=== PATIENT | female | born 1965 | race Caucasian/White ===

== ENCOUNTER → 2017-05-08 | Outpatient (CLI) | payer BC, OTHER ==
[~2017-05-08] MED LIST: BARIUM SUSPENSION 105% (LIQUID POLIBAR PLUS) 240 ML/DOSE PO ONE; BARIUM SUSPENSION 60% (LIQUID EZ PAQUE) 240 ML DOSE PO ONE
== END ==
DX: K21.9 Gastro-esophageal reflux disease without esophagitis (principal); K44.9 Diaphragmatic hernia without obstruction or gangrene

== ENCOUNTER 2017-06-26 05:36 | Outpatient (CLI) | payer OTHER ==
[~2017-06-26] VITALS: Ht 167.6 cm; Wt 137.9 kg
[2017-06-26] MEDS ORDERED: AMIT100T2 PO (10:03)
[2017-06-26] MEDS ORDERED: LEVO75TA PO (10:03)
[2017-06-26] MEDS ORDERED: CALC-654 PO (10:03)
[2017-06-26] MEDS ORDERED: ESTR1TAB27 PO (10:07)
[2017-06-26 10:09] VITALS: BP 121/81
== END 2017-06-26 10:33 | disposition home or self-care (01) ==
LOC: PREOP 05:36
PROVIDERS: ATTEND Surgery
DX: Z01.818 Encounter for other preprocedural examination (principal); E66.01 Morbid (severe) obesity due to excess calories
CPT/HCPCS: 87081

== ENCOUNTER 2017-07-03 06:10 | Day surgery (SDC) | payer OTHER ==
[2017-07-03] VITALS (7 sets, daily range): BP systolic 124–178; BP diastolic 78–98
[~2017-07-03] VITALS: Ht 167.6 cm; Wt 137.9 kg
[~2017-07-03 06:10] MED LIST changes: +AMIT100T2 PO; -BARIUM SUSPENSION 105% (LIQUID POLIBAR PLUS) 240 ML/DOSE PO ONE; -BARIUM SUSPENSION 60% (LIQUID EZ PAQUE) 240 ML DOSE PO ONE; +CALC-654 PO; +ESTR1TAB27 PO; +LEVO75TA PO
[2017-07-03] MEDS ORDERED: NS (IVPB) 50 ML ONE (06:33)
[2017-07-03] MEDS ORDERED: ceFAZolin 1,000 MG (ANCEF) VIAL ONE (06:33)
[2017-07-03] MEDS ORDERED: ALPR0.5T PO (06:57)
[2017-07-03] MEDS ORDERED: ceFAZolin 1 GM/NS 50 ML IVPB IV ONE ×2 (07:00)
[2017-07-03] MEDS ORDERED: FAMOTIDINE 20MG/2ML IV (PEPCID) IV ONE (07:00)
[2017-07-03] MEDS ORDERED: ONDANSETRON 4 MG/2 ML (SDV) Z0FRAN IV ONE (07:00)
[2017-07-03] MEDS: LACTATED RINGERS 1,000 ML IV PRN ×2 (07:17→11:23)
--- NOTE | 2017-07-03 07:48 | Progress Note-Pre Operative ---
Pre-Operative Progress Note H&P Reviewed The H&P was reviewed, patient examined and no changes noted. Date Seen by Provider: Jul 03, 2017 Time Seen by Provider: 07:40 Date H&P Reviewed: Jul 03, 2017 Time H&P Reviewed: 07:45 Pre-Operative Diagnosis: morbid obesity, obstructive sleep apnea GEOVANI HUNTER APRN Jul 03, 2017 7:48 am
[2017-07-03] MEDS ORDERED: BUP/EPI 0.5% 1:200,000 (MARCAINE) 10ML VIAL IJ ONE (09:59)
[2017-07-03] MEDS ORDERED: ONDANSETRON 4 MG/2 ML (SDV) Z0FRAN ONE ×2 (10:22→11:50)
[2017-07-03] MEDS ORDERED: proPOfol 200 MG/20 ML (DIPRIVAN) VIAL IV ONE (10:22)
[2017-07-03] MEDS ORDERED: ROCURONIUM 50 MG/5 ML (ZEMURON) VIAL IV ONE ×2 (10:22→11:37)
[2017-07-03] MEDS ORDERED: SUCCINYLCHOLINE INJ 100 MG/5 ML SYR ONE (10:22)
[2017-07-03] MEDS ORDERED: LIDOCAINE PF 2% 5 ML (XYLOCAINE) VIAL ONE (10:22)
[2017-07-03] MEDS ORDERED: LACTATED RINGERS 0 ML IV ONE (10:22)
[2017-07-03] MEDS ORDERED: MIDAZOLAM 2 MG/2 ML (VERSED) VIAL ONE (10:23)
[2017-07-03] MEDS ORDERED: fentaNYL INJECTION 100 MCG/2 ML AMP ONE ×2 (10:23→11:50)
[2017-07-03] MEDS ORDERED: SEVOFLURANE (ULTANE) 15 ML INHAL SOLN ONE ×7 (10:42→12:21)
[2017-07-03] MEDS ORDERED: LACTATED RINGERS 1,000 ML IV ONE ×3 (10:42→13:33)
[2017-07-03] MEDS ORDERED: morphine INJ 10 MG/ML 1ML (SYR OR VIAL) ONE (11:50)
[2017-07-03] MEDS ORDERED: MEPERIDINE (DEMEROL) INJ 50 MG/ML ONE (11:50)
[2017-07-03] MEDS ORDERED: HYDROmorphone (DILAUDID) 2 MG/ML VIAL ONE (11:50)
--- NOTE | 2017-07-03 13:01 | Progress Note-Post Operative ---
Post-Operative Progess Note Surgeon (s)/Weaving Supervisor (s) Surgeon JESUS MANCILLA MD Weaving Supervisor: aubrey forbes INSIDE SALES ACCOUNT EXECUTIVE Pre-Operative Diagnosis morbid obesity, obstructive sleep apnea Post-Operative Diagnosis same Procedure & Operative Findings Date of Procedure 07/03/17 Procedure Performed/Findings laparoscopic gastric sleeve resection. Anesthesia Type GET Estimated Blood Loss Estimated blood loss (mL): minimal Specimens/Packing Specimens Removed stomach JESUS MANCILLA MD Jul 03, 2017 1:01 pm
[2017-07-03] MEDS ORDERED: HYDROmorphone (DILAUDID) 2 MG/ML VIAL IVP PRN (13:15)
[2017-07-03] MEDS ORDERED: fentaNYL INJECTION 5,000 MCG in NS (IVPB) 0 ML IV SCH (13:15)
[2017-07-03] MEDS ORDERED: RT-ALBUTEROL SULF 2.5 MG/3 ML PRE-MIX VIAL INH SCH (13:15)
[2017-07-03] MEDS ORDERED: diphenhydrAMINE 50 MG/ML INJ (BENADRYL) IVP PRN (13:15)
[2017-07-03] MEDS ORDERED: MEPERIDINE (DEMEROL) INJ 50 MG/ML IVP PRN (13:15)
[2017-07-03] MEDS ORDERED: morphine INJ 10 MG/ML 1ML (SYR OR VIAL) IVP PRN (13:15)
[2017-07-03] MEDS ORDERED: PROMETHAZINE INJ 25 MG/ML (PHENERGAN) AMP IVP PRN (13:15)
[2017-07-03] MEDS ORDERED: oxyCODONE 20 MG/1 ML ORAL CONC (RoxiCODONE) CHARGE PER 1 ML PO PRN (13:15)
[2017-07-03] MEDS ORDERED: ONDANSETRON 4 MG/2 ML (SDV) Z0FRAN IVP PRN (13:15)
[2017-07-03] MEDS ORDERED: ceFAZolin 2 GM/50 ML NS 50 ML IV SCH (14:00)
[2017-07-03] MEDS ORDERED: NS IV 1000 ML 1,000 ML IV SCH (15:39)
[2017-07-03] MEDS ORDERED: diphenhydrAMINE 50 MG/ML INJ (BENADRYL) IV PRN (15:45)
[2017-07-03] MEDS ORDERED: METOCLOPRAMIDE INJ 10 MG/2 ML (REGLAN) IV PRN (15:45)
[2017-07-03] MEDS ORDERED: fentaNYL PCA 300 MCG/30 ML VIAL IV PRN (15:45)
[2017-07-03] MEDS ORDERED: NALOXONE 0.4 MG/ML 1 ML (NARCAN) VIAL IV PRN (15:45)
[2017-07-03] MEDS ORDERED: ONDANSETRON 4 MG/2 ML (SDV) Z0FRAN IV PRN (15:45)
[2017-07-03] MEDS: 1/2 NS W/KCL 20 MEQ/L 1,000 ML IV SCH (16:09)
--- NOTE | 2017-07-03 16:14 | OPERATIVE REPORT ---
DATE OF SERVICE: 07/03/2017 ATTENDING PRIMARY CARE PHYSICIAN: Dr. Gregory Dudley. PREOPERATIVE DIAGNOSES: 1. Morbid obesity. 2. Obstructive sleep apnea. POSTOPERATIVE DIAGNOSIS: 1. Morbid obesity. 2. Obstructive sleep apnea. PROCEDURE: Laparoscopic gastric sleeve resection. SURGEON: Dr. Mancilla. FIRE ENGINE OPERATOR: Oscar Garrett APRN. ANESTHESIA: General endotracheal. ESTIMATED BLOOD LOSS: Minimal. FINDINGS: Mild hepatomegaly, gallbladder appeared normal. DISPOSITION: The patient tolerated the procedure well. INDICATIONS: The patient is a 52-year-old female who is in our surgical weight loss program for the laparoscopic gastric sleeve resection and meets the medical criteria for bariatric surgery. She reports that she has been overweight for greater than 20 years and has tried multiple diet and exercise attempts with no success. She has tried dieting programs including a low carbohydrate, low fat diet, as well as a low calorie diet with no success. She has also tried a number of exercise regimens including walking, treadmill, bike, aerobic exercise classes, as well as resistance weight training with some success; however, over time would regain weight. Her medical comorbidities related to her obesity include obstructive sleep apnea. DESCRIPTION OF PROCEDURE: The patient was brought to the operating room, laid supine on the table. After adequate IV pain and sedating medications and general endotracheal intubation, the abdomen was prepped and draped in the standard surgical fashion. There was 0.5% Marcaine with epinephrine used to anesthetize the overlying skin in the left upper abdominal quadrant and a small transverse skin incision made using 15 blade. An 0 silk suture was applied to the medial aspect of the incision for retraction and a Veress needle inserted with a low opening pressure of 0 mmHg and the abdomen was then insufflated to 15 mmHg pressure. The Veress needle removed and a 5 mm Xcel trocar placed followed by a 5 mm 45 degree angle laparoscope visualizing in the peritoneal cavity. A 4 quadrant abdominal exploration was performed. There was mild hepatomegaly. The gallbladder, stomach and omentum appeared normal. Under direct visualization, we then proceeded to place a midabdominal left midline 10 mm port after the skin and peritoneum were anesthetized using 0.5% Marcaine with epinephrine and a transverse skin incision made using a 15 blade. In a similar fashion, a midabdominal right of midline 15 mm port was placed followed by a 5 mm right upper abdominal quadrant port. An area in the epigastric region was then anesthetized and a transverse skin incision made using an 11 blade. A tract was then created through the abdominal wall layers using a trocar to a 5 mm port. Through this opening a medium sized Nathansen liver retractor was placed. The left lobe of the liver retracted anteriorly and superiorly. The patient was then placed in steep reverse Trendelenburg position. We then measured approximately 6 cm from the pylorus and marked this with a marking pen. The gastrocolic ligament towards the stomach was then opened using a Sonicision exposing the lesser sac. We then proceeded inferiorly with an inferior dissection along the greater curvature using the Sonicision until we were approximately 2 cm below our marking. We then proceeded cephalad taking down the short gastric vessels using the Sonicision with visualization of good hemostasis. The angle of His connective tissue fibers were then completely dissected, as well as the posterior stomach in this region. No hiatal hernia was identified. We then proceeded with placement of the gastrosail under direct visualization and directed the tip into the pylorus. Using this as our bougie we then proceeded with a gastric sleeve resection. We first proceeded with the DAPHNIE 45 mm poly glycolic acid black load 2 cm below our marking. We then proceeded with our gastric sleeve resection along the lighted bougie with a 60 mm black load followed by 260 mm purple loads. The staple line corners were then clipped with a 5 mm clip. The area was then irrigated and a leak test was performed while occluding the pylorus 60 mL of air were infused with no leak identified. The saline was then suctioned out. Tisseel fibrin glue was then placed onto the staple line and the omentum placed over the staple line. The liver retractor was then removed and the gastrosail removed as well. The fascia and peritoneum to the 15 and 10 mm port site was then closed under direct visualization using a Warren-Josefa device and 0 Vicryl suture. The abdomen was desufflated and remaining ports removed. All skin incisions were closed using 4-0 Monocryl running subcuticular sutures. Wounds were then cleaned and covered with Dermabond. The patient tolerated the procedure well. We will admit her for 23-hour observation to the floor. We will proceed with DVT prophylaxis with calf SCDs, early ambulation, as well as Lovenox injections. We will also proceed with a SHELL WORKER pump for pain control. Tomorrow morning, we will start patient on clear liquid diet and once she is tolerating clears and has good pain control with oral pain medication and is ambulating well, we will discharge her home. Job ID: [id number] DocumentID: [id number] Dictated Date: 07/03/2017 13:19:25 Resistor Inspector Date: 07/03/2017 16:13:52 Dictated By: JESUS MANCILLA MD
[2017-07-03] MEDS: ceFAZolin 2 GM/50 ML NS 50 ML IV SCH (17:41)
[2017-07-03] MEDS: meTOprolol 5 MG/5 ML (LOPRESSOR) VIAL IVP SCH ×2 (17:50→20:51)
[2017-07-03] MEDS ORDERED: HYDROmorphone (DILAUDID) 2 MG TAB PO PRN (18:00)
[2017-07-03] MEDS: METOCLOPRAMIDE INJ 10 MG/2 ML (REGLAN) IVP SCH (18:51)
[2017-07-03] MEDS: ONDANSETRON 4 MG/2 ML (SDV) Z0FRAN IVP SCH (18:53)
[2017-07-03] MEDS: RT-ALBUTEROL SULF 2.5 MG/3 ML PRE-MIX VIAL INH SCH ×2 (19:05→21:11)
[2017-07-03] MEDS: ENOXAPARIN 40 MG/0.4 ML (LOVENOX) SYR SC SCH (20:19)
[2017-07-03] MEDS: HYDROmorphone (DILAUDID) 2 MG/ML VIAL IVP PRN (20:19)
[2017-07-03] MEDS: metroNIDAZOLE 500MG/100ML IVPB 100 ML IV SCH (22:16)
[2017-07-04] VITALS: BP 134/75
[2017-07-04] MEDS: 1/2 NS W/KCL 20 MEQ/L 1,000 ML IV SCH ×3 (00:06→08:28)
[2017-07-04] MEDS: METOCLOPRAMIDE INJ 10 MG/2 ML (REGLAN) IVP SCH ×3 (00:07→11:49)
[2017-07-04] MEDS: ONDANSETRON 4 MG/2 ML (SDV) Z0FRAN IVP SCH ×3 (00:07→11:49)
[2017-07-04] MEDS: HYDROmorphone (DILAUDID) 2 MG/ML VIAL IVP PRN ×2 (00:24→08:01)
[2017-07-04 00:31] VITALS: BP 121/80
[2017-07-04] MEDS: meTOprolol 5 MG/5 ML (LOPRESSOR) VIAL IVP SCH ×4 (00:31→12:06)
[2017-07-04] MEDS: ceFAZolin 2 GM/50 ML NS 50 ML IV SCH ×2 (00:31→10:12)
[2017-07-04] MEDS: RT-ALBUTEROL SULF 2.5 MG/3 ML PRE-MIX VIAL INH SCH ×3 (02:00→10:44)
[2017-07-04 04:00] VITALS: BP 158/96
[2017-07-04] MEDS: metroNIDAZOLE 500MG/100ML IVPB 100 ML IV SCH (04:30)
[2017-07-04 06:11] LABS: MEAN PLATELET VOLUME 10.4 FL (7.4-10.4); RED BLOOD COUNT 5.47 10^6/uL (4.35-5.85); RED CELL DISTRIBUTION WIDTH 15.1 % (10.0-14.5); WHITE BLOOD COUNT 11.7 10^3/uL (4.3-11.0)
[2017-07-04 06:37] LABS: ANION GAP 13 MMOL/L (5-14); BLOOD UREA NITROGEN 4 MG/DL (7-18); BUN/CREATININE RATIO 5; CALCIUM 10.4 MG/DL (8.5-10.1); CARBON DIOXIDE 22 MMOL/L (21-32); CHLORIDE 102 MMOL/L (98-107); CREATININE SERUM 0.75 MG/DL (0.60-1.30); GFR ESTIMATED > 60; GLUCOSE 102 MG/DL (70-105); POTASSIUM 3.9 MMOL/L (3.6-5.0); SODIUM 137 MMOL/L (135-145)
[2017-07-04] MEDS: ENOXAPARIN 40 MG/0.4 ML (LOVENOX) SYR SC SCH (07:58)
[2017-07-04 08:55] VITALS: BP 116/76
[2017-07-04] MEDS ORDERED: PANTOPRAZOLE 40 MG/10 ML (PROTONIX) VIAL IV SCH (09:00)
[2017-07-04] MEDS ORDERED: SENNA W/DOCUSATE (SENOKOT S) TABLET PO SCH (09:00)
--- NOTE | 2017-07-04 10:05 | Anesthesia-General Post-Op ---
General Patient Condition Mental Status/LOC: Same as Preop Cardiovascular: Satisfactory Nausea/Vomiting: Absent Respiratory: Satisfactory Pain: Controlled Complications: Absent Post Op Complications Complications None Follow Up Care/Instructions Patient Instructions None needed. Anesthesia/Patient Condition Patient Condition Patient is doing well, no complaints, stable vital signs, no apparent adverse anesthesia problems. No complications reported per nursing. АНДРЕЙ BURDICK CRNA Jul 04, 2017 10:05
[2017-07-04 12:00] VITALS: BP_SYST 103; BP_SYST 115; BP_DIAS 68; BP_DIAS 78
[2017-07-04] MEDS ORDERED: metroNIDAZOLE 500MG/100ML IVPB 100 ML IV SCH (12:30)
--- NOTE | 2017-07-04 13:00 | Progress Note (SOAP) ---
Subjective Date Seen by Provider: Jul 04, 2017 Time Seen by Provider: 12:00 Subjective/Events-last exam doing well. tolerating clears. pain controlled. ambulating well. Objective Exam Vital Signs Date Time Temp Pulse Resp B/P (MAP) Pulse Ox O2 Delivery O2 Flow Rate FiO2 07/04/17 10:44 95 Nasal Cannula 1.00 07/04/17 08:55 98.2 81 20 116/76 96 Room Air 10.00 07/04/17 07:31 98 Nasal Cannula 2.00 07/04/17 07:00 83 07/04/17 04:00 97.4 85 17 158/96 94 Room Air 07/04/17 02:02 94 Nasal Cannula 2.00 07/04/17 01:00 66 07/04/17 00:31 72 121/80 07/04/17 00:00 97.2 75 16 134/75 99 Room Air 10.00 07/04/17 00:00 97.2 75 16 134/75 99 Room Air 07/03/17 21:12 96 Nasal Cannula 2.00 07/03/17 20:53 76 124/83 07/03/17 20:53 74 07/03/17 20:00 Room Air 07/03/17 20:00 97.8 84 20 141/78 100 Room Air 07/03/17 19:05 95 Nasal Cannula 2.00 07/03/17 19:00 98.0 78 18 158/78 100 Room Air 07/03/17 18:20 97.7 79 20 153/80 98 Room Air 07/03/17 17:22 Room Air 10.00 07/03/17 17:00 97.8 92 20 178/98 97 Room Air 07/03/17 16:05 98.1 81 16 130/79 98 Room Air 07/03/17 15:57 2.00 I & O 07/05/17 07:00 Intake Total 100 ml Balance 100 ml Capillary Refill : General Appearance: No Apparent Distress HEENT: PERRL/EOMI Neck: Full Range of Motion, Normal Inspection Respiratory: Chest Non Tender, Lungs Clear Cardiovascular: Regular Rate, Rhythm Gastrointestinal: normal bowel sounds, soft, other (incisions clean/dry) Extremity: Normal Capillary Refill Neurologic/Psychiatric: Alert, Oriented x3 Skin: Normal Color Lymphatic: No Adenopathy Results Lab Laboratory Tests 07/04/17 05:52: White Blood Count 11.7H, Red Blood Count 5.47, Hemoglobin 15.2, Hematocrit 46, Mean Corpuscular Volume 85, Mean Corpuscular Hemoglobin 28, Mean Corpuscular Hemoglobin Concent 33, Red Cell Distribution Width 15.1H, Platelet Count 285, Mean Platelet Volume 10.4, Sodium Level 137, Potassium Level 3.9, Chloride Level 102, Carbon Dioxide Level 22, Anion Gap 13, Blood Urea Nitrogen 4L, Creatinine 0.75, Estimat Glomerular Filtration Rate > 60, BUN/Creatinine Ratio 5 , Glucose Level 102, Calcium Level 10.4H Assessment/Plan Assessment/Plan Assess & Plan/Chief Complaint s/p lap gastric sleeve resection. increase ambulation. home soon. Clinical Quality Measures DVT/VTE Risk/Contraindication: Risk Factor Score Per Nursin RFS Level Per Nursing on Admit: 4+=Very High JESUS MANCILLA MD Jul 04, 2017 1:00 pm
--- NOTE | 2017-07-04 13:02 | Discharge Inst-Surgical ---
D/C Lap Instructions-LAURENT Follow Up Appt in 2 weeks Activity as tolerated No driving for 24 hours No driving while on pain medications Incentive Spirometry use every 2 hours while awake clear liquid diet next 2 weeks. Symptoms to Report: Fever over 101 degree F, Nausea/Vomiting Infection Signs and Symptoms to report: Increased redness, Foul odor of wound, Increased drainage Bathing instructions: May shower Operative Area Clean/Dry; Keep incision clean/dry If any problems/questions: Contact your physician or go to Emergency Room JESUS MANCILLA MD Jul 04, 2017 1:01 pm
[2017-07-04] MEDS ORDERED: oxyCODONE 5 MG/5 ML ORAL SOLN (roxiCODONE) 5 ML UDC PO PRN (13:15)
[2017-07-04] MEDS ORDERED: ONDANSETRON 4 MG/2 ML (SDV) Z0FRAN IVP PRN (13:15)
[2017-07-04] MEDS ORDERED: METOCLOPRAMIDE INJ 10 MG/2 ML (REGLAN) IVP PRN (13:15)
[2017-07-04] MEDS ORDERED: OXYC5SOL19 PO (13:49)
[2017-07-04] MEDS ORDERED: PANT40TA3 PO (13:49)
[2017-07-04] MEDS ORDERED: ONDA4TAB8 PO (13:49)
== END 2017-07-04 14:00 | disposition home or self-care (01) ==
LOC: SDC 06:10 → 4TH 14:15 → SDC 07-04 14:00
PROVIDERS: ATTEND Surgery
DX: E66.01 Morbid (severe) obesity due to excess calories (principal); Z68.42 Body mass index [BMI] 45.0-49.9, adult; G47.33 Obstructive sleep apnea (adult) (pediatric); E11.9 Type 2 diabetes mellitus without complications; E03.9 Hypothyroidism, unspecified; M19.91 Primary osteoarthritis, unspecified site; Z79.899 Other long term (current) drug therapy
CPT/HCPCS: 36415; 80048; 85027; 94640; 94664; 94760

== ENCOUNTER 2017-07-17 09:09 | Emergency (ER) | payer OTHER ==
[~2017-07-17] VITALS: Ht 167.6 cm; Wt 127.9 kg
[~2017-07-17 09:09] MED LIST changes: +ALPR0.5T PO; +ONDA4TAB8 PO; +OXYC5SOL19 PO; +PANT40TA3 PO
[2017-07-17] MEDS ORDERED: ONDANSETRON 4 MG (ZOFRAN) ORAL DISSOLVE TAB SL ONE (09:45)
--- NOTE | 2017-07-17 10:54 | ED GI ---
General Chief Complaint: Abdominal/GI Problems Stated Complaint: THROWING UP/NAUSEOUS Nursing Triage Note: ADM TO ED REPORTS SHE HAS GASTRIC SLEEVE 2 WEEKS AGO. LAST NIGHT ONSET OF NAUSEA WITH DRY HEAVES. HAS PO ZOFRAN UNABLE TO KEEP IT DOWN Sepsis Screen: No Definite Risk Source of Information: Patient Exam Limitations: No Limitations History of Present Illness Time Seen By Provider: 09:23 Initial Comments This 52-year-old woman presents to the emergency room with complaints of nausea and vomited that started at 01:30. She had gastric sleeve surgery performed 2 weeks ago. She just started the pured foods yesterday. She attempted to take Zofran. However, her Zofran was not sublingual. When she swallowed it she vomited it back up. She has only had a small amount of emesis followed by dry heaving. She is not particularly nauseated now and denies any significant pain. Vital signs are within normal limits. Allergies and Home Medications Allergies Coded Allergies: No Known Drug Allergies (Unverified , 06/26/17) Home Medications Alprazolam 0.5 Mg Tablet, 0.5 MG PO HS PRN for ANXIETY, (Reported) Amitriptyline HCl 100 Mg Tablet, 100 MG PO HS, (Reported) Calcium Carbonate/Vitamin D3 1 Each Tablet, 1 TAB PO DAILY, (Reported) Estradiol 1 Mg Tablet, 1 MG PO DAILY, (Reported) Levothyroxine Sodium 75 Mcg Tablet, 75 MCG PO DAILY, (Reported) Ondansetron 4 Mg Tab.rapdis, 4 MG PO Q4H PRN for PRN, (Reported) Ondansetron 4 Mg Tab.rapdis, 4 MG SL Q4H PRN for NAUSEA/VOMITING-1ST LINE, #10 Ref 2 Prescribed by: RAUL CHAVEZ on 07/17/17 1057 Oxycodone HCl 5 Mg/5 Ml Solution, 5-10 ML PO Q4H, #300 Prescribed by: TONIE FELIZ on 07/04/17 1349 Pantoprazole Sodium 40 Mg Tablet.dr, 40 MG PO DAILY, #30 Prescribed by: TONIE FELIZ on 07/04/17 1349 Review of Systems Constitutional: no symptoms reported EENTM: No Symptoms Reported Respiratory: No Symptoms Reported Cardiovascular: No Symptoms Reported Gastrointestinal: See HPI Genitourinary: No Symptoms Reported Musculoskeletal: no symptoms reported Skin: no symptoms reported Psychiatric/Neurological: No Symptoms Reported Endocrine: No Symptoms Reported Past Zbfksys-Satysx-Qqyzlk Hx Patient Social History Alcohol Use: Denies Use Recreational Drug Use: No Smoking Status: Never a Smoker Former Smoker, Quit: May 26, 2017 Recent Foreign Travel: No Contact w/Someone Who Travel: No Recent Infectious Disease Expo: No Recent Hopitalizations: No Immunizations Up To Date Date of Influenza Vaccine: Aug 26, 2016 Seasonal Allergies Seasonal Allergies: Yes Surgeries History of Surgeries: Yes (D&C, GASTRIC SLEVE) Respiratory History of Respiratory Disorde: No Cardiovascular History of Cardiac Disorders: No Neurological History of Neurological Disord: Yes (HX OF MIGRAINES) Neurological Disorders: Headaches /Migraines 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 System Hx 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 Disorders: No Sexually Transmitted Disease: No HIV/AIDS: No Female 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 Disorders: Denies Genitourinary History of Genitourinary Disor: No Gastrointestinal History of Gastrointestinal Di: Yes Gastrointestinal Disorders: Gastroesophageal Reflux Musculoskeletal History of Musculoskeletal Dis: Yes (KNEES) Musculoskeletal Disorders: Arthritis Endocrine History of Endocrine Disorders: Yes Endocrine Disorders: Hypothyroidsim HEENT Loss of Vision: Bilateral Hearing Impairment: Denies Cancer History of Cancer: No Psychosocial History of Psychiatric Problem: No Integumentary History of Skin or Integumenta: No Blood Transfusions History of Blood Disorders: No Adverse Reaction to a Blood Tr: No (N/A) Physical Exam Vital Signs VS - Last 72 Hours, by Label 07/17/17 07/17/17 09:21 11:01 Temp 97.4 Pulse 89 89 Resp 18 18 B/P (MAP) 132/98 Pulse Ox 95 95 O2 Delivery Room Air Capillary Refill : Less Than 3 Seconds General Appearance: WD/WN, no apparent distress HEENT: PERRL/EOMI, normal ENT inspection Respiratory: lungs clear, normal breath sounds, no respiratory distress Cardiovascular: regular rate, rhythm, no edema, no murmur Gastrointestinal: normal bowel sounds, non tender, soft Extremities: normal inspection, no pedal edema Neurologic/Psychiatric: healthcare network consultant II-XII nml as tested, no motor/sensory deficits, alert, normal mood/affect, oriented x 3 Skin: normal color, warm/dry Progress/Results/Core Measures Results/Orders My Orders Orders - RAUL TRISTAN MD Ondansetron Oral Dissolve Tab (Zofran (07/17/17 09:45) General/Regular (07/17/17 Lunch) Medications Given in ED Current Medications Medications Dose Ordered Sig/Chris Route Start Time Stop Time Status Last Admin Dose Admin Ondansetron HCl 8 mg ONCE ONCE SL 07/17/17 09:45 07/17/17 09:46 DC 07/17/17 09:35 8 MG Vital Signs/I&O Vital Sign - Last 12Hours 07/17/17 07/17/17 09:21 11:01 Temp 97.4 Pulse 89 89 Resp 18 18 B/P (MAP) 132/98 Pulse Ox 95 95 O2 Delivery Room Air Blood Pressure Mean: 109 Progress Note : Progress Note Patient was given sublingual Zofran. She tolerated clear liquids without complication. She then ate a half cup of Jell-O without complications. She felt full after eating the Jell-O. She was dismissed home to follow-up with Dr. hCa. Departure Impression Impression: Primary Impression: Nausea and vomiting Qualified Codes: R11.2 - Nausea with vomiting, unspecified Disposition: HOME, SELF-CARE Condition: Improved Departure-Patient Inst. Decision time for Depature: 10:52 Referrals: YUSEF TOM DO (PCP/Family) Primary Care Physician Patient Instructions: Nausea and Vomiting, Adult Add. Discharge Instructions: Drink plenty of clear liquids and gradually advance your diet as directed by Dr. Cha. Please inform Dr. Cha of your complications and follow his instructions. You may change your Zofran (ondansetron) to the sublingual formulation to dissolve under the tongue. Return to care if symptoms worsen. All discharge instructions reviewed with patient and/or family. Voiced understanding. Scripts Ondansetron (Zofran Odt) 4 Mg Tab.rapdis 4 MG SL Q4H Y for NAUSEA/VOMITING-1ST LINE, #10 TAB 2 Refills Prov: RAUL TRISTAN MD 07/17/17 Copy Copies To 1: JESUS CHA MD, JOSHUA T MD Jul 17, 2017 10:54
[2017-07-17] MEDS ORDERED: ONDA4TAB8 SL (10:57)
[2017-07-17 11:01] VITALS: BP 132/98
== END 2017-07-17 11:01 | disposition home or self-care (01) ==
LOC: EDUNIT# 09:09 → ER 09:13
DX: R11.2 Nausea with vomiting, unspecified (principal); G43.909 Migraine, unspecified, not intractable, without status migrainosus; K21.9 Gastro-esophageal reflux disease without esophagitis; M17.0 Bilateral primary osteoarthritis of knee; E03.9 Hypothyroidism, unspecified; Z98.84 Bariatric surgery status
CPT/HCPCS: 99283

== ENCOUNTER 2017-07-23 17:00 | Observation (INO) | payer OTHER ==
[~2017-07-23] VITALS: Ht 167.6 cm; Wt 123.4 kg
[2017-07-23 17:00] VITALS: BP 134/83
[~2017-07-23 17:00] MED LIST changes: +ONDA4TAB8 SL
--- NOTE | 2017-07-23 17:09 | History & Physicial ---
History of Present Illness History of Present Illness Reason for visit/HPI This is a 52 year old female with morbid obesity and medical comorbidities related to obesity including MOMO. She is status post laparoscopic gastric sleeve resection on 07/03/17. She was seen in the office today and reported that for approx. the last week she has not been able to tolerate soft foods or liquids. She reports that she is having persistent nausea and will vomit with eating and with most liquids. She denies any fever/chills as well as no diarrhea /constipation. She reports that she was presented to the ER twice. She presented to [facility] ER first where she was diagnosed with gastroenteritis however was not improving then a few days later presented [place] [facility] [place] and given IV fluids however her symptoms continued. She also reports a concentrated urine with low output. Date of Admission Jul 23, 2017 at 5:00 pm Date Seen by Provider: Jul 23, 2017 Time Seen by Provider: 16:45 I consulted on this patient on 07/23/17 17:02 Attending Physician Jesus Cha MD Admitting Physician Gregory Dudley DO Consult Allergies and Home Medications Allergies Coded Allergies: No Known Drug Allergies (Unverified , 06/26/17) Home Medications Alprazolam 0.5 Mg Tablet, 0.5 MG PO HS PRN for ANXIETY, (Reported) Amitriptyline HCl 100 Mg Tablet, 100 MG PO HS, (Reported) Calcium Carbonate/Vitamin D3 1 Each Tablet, 1 TAB PO DAILY, (Reported) Estradiol 1 Mg Tablet, 1 MG PO DAILY, (Reported) Levothyroxine Sodium 75 Mcg Tablet, 75 MCG PO DAILY, (Reported) Ondansetron 4 Mg Tab.rapdis, 4 MG PO Q4H PRN for PRN, (Reported) Ondansetron 4 Mg Tab.rapdis, 4 MG SL Q4H PRN for NAUSEA/VOMITING-1ST LINE, #10 Ref 2 Prescribed by: RAUL CHAVEZ on 07/17/17 1057 Oxycodone HCl 5 Mg/5 Ml Solution, 5-10 ML PO Q4H, #300 Prescribed by: TONIE FELIZ on 07/04/17 1349 Pantoprazole Sodium 40 Mg Tablet.dr, 40 MG PO DAILY, #30 Prescribed by: TONIE FELIZ on 07/04/17 1349 Past Hmyymzh-Waepsb-Tryrxm Hx Patient Social History Former Smoker, Quit: May 26, 2017 Recent Hopitalizations: No Immunizations Up To Date Date of Influenza Vaccine: Aug 26, 2016 Seasonal Allergies Seasonal Allergies: Yes Surgeries Yes (D&C, GASTRIC SLEVE) Respiratory No Cardiovascular No Neurological Yes (HX OF MIGRAINES) Headaches /Migraines 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 System Hx 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 Disorders: No Sexually Transmitted Disease: No HIV/AIDS: No Female 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 Disorders: Denies Genitourinary No Gastrointestinal Yes Gastroesophageal Reflux Musculoskeletal Yes (KNEES) Arthritis Endocrine History of Endocrine Disorders: Yes Endocrine Disorders: Hypothyroidsim HEENT Loss of Vision: Bilateral Hearing Impairment: Denies Cancer No Psychosocial History of Psychiatric Problem: No Integumentary History of Skin or Integumenta: No Blood Transfusions History of Blood Disorders: No Adverse Reaction to a Blood Tr: No (N/A) Constitutional: weakness EENTM: no symptoms reported Respiratory: no symptoms reported Cardiovascular: no symptoms reported Gastrointestinal: No constipation, No diarrhea, nausea, vomiting Genitourinary: see HPI, decreased output Musculoskeletal: no symptoms reported Skin: no symptoms reported Psychiatric/Neurological: No Symptoms Reported Physical Exam Vital Signs Capillary Refill : General Appearance: No Apparent Distress, WD/WN HEENT: PERRL/EOMI Neck: Full Range of Motion, Normal Inspection, Non Tender, Supple Respiratory: Chest Non Tender, Lungs Clear, Normal Breath Sounds, No Accessory Muscle Use, No Respiratory Distress Cardiovascular: Regular Rate, Rhythm, No Edema Gastrointestinal: Normal Bowel Sounds, No Organomegaly, No Pulsatile Mass, Non Tender, Soft Back: Normal Inspection, No CVA Tenderness, No Vertebral Tenderness Extremity: Normal Capillary Refill, Normal Inspection, Normal Range of Motion, Non Tender, No Calf Tenderness, No Pedal Edema Neurologic/Psychiatric: Alert, Oriented x3 Skin: Normal Color, Warm/Dry, Other (5 abdominal incisions C/D/I) Assessment/Plan Assessment and Plan A 52 year old female with persistent Nausea and vomiting, dehydration, who is S/ P laparoscopic gastric sleeve resection. CBC, CMP, UA 2 liter fluid bolus, then continuous IV fluids. IV pain, nausea, PPI medication. Clear liquid diet. Will resume home medications. Once patient's symptoms have improved, we will then discharge home. Problems: Admission Diagnosis Persistent Nausea and vomiting, dehydration Copy Copies To 1: JESUS CHA MD, DUSTIN L APRN Jul 23, 2017 5:08 pm
[2017-07-23] MEDS ORDERED: ALPRAZolam 0.5 MG (XANAX) TAB PO PRN (17:30)
[2017-07-23] MEDS ORDERED: PANTOPRAZOLE 40 MG/10 ML (PROTONIX) VIAL IV SCH (17:30)
[2017-07-23 17:42] LABS: MEAN PLATELET VOLUME 10.2 FL (7.4-10.4); RED BLOOD COUNT 5.34 10^6/uL (4.35-5.85); RED CELL DISTRIBUTION WIDTH 15.2 % (10.0-14.5); WHITE BLOOD COUNT 9.9 10^3/uL (4.3-11.0)
[2017-07-23] MEDS ORDERED: CATHETER FLUSH 10 ML SYR IV PRN (17:45)
[2017-07-23] MEDS ORDERED: DEXAMETHASONE 4 MG/ML SDV (DECADRON) IV PRN (17:45)
[2017-07-23] MEDS: ONDANSETRON 4 MG/2 ML (SDV) Z0FRAN IV PRN (18:00)
[2017-07-23] MEDS: NS IV 1000 ML 1,000 ML IV SCH ×3 (18:00→21:56)
[2017-07-23] MEDS: fentaNYL INJECTION 100 MCG/2 ML AMP IV PRN (18:03)
[2017-07-23 18:18] LABS: ALANINE AMINOTRANSFERASE 78 U/L (0-55); ALBUMIN 3.4 GM/DL (3.2-4.5); ANION GAP 17 MMOL/L (5-14); ASPARTATE AMINO TRANSFERASE 72 U/L (5-34); BILIRUBIN,TOTAL 0.9 MG/DL (0.1-1.0); BLOOD UREA NITROGEN 8 MG/DL (7-18); BUN/CREATININE RATIO 11; CARBON DIOXIDE 22 MMOL/L (21-32); CHLORIDE 97 MMOL/L (98-107); CREATININE SERUM 0.75 MG/DL (0.60-1.30); GFR ESTIMATED > 60; GLUCOSE 99 MG/DL (70-105); POTASSIUM 3.6 MMOL/L (3.6-5.0); SODIUM 136 MMOL/L (135-145); TOTAL PROTEIN 7.3 GM/DL (6.4-8.2)
[2017-07-23 20:20] VITALS: BP 117/81
[2017-07-23] MEDS: PANTOPRAZOLE 40 MG/10 ML (PROTONIX) VIAL IV SCH (20:49)
[2017-07-23] MEDS: PROMETHAZINE INJ 25 MG/ML (PHENERGAN) AMP IV PRN (20:57)
[2017-07-23] MEDS: AMITRIPTYLINE 50 MG (ELAVIL) TAB PO SCH (21:55)
[2017-07-23 23:25] VITALS: BP 121/72
[2017-07-24] MEDS: NS IV 1000 ML 1,000 ML IV SCH ×3 (02:03→22:54)
[2017-07-24 02:23] LABS: KETONES,URINE 4+ (NEGATIVE); LEUKOCYTE ESTERASE ,URINE 1+ (NEGATIVE); NITRITE,URINE NEGATIVE (NEGATIVE); PH,URINE 5 (5-9); PROTEIN,URINE 2+ (NEGATIVE); UROBILINOGEN,URINE 8 MG/DL (NORMAL)
[2017-07-24 02:42] LABS: BILIRUBIN,URINE 2+ (NEGATIVE); WBC,URINE RARE /HPF
[2017-07-24 03:35] VITALS: BP 106/73
[2017-07-24] MEDS: LEVOTHYROXINE 75 MCG (LEVOTHROID) TABLET PO SCH (06:45)
[2017-07-24 08:00] VITALS: BP 113/68
[2017-07-24] MEDS: PANTOPRAZOLE 40 MG/10 ML (PROTONIX) VIAL IV SCH ×2 (08:06→20:32)
[2017-07-24] MEDS: ESTRADIOL 1 MG TAB (ESTRACE) PO SCH (08:06)
[2017-07-24] MEDS: ONDANSETRON 4 MG/2 ML (SDV) Z0FRAN IV PRN ×2 (08:06→20:32)
[2017-07-24] MEDS ORDERED: PANT40TA2 PO (08:32)
[2017-07-24] MEDS ORDERED: ONDA4TAB11 PO (08:32)
[2017-07-24] MEDS ORDERED: MULT-35 PO (08:34)
[2017-07-24] MEDS ORDERED: CYAN10006 PO (08:34)
[2017-07-24 12:00] VITALS: BP 127/80
--- NOTE | 2017-07-24 13:18 | Progress Note (SOAP) ---
Subjective Date Seen by Provider: Jul 24, 2017 Time Seen by Provider: 13:00 Subjective/Events-last exam Patient seen with Dr. Cha. Patient reports that she is improving. Has not had any vomiting but still having nausea. No abdominal pain. Patient reports that she feels like she has been running a low grade temp. Reports diarrhea but no constipation. Tolerating clear liquids. Reports still feels a little weak as well as anxious. Review of Systems Gastrointestinal: Nausea, Diarrhea, No: Vomiting, Abdominal Pain, Constipation Objective Exam Vital Signs Date Time Temp Pulse Resp B/P (MAP) Pulse Ox O2 Delivery O2 Flow Rate FiO2 07/24/17 03:35 98.3 79 18 106/73 98 Room Air 07/23/17 23:25 98.2 82 20 121/72 96 Room Air 07/23/17 20:50 Room Air 07/23/17 20:20 99.4 87 20 117/81 96 Room Air 07/23/17 17:00 99.1 100 18 134/83 95 Room Air Capillary Refill : General Appearance: No Apparent Distress, WD/WN, Anxious HEENT: PERRL/EOMI Neck: Full Range of Motion, Normal Inspection, Non Tender, Supple Respiratory: Chest Non Tender, Lungs Clear, Normal Breath Sounds, No Accessory Muscle Use, No Respiratory Distress Cardiovascular: Regular Rate, Rhythm, No Edema Gastrointestinal: normal bowel sounds, non tender, soft Extremity: Normal Capillary Refill, Normal Inspection, Normal Range of Motion, Non Tender, No Calf Tenderness, No Pedal Edema Neurologic/Psychiatric: Alert, Oriented x3 Skin: Normal Color, Warm/Dry Results Lab Laboratory Tests 07/23/17 17:35: White Blood Count 9.9, Red Blood Count 5.34, Hemoglobin 14.8, Hematocrit 44, Mean Corpuscular Volume 82, Mean Corpuscular Hemoglobin 28, Mean Corpuscular Hemoglobin Concent 34, Red Cell Distribution Width 15.2H, Platelet Count 519H, Mean Platelet Volume 10.2, Sodium Level 136, Potassium Level 3.6, Chloride Level 97L, Carbon Dioxide Level 22, Anion Gap 17H, Blood Urea Nitrogen 8, Creatinine 0.75, Estimat Glomerular Filtration Rate > 60, BUN/Creatinine Ratio 11, Glucose Level 99, Calcium Level 12.0H, Total Bilirubin 0.9, Aspartate Amino Transf (AST/SGOT) 72H, Alanine Aminotransferase (ALT/SGPT) 78H, Alkaline Phosphatase 150H, Total Protein 7.3, Albumin 3.4 07/24/17 02:12: Urine Color AMBERH, Urine Clarity CLEAR, Urine pH 5, Urine Specific [place] 1.025H, Urine Protein 2+H, Urine Glucose (UA) NEGATIVE, Urine Ketones 4+H, Urine Nitrite NEGATIVE, Urine Bilirubin 2+H, Urine Urobilinogen 8H, Urine Leukocyte Esterase 1+H, Urine RBC (Auto) 1+H, Urine RBC RARE, Urine WBC RARE, Urine Squamous Epithelial Cells 2-5, Urine Crystals NONE, Urine Bacteria NEGATIVE, Urine Casts NONE, Urine Mucus LARGEH, Urine Culture Indicated NO Assessment/Plan Assessment/Plan Assess & Plan/Chief Complaint A 52 year old female with persistent nausea, vomiting and dehydration who is S/ P. lap gastric sleeve resection. Still has nausea but vomiting improved. VSS. Will start xanax 0.5mg q8h prn for anxiety. Continue with medical management with IV fluids, IV pain and nausea medication, as well as protonix bid. Clear liquid diet. encourage ambulation If patient's weakness and nausea are improved tomorrow, will plan to DC home. Clinical Quality Measures DVT/VTE Risk/Contraindication: Risk Factor Score Per Nursin RFS Level Per Nursing on Admit: 3=High GEOVANI HUNTER FEDERAL MEDIATOR Jul 24, 2017 13:18
[2017-07-24] MEDS: ALPRAZolam 0.5 MG (XANAX) TAB PO PRN ×2 (13:40→22:54)
[2017-07-24] MEDS: PROMETHAZINE INJ 25 MG/ML (PHENERGAN) AMP IV PRN (13:40)
[2017-07-24 16:00] VITALS: BP 137/65
[2017-07-24 20:08] VITALS: BP 119/70
[2017-07-24] MEDS: fentaNYL INJECTION 100 MCG/2 ML AMP IV PRN (20:32)
[2017-07-24] MEDS: AMITRIPTYLINE 50 MG (ELAVIL) TAB PO SCH (23:01)
[2017-07-24 23:19] VITALS: BP 131/64
[2017-07-25 04:15] VITALS: BP 129/72
[2017-07-25] MEDS: LEVOTHYROXINE 75 MCG (LEVOTHROID) TABLET PO SCH (06:43)
[2017-07-25 08:00] VITALS: BP 122/74
[2017-07-25] MEDS: PANTOPRAZOLE 40 MG/10 ML (PROTONIX) VIAL IV SCH (08:16)
[2017-07-25] MEDS: ESTRADIOL 1 MG TAB (ESTRACE) PO SCH (08:16)
[2017-07-25] MEDS ORDERED: DEXAINTSOL PO (13:12)
[2017-07-25] MEDS ORDERED: SUCR1TAB36 PO (13:12)
[2017-07-25 14:10] VITALS: BP 122/74
--- NOTE | 2017-08-04 15:26 | Physician Query-Final Dx ---
ANA SEE 08/04/17 1526: Final Diagnosis Give Final Diagnosis Please give Final Diagnosis GEOVANI HUNTER APRN 08/05/17 1152: Final Diagnosis Give Final Diagnosis Persistent Nausea and Vomiting, dehydration ANA SEE Aug 04, 2017 15:26 GEOVANI HUNTER APRN Aug 05, 2017 11:52
--- NOTE | 2017-08-06 17:15 | Progress Note-Standard ---
Standard Progress Note Progress Notes/Assess & Plan Date Seen by Provider: Jul 24, 2017 Time Seen by Provider: 12:00 Progress/Assessment & Plan patient seen and evaluated as well. agreement with aubrey forbes APRN. final diagnosis: persistent nausea and vomiting with dehydration. Final Diagnosis persistent nausea and vomiting with dehydration. JESUS MANCILLA MD Aug 06, 2017 17:15
== END 2017-07-25 13:08 | disposition home or self-care (01) ==
LOC: 4TH 17:00 → UNDOADMIN 17:00 → 4TH 17:00 → UNDODISIN 07-25 13:47 → EDSTATUS 07-29 08:49
PROVIDERS: ADMIT Surgery; ATTEND Surgery
DX: K91.0 Vomiting following gastrointestinal surgery (principal); E86.0 Dehydration; E66.01 Morbid (severe) obesity due to excess calories; Z68.41 Body mass index [BMI] 40.0-44.9, adult; F41.9 Anxiety disorder, unspecified; G47.33 Obstructive sleep apnea (adult) (pediatric); K21.9 Gastro-esophageal reflux disease without esophagitis; E03.9 Hypothyroidism, unspecified
CPT/HCPCS: 36415; 80053; 81000; 85027; 99211; G0378

== ENCOUNTER 2019-07-26 12:09 | Emergency (ER) | payer OTHER ==
[~2019-07-26] VITALS: Ht 165 cm; Wt 97.0 kg
[~2019-07-26 12:09] MED LIST changes: +CYAN-41 PO; +DEXAINTSOL PO; +MULT-35 PO; +ONDA4TAB11 PO; +PANT40TA2 PO; +SUCR1TAB36 PO
[2019-07-26 12:35] VITALS: BP_SYST 104; BP_SYST 106; BP_SYST 74; BP_DIAS 56; BP_DIAS 70; BP_DIAS 74
[2019-07-26] MEDS ORDERED: FLUT16SP22 (12:48)
[2019-07-26] MEDS ORDERED: PRAM0.128 (12:48)
[2019-07-26] MEDS ORDERED: ALPR0.254 (12:48)
[2019-07-26] MEDS ORDERED: NS IV 1000 ML 1,000 ML IV SCH (13:00)
[2019-07-26 13:02] LABS: BASOPHILS % (AUTO) 0 % (0-10); EOSINOPHILS # (AUTO) 0.1 10^3/uL (0.0-0.3); EOSINOPHILS % (AUTO) 1 % (0-10); HEMATOCRIT 42 % (35-52); HEMOGLOBIN 13.8 G/DL (11.5-16.0); LYMPHOCYTES # (AUTO) 1.5 X 10^3 (1.0-4.0); LYMPHOCYTES % (AUTO) 19 % (12-44); MEAN CORPUSCULAR HEMOGLOBIN 29 PG (25-34); MEAN CORPUSCULAR HGB CONC 33 G/DL (32-36); MEAN CORPUSCULAR VOLUME 87 FL (80-99); MEAN PLATELET VOLUME 10.3 FL (7.4-10.4); MONOCYTES # (AUTO) 0.8 X 10^3 (0.0-1.0); MONOCYTES % (AUTO) 9 % (0-12); NEUTROPHILS # (AUTO) 5.6 X 10^3 (1.8-7.8); NEUTROPHILS % (AUTO) 71 % (42-75); PLATELET COUNT 312 10^3/uL (130-400); RED CELL DISTRIBUTION WIDTH 16.3 % (10.0-14.5)
[2019-07-26 13:29] LABS: ALANINE AMINOTRANSFERASE < 6 U/L (0-55); ALBUMIN 4.2 GM/DL (3.2-4.5); ALKALINE PHOSPHATASE 134 U/L (40-136); BILIRUBIN,TOTAL 0.3 MG/DL (0.1-1.0); BUN/CREATININE RATIO 15; CALCIUM 10.6 MG/DL (8.5-10.1); CARBON DIOXIDE 25 MMOL/L (21-32); CHLORIDE 107 MMOL/L (98-107); CREATININE SERUM 0.82 MG/DL (0.60-1.30); GFR ESTIMATED > 60; GLUCOSE 81 MG/DL (70-105); POTASSIUM 3.9 MMOL/L (3.6-5.0); SODIUM 141 MMOL/L (135-145); TOTAL PROTEIN 7.5 GM/DL (6.4-8.2)
[2019-07-26] MEDS ORDERED: LACTATED RINGERS 1,000 ML IV SCH (13:45)
[2019-07-26 14:30] VITALS: BP_SYST 118; BP_SYST 119; BP_SYST 131; BP_DIAS 80; BP_DIAS 83
[2019-07-26 14:46] LABS: CLARITY,URINE SLIGHTLY CLOUDY; COLOR,URINE YELLOW; GLUCOSE, URINE (UA) NEGATIVE (NEGATIVE); KETONES,URINE 2+ (NEGATIVE); LEUKOCYTE ESTERASE ,URINE 3+ (NEGATIVE); NITRITE,URINE NEGATIVE (NEGATIVE); PH,URINE 5 (5-9); PROTEIN,URINE 2+ (NEGATIVE); UROBILINOGEN,URINE 1 MG/DL (NORMAL)
--- NOTE | 2019-07-26 14:52 | ED Syncope ---
General Chief Complaint: Dizziness/Syncope Stated Complaint: FAINTED Nursing Triage Note: PT PRESENTS TO ED WITH COMPLAINTS OF A EAR SYNCOPAL EPISODE WHILE AT WORK THIS AM. PT REPORTS HER VISION STARTED TO FADE AND HER HEARING GOT MUFFLED, SHE BECAME FAINT FEELING AND WAS ASSISTED TO A SITTING POSITION. PT REPORTS SHE HAS HX OF SYNCOPAL EPISODES IN THE PAST. PT STATES SHE DID NOT EAT BREAKFAST THIS AM. PT ALSO STATES THAT HER S/S SEEM TO BE AGGRIVATED BY STANDING UP FAST OR MOVING POSITIONS FAST. PT REPORTS HE BLOOD GLUCOSE AT WORK AFTER THIS INCIDENT WAS 135. Source of Information: Patient Exam Limitations: No Limitations History of Present Illness Date Seen by Provider: Jul 26, 2019 Time Seen by Provider: 12:53 Initial Comments 54 year old female who presents to the ED with complaints of dizziness and near syncope while at work this morning. She reports that it is worse with standing. She reports that she has not been eating and drinking as much and could be dehydrated. She reports that her blood sugar was 130 at work. Timing/Prior Episodes: No Prior History Loss of Consciousness: No Loss of Consciousness Current Symptoms: Dizziness, Lightheadedness Allergies and Home Medications Allergies Coded Allergies: No Known Drug Allergies (Unverified , 06/26/17) Home Medications Amitriptyline HCl 100 Mg Tablet, 50 MG PO HS, (Reported) TAKES 1/2 (100MG) TABLET Calcium Carbonate/Vitamin D3 1 Each Tablet, 1 TAB PO DAILY, (Reported) Levothyroxine Sodium 75 Mcg Tablet, 75 MCG PO DAILY, (Reported) Multivitamin 1 Each Tablet, 1 TAB PO DAILY, (Reported) Patient Home Medication List Home Medication List Reviewed: Yes Review of Systems Constitutional: see HPI; No chills; dizziness; No fever Cardiovascular: see HPI, syncope All Other Systems Reviewed Negative Unless Noted: Yes Past Jtqolby-Monfef-Yxvqyu Hx Past Med/Social Hx: Reviewed Nursing Past Med/Soc Hx Patient Social History Alcohol Use: Rarely Uses Recreational Drug Use: No Smoking Status: Former Smoker Former Smoker, Quit: May 26, 2017 Recent Foreign Travel: No Contact w/Someone Who Travel: No Recent Infectious Disease Expo: No Recent Hopitalizations: Yes (3wks ago) Physical Abuse: No Sexual Abuse: No Mistreated: No Fear: No Immunizations Up To Date Date of Influenza Vaccine: Aug 26, 2016 Seasonal Allergies Seasonal Allergies: Yes Past Medical History Surgeries: Yes (D&C, GASTRIC SLEVE) Respiratory: No Cardiac: No Neurological: Yes (HX OF MIGRAINES) Headaches /Migraines, Parkinson's Disease 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 Disorders: No Female 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 Disorders: Denies Sexually Transmitted Disease: No HIV/AIDS: No Genitourinary: No Gastrointestinal: Yes (has gastric sleeve) Gastroesophageal Reflux Musculoskeletal: Yes (KNEES) Arthritis Endocrine: Yes Hypothyroidsim HEENT: Yes (vision corrected with glasses) Loss of Vision: Bilateral Hearing Impairment: Denies Cancer: No Psychosocial: No Anxiety, Depression Integumentary: No Blood Disorders: No Adverse Reaction/Blood Tranf: No (N/A) Family Medical History Reviewed Nursing Family Hx Cardiovascular disease 19 MOTHER Diabetes mellitus G8 BROTHER FH: prostate cancer Physical Exam Vital Signs Vital Signs - First Documented 07/26/19 07/26/19 12:35 12:38 Temp 36.1 Pulse 89 88 92 Resp 16 B/P (MAP) 106/70 (82) 104/74 (84) 74/56 (62) Pulse Ox 98 Capillary Refill : Less Than 3 Seconds Height, Weight, BMI Height: 5'6.00" Weight: 272lbs. 0.0oz. 123.864019dv; 35.00 BMI Method:Stated General Appearance: No Apparent Distress, WD/WN HEENT: PERRL/EOMI Cardiovascular: Regular Rate, Rhythm, No Edema, No Gallop, No JVD, No Murmur, Normal Peripheral Pulses Respiratory: Chest Non Tender, Lungs Clear, Normal Breath Sounds, No Accessory Muscle Use, No Respiratory Distress Gastrointestinal: Normal Bowel Sounds, No Organomegaly, No Pulsatile Mass, Non Tender, Soft Cranial Nerves: Normal Hearing, Normal Speech, PERRL Coordination/Gait: Normal Gait Skin: Normal Color, Warm/Dry Progress/Results/Core Measures Results/Orders Lab Results Laboratory Tests Test 07/26/19 12:52 07/26/19 14:40 Range/Units White Blood Count 8.0 4.3-11.0 10^3/uL Red Blood Count 4.85 4.35-5.85 10^6/uL Hemoglobin 13.8 11.5-16.0 G/DL Hematocrit 42 35-52 % Mean Corpuscular Volume 87 80-99 FL Mean Corpuscular Hemoglobin 29 25-34 PG Mean Corpuscular Hemoglobin Concent 33 32-36 G/DL Red Cell Distribution Width 16.3 H 10.0-14.5 % Platelet Count 312 130-400 10^3/uL Mean Platelet Volume 10.3 7.4-10.4 FL Neutrophils (%) (Auto) 71 42-75 % Lymphocytes (%) (Auto) 19 12-44 % Monocytes (%) (Auto) 9 0-12 % Eosinophils (%) (Auto) 1 0-10 % Basophils (%) (Auto) 0 0-10 % Neutrophils # (Auto) 5.6 1.8-7.8 X 10^3 Lymphocytes # (Auto) 1.5 1.0-4.0 X 10^3 Monocytes # (Auto) 0.8 0.0-1.0 X 10^3 Eosinophils # (Auto) 0.1 0.0-0.3 10^3/uL Basophils # (Auto) 0.0 0.0-0.1 10^3/uL Sodium Level 141 135-145 MMOL/L Potassium Level 3.9 3.6-5.0 MMOL/L Chloride Level 107 98-107 MMOL/L Carbon Dioxide Level 25 21-32 MMOL/L Anion Gap 9 5-14 MMOL/L Blood Urea Nitrogen 12 7-18 MG/DL Creatinine 0.82 0.60-1.30 MG/DL Estimat Glomerular Filtration Rate > 60 BUN/Creatinine Ratio 15 Glucose Level 81 70-105 MG/DL Calcium Level 10.6 H 8.5-10.1 MG/DL Corrected Calcium 10.4 H 8.5-10.1 MG/DL Total Bilirubin 0.3 0.1-1.0 MG/DL Aspartate Amino Transf (AST/SGOT) 8 5-34 U/L Alanine Aminotransferase (ALT/SGPT) < 6 0-55 U/L Alkaline Phosphatase 134 40-136 U/L Total Protein 7.5 6.4-8.2 GM/DL Albumin 4.2 3.2-4.5 GM/DL Urine Color YELLOW Urine Clarity SLIGHTLY CLOUDY Urine pH 5 5-9 Urine Specific [place] 1.025 H 1.016-1.022 Urine Protein 2+ H NEGATIVE Urine Glucose (UA) NEGATIVE NEGATIVE Urine Ketones 2+ H NEGATIVE Urine Nitrite NEGATIVE NEGATIVE Urine Bilirubin 1+ H NEGATIVE Urine Urobilinogen 1 NORMAL MG/DL Urine Leukocyte Esterase 3+ H NEGATIVE Urine RBC (Auto) NEGATIVE NEGATIVE Urine RBC NONE /HPF Urine WBC 25-50 H /HPF Urine Squamous Epithelial Cells 0-2 /HPF Urine Crystals PRESENT H /LPF Urine Calcium Oxalate Crystals MODERATE H /LPF Urine Bacteria FEW H /HPF Urine Casts NONE /LPF Urine Mucus MODERATE H /LPF Urine Culture Indicated YES Micro Results Microbiology 07/26/19 Urine Culture - Final, Complete 3 or more isolates My Orders Orders - MARILIA VALLECILLO Comprehensive Metabolic Panel (07/26/19 12:53) Ua Culture If Indicated (07/26/19 12:53) Ed Iv/Invasive Line Start (07/26/19 12:53) Cbc With Automated Diff (07/26/19 12:53) Ns Iv 1000 Ml (Sodium Chloride 0.9%) (07/26/19 13:00) Lactated Ringers (Lr 1000 Ml Iv Solution (07/26/19 13:45) Urine Culture (07/26/19 14:40) Vital Signs/I&O 07/26/19 07/26/19 07/26/19 07/26/19 12:35 12:38 14:30 15:10 Temp 36.1 Pulse 89 89 72 76 88 75 92 76 Resp 16 20 B/P (MAP) 106/70 (82) 106/70 119/83 (95) 118/80 104/74 (84) 131/83 (99) 74/56 (62) 118/80 (93) Pulse Ox 98 98 07/27/19 00:00 Intake Total 2000 ml Balance 2000 ml Blood Pressure Mean: 93 Progress Progress Note : Time: 12:53 Progress Note The patients orthostatic BP's were positive. We will administer fluids and wait for labs. 1451: 2 L of fluid were administered and she reports that she is feeling much better at this time. Orthostatic BP;s were repeated and minimal change. Labs were appropriate. She agrees with plan of care, plans for disch arge, return precautions were given. Departure Impression Primary Impression: Orthostatic hypotension due to Parkinson's disease Disposition: 01 HOME, SELF-CARE Condition: Stable/Unchanged Departure-Patient Inst. Decision time for Depature: 14:51 Referrals: YUSEF TOM DO (PCP/Family) Primary Care Physician Patient Instructions: Orthostatic Hypotension (DC) Add. Discharge Instructions: Resume your home medications as previously prescribed. Be sure you are pushing fluids to help stay hydrated. Follow-up with your primary care provider within 1 week for recheck. Return back to the emergency room for worsening symptoms or concerns as needed. All discharge instructions reviewed with patient and/or family. Voiced understanding. MARILIA VALLECILLO Jul 26, 2019 14:52
[2019-07-26 15:03] LABS: BACTERIA,URINE FEW /HPF; BILIRUBIN,URINE 1+ (NEGATIVE); CALCIUM OXALATE CRYSTALS,UR MODERATE /LPF; SQUAMOUS EPITHELIAL CELL,UR 0-2 /HPF; WBC,URINE 25-50 /HPF
[2019-07-26 15:10] VITALS: BP 118/80
== END 2019-07-26 15:10 | disposition home or self-care (01) ==
LOC: EDUNIT# 12:09 → ER 12:10
DX: G90.3 Multi-system degeneration of the autonomic nervous system (principal); G43.909 Migraine, unspecified, not intractable, without status migrainosus; K21.9 Gastro-esophageal reflux disease without esophagitis; M17.0 Bilateral primary osteoarthritis of knee; E03.9 Hypothyroidism, unspecified; F41.9 Anxiety disorder, unspecified; F32.9 Major depressive disorder, single episode, unspecified; Z98.84 Bariatric surgery status; Z87.891 Personal history of nicotine dependence; Z82.49 Family history of ischemic heart disease and other diseases of the circulatory system; Z80.42 Family history of malignant neoplasm of prostate
CPT/HCPCS: 36415; 80053; 81000; 85025; 87088

== ENCOUNTER 2019-08-12 07:57 | Emergency (ER) | payer OTHER ==
[~2019-08-12] VITALS: Ht 167.7 cm; Wt 92.7 kg
[~2019-08-12 07:57] MED LIST changes: +ALPR0.254; +FLUT16SP22; +PRAM0.128
[2019-08-12] MEDS ORDERED: NS IV 1000 ML 1,000 ML ONE (08:24)
[2019-08-12] MEDS ORDERED: NS IV 1000 ML 1,000 ML IV ONE (08:30)
[2019-08-12 08:44] LABS: BASOPHILS % (AUTO) 0 % (0-10); EOSINOPHILS # (AUTO) 0.2 10^3/uL (0.0-0.3); EOSINOPHILS % (AUTO) 2 % (0-10); HEMATOCRIT 43 % (35-52); HEMOGLOBIN 13.8 G/DL (11.5-16.0); LYMPHOCYTES # (AUTO) 1.5 X 10^3 (1.0-4.0); LYMPHOCYTES % (AUTO) 17 % (12-44); MEAN CORPUSCULAR HEMOGLOBIN 29 PG (25-34); MEAN CORPUSCULAR HGB CONC 32 G/DL (32-36); MEAN CORPUSCULAR VOLUME 88 FL (80-99); MEAN PLATELET VOLUME 10.5 FL (7.4-10.4); MONOCYTES # (AUTO) 0.8 X 10^3 (0.0-1.0); MONOCYTES % (AUTO) 9 % (0-12); NEUTROPHILS # (AUTO) 6.1 X 10^3 (1.8-7.8); NEUTROPHILS % (AUTO) 71 % (42-75); PLATELET COUNT 322 10^3/uL (130-400); RED CELL DISTRIBUTION WIDTH 16.6 % (10.0-14.5); WHITE BLOOD COUNT 8.6 10^3/uL (4.3-11.0)
--- NOTE | 2019-08-12 08:51 | ED General ---
General Chief Complaint: Dizziness/Syncope Stated Complaint: FAINTING Nursing Triage Note: PT AMB TO [facility] 6 WITH COMPLAINT OF NEAR FAINTING. STATES SHE WAS AT WORK AND STOOD UP AND VISION BECAME FUZZY, DIZZY, AND HEARING SOUNDED FAR OFF. PT STATES THIS HAPPENED TO HER A FEW WEEKS AGO AND BLOOD PRESSURE WAS LOW. PT STATE SHE HAS NOT BEEN EATING WELL DUE TO POOR DENTITION Nursing Sepsis Screen: No Definite Risk Source of Information: Patient Exam Limitations: No Limitations (RAUL OLIVAREZ STUDENT) History of Present Illness Date Seen by Provider: Aug 12, 2019 Time Seen by Provider: 08:30 Initial Comments The patient is a wd/wn 54 y/o female who is here with a chief complaint of "feeling like she was going to pass out". She reports that she was at work this morning, stood up and suddenly felt like she was going to pass out. Her vision became "fuzzy" and hearing was diminished. Her coworkers said that she looked very pale. She states that when her coworkers took her blood pressure it was "ok". She also reports feeling nauseated afterwards, which has since resolved. She denies any recent illnesses, vomiting, fevers, or shortness of breath. She reports having similar symptoms 2 weeks ago. She was seen in this ER and was diagnosed with dehydration. She states that her current symptoms "feel similar". Timing/Duration: 1-3 Hours Severity: Mild Modifying Factors: improves with Movement Associated Systoms: No Chest Pain, No Cough, No Fever/Chills, No Headaches (RAUL OLIVAREZ MED STUDENT) Initial Comments Patient also has history of Parkinson disease. States that she's been stable on her meds as directed. Does have history of low blood sugar problems in the past. Does report eating a muffin this morning. Timing/Duration: 1-3 Hours Severity: Mild Modifying Factors: worse with Movement Associated Systoms: No Chest Pain, No Cough, No Shortness of Air (JAVIER COVARRUBIAS MD) Allergies and Home Medications Allergies Coded Allergies: No Known Drug Allergies (Unverified , 06/26/17) Home Medications Amitriptyline HCl 100 Mg Tablet, 50 MG PO HS, (Reported) TAKES 1/2 (100MG) TABLET Calcium Carbonate/Vitamin D3 1 Each Tablet, 1 TAB PO DAILY, (Reported) Levothyroxine Sodium 75 Mcg Tablet, 75 MCG PO DAILY, (Reported) Multivitamin 1 Each Tablet, 1 TAB PO DAILY, (Reported) Patient Home Medication List Home Medication List Reviewed: Yes (JAVIER COVARRUBIAS MD) Review of Systems Review of Systems Constitutional: No fever, No malaise EENTM: blurred vision, double vision Respiratory: No cough, No short of breath Cardiovascular: No chest pain, No palpitations Gastrointestinal: No abdominal pain; nausea; No vomiting (RAUL OLIVAREZ STUDENT) Constitutional: see HPI EENTM: see HPI Respiratory: no symptoms reported Cardiovascular: syncope (near syncope) Genitourinary: no symptoms reported Musculoskeletal: no symptoms reported Skin: no symptoms reported Psychiatric/Neurological: See HPI; Denies Headache; Weakness (JAVIER COVARRUBIAS MD) All Other Systems Reviewed Negative Unless Noted: Yes (JAVIER COVARRUBIAS MD) Past Ljnekfw-Mtjmxq-Emoxgz Hx Past Med/Social Hx: Reviewed Nursing Past Med/Soc Hx (JAVIER COVARRUBIAS MD) Patient Social History Alcohol Use: Occasionally Uses Alcohol Beverage of Choice: Beer Recreational Drug Use: No Smoking Status: Former Smoker Former Smoker, Quit: May 26, 2017 Recent Foreign Travel: No Contact w/Someone Who Travel: No Recent Infectious Disease Expo: No Recent Hopitalizations: Yes (3wks ago) Physical Abuse: No Sexual Abuse: No Mistreated: No Fear: No (RAUL OLIVAREZ STUDENT) Immunizations Up To Date Date of Influenza Vaccine: Aug 26, 2016 (RAUL OLIVAREZ STUDENT) Seasonal Allergies Seasonal Allergies: Yes (RAUL OLIVAREZ STUDENT) Past Medical History Surgeries: Yes (D&C, GASTRIC SLEVE) Respiratory: No Cardiac: No Neurological: Yes (HX OF MIGRAINES) Headaches /Migraines, Parkinson's Disease 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 Disorders: No Female 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 Disorders: Denies Sexually Transmitted Disease: No HIV/AIDS: No Genitourinary: No Gastrointestinal: Yes (has gastric sleeve) Gastroesophageal Reflux Musculoskeletal: Yes (KNEES) Arthritis Endocrine: Yes Hypothyroidsim HEENT: Yes (vision corrected with glasses) Loss of Vision: Bilateral Hearing Impairment: Denies Cancer: No Psychosocial: No Anxiety, Depression Integumentary: No Blood Disorders: No Adverse Reaction/Blood Tranf: No (N/A) (RAUL OLIVAREZ STUDENT) Family Medical History Reviewed Nursing Family Hx (JAVIER COVARRUBIAS MD) Cardiovascular disease 19 MOTHER Diabetes mellitus G8 BROTHER FH: prostate cancer Physical Exam Vital Signs Vital Signs - First Documented 08/12/19 08:14 Temp 36.4 Pulse 80 Resp 12 B/P (MAP) 81/50 (60) Pulse Ox 97 O2 Delivery Room Air (JAVIER COVARRUBIAS MD) Vital Signs Capillary Refill : Less Than 3 Seconds (RAUL OLIVAREZ STUDENT) Height, Weight, BMI Height: 5'6.00" Weight: 272lbs. 0.0oz. 123.047938do; 32.00 BMI Method:Stated General Appearance: No Apparent Distress, WD/WN Eyes: Bilateral Eye PERRL, Bilateral Eye EOMI HEENT: PERRL/EOMI; No Photophobia Respiratory: Chest Non Tender, Lungs Clear, Normal Breath Sounds Cardiovascular: Regular Rate, Rhythm, No Edema, No Murmur Back: Normal Inspection, No Vertebral Tenderness Neurologic/Psychiatric: Alert, Oriented x3, Normal Mood/Affect Skin: Normal Color, Warm/Dry (RAUL OLIVAREZ STUDENT) General Appearance: No Apparent Distress, WD/WN Eyes: Bilateral Eye Normal Inspection Neck: Non Tender, Supple Respiratory: Lungs Clear, Normal Breath Sounds, No Respiratory Distress Cardiovascular: Regular Rate, Rhythm, No Edema, No Murmur Gastrointestinal: Non Tender, Soft Back: Normal Inspection, No CVA Tenderness, No Vertebral Tenderness Extremity: Normal Inspection, Normal Range of Motion Neurologic/Psychiatric: Alert, Oriented x3, Normal Mood/Affect Skin: Normal Color, Warm/Dry (JAVIER COVARRUBIAS MD) Progress/Results/Core Measures Suspected Sepsis Recent Fever Within 48 Hours: No Infection Criteria Present: None New/Unexplained Altered Menta: No Sepsis Screen: No Definite Risk SIRS Temperature: Pulse: 80 Respiratory Rate: 12 Laboratory Tests 08/12/19 08:20: White Blood Count 8.6 Blood Pressure 81 /50 Mean: 60 Laboratory Tests 08/12/19 08:20: Creatinine 0.98, Platelet Count 322, Total Bilirubin 0.3 (RAUL OLIVAREZ STUDENT) Results/Orders Lab Results Laboratory Tests Test 08/12/19 08:20 08/12/19 10:20 Range/Units White Blood Count 8.6 4.3-11.0 10^3/uL Red Blood Count 4.84 4.35-5.85 10^6/uL Hemoglobin 13.8 11.5-16.0 G/DL Hematocrit 43 35-52 % Mean Corpuscular Volume 88 80-99 FL Mean Corpuscular Hemoglobin 29 25-34 PG Mean Corpuscular Hemoglobin Concent 32 32-36 G/DL Red Cell Distribution Width 16.6 H 10.0-14.5 % Platelet Count 322 130-400 10^3/uL Mean Platelet Volume 10.5 H 7.4-10.4 FL Neutrophils (%) (Auto) 71 42-75 % Lymphocytes (%) (Auto) 17 12-44 % Monocytes (%) (Auto) 9 0-12 % Eosinophils (%) (Auto) 2 0-10 % Basophils (%) (Auto) 0 0-10 % Neutrophils # (Auto) 6.1 1.8-7.8 X 10^3 Lymphocytes # (Auto) 1.5 1.0-4.0 X 10^3 Monocytes # (Auto) 0.8 0.0-1.0 X 10^3 Eosinophils # (Auto) 0.2 0.0-0.3 10^3/uL Basophils # (Auto) 0.0 0.0-0.1 10^3/uL D-Dimer 0.39 0.00-0.49 UG/ML Sodium Level 140 135-145 MMOL/L Potassium Level 3.5 L 3.6-5.0 MMOL/L Chloride Level 107 98-107 MMOL/L Carbon Dioxide Level 27 21-32 MMOL/L Anion Gap 6 5-14 MMOL/L Blood Urea Nitrogen 15 7-18 MG/DL Creatinine 0.98 0.60-1.30 MG/DL Estimat Glomerular Filtration Rate 59 BUN/Creatinine Ratio 15 Glucose Level 44 *L 70-105 MG/DL Calcium Level 10.3 H 8.5-10.1 MG/DL Corrected Calcium 10.3 H 8.5-10.1 MG/DL Total Bilirubin 0.3 0.1-1.0 MG/DL Aspartate Amino Transf (AST/SGOT) 8 5-34 U/L Alanine Aminotransferase (ALT/SGPT) < 6 0-55 U/L Alkaline Phosphatase 143 H 40-136 U/L C-Reactive Protein High Sensitivity 0.40 0.00-0.50 MG/DL Total Protein 7.3 6.4-8.2 GM/DL Albumin 4.0 3.2-4.5 GM/DL Thyroid Stimulating Hormone (TSH) 2.97 0.35-4.94 UIU/ML Urine Color YELLOW Urine Clarity SLIGHTLY CLOUDY Urine pH 6 5-9 Urine Specific [place] 1.015 L 1.016-1.022 Urine Protein 2+ H NEGATIVE Urine Glucose (UA) NEGATIVE NEGATIVE Urine Ketones NEGATIVE NEGATIVE Urine Nitrite NEGATIVE NEGATIVE Urine Bilirubin NEGATIVE NEGATIVE Urine Urobilinogen NORMAL NORMAL MG/DL Urine Leukocyte Esterase 3+ H NEGATIVE Urine RBC (Auto) 1+ H NEGATIVE Urine RBC RARE /HPF Urine WBC 50-100 H /HPF Urine Squamous Epithelial Cells 5-10 /HPF Urine Crystals PRESENT H /LPF Urine Calcium Oxalate Crystals FEW H /LPF Urine Bacteria MODERATE H /HPF Urine Casts PRESENT /LPF Urine Hyaline Casts 10-25 H /LPF Urine Mucus MODERATE H /LPF Urine Culture Indicated YES (JAVIER COVARRUBIAS MD) My Orders Orders - JAVIER COVARRUBIAS MD Ns Iv 1000 Ml (Sodium Chloride 0.9%) (08/12/19 08:24) Ed Iv/Invasive Line Start (08/12/19 08:30) Ns Iv 1000 Ml (Sodium Chloride 0.9%) (08/12/19 08:30) Cbc With Automated Diff (08/12/19 08:30) Comprehensive Metabolic Panel (08/12/19 08:30) Hs C Reactive Protein (08/12/19 08:30) Fibrin Degradation Products (08/12/19 08:30) Ua Culture If Indicated (08/12/19 08:30) Thyroid Stimulating Hormone (08/12/19 08:30) D50w (Emergency) Syringe (Dextrose 50% 5 (08/12/19 09:04) Lactated Ringers (Lr 1000 Ml Iv Solution (08/12/19 09:07) Lactated Ringers (Lr 1000 Ml Iv Solution (08/12/19 09:05) D50w (Emergency) Syringe (Dextrose 50% 5 (08/12/19 09:05) Urine Culture (08/12/19 10:20) (JAVIER COVARRUBIAS MD) Medications Given in ED Current Medications Medications Dose Ordered Sig/Chris Route Start Time Stop Time Status Last Admin Dose Admin Dextrose 50 ml ONCE ONCE IV 08/12/19 09:05 08/12/19 09:27 DC 08/12/19 09:06 50 ML Sodium Chloride 1,000 ml @ 0 mls/hr Q0M ONCE IV 08/12/19 08:30 08/12/19 08:32 DC 08/12/19 08:28 1,000 MLS/HR (JAVIER COVARRUBIAS MD) Vital Signs/I&O 08/12/19 08:14 Temp 36.4 Pulse 80 Resp 12 B/P (MAP) 81/50 (60) Pulse Ox 97 O2 Delivery Room Air (JAVIER COVARRUBIAS MD) Vital Signs/I&O Capillary Refill : Less Than 3 Seconds (RAUL OLIVAREZ MED STUDENT) Blood Pressure Mean: 60 Progress Note : Time: 08:50 Progress Note The patient is resting comfortably in the exam room. She will be evaluated with CBC, CMP, d-dimer, CRP, TSH, and UA. IV fluids will be administered due to low blood pressure. (RAUL OLIVAREZ MED STUDENT) Progress Note : Progress Note I have seen and evaluated the patient and agree with above except as indicated. I have directed the plan of care. IV, labs, UA, normal saline 1 L bolus ordered. Patient is orthostatic positive. Blood sugar noted to be 44 on chemistry. D50 1 amp IV given. Repeat bolus with LR 1 L bolus. Monitor patient. 1020: Patient during better with respect to blood pressure. Pending UA study. 1100: UA complete and is positive. We will treat that outpatient. Patient is overall feeling much better with blood pressures in the ranges of 100s to 110s over 60s. She feels like she can go home safely. Discharged home with return precautions. Patient verbalize understanding of instructions and agreement with plan. (JAVIER COVARRUBIAS MD) Departure Impression Primary Impression: Urinary tract infection Qualified Codes: N30.00 - Acute cystitis without hematuria Additional Impressions: Near syncope Other hypoglycemia Disposition: 01 HOME, SELF-CARE Condition: Improved Departure-Patient Inst. Decision time for Depature: 11:04 (JAVIER COVARRUBIAS MD) Referrals: YUSEF TOM DO (PCP/Family) Primary Care Physician Patient Instructions: Near Fainting (DC), Urinary Tract Infection, Adult (DC), Low Blood Sugar in People Without Diabetes Add. Discharge Instructions: All discharge instructions reviewed with patient and/or family. Voiced understanding. Drink plenty fluids and eat a normal diet. Take medications as directed. Follow- up with your doctor next week for recheck and further evaluation. Return for worse pain, fever, vomiting, weakness, breathing problems or other concerns as needed. Scripts Nitrofurantoin Macrocrystal (Nitrofurantoin) 100 Mg Capsule 100 MG PO BID, #10 CAP 0 Refills Prov: JAVIER COVARRUBIAS MD 08/12/19 Copy Copies To 1: YUSEF TOM JOSHUA K MED STUDENT Aug 12, 2019 08:51 JAVIER COVARRUBIAS MD Aug 12, 2019 10:22
[2019-08-12 08:57] LABS: ALANINE AMINOTRANSFERASE < 6 U/L (0-55); ALKALINE PHOSPHATASE 143 U/L (40-136); BILIRUBIN,TOTAL 0.3 MG/DL (0.1-1.0); BUN/CREATININE RATIO 15; CALCIUM 10.3 MG/DL (8.5-10.1); CARBON DIOXIDE 27 MMOL/L (21-32); CHLORIDE 107 MMOL/L (98-107); CREATININE SERUM 0.98 MG/DL (0.60-1.30); GFR ESTIMATED 59; POTASSIUM 3.5 MMOL/L (3.6-5.0); SODIUM 140 MMOL/L (135-145); TOTAL PROTEIN 7.3 GM/DL (6.4-8.2)
[2019-08-12 09:02] LABS: GLUCOSE 44 MG/DL (70-105)
[2019-08-12] MEDS ORDERED: DEXTROSE 50% 50 ML (IMS) SYR ONE (09:04)
[2019-08-12] MEDS ORDERED: DEXTROSE 50% 50 ML (IMS) SYR IV ONE (09:05)
[2019-08-12] MEDS ORDERED: LACTATED RINGERS 1,000 ML IV SCH (09:05)
[2019-08-12] MEDS ORDERED: LACTATED RINGERS 1,000 ML IV ONE (09:07)
[2019-08-12 10:26] LABS: BILIRUBIN,URINE NEGATIVE (NEGATIVE); CLARITY,URINE SLIGHTLY CLOUDY; COLOR,URINE YELLOW; GLUCOSE, URINE (UA) NEGATIVE (NEGATIVE); KETONES,URINE NEGATIVE (NEGATIVE); LEUKOCYTE ESTERASE ,URINE 3+ (NEGATIVE); NITRITE,URINE NEGATIVE (NEGATIVE); PH,URINE 6 (5-9); PROTEIN,URINE 2+ (NEGATIVE); UROBILINOGEN,URINE NORMAL (NORMAL)
[2019-08-12 10:41] LABS: BACTERIA,URINE MODERATE /HPF; RBC,URINE RARE /HPF; WBC,URINE 50-100 /HPF
[2019-08-12 10:42] LABS: CALCIUM OXALATE CRYSTALS,UR FEW /LPF
[2019-08-12] MEDS ORDERED: NITR100C PO (11:05)
[2019-08-12 11:19] VITALS: BP 104/72
== END 2019-08-12 11:19 | disposition home or self-care (01) ==
LOC: EDUNIT# 07:57 → ER 07:58
DX: N39.0 Urinary tract infection, site not specified (principal); R55 Syncope and collapse; E16.1 Other hypoglycemia; G20 Parkinson's disease; G43.909 Migraine, unspecified, not intractable, without status migrainosus; K21.9 Gastro-esophageal reflux disease without esophagitis; E03.9 Hypothyroidism, unspecified; F41.9 Anxiety disorder, unspecified; F32.9 Major depressive disorder, single episode, unspecified; Z87.891 Personal history of nicotine dependence; Z82.49 Family history of ischemic heart disease and other diseases of the circulatory system; Z80.42 Family history of malignant neoplasm of prostate
CPT/HCPCS: 36415; 80053; 81000; 84443; 85025; 85379; 86141; 87088

== ENCOUNTER 2021-02-08 13:01 | Outpatient (RCR) | payer MEDICAID ==
[~2021-02-08 13:01] MED LIST changes: +ALPR.25T; -ALPR0.254; +NITR100C PO; -PANT40TA3 PO; +PANT40TA52 PO
[2021-02-12] MEDS ORDERED: ONDA4TAB11 PO (00:58)
[2021-02-12] MEDS ORDERED: CEFD300C3 PO (00:58)
[2021-02-15] MEDS ORDERED: CEPH500T PO (21:44)
[2021-02-19] MEDS ORDERED: GABA300C PO ×2 (15:27)
[2021-02-19] MEDS ORDERED: CYAN500T8 PO (15:27)
[2021-02-19] MEDS ORDERED: LEVO75TA6 PO (15:27)
[2021-02-19] MEDS ORDERED: CARB1CAP5 PO (15:27)
[2021-02-19] MEDS ORDERED: SERT-413 PO (15:27)
[2021-02-19] MEDS ORDERED: ONDA-105 PO (15:27)
[2021-02-19] MEDS ORDERED: IBUP-2473 PO (15:27)
[2021-02-19] MEDS ORDERED: AMAN100C18 PO (15:27)
[2021-02-20] MEDS ORDERED: HYDR-3817 PO (11:26)
== END 2021-03-12 17:00 | disposition home or self-care (01) ==
PROVIDERS: ATTEND Psychiatry & Neurology Neurology
DX: G20 Parkinson's disease (principal)

== ENCOUNTER 2021-02-09 17:23 | Emergency (ER) | payer MEDICAID ==
[~2021-02-09] VITALS: Ht 165 cm; Wt 106.0 kg
[2021-02-09] MEDS ORDERED: ONDANSETRON 4 MG/2 ML (SDV) Z0FRAN IVP ONE (17:30)
[2021-02-09] MEDS ORDERED: LACTATED RINGERS 1,000 ML IV ONE (17:30)
--- NOTE | 2021-02-09 17:38 | ED GI ---
General Stated Complaint: N/V Source of Information: Patient, EMS Exam Limitations: No Limitations (NGA LEWIS) History of Present Illness Date Seen by Provider: Feb 09, 2021 Time Seen by Provider: 17:18 Initial Comments Patient presents ER by private conveyance with chief complaint that while she was talking on the phone she had a sudden wave of nausea which is unusual for her. She vomited and has not been able for the past several hours to take her Parkinson's meds. She is very sensitive to missing her Parkinson's meds and feels now that her shaking is out of control. She is not diabetic has no history of heart disease or stroke. She does have hypertension and hyperlipidemia but does not smoke. 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 She is not having any chest pain shortness of air fever chills dysuria diarrhea or constipation. She received 4 mg IV Zofran on route which helped some with her nausea. No one around her is been sick and she is not eating anything suspect her had any recent travel. She is mostly homebound. (NGA LEWIS) Allergies and Home Medications Allergies Coded Allergies: No Known Drug Allergies (Unverified , 06/26/17) Home Medications Amitriptyline HCl 100 Mg Tablet, 50 MG PO HS, (Reported) TAKES 1/2 (100MG) TABLET Calcium Carbonate/Vitamin D3 1 Each Tablet, 1 TAB PO DAILY, (Reported) Levothyroxine Sodium 75 Mcg Tablet, 75 MCG PO DAILY, (Reported) Multivitamin 1 Each Tablet, 1 TAB PO DAILY, (Reported) Nitrofurantoin Macrocrystal 100 Mg Capsule, 100 MG PO BID Prescribed by: JAVIER COVARRUBIAS on 08/12/19 1105 Patient Home Medication List Home Medication List Reviewed: Yes (NGA LEWIS) Review of Systems Review of Systems Constitutional: No chills, No diaphoresis EENTM: No Blurred Vision, No Double Vision Respiratory: Denies Cough, Denies Shortness of Air Cardiovascular: Denies Chest Pain, Denies Lightheadedness Gastrointestinal: Denies Constipated, Denies Diarrhea; Nausea; Denies Poor Fluid Intake; Vomiting Genitourinary: Denies Burning, Denies Discharge Musculoskeletal: No back pain, No joint pain (NGA LEWIS) All Other Systems Reviewed Negative Unless Noted: Yes (NGA LEWIS) Past Zdojpum-Fledqx-Pxnbbs Hx Patient Social History Alcohol Use: Occasionally Uses Alcohol Beverage of Choice: Beer Smoking Status: Former Smoker Former Smoker, Quit: May 26, 2017 Recent Hopitalizations: Yes (3wks ago) (NGA LEWIS) Immunizations Up To Date Date of Influenza Vaccine: Aug 26, 2016 (NGA LEWIS) Seasonal Allergies Seasonal Allergies: Yes (NGA LEWIS) Past Medical History Surgeries: Yes (D&C, GASTRIC SLEVE) Respiratory: No Cardiac: No Neurological: Yes (HX OF MIGRAINES) Headaches /Migraines, Parkinson's Disease 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 Disorders: No Female 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 Disorders: Denies Sexually Transmitted Disease: No HIV/AIDS: No Genitourinary: No Gastrointestinal: Yes (has gastric sleeve) Gastroesophageal Reflux Musculoskeletal: Yes (KNEES) Arthritis Endocrine: Yes Hypothyroidsim HEENT: Yes (vision corrected with glasses) Loss of Vision: Bilateral Hearing Impairment: Denies Cancer: No Psychosocial: No Anxiety, Depression Integumentary: No Blood Disorders: No Adverse Reaction/Blood Tranf: No (N/A) (NGA LEWIS) Family Medical History Cardiovascular disease 19 MOTHER Diabetes mellitus G8 BROTHER FH: prostate cancer Physical Exam Vital Signs Vital Signs - First Documented 02/09/21 17:39 Temp 37.1 Pulse 86 Resp 30 B/P (MAP) 113/98 (103) Pulse Ox 100 O2 Delivery Nasal Cannula O2 Flow Rate 2.00 (SARIAH FREIRE APRN) Vital Signs Capillary Refill : (NGA LEWIS) Height/Weight/BMI Height: 5'6.00" Weight: 272lbs. 0.0oz. 123.290704om; 32.00 BMI Method:Stated General Appearance: WD/WN, mild distress, obese HEENT: PERRL/EOMI, pharynx normal Neck: full range of motion, normal inspection Respiratory: lungs clear, normal breath sounds, no respiratory distress, no accessory muscle use Cardiovascular: normal peripheral pulses, regular rate, rhythm Peripheral Pulses: 2+ Radial Pulses (R), 2+ Radial Pulses (L) Gastrointestinal: normal bowel sounds, non tender, soft Neurologic/Psychiatric: alert, normal mood/affect, oriented x 3, other (Tremors) Skin: normal color, warm/dry (NGA LEWIS) Progress/Results/Core Measures Results/Orders Lab Results Laboratory Tests Test 3/26/21 17:30 02/09/21 19:14 Range/Units White Blood Count 10.1 4.3-11.0 10^3/uL Red Blood Count 5.06 3.80-5.11 10^6/uL Hemoglobin 13.7 11.5-16.0 g/dL Hematocrit 42 35-52 % Mean Corpuscular Volume 83 80-99 fL Mean Corpuscular Hemoglobin 27 25-34 pg Mean Corpuscular Hemoglobin Concent 33 32-36 g/dL Red Cell Distribution Width 16.3 H 10.0-14.5 % Platelet Count 305 130-400 10^3/uL Mean Platelet Volume 10.6 9.0-12.2 fL Immature Granulocyte % (Auto) 0 % Neutrophils (%) (Auto) 84 H 42-75 % Lymphocytes (%) (Auto) 11 L 12-44 % Monocytes (%) (Auto) 4 0-12 % Eosinophils (%) (Auto) 0 0-10 % Basophils (%) (Auto) 0 0-10 % Neutrophils # (Auto) 8.5 H 1.8-7.8 10^3/uL Lymphocytes # (Auto) 1.1 1.0-4.0 10^3/uL Monocytes # (Auto) 0.5 0.0-1.0 10^3/uL Eosinophils # (Auto) 0.0 0.0-0.3 10^3/uL Basophils # (Auto) 0.0 0.0-0.1 10^3/uL Immature Granulocyte # (Auto) 0.0 0.0-0.1 10^3/uL Sodium Level 140 135-145 MMOL/L Potassium Level 3.8 3.6-5.0 MMOL/L Chloride Level 107 98-107 MMOL/L Carbon Dioxide Level 19 L 21-32 MMOL/L Anion Gap 14 5-14 MMOL/L Blood Urea Nitrogen 17 7-18 MG/DL Creatinine 0.71 0.60-1.30 MG/DL Estimat Glomerular Filtration Rate > 60 BUN/Creatinine Ratio 24 Glucose Level 115 H 70-105 MG/DL Calcium Level 10.6 H 8.5-10.1 MG/DL Corrected Calcium 10.4 H 8.5-10.1 MG/DL Total Bilirubin 0.6 0.1-1.0 MG/DL Aspartate Amino Transf (AST/SGOT) 4 L 5-34 U/L Alanine Aminotransferase (ALT/SGPT) < 6 0-55 U/L Alkaline Phosphatase 153 H 40-136 U/L Total Creatine Kinase 165 29-168 U/L C-Reactive Protein High Sensitivity 0.25 0.00-0.50 MG/DL Total Protein 7.5 6.4-8.2 GM/DL Albumin 4.3 3.2-4.5 GM/DL Lipase 22 8-78 U/L Urine Color YELLOW Urine Clarity SL CLOUDY Urine pH 7.0 5-9 Urine Specific [place] 1.020 1.016-1.022 Urine Protein TRACE H NEGATIVE Urine Glucose (UA) NEGATIVE NEGATIVE Urine Ketones 2+ H NEGATIVE Urine Nitrite NEGATIVE NEGATIVE Urine Bilirubin NEGATIVE NEGATIVE Urine Urobilinogen 4.0 < = 1.0 MG/DL Urine Leukocyte Esterase NEGATIVE NEGATIVE Urine RBC (Auto) NEGATIVE NEGATIVE Urine RBC NONE /HPF Urine WBC 5-10 H /HPF Urine Squamous Epithelial Cells RARE /HPF Urine Crystals NONE /LPF Urine Bacteria FEW H /HPF Urine Casts NONE /LPF Urine Mucus LARGE H /LPF Urine Culture Indicated YES Urine Opiates Screen NEGATIVE NEGATIVE Urine Oxycodone Screen NEGATIVE NEGATIVE Urine Methadone Screen NEGATIVE NEGATIVE Urine Propoxyphene Screen NEGATIVE NEGATIVE Urine Barbiturates Screen NEGATIVE NEGATIVE Ur Tricyclic Antidepressants Screen POSITIVE H NEGATIVE Urine Phencyclidine Screen NEGATIVE NEGATIVE Urine Amphetamines Screen NEGATIVE NEGATIVE Urine Methamphetamines Screen NEGATIVE NEGATIVE Urine Benzodiazepines Screen NEGATIVE NEGATIVE Urine Cocaine Screen NEGATIVE NEGATIVE Urine Cannabinoids Screen NEGATIVE NEGATIVE (SARIAH FREIRE APRN) My Orders Orders - SARIAH FREIRE APRN Fentanyl Inj (Sublimaze Injection) (02/09/21 18:00) Gabapentin Capsule/Tablet (Neurontin Cap (02/09/21 18:00) Fentanyl Inj (Sublimaze Injection) (02/09/21 17:50) Promethazine Injection (Phenergan Injec (02/09/21 18:15) Creatine Kinase (02/09/21 18:15) Drug Screen Stat (Urine) (02/09/21 18:15) Ketorolac Injection (Toradol Injection) (02/09/21 18:15) Lorazepam Injection (Ativan Injection) (02/09/21 18:30) Straight Cath (Urinary) (02/09/21 19:17) Rocephin 1 Gm Iv (1x Dose) (02/09/21 19:45) (SARIAH FREIRE APRN) Medications Given in ED Current Medications Medications Dose Ordered Sig/Chris Route Start Time Stop Time Status Last Admin Dose Admin Fentanyl Citrate 50 mcg ONCE ONCE IVP 02/09/21 18:00 02/09/21 18:01 DC 02/09/21 17:56 50 MCG Gabapentin 300 mg ONCE ONCE PO 02/09/21 18:00 02/09/21 18:01 DC 02/09/21 18:15 300 MG Ketorolac Tromethamine 15 mg ONCE ONCE IVP 02/09/21 18:15 02/09/21 18:17 DC 02/09/21 18:21 15 MG Lactated Ringer's 1,000 ml @ 0 mls/hr Q0M ONCE IV 02/09/21 17:30 02/09/21 17:34 DC 02/09/21 17:48 999 MLS/HR Lorazepam 0.5 mg ONCE PRN IVP 02/09/21 18:30 02/09/21 18:31 0.5 MG Ondansetron HCl 4 mg ONCE ONCE IVP 02/09/21 17:30 02/09/21 17:34 DC 02/09/21 17:48 4 MG Promethazine HCl 25 mg ONCE ONCE IVP 02/09/21 18:15 02/09/21 18:16 DC 02/09/21 18:21 25 MG (SARIAH FREIRE APRN) Vital Signs/I&O 02/09/21 17:39 Temp 37.1 Pulse 86 Resp 30 B/P (MAP) 113/98 (103) Pulse Ox 100 O2 Delivery Nasal Cannula O2 Flow Rate 2.00 (SARIAH FREIRE APRN) Progress Progress Note : Time: 17:37 Progress Note Another 4 mg of Zofran some fluids because she appears to be dry and then will get her some of her own medications prescribed by her neurologist at to help with her Parkinson symptoms. We will get some labs to try and work-up why she is having a sudden wave of nausea. She is not having abdominal pain. Gastroenteritis is a possibility from a virus. Aseptic vital signs (NGA LEWIS) Departure Communication (Admissions) 193-she is feeling quite a bit better after the Phenergan and Ativan. Will discharge to home. (SARIAH FREIRE APRN) Impression Primary Impression: Nausea and vomiting Disposition: HOME, SELF-CARE Condition: Improved Departure-Patient Inst. Decision time for Depature: 19:34 (SARIAH FREIRE APRN) Referrals: OG KIDD MD (PCP) Primary Care Physician Patient Instructions: Nausea and Vomiting, Adult NGA LEWSI Feb 09, 2021 17:38 SARIAH FREIRE APRN Feb 09, 2021 19:34
[2021-02-09 17:40] LABS: BASOPHILS % (AUTO) 0 % (0-10); EOSINOPHILS % (AUTO) 0 % (0-10); HEMATOCRIT 42 % (35-52); HEMOGLOBIN 13.7 g/dL (11.5-16.0); LYMPHOCYTES # (AUTO) 1.1 10^3/uL (1.0-4.0); LYMPHOCYTES % (AUTO) 11 % (12-44); MEAN CORPUSCULAR HEMOGLOBIN 27 pg (25-34); MEAN CORPUSCULAR HGB CONC 33 g/dL (32-36); MEAN CORPUSCULAR VOLUME 83 fL (80-99); MEAN PLATELET VOLUME 10.6 fL (9.0-12.2); MONOCYTES # (AUTO) 0.5 10^3/uL (0.0-1.0); MONOCYTES % (AUTO) 4 % (0-12); NEUTROPHILS # (AUTO) 8.5 10^3/uL (1.8-7.8); NEUTROPHILS % (AUTO) 84 % (42-75); PLATELET COUNT 305 10^3/uL (130-400); WHITE BLOOD COUNT 10.1 10^3/uL (4.3-11.0)
[2021-02-09] MEDS ORDERED: fentaNYL INJ 100 MCG/2 ML AMP ONE (17:50)
[2021-02-09 17:52] LABS: ALBUMIN 4.3 GM/DL (3.2-4.5); CHLORIDE 107 MMOL/L (98-107); POTASSIUM 3.8 MMOL/L (3.6-5.0); SODIUM 140 MMOL/L (135-145)
[2021-02-09 17:54] LABS: CALCIUM 10.6 MG/DL (8.5-10.1)
[2021-02-09 17:55] LABS: GLUCOSE 115 MG/DL (70-105); TOTAL PROTEIN 7.5 GM/DL (6.4-8.2)
[2021-02-09 17:56] LABS: CARBON DIOXIDE 19 MMOL/L (21-32)
[2021-02-09 17:57] LABS: BILIRUBIN,TOTAL 0.6 MG/DL (0.1-1.0)
[2021-02-09 17:58] LABS: ALKALINE PHOSPHATASE 153 U/L (40-136); CREATININE SERUM 0.71 MG/DL (0.60-1.30); GFR ESTIMATED > 60
[2021-02-09 18:00] LABS: BUN/CREATININE RATIO 24
[2021-02-09] MEDS ORDERED: fentaNYL INJ 100 MCG/2 ML AMP IVP ONE (18:00)
[2021-02-09] MEDS ORDERED: GABAPENTIN 300 MG (NEURONTIN) CAP PO ONE (18:00)
[2021-02-09 18:01] LABS: ALANINE AMINOTRANSFERASE < 6 U/L (0-55)
[2021-02-09 18:02] LABS: LIPASE 22 U/L (8-78)
[2021-02-09] MEDS ORDERED: KETOROLAC 30 MG/ML VIAL IVP ONE (18:15)
[2021-02-09] MEDS ORDERED: PROMETHAZINE INJ 25 MG/ML (PHENERGAN) AMP IVP ONE (18:15)
[2021-02-09] MEDS ORDERED: LORazepam INJ 2 MG/ML (ATIVAN) VIAL IVP PRN (18:30)
[2021-02-09 19:22] LABS: BILIRUBIN,URINE NEGATIVE (NEGATIVE); CLARITY,URINE SL CLOUDY; COLOR,URINE YELLOW; GLUCOSE, URINE (UA) NEGATIVE (NEGATIVE); KETONES,URINE 2+ (NEGATIVE); LEUKOCYTE ESTERASE ,URINE NEGATIVE (NEGATIVE); NITRITE,URINE NEGATIVE (NEGATIVE); PROTEIN,URINE TRACE (NEGATIVE)
[2021-02-09 19:29] LABS: BACTERIA,URINE FEW /HPF; SQUAMOUS EPITHELIAL CELL,UR RARE /HPF
[2021-02-09 19:31] LABS: AMPHETAMINE SCREEN, URINE NEGATIVE (NEGATIVE); BARBITURATE SCREEN URINE NEGATIVE (NEGATIVE); BENZODIAZEPINES SCREEN URINE NEGATIVE (NEGATIVE); CANNABINOID SCREEN, URINE NEGATIVE (NEGATIVE); COCAINE SCREEN URINE NEGATIVE (NEGATIVE); METHADONE STAT NEGATIVE (NEGATIVE); METHAMPHETAMINE SCREEN URINE S NEGATIVE (NEGATIVE); OPIATE SCREEN URINE NEGATIVE (NEGATIVE); OXYCODONE STAT NEGATIVE (NEGATIVE); PROPOXYPHENE STAT NEGATIVE (NEGATIVE); TRICYCLIC ANTIDEPRESSANTS SCRE POSITIVE (NEGATIVE)
[2021-02-09] MEDS ORDERED: RX-LORAZEPAM (ATIVAN) 0.5 MG TAB PPK#4 PO STA (19:34)
[2021-02-09] MEDS ORDERED: RX-ONDANSETRON 4 MG ODT (ZOFRAN) PPK #4 PO STA (19:34)
[2021-02-09] MEDS ORDERED: cefTRIAXone FOR IV USE 1,000 MG in WATER (STERILE) FOR INJECTION 10 ML IV ONE (19:45)
[2021-02-09 19:51] VITALS: BP 112/99
== END 2021-02-09 19:52 | disposition home or self-care (01) ==
LOC: EDUNIT# 17:23 → ER 17:24
DX: R11.2 Nausea with vomiting, unspecified (principal); E66.9 Obesity, unspecified; F32.9 Major depressive disorder, single episode, unspecified; E03.9 Hypothyroidism, unspecified; Z68.32 Body mass index [BMI] 32.0-32.9, adult; Z87.891 Personal history of nicotine dependence; Z80.42 Family history of malignant neoplasm of prostate; Z83.3 Family history of diabetes mellitus; Z82.49 Family history of ischemic heart disease and other diseases of the circulatory system; Z79.890 Hormone replacement therapy
CPT/HCPCS: 36415; 51702; 80053; 80306; 81000; 82550; 83690; 85025; 86141; 87088

== ENCOUNTER 2021-02-11 23:19 | Emergency (ER) | payer MEDICAID ==
[~2021-02-11] VITALS: Ht 165 cm; Wt 106.5 kg
[2021-02-11] MEDS ORDERED: ONDANSETRON 4 MG/2 ML (SDV) Z0FRAN IVP ONE (23:30)
[2021-02-11] MEDS ORDERED: LACTATED RINGERS 1,000 ML IV ONE (23:30)
[2021-02-11 23:44] LABS: BASOPHILS % (AUTO) 0 % (0-10); EOSINOPHILS % (AUTO) 0 % (0-10); HEMATOCRIT 43 % (35-52); HEMOGLOBIN 13.7 g/dL (11.5-16.0); LYMPHOCYTES # (AUTO) 1.3 10^3/uL (1.0-4.0); LYMPHOCYTES % (AUTO) 11 % (12-44); MEAN CORPUSCULAR HEMOGLOBIN 26 pg (25-34); MEAN CORPUSCULAR HGB CONC 32 g/dL (32-36); MEAN CORPUSCULAR VOLUME 82 fL (80-99); MONOCYTES # (AUTO) 0.6 10^3/uL (0.0-1.0); MONOCYTES % (AUTO) 5 % (0-12); NEUTROPHILS # (AUTO) 9.9 10^3/uL (1.8-7.8); NEUTROPHILS % (AUTO) 83 % (42-75); PLATELET COUNT 349 10^3/uL (130-400); WHITE BLOOD COUNT 11.9 10^3/uL (4.3-11.0)
[2021-02-11 23:52] LABS: PROTHROMBIN TIME PATIENT 13.7 SEC (12.2-14.7)
[2021-02-11 23:57] LABS: ALBUMIN 4.4 GM/DL (3.2-4.5); CHLORIDE 108 MMOL/L (98-107); POTASSIUM 3.5 MMOL/L (3.6-5.0); SODIUM 141 MMOL/L (135-145)
[2021-02-11 23:58] LABS: AMYLASE 62 U/L (25-125); CALCIUM 10.7 MG/DL (8.5-10.1)
[2021-02-11 23:59] LABS: GLUCOSE 128 MG/DL (70-105)
[2021-02-12] LABS: TOTAL PROTEIN 7.6 GM/DL (6.4-8.2)
[2021-02-12 00:01] LABS: BILIRUBIN,TOTAL 0.6 MG/DL (0.1-1.0); CARBON DIOXIDE 15 MMOL/L (21-32)
[2021-02-12 00:03] LABS: ALKALINE PHOSPHATASE 164 U/L (40-136); CREATININE SERUM 0.73 MG/DL (0.60-1.30); GFR ESTIMATED > 60
[2021-02-12 00:04] LABS: BUN/CREATININE RATIO 23
[2021-02-12 00:06] LABS: ALANINE AMINOTRANSFERASE < 6 U/L (0-55); MAGNESIUM 1.9 MG/DL (1.6-2.4)
[2021-02-12 00:07] LABS: LIPASE 31 U/L (8-78)
[2021-02-12 00:44] LABS: CLARITY,URINE CLEAR; COLOR,URINE ORANGE; GLUCOSE, URINE (UA) NEGATIVE (NEGATIVE); KETONES,URINE 3+ (NEGATIVE); LEUKOCYTE ESTERASE ,URINE 1+ (NEGATIVE); NITRITE,URINE NEGATIVE (NEGATIVE); PROTEIN,URINE TRACE (NEGATIVE)
[2021-02-12 00:52] LABS: BACTERIA,URINE LARGE /HPF; BILIRUBIN,URINE 1+ (NEGATIVE)
[2021-02-12] MEDS ORDERED: ONDA4TAB11 PO (00:58)
[2021-02-12] MEDS ORDERED: CEFD300C3 PO (00:58)
[2021-02-12 00:59] LABS: AMPHETAMINE SCREEN, URINE NEGATIVE (NEGATIVE); BARBITURATE SCREEN URINE NEGATIVE (NEGATIVE); BENZODIAZEPINES SCREEN URINE NEGATIVE (NEGATIVE); CANNABINOID SCREEN, URINE NEGATIVE (NEGATIVE); COCAINE SCREEN URINE NEGATIVE (NEGATIVE); METHADONE STAT NEGATIVE (NEGATIVE); METHAMPHETAMINE SCREEN URINE S NEGATIVE (NEGATIVE); OPIATE SCREEN URINE NEGATIVE (NEGATIVE); OXYCODONE STAT NEGATIVE (NEGATIVE); PROPOXYPHENE STAT NEGATIVE (NEGATIVE); TRICYCLIC ANTIDEPRESSANTS SCRE POSITIVE (NEGATIVE)
--- NOTE | 2021-02-12 00:59 | ED General ---
General Chief Complaint: Abdominal/GI Problems Stated Complaint: N/V Nursing Triage Note: Patient brought to ER via [facility] from home with c/o nausea, vomiting and diarrhea that began around 18:00 tonight. Patient was seen here for same symptoms on Friday. Patient states she has parkinson's disease and was not able to take her evening meds for the parkinson's and is complaining of pain to her legs. Nursing Sepsis Screen: No Definite Risk Source of Information: Patient (DIFFICULT HISTORIAN), EMS, Old Records History of Present Illness Date Seen by Provider: Feb 11, 2021 Time Seen by Provider: 23:23 Initial Comments PT ARRIVES VIA EMS FROM HOME--LIVES ALONE C/O NAUSEA AND DRY HEAVES X 2 HOURS NO DIARRHEA NO ABDOMINAL PAIN NO FEVER STATES SHE TAKES MEDICATION FOR PARKINSON'S AND HAS NOT TAKEN HER NIGHT TIME DOSE, BECAUSE OF NAUSEA. HAS NOT MISSED ANY OTHER DOSES OF MEDICATIONS TODAY STATES REPEATEDLY "IF I DON'T GET MY MEDS I WILL LOCK UP" C/O PAIN TO HER LEGS "FROM THE PARKINSON'S" PT STATES SHE FELT FINE ALL DAY--ATE BREAKFAST AND LUNCH AND FELT FINE. SEEN HERE FRIDAY FOR SAME WAS TREATED FOR UTI IN THE LAST WEEK. TOOK 5 DAYS OF MACROBID, AND FINISHED ON Friday02/08/21 PCP: DR. TOM NEUROLOGIST AT , DR. KIDD Allergies and Home Medications Allergies Coded Allergies: No Known Drug Allergies (Unverified , 06/26/17) Home Medications Amitriptyline HCl 100 Mg Tablet, 50 MG PO HS, (Reported) TAKES 1/2 (100MG) TABLET Calcium Carbonate/Vitamin D3 1 Each Tablet, 1 TAB PO DAILY, (Reported) Cefdinir 300 Mg Capsule, 300 MG PO BID Prescribed by: JENARO WASHINGTON on 02/12/2157 Levothyroxine Sodium 75 Mcg Tablet, 75 MCG PO DAILY, (Reported) Multivitamin 1 Each Tablet, 1 TAB PO DAILY, (Reported) Nitrofurantoin Macrocrystal 100 Mg Capsule, 100 MG PO BID Prescribed by: JAVIER COVARRUBIAS on 08/12/19 1105 Ondansetron 4 Mg Tab.rapdis, 4 MG PO Q4H Prescribed by: JENARO WASHINGTON on 02/12/2157 Patient Home Medication List Home Medication List Reviewed: Yes Review of Systems Review of Systems Constitutional: no symptoms reported EENTM: no symptoms reported Respiratory: no symptoms reported Cardiovascular: no symptoms reported Gastrointestinal: see HPI; No abdominal pain, No constipation, No diarrhea; nausea, vomiting (DRY HEAVES) Genitourinary: no symptoms reported Musculoskeletal: see HPI Skin: no symptoms reported Psychiatric/Neurological: Anxiety Hematologic/Lymphatic: No Symptoms Reported Immunological/Allergic: no symptoms reported Past Rfeabsk-Ewjreo-Cxavex Hx Patient Social History Alcohol Use: Denies Use Number of Drinks Today: AA Alcohol Beverage of Choice: Beer Smoking Status: Former Smoker Former Smoker, Quit: May 26, 2017 Recent Infectious Disease Expo: No Recent Hopitalizations: Yes (3wks ago) Immunizations Up To Date Date of Influenza Vaccine: Aug 26, 2016 Seasonal Allergies Seasonal Allergies: Yes Past Medical History Surgeries: Yes (D&C, GASTRIC SLEVE) Respiratory: No Cardiac: No Neurological: Yes (HX OF MIGRAINES) Headaches /Migraines, Parkinson's Disease 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 Disorders: No Female 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 Disorders: Denies Sexually Transmitted Disease: No HIV/AIDS: No Genitourinary: No Gastrointestinal: Yes (has gastric sleeve) Gastroesophageal Reflux Musculoskeletal: Yes (KNEES) Arthritis Endocrine: Yes Hypothyroidsim HEENT: Yes (vision corrected with glasses) Loss of Vision: Bilateral Hearing Impairment: Denies Cancer: No Psychosocial: No Anxiety, Depression Integumentary: No Blood Disorders: No Adverse Reaction/Blood Tranf: No (N/A) Family Medical History Cardiovascular disease 19 MOTHER Diabetes mellitus G8 BROTHER FH: prostate cancer Physical Exam Vital Signs Vital Signs - First Documented 02/11/21 23:19 Temp 35.6 Pulse 95 Resp 20 B/P (MAP) 145/87 (106) Pulse Ox 96 O2 Delivery Room Air Capillary Refill : Less Than 3 Seconds Height, Weight, BMI Height: 5'6.00" Weight: 272lbs. 0.0oz. 123.214433xw; 39.00 BMI Method:Stated General Appearance: Other (ANXIOUS, VERY DRAMATIC, MOANING, THRASHING ALL OVER, WITH CONSTANT MOVEMENTS OF FEET AND HANDS--NOT TREMORS. THIS STOPS WHEN DISTRACTED. 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 ) Progress/Results/Core Measures Suspected Sepsis Recent Fever Within 48 Hours: No Infection Criteria Present: None New/Unexplained Altered Menta: No Sepsis Screen: No Definite Risk SIRS Temperature: Pulse: 95 Respiratory Rate: 20 Laboratory Tests 02/11/21 23:30: White Blood Count 11.9H Blood Pressure 145 /87 Mean: 106 Laboratory Tests 02/11/21 23:30: Creatinine 0.73, INR Comment 1.0, Platelet Count 349, Total Bilirubin 0.6 Results/Orders Lab Results Laboratory Tests Test 02/11/21 23:30 02/12/21 00:38 Range/Units White Blood Count 11.9 H 4.3-11.0 10^3/uL Red Blood Count 5.20 H 3.80-5.11 10^6/uL Hemoglobin 13.7 11.5-16.0 g/dL Hematocrit 43 35-52 % Mean Corpuscular Volume 82 80-99 fL Mean Corpuscular Hemoglobin 26 25-34 pg Mean Corpuscular Hemoglobin Concent 32 32-36 g/dL Red Cell Distribution Width 15.9 H 10.0-14.5 % Platelet Count 349 130-400 10^3/uL Mean Platelet Volume 11.0 9.0-12.2 fL Immature Granulocyte % (Auto) 0 % Neutrophils (%) (Auto) 83 H 42-75 % Lymphocytes (%) (Auto) 11 L 12-44 % Monocytes (%) (Auto) 5 0-12 % Eosinophils (%) (Auto) 0 0-10 % Basophils (%) (Auto) 0 0-10 % Neutrophils # (Auto) 9.9 H 1.8-7.8 10^3/uL Lymphocytes # (Auto) 1.3 1.0-4.0 10^3/uL Monocytes # (Auto) 0.6 0.0-1.0 10^3/uL Eosinophils # (Auto) 0.0 0.0-0.3 10^3/uL Basophils # (Auto) 0.0 0.0-0.1 10^3/uL Immature Granulocyte # (Auto) 0.0 0.0-0.1 10^3/uL Prothrombin Time 13.7 12.2-14.7 SEC INR Comment 1.0 0.8-1.4 Activated Partial Thromboplast Time 24 24-35 SEC Sodium Level 141 135-145 MMOL/L Potassium Level 3.5 L 3.6-5.0 MMOL/L Chloride Level 108 H 98-107 MMOL/L Carbon Dioxide Level 15 L 21-32 MMOL/L Anion Gap 18 H 5-14 MMOL/L Blood Urea Nitrogen 17 7-18 MG/DL Creatinine 0.73 0.60-1.30 MG/DL Estimat Glomerular Filtration Rate > 60 BUN/Creatinine Ratio 23 Glucose Level 128 H 70-105 MG/DL Calcium Level 10.7 H 8.5-10.1 MG/DL Corrected Calcium 10.4 H 8.5-10.1 MG/DL Magnesium Level 1.9 1.6-2.4 MG/DL Total Bilirubin 0.6 0.1-1.0 MG/DL Aspartate Amino Transf (AST/SGOT) 5 5-34 U/L Alanine Aminotransferase (ALT/SGPT) < 6 0-55 U/L Alkaline Phosphatase 164 H 40-136 U/L Troponin I < 0.028 <0.028 NG/ML Total Protein 7.6 6.4-8.2 GM/DL Albumin 4.4 3.2-4.5 GM/DL Amylase Level 62 25-125 U/L Lipase 31 8-78 U/L Serum Alcohol < 10 <10 MG/DL Urine Color ORANGE Urine Clarity CLEAR Urine pH 6.0 5-9 Urine Specific [place] >=1.030 1.016-1.022 Urine Protein TRACE H NEGATIVE Urine Glucose (UA) NEGATIVE NEGATIVE Urine Ketones 3+ H NEGATIVE Urine Nitrite NEGATIVE NEGATIVE Urine Bilirubin 1+ H NEGATIVE Urine Urobilinogen 1.0 < = 1.0 MG/DL Urine Leukocyte Esterase 1+ H NEGATIVE Urine RBC (Auto) NEGATIVE NEGATIVE Urine RBC 2-5 H /HPF Urine WBC 5-10 H /HPF Urine Squamous Epithelial Cells 2-5 /HPF Urine Crystals NONE /LPF Urine Bacteria LARGE H /HPF Urine Casts NONE /LPF Urine Mucus LARGE H /LPF Urine Culture Indicated YES Urine Opiates Screen NEGATIVE NEGATIVE Urine Oxycodone Screen NEGATIVE NEGATIVE Urine Methadone Screen NEGATIVE NEGATIVE Urine Propoxyphene Screen NEGATIVE NEGATIVE Urine Barbiturates Screen NEGATIVE NEGATIVE Ur Tricyclic Antidepressants Screen POSITIVE H NEGATIVE Urine Phencyclidine Screen NEGATIVE NEGATIVE Urine Amphetamines Screen NEGATIVE NEGATIVE Urine Methamphetamines Screen NEGATIVE NEGATIVE Urine Benzodiazepines Screen NEGATIVE NEGATIVE Urine Cocaine Screen NEGATIVE NEGATIVE Urine Cannabinoids Screen NEGATIVE NEGATIVE My Orders Orders - JENARO WASHINGTON DO Ed Iv/Invasive Line Start (02/11/21 23:24) Monitor-Rhythm Ecg Trace Only (02/11/21 23:24) Alcohol (02/11/21 23:24) Amylase (02/11/21 23:24) Cbc With Automated Diff (02/11/21 23:24) Comprehensive Metabolic Panel (02/11/21 23:24) Drug Screen Stat (Urine) (02/11/21 23:24) Lipase (02/11/21 23:24) Magnesium (02/11/21 23:24) Protime With Inr (02/11/21 23:24) Partial Thromboplastin Time (02/11/21 23:24) Ua Culture If Indicated (02/11/21 23:24) Troponin I (02/11/21 23:24) Ed Iv/Invasive Line Start (02/11/21 23:24) Ed Iv/Invasive Line Start (02/11/21 23:24) Lactated Ringers (Lr 1000 Ml Iv Solution (02/11/21 23:30) Ondansetron Injection (Zofran Injectio (02/11/21 23:30) Straight Cath For Spec.-Adult (02/12/21 00:33) Urine Culture (02/12/21 00:38) Medications Given in ED Vital Signs/I&O 02/11/21 02/12/21 23:19 01:21 Temp 35.6 Pulse 95 97 Resp 20 16 B/P (MAP) 145/87 (106) 137/109 Pulse Ox 96 98 O2 Delivery Room Air Room Air Capillary Refill : Less Than 3 Seconds Blood Pressure Mean: 106 Progress Note : Progress Note GIVEN IV FLUIDS AND ZOFRAN--NAUSEA RESOLVED PT WANTS TO TAKE HER REGULAR DOSE OF PARKINSON'S MEDICATIONS--BOTTLES WERE BROUGHT TO ER, AND MEDICATION AND DOSE WAS VERIFIED BY RN, AND RN ADMINISTERED THE MEDICATION TO THE PATIENT--PT INSTANTLY--LITERALLY IN A FEW SECONDS--PT STATES SHE FEELS SO MUCH BETTER AND HER LEG AND HAND MOVEMENTS HAVE SUDDENLY STOPPED, HAS DRAMATIC BEHAVIOR AND MOANING AND THRASHING. Departure Impression Primary Impression: Anxiety Additional Impressions: Nausea & vomiting Urinary tract infection Disposition: HOME, SELF-CARE Condition: Improved Departure-Patient Inst. Referrals: YUSEF TOM DO (PCP/Family) Primary Care Physician Patient Instructions: Anxiety, Adult (DC), Urinary Tract Infection, Adult (DC), Nausea and Vomiting, Adult (DC) Add. Discharge Instructions: LOTS OF CLEAR LIQUIDS CONTINUE YOUR REGULAR MEDICATIONS PRESCRIBED FOLLOW UP WITH DR. TOM THIS WEEK FOR FURTHER CARE All discharge instructions reviewed with patient and/or family. Voiced understanding. Scripts Cefdinir (Cefdinir) 300 Mg Capsule 300 MG PO BID, #20 CAP Prov: JENARO WASHINGTON DO 02/12/21 Ondansetron (Ondansetron Odt) 4 Mg Tab.rapdis 4 MG PO Q4H for Nausea/Vomiting, #10 TAB Prov: JENARO WASHINGTON DO 02/12/21 JENARO WASHINGTON DO Feb 12, 2021 00:59
[2021-02-12 01:21] VITALS: BP 137/109
== END 2021-02-12 01:22 | disposition home or self-care (01) ==
LOC: EDUNIT# 23:19 → ER 23:20
DX: F41.9 Anxiety disorder, unspecified (principal); R11.2 Nausea with vomiting, unspecified; N39.0 Urinary tract infection, site not specified; I10 Essential (primary) hypertension; F32.9 Major depressive disorder, single episode, unspecified; E03.9 Hypothyroidism, unspecified; Z87.891 Personal history of nicotine dependence; Z83.3 Family history of diabetes mellitus; Z80.42 Family history of malignant neoplasm of prostate; Z82.49 Family history of ischemic heart disease and other diseases of the circulatory system; Z79.890 Hormone replacement therapy
CPT/HCPCS: 51701; 80053; 80306; 81000; 82150; 83690; 83735; 84484; 85025; 85610; 85730; 87088; 93041; 99284; G0480; 36415; 80320; 87077

== ENCOUNTER 2021-02-15 20:37 | Emergency (ER) | payer MEDICAID ==
[~2021-02-15] VITALS: Ht 165 cm; Wt 106.6 kg
[~2021-02-15 20:37] MED LIST changes: +CEFD300C3 PO
[2021-02-15] MEDS ORDERED: ONDANSETRON 4 MG/2 ML (SDV) Z0FRAN IVP ONE (20:45)
[2021-02-15] MEDS ORDERED: NS IV 1000 ML 1,000 ML IV SCH (20:45)
--- NOTE | 2021-02-15 20:52 | ED General ---
General Stated Complaint: WEAKNESS Source of Information: Patient Exam Limitations: No Limitations History of Present Illness Date Seen by Provider: Feb 15, 2021 Time Seen by Provider: 20:35 Initial Comments Patient is a 56-year-old female who presents to the emergency department today with a chief complaint of generalized weakness, dizziness, lightheadedness. Patient states that she has a history of Parkinson's disease. She has noticed the symptoms progressive over the last week. She has been treated for a urinary tract infection since last Friday. Patient cannot recall the name of her antibiotic but states that it was prescribed here in the emergency department. Patient states today she has developed about diarrhea that she says is foul- smelling. She has had about 3 episodes of diarrhea today. She had dry heaves last night. And has had persistent nausea. She reports no fevers, cough, chills or shortness of breath. No discrete abdominal pain. She denies burning with urination or increased frequency or urgency. She states just that the urine is foul-smelling. She did see her neurologist yesterday and was started on amantadine. This is her only new medication except for the antibiotic prescribed a week ago. All other review of systems reviewed and negative except as stated. Timing/Duration: 1 Week Severity: Moderate Associated Systoms: No Cough, No Fever/Chills, No Headaches; Loss of Appetite, Nausea/Vomiting, Weakness Allergies and Home Medications Allergies Coded Allergies: No Known Drug Allergies (Unverified , 06/26/17) Home Medications Amitriptyline HCl 100 Mg Tablet, 50 MG PO HS, (Reported) TAKES 1/2 (100MG) TABLET Calcium Carbonate/Vitamin D3 1 Each Tablet, 1 TAB PO DAILY, (Reported) Cefdinir 300 Mg Capsule, 300 MG PO BID Prescribed by: JENARO WASHINGTON on 02/12/2157 Levothyroxine Sodium 75 Mcg Tablet, 75 MCG PO DAILY, (Reported) Multivitamin 1 Each Tablet, 1 TAB PO DAILY, (Reported) Nitrofurantoin Macrocrystal 100 Mg Capsule, 100 MG PO BID Prescribed by: JAVIER COVARRUBIAS on 08/12/19 1105 Ondansetron 4 Mg Tab.rapdis, 4 MG PO Q4H Prescribed by: JENARO WASHINGTON on 02/12/2157 Patient Home Medication List Home Medication List Reviewed: Yes Review of Systems Review of Systems Constitutional: see HPI EENTM: no symptoms reported Respiratory: no symptoms reported Cardiovascular: no symptoms reported Gastrointestinal: No abdominal pain, No constipation; diarrhea (foul smelling), nausea Genitourinary: other (foul smelling urine) : No Musculoskeletal: no symptoms reported Skin: no symptoms reported Psychiatric/Neurological: Tremors ((Parkinson's)) All Other Systems Reviewed Negative Unless Noted: Yes Past Qtqnlym-Ukjicf-Yjmpng Hx Patient Social History Alcohol Beverage of Choice: Beer Former Smoker, Quit: May 26, 2017 Recent Hopitalizations: Yes (3wks ago) Immunizations Up To Date Date of Influenza Vaccine: Aug 26, 2016 Seasonal Allergies Seasonal Allergies: Yes Past Medical History Surgeries: Yes (D&C, GASTRIC SLEVE) Respiratory: No Cardiac: No Neurological: Yes (HX OF MIGRAINES) Headaches /Migraines, Parkinson's Disease 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 Disorders: No Female 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 Disorders: Denies Sexually Transmitted Disease: No HIV/AIDS: No Genitourinary: No Gastrointestinal: Yes (has gastric sleeve) Gastroesophageal Reflux Musculoskeletal: Yes (KNEES) Arthritis Endocrine: Yes Hypothyroidsim HEENT: Yes (vision corrected with glasses) Loss of Vision: Bilateral Hearing Impairment: Denies Cancer: No Psychosocial: No Anxiety, Depression Integumentary: No Blood Disorders: No Adverse Reaction/Blood Tranf: No (N/A) Family Medical History Cardiovascular disease 19 MOTHER Diabetes mellitus G8 BROTHER FH: prostate cancer Physical Exam Vital Signs Vital Signs - First Documented 02/15/21 20:37 Temp 36.8 Pulse 93 Resp 20 B/P (MAP) 128/92 (104) Pulse Ox 96 O2 Delivery Room Air Capillary Refill : Height, Weight, BMI Height: 5'6.00" Weight: 272lbs. 0.0oz. [id number]; 39.00 BMI Method:Stated General Appearance: No Apparent Distress, WD/WN Eyes: Bilateral Eye Normal Inspection, Bilateral Eye PERRL HEENT: PERRL/EOMI Neck: Normal Inspection Respiratory: Lungs Clear, Normal Breath Sounds, No Accessory Muscle Use, No Respiratory Distress Cardiovascular: Regular Rate, Rhythm, No Murmur Gastrointestinal: Normal Bowel Sounds, Non Tender, Soft Extremity: Non Tender, No Pedal Edema Neurologic/Psychiatric: Alert, Oriented x3, No Motor/Sensory Deficits ((patient has pre-exisiting neuropathy)), Normal Mood/Affect Skin: Normal Color, Warm/Dry Progress/Results/Core Measures Suspected Sepsis SIRS Temperature: Pulse: Respiratory Rate: Laboratory Tests 02/15/21 20:45: White Blood Count 6.9 Blood Pressure / Mean: Laboratory Tests 02/15/21 20:45: Creatinine 0.69, Platelet Count 328 Results/Orders Lab Results Laboratory Tests Test 02/15/21 20:45 02/15/21 20:58 Range/Units White Blood Count 6.9 4.3-11.0 10^3/uL Red Blood Count 4.75 3.80-5.11 10^6/uL Hemoglobin 12.8 11.5-16.0 g/dL Hematocrit 39 35-52 % Mean Corpuscular Volume 82 80-99 fL Mean Corpuscular Hemoglobin 27 25-34 pg Mean Corpuscular Hemoglobin Concent 33 32-36 g/dL Red Cell Distribution Width 15.8 H 10.0-14.5 % Platelet Count 328 130-400 10^3/uL Mean Platelet Volume 11.5 9.0-12.2 fL Immature Granulocyte % (Auto) 0 % Neutrophils (%) (Auto) 55 42-75 % Lymphocytes (%) (Auto) 30 12-44 % Monocytes (%) (Auto) 11 0-12 % Eosinophils (%) (Auto) 4 0-10 % Basophils (%) (Auto) 0 0-10 % Neutrophils # (Auto) 3.8 1.8-7.8 10^3/uL Lymphocytes # (Auto) 2.1 1.0-4.0 10^3/uL Monocytes # (Auto) 0.7 0.0-1.0 10^3/uL Eosinophils # (Auto) 0.3 0.0-0.3 10^3/uL Basophils # (Auto) 0.0 0.0-0.1 10^3/uL Immature Granulocyte # (Auto) 0.0 0.0-0.1 10^3/uL Sodium Level 136 135-145 MMOL/L Potassium Level 3.2 L 3.6-5.0 MMOL/L Chloride Level 102 98-107 MMOL/L Carbon Dioxide Level 20 L 21-32 MMOL/L Anion Gap 14 5-14 MMOL/L Blood Urea Nitrogen 16 7-18 MG/DL Creatinine 0.69 0.60-1.30 MG/DL Estimat Glomerular Filtration Rate > 60 BUN/Creatinine Ratio 23 Glucose Level 90 70-105 MG/DL Calcium Level 10.1 8.5-10.1 MG/DL Urine Color YELLOW Urine Clarity CLEAR Urine pH 6.0 5-9 Urine Specific [place] >=1.030 1.016-1.022 Urine Protein TRACE H NEGATIVE Urine Glucose (UA) NEGATIVE NEGATIVE Urine Ketones 2+ H NEGATIVE Urine Nitrite NEGATIVE NEGATIVE Urine Bilirubin NEGATIVE NEGATIVE Urine Urobilinogen 1.0 < = 1.0 MG/DL Urine Leukocyte Esterase 1+ H NEGATIVE Urine RBC (Auto) 1+ H NEGATIVE Urine RBC 10-25 H /HPF Urine WBC 10-25 H /HPF Urine Crystals NONE /LPF Urine Amorphous Sediment RARE CYNTHIA URATES H /LPF Urine Bacteria FEW H /HPF Urine Casts NONE /LPF Urine Mucus SMALL H /LPF Urine Culture Indicated YES My Orders Orders - AVVIA WOOD MD Ed Iv/Invasive Line Start (02/15/21 20:45) Cbc With Automated Diff (02/15/21 20:45) Basic Metabolic Panel (02/15/21 20:45) Ua Culture If Indicated (02/15/21 20:45) Ns Iv 1000 Ml (Sodium Chloride 0.9%) (02/15/21 20:45) Ondansetron Injection (Zofran Injectio (02/15/21 20:45) Urine Culture (02/15/21 20:58) Medications Given in ED Current Medications Medications Dose Ordered Sig/Chris Route Start Time Stop Time Status Last Admin Dose Admin Ondansetron HCl 4 mg ONCE ONCE IVP 02/15/21 20:45 02/15/21 20:47 DC 02/15/21 20:50 4 MG Vital Signs/I&O 02/15/21 20:37 Temp 36.8 Pulse 93 Resp 20 B/P (MAP) 128/92 (104) Pulse Ox 96 O2 Delivery Room Air Capillary Refill : Progress Note : Time: 21:39 Progress Note Patient seen and evaluated, 56-year-old with a chief complaint of generalized weakness. Patient is treated in the emergency department with a liter of IV fluids and 4 mg of IV Zofran. After fluids have been completed and the medication was given the patient states that she feels very much improved. I did review the patient's urinalysis and culture from her previous visit. She had gram-positive bacteria with strep. We will switch her over to Keflex and this will hopefully alleviate her diarrhea. I have encouraged the patient to start on probiotics. [place] diet and advance as tolerated. She has oral Zofran at home. Patient's vital signs have been stable. Her other labs are reviewed she is mildly hypokalemic. I have advised the patient to supplement her diet. She verbalized understanding. She has no clinical or objective findings to warrant further studies from the emergency department. All questions are sought and answered. Patient is stable for discharge. Departure Impression Primary Impression: Diarrhea Qualified Codes: R19.7 - Diarrhea, unspecified Additional Impressions: Medication reaction Qualified Codes: T50.905A - Adverse effect of unspecified drugs, medicaments and biological substances, initial encounter Weakness Hypokalemia Disposition: HOME, SELF-CARE Condition: Stable Departure-Patient Inst. Decision time for Depature: 21:41 Referrals: YUSEF TOM DO (PCP/Family) Primary Care Physician Patient Instructions: Generalized Weakness, Hypokalemia Add. Discharge Instructions: drink plenty of fluids to stay well hydrated. stop the Cefdinir and start the keflex for 5 days. start an over the counter Pro-Biotic. Use your oral zofran at home as needed for nausea. Follow up with your doctor next week. Return to the Emergency Department for any increased or worsening symptoms, fever, pain or other emergent concerns. Scripts Cephalexin (Cephalexin) 500 Mg Tablet 500 MG PO TID, #15 TAB Prov: AVIVA WOOD MD 02/15/21 AVIVA WOOD MD Feb 15, 2021 20:52
[2021-02-15 20:53] LABS: BASOPHILS % (AUTO) 0 % (0-10); EOSINOPHILS # (AUTO) 0.3 10^3/uL (0.0-0.3); EOSINOPHILS % (AUTO) 4 % (0-10); HEMATOCRIT 39 % (35-52); HEMOGLOBIN 12.8 g/dL (11.5-16.0); LYMPHOCYTES # (AUTO) 2.1 10^3/uL (1.0-4.0); LYMPHOCYTES % (AUTO) 30 % (12-44); MEAN CORPUSCULAR HEMOGLOBIN 27 pg (25-34); MEAN CORPUSCULAR HGB CONC 33 g/dL (32-36); MEAN CORPUSCULAR VOLUME 82 fL (80-99); MEAN PLATELET VOLUME 11.5 fL (9.0-12.2); MONOCYTES # (AUTO) 0.7 10^3/uL (0.0-1.0); MONOCYTES % (AUTO) 11 % (0-12); NEUTROPHILS # (AUTO) 3.8 10^3/uL (1.8-7.8); NEUTROPHILS % (AUTO) 55 % (42-75); PLATELET COUNT 328 10^3/uL (130-400); WHITE BLOOD COUNT 6.9 10^3/uL (4.3-11.0)
[2021-02-15 21:02] LABS: BILIRUBIN,URINE NEGATIVE (NEGATIVE); CLARITY,URINE CLEAR; COLOR,URINE YELLOW; GLUCOSE, URINE (UA) NEGATIVE (NEGATIVE); KETONES,URINE 2+ (NEGATIVE); LEUKOCYTE ESTERASE ,URINE 1+ (NEGATIVE); NITRITE,URINE NEGATIVE (NEGATIVE); PROTEIN,URINE TRACE (NEGATIVE)
[2021-02-15 21:08] LABS: BUN/CREATININE RATIO 23; CALCIUM 10.1 MG/DL (8.5-10.1); CARBON DIOXIDE 20 MMOL/L (21-32); CHLORIDE 102 MMOL/L (98-107); CREATININE SERUM 0.69 MG/DL (0.60-1.30); GFR ESTIMATED > 60; GLUCOSE 90 MG/DL (70-105); POTASSIUM 3.2 MMOL/L (3.6-5.0); SODIUM 136 MMOL/L (135-145)
[2021-02-15 21:26] LABS: AMORPHOUS SEDIMENT,UR RARE AMOR URATES /LPF; BACTERIA,URINE FEW /HPF
[2021-02-15] MEDS ORDERED: CEPH500T PO (21:44)
[2021-02-15 21:58] VITALS: BP 108/59
== END 2021-02-15 22:04 | disposition home or self-care (01) ==
LOC: EDUNIT# 20:37 → ER 20:38
DX: R19.7 Diarrhea, unspecified (principal); E87.6 Hypokalemia; T42.8X5A Adverse effect of antiparkinsonism drugs and other central muscle-tone depressants, initial encounter; E03.9 Hypothyroidism, unspecified; F41.9 Anxiety disorder, unspecified; F32.9 Major depressive disorder, single episode, unspecified; G20 Parkinson's disease; Z79.2 Long term (current) use of antibiotics; Z79.890 Hormone replacement therapy; Z87.891 Personal history of nicotine dependence; Z98.84 Bariatric surgery status
CPT/HCPCS: 36415; 80048; 81000; 85025; 87077; 87088

== ENCOUNTER 2021-02-18 19:25 | Observation (INO) | payer MEDICAID ==
[~2021-02-18] VITALS: Ht 165 cm; Wt 106.8 kg
[~2021-02-18 19:25] MED LIST changes: +CEPH500T PO
[2021-02-18] MEDS ORDERED: diphenhydrAMINE 50 MG/ML INJ (BENADRYL) IV STA (19:28)
[2021-02-18] MEDS ORDERED: PROMETHAZINE INJ 25 MG/ML (PHENERGAN) AMP IVP STA (19:28)
[2021-02-18] MEDS ORDERED: LACTATED RINGERS 1,000 ML IV ONE (19:30)
[2021-02-18] MEDS ORDERED: PANTOPRAZOLE 40 MG (PROTONIX) VIAL IV ONE (19:30)
--- NOTE | 2021-02-18 19:43 | ED GI ---
General Chief Complaint: Abdominal/GI Problems Stated Complaint: N/V Source of Information: Patient, Old Records History of Present Illness Date Seen by Provider: Feb 18, 2021 Time Seen by Provider: 19:25 Initial Comments PT ARRIVES VIA EMS FROM HOME C/O ONGOING NAUSEA/VOMITING--DRY HEAVES SYMPTOMS ONGOING FOR A WEEK THIS IS PT'S 4TH VISIT HERE FOR THIS PROBLEM--LAST VISIT 02/15/21, PRIOR VISITS 02/09/21 AND 02/11/21 WAS DX WITH UTI OVER A WEEK AGO AND PLACED ON MACROBID X 5 DAYS BY AUTOMOBILE BODY CUSTOMIZER AT [facility] ON 02/05/21-- WAS SWITCHED TO CEFDINIR X 10 DAYS ON 02/12 ON ER VISIT HERE. THEN SWITCHED TO KEFLEX ON 02/16/21 ON ER VISIT HERE STATES SHE HAD DIARRHEA A FEW DAYS AGO, NONE FOR THE LAST 2 DAYS--HAD A NORMAL BM YESTERDAY STATES SHE IS HAVING DIFFICULTY URINATING--LAST VOIDED JUST PRIOR TO ARRIVAL--"NOT VERY MUCH" NO ABDOMINAL PAIN AT ANY TIME NO FEVER AT ANY TIME STATES SHE HAS ZOFRAN BUT "CAN'T KEEP IT DOWN" EMS GAVE ZOFRAN 4 MG IV PRIOR TO ARRIVAL NO KNOWN SICK CONTACTS OR SUSPICIOUS FOODS DENIES ANY NEW MEDICATIONS OR CHANGES IN DOSES, OR ANY MISSED DOSES OF MEDICATION HAS HAD GASTRIC SLEEVE SURGERY IN THE PAST, BUT NO PRIOR GI PROBLEMS HAS NOT FOLLOWED UP WITH HER DRHoracio AT ANY TIME IN THE LAST WEEK. PCP: DR. TOM Allergies and Home Medications Allergies Coded Allergies: No Known Drug Allergies (Unverified , 06/26/17) Home Medications Amitriptyline HCl 100 Mg Tablet, 50 MG PO HS, (Reported) TAKES 1/2 (100MG) TABLET Calcium Carbonate/Vitamin D3 1 Each Tablet, 1 TAB PO DAILY, (Reported) Cefdinir 300 Mg Capsule, 300 MG PO BID Prescribed by: JENARO WASHINGTON on 02/12/21 0058 Cephalexin 500 Mg Tablet, 500 MG PO TID Prescribed by: AVIVA WOOD on 02/15/212143 Levothyroxine Sodium 75 Mcg Tablet, 75 MCG PO DAILY, (Reported) Multivitamin 1 Each Tablet, 1 TAB PO DAILY, (Reported) Nitrofurantoin Macrocrystal 100 Mg Capsule, 100 MG PO BID Prescribed by: JAVIER COVARRUBIAS on 08/12/19 1105 Ondansetron 4 Mg Tab.rapdis, 4 MG PO Q4H Prescribed by: JENARO WASHINGTON on 02/12/21 0058 Patient Home Medication List Home Medication List Reviewed: Yes Review of Systems Review of Systems Constitutional: no symptoms reported; No fever EENTM: No Symptoms Reported Respiratory: No Symptoms Reported Cardiovascular: No Symptoms Reported Gastrointestinal: See HPI; Denies Abdominal Pain, Denies Constipated, Denies Diarrhea; Nausea, Vomiting (DRY HEAVES) Genitourinary: See HPI, Urgency, Other (SMALL AMOUNTS) Musculoskeletal: no symptoms reported Skin: no symptoms reported Psychiatric/Neurological: Anxiety Endocrine: No Symptoms Reported Hematologic/Lymphatic: No Symptoms Reported Past Wedbuvi-Rrnzde-Wxfxad Hx Past Med/Social Hx: Reviewed and Corrections made Patient Social History Alcohol Use: Occasionally Uses Alcohol Beverage of Choice: Beer Smoking Status: Former Smoker Type Used: Cigarettes Former Smoker, Quit: May 26, 2017 2nd Hand Smoke Exposure: No Recent Hopitalizations: No Immunizations Up To Date Date of Influenza Vaccine: Aug 26, 2016 Seasonal Allergies Seasonal Allergies: Yes Past Medical History Surgeries: Yes (D&C, GASTRIC SLEVE) Abdominal Respiratory: No Cardiac: No Neurological: Yes Headaches /Migraines, Parkinson's Disease 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 Disorders: No Female 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 Disorders: Denies 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 Sexually Transmitted Disease: No HIV/AIDS: No Genitourinary: No Gastrointestinal: Yes (GASTRIC SLEEVE SURGERY) Gastroesophageal Reflux Musculoskeletal: Yes (CHRONIC KNEE PAIN ) Arthritis Endocrine: Yes (MORBID OBESITY) Hypothyroidsim HEENT: Yes (GLASSES) Loss of Vision: Bilateral Hearing Impairment: Denies Cancer: No Psychosocial: Yes Anxiety, Depression Integumentary: No Blood Disorders: No Adverse Reaction/Blood Tranf: No (N/A) Family Medical History Cardiovascular disease 19 MOTHER Diabetes mellitus G8 BROTHER FH: prostate cancer Physical Exam Vital Signs Vital Signs - First Documented 02/18/21 19:25 Temp 36.1 Pulse 92 Resp 20 B/P (MAP) 171/99 (123) O2 Delivery Room Air Capillary Refill : Height/Weight/BMI Height: 5'6.00" Weight: 272lbs. 0.0oz. 123.062213qc; 39.00 BMI Method:Stated General Appearance: obese (MORBIDLY), other (EXTREMELY DRAMATIC, ANXIOUS, VERY LOUD/HARSH FORCED DRY HEAVING. MOANING AND THRASHING ALL OVER. CONSTANT MOVEMENTS OF HANDS AND FEET--ALL THIS BEHAVIOR STOPS COMPLETELY WHEN DISTRACTED AND PT WILL TALK IN NORMAL VOICE. 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 MOVEMENTS STOP WHEN DISTRACTED, INCREASE WITH ANXIETY. ) Skin: normal color, warm/dry, other (MULTIPLE SORES/SCARS/SCABS TO FACE AND ARMS.) Progress/Results/Core Measures Results/Orders Lab Results Laboratory Tests Test 02/18/21 19:35 02/18/21 19:50 Range/Units White Blood Count 7.3 4.3-11.0 10^3/uL Red Blood Count 4.80 3.80-5.11 10^6/uL Hemoglobin 12.7 11.5-16.0 g/dL Hematocrit 40 35-52 % Mean Corpuscular Volume 82 80-99 fL Mean Corpuscular Hemoglobin 27 25-34 pg Mean Corpuscular Hemoglobin Concent 32 32-36 g/dL Red Cell Distribution Width 15.9 H 10.0-14.5 % Platelet Count 418 H 130-400 10^3/uL Mean Platelet Volume 11.5 9.0-12.2 fL Immature Granulocyte % (Auto) 0 % Neutrophils (%) (Auto) 73 42-75 % Lymphocytes (%) (Auto) 17 12-44 % Monocytes (%) (Auto) 9 0-12 % Eosinophils (%) (Auto) 1 0-10 % Basophils (%) (Auto) 0 0-10 % Neutrophils # (Auto) 5.4 1.8-7.8 10^3/uL Lymphocytes # (Auto) 1.2 1.0-4.0 10^3/uL Monocytes # (Auto) 0.6 0.0-1.0 10^3/uL Eosinophils # (Auto) 0.1 0.0-0.3 10^3/uL Basophils # (Auto) 0.0 0.0-0.1 10^3/uL Immature Granulocyte # (Auto) 0.0 0.0-0.1 10^3/uL Sodium Level 142 135-145 MMOL/L Potassium Level 2.9 L 3.6-5.0 MMOL/L Chloride Level 105 98-107 MMOL/L Carbon Dioxide Level 18 L 21-32 MMOL/L Anion Gap 19 H 5-14 MMOL/L Blood Urea Nitrogen 11 7-18 MG/DL Creatinine 0.72 0.60-1.30 MG/DL Estimat Glomerular Filtration Rate > 60 BUN/Creatinine Ratio 15 Glucose Level 116 H 70-105 MG/DL Calcium Level 10.4 H 8.5-10.1 MG/DL Corrected Calcium 10.2 H 8.5-10.1 MG/DL Magnesium Level 1.5 L 1.6-2.4 MG/DL Total Bilirubin 0.4 0.1-1.0 MG/DL Aspartate Amino Transf (AST/SGOT) 3 L 5-34 U/L Alanine Aminotransferase (ALT/SGPT) < 6 0-55 U/L Alkaline Phosphatase 168 H 40-136 U/L Total Protein 7.1 6.4-8.2 GM/DL Albumin 4.2 3.2-4.5 GM/DL Amylase Level 67 25-125 U/L Lipase 55 8-78 U/L Serum Alcohol < 10 <10 MG/DL Urine Color YELLOW Urine Clarity CLEAR Urine pH 8.5 5-9 Urine Specific [place] 1.020 1.016-1.022 Urine Protein TRACE H NEGATIVE Urine Glucose (UA) NEGATIVE NEGATIVE Urine Ketones 1+ H NEGATIVE Urine Nitrite NEGATIVE NEGATIVE Urine Bilirubin NEGATIVE NEGATIVE Urine Urobilinogen 1.0 < = 1.0 MG/DL Urine Leukocyte Esterase NEGATIVE NEGATIVE Urine RBC (Auto) NEGATIVE NEGATIVE Urine RBC NONE /HPF Urine WBC RARE /HPF Urine Squamous Epithelial Cells RARE /HPF Urine Crystals PRESENT H /LPF Urine Calcium Oxalate Crystals FEW H /LPF Urine Bacteria TRACE /HPF Urine Casts NONE /LPF Urine Mucus SMALL H /LPF Urine Culture Indicated NO Urine Opiates Screen NEGATIVE NEGATIVE Urine Oxycodone Screen NEGATIVE NEGATIVE Urine Methadone Screen NEGATIVE NEGATIVE Urine Propoxyphene Screen NEGATIVE NEGATIVE Urine Barbiturates Screen NEGATIVE NEGATIVE Ur Tricyclic Antidepressants Screen POSITIVE H NEGATIVE Urine Phencyclidine Screen NEGATIVE NEGATIVE Urine Amphetamines Screen NEGATIVE NEGATIVE Urine Methamphetamines Screen NEGATIVE NEGATIVE Urine Benzodiazepines Screen NEGATIVE NEGATIVE Urine Cocaine Screen NEGATIVE NEGATIVE Urine Cannabinoids Screen NEGATIVE NEGATIVE My Orders Orders - PADMINI,JENARO K DO Ed Iv/Invasive Line Start (02/18/21 19:28) Monitor-Rhythm Ecg Trace Only (02/18/21 19:28) Alcohol (02/18/21:28) Amylase (02/18/21 19:28) Cbc With Automated Diff (02/18/21 19:28) Comprehensive Metabolic Panel (02/18/21 19:28) Drug Screen Stat (Urine) (02/18/21:28) Lipase (02/18/21:28) Magnesium (02/18/21:28) Ua Culture If Indicated (02/18/21 19:28) Promethazine Injection (Phenergan Injec (02/18/21 19:28) Ed Iv/Invasive Line Start (02/18/21:28) Lactated Ringers (Lr 1000 Ml Iv Solution (02/18/21 19:30) Diphenhydramine Injection (Benadryl Inje (02/18/21 19:28) Pantoprazole Injection (Protonix Injecti (02/18/21 19:30) Catheter(Urinary) Insert & Ass 03,15 (02/18/21 19:28) Ct Abdomen/Pelvis W (02/18/21 20:09) D5 1/2 Ns W/Kcl 20 Meq/L (Dextrose 5%/0. (02/18/21 20:15) Magnesium 1 Gm/100 Ml Ivpb (Magnesium Tate (02/18/21 20:15) Ceftriaxone For Iv Use (Rocephin For I (02/18/21 20:15) Iohexol Injection (Omnipaque 350 Mg/Ml 1 (02/18/21 20:30) Received Contrast (Hold Metformin- Contr (02/18/21 20:30) Ns (Ivpb) (Sodium Chloride 0.9% Ivpb Bag (02/18/21 20:30) Medications Given in ED Current Medications Medications Dose Ordered Sig/Chris Route Start Time Stop Time Status Last Admin Dose Admin Ceftriaxone Sodium 1000 mg/ Sterile Water 10 ml @ 200 mls/hr ONCE ONCE IV 02/18/21 20:15 02/18/21 20:18 DC 02/18/21 20:38 200 MLS/HR Iohexol 100 ml ONCE ONCE IV 02/18/21 20:30 02/18/21 20:31 DC 02/18/21 20:38 100 ML Lactated Ringer's 1,000 ml @ 0 mls/hr Q0M ONCE IV 02/18/21 19:30 02/18/21 19:32 DC 02/18/21 19:36 999 MLS/HR Magnesium Sulfate/ Dextrose 100 ml @ 100 mls/hr ONCE ONCE IV 02/18/21 20:15 02/18/21 21:14 DC 02/18/21 21:08 100 MLS/HR Pantoprazole 40 mg ONCE ONCE IV 02/18/21 19:30 02/18/21 19:32 DC 02/18/21 19:36 40 MG Sodium Chloride 100 ml ONCE ONCE IV 02/18/21 20:30 02/18/21 20:31 DC 02/18/21 20:38 80 ML Vital Signs/I&O 02/18/21 19:25 Temp 36.1 Pulse 92 Resp 20 B/P (MAP) 171/99 (123) O2 Delivery Room Air 02/19/21 00:00 Intake Total 110 ml Balance 110 ml Progress Progress Note : Progress Note GIVEN IV FLUIDS, PHENERGAN, BENADRYL--NAUSEA AND DRY HEAVES RESOLVED. PT HAD NO VOMITING OR DIARRHEA DURING ER STAY REVIEWED RECENT URINE CULTURES--GREW OUT STEP ANGINOSUS AND ALLOSCARDOVIA OMNICOLENS--NO SENSITIVITIES PERFORMED Diagnostic Imaging Comments CT ABDOMEN/PELVIS--PER RADIOLOGIST REPORT AT 2043 IMPRESSION: 1. No acute obstructive or inflammatory process in abdomen or pelvis. 2. Moderate distention of gallbladder likely from recent fasting. Reviewed: Reviewed by Me Departure Communication (Admissions) 2047--SPOKE WITH DR. MORALES, HOSPITALIST, ACCEPTS PT FOR ADMIT Impression Primary Impression: Nausea & vomiting Additional Impressions: Urinary tract infection Anxiety Medication reaction Hypomagnesemia Disposition: ADMITTED INPATIENT Condition: Improved Admissions Decision to Admit/Date: Feb 18, 2021 Time/Decision to Admit Time: 20:45 Departure-Patient Inst. Referrals: YUSEF TOM DO (PCP/Family) Primary Care Physician JENARO WASHINGTON DO Feb 18, 2021 19:43
[2021-02-18 19:44] LABS: BASOPHILS % (AUTO) 0 % (0-10); EOSINOPHILS # (AUTO) 0.1 10^3/uL (0.0-0.3); EOSINOPHILS % (AUTO) 1 % (0-10); HEMATOCRIT 40 % (35-52); HEMOGLOBIN 12.7 g/dL (11.5-16.0); LYMPHOCYTES # (AUTO) 1.2 10^3/uL (1.0-4.0); LYMPHOCYTES % (AUTO) 17 % (12-44); MEAN CORPUSCULAR HEMOGLOBIN 27 pg (25-34); MEAN CORPUSCULAR HGB CONC 32 g/dL (32-36); MEAN CORPUSCULAR VOLUME 82 fL (80-99); MEAN PLATELET VOLUME 11.5 fL (9.0-12.2); MONOCYTES # (AUTO) 0.6 10^3/uL (0.0-1.0); MONOCYTES % (AUTO) 9 % (0-12); NEUTROPHILS # (AUTO) 5.4 10^3/uL (1.8-7.8); NEUTROPHILS % (AUTO) 73 % (42-75); PLATELET COUNT 418 10^3/uL (130-400); WHITE BLOOD COUNT 7.3 10^3/uL (4.3-11.0)
[2021-02-18 20:06] LABS: BILIRUBIN,URINE NEGATIVE (NEGATIVE); CLARITY,URINE CLEAR; COLOR,URINE YELLOW; GLUCOSE, URINE (UA) NEGATIVE (NEGATIVE); KETONES,URINE 1+ (NEGATIVE); LEUKOCYTE ESTERASE ,URINE NEGATIVE (NEGATIVE); NITRITE,URINE NEGATIVE (NEGATIVE); PH,URINE 8.5 (5-9); PROTEIN,URINE TRACE (NEGATIVE)
[2021-02-18 20:06] LABS: ALANINE AMINOTRANSFERASE < 6 U/L (0-55); ALBUMIN 4.2 GM/DL (3.2-4.5); ALKALINE PHOSPHATASE 168 U/L (40-136); AMYLASE 67 U/L (25-125); BILIRUBIN,TOTAL 0.4 MG/DL (0.1-1.0); BUN/CREATININE RATIO 15; CALCIUM 10.4 MG/DL (8.5-10.1); CARBON DIOXIDE 18 MMOL/L (21-32); CHLORIDE 105 MMOL/L (98-107); CREATININE SERUM 0.72 MG/DL (0.60-1.30); GFR ESTIMATED > 60; GLUCOSE 116 MG/DL (70-105); LIPASE 55 U/L (8-78); MAGNESIUM 1.5 MG/DL (1.6-2.4); POTASSIUM 2.9 MMOL/L (3.6-5.0); SODIUM 142 MMOL/L (135-145); TOTAL PROTEIN 7.1 GM/DL (6.4-8.2)
[2021-02-18 20:12] LABS: BACTERIA,URINE TRACE /HPF; CALCIUM OXALATE CRYSTALS,UR FEW /LPF; SQUAMOUS EPITHELIAL CELL,UR RARE /HPF; WBC,URINE RARE /HPF
[2021-02-18] MEDS ORDERED: cefTRIAXone FOR IV USE 1,000 MG in WATER (STERILE) FOR INJECTION 10 ML IV ONE (20:15)
[2021-02-18] MEDS ORDERED: MAGNESIUM 1 GM/100 ML IVPB 100 ML IV ONE (20:15)
[2021-02-18] MEDS ORDERED: D5 1/2 NS W/KCL 20 MEQ/L 1,000 ML IV SCH (20:15)
[2021-02-18 20:16] LABS: AMPHETAMINE SCREEN, URINE NEGATIVE (NEGATIVE); BARBITURATE SCREEN URINE NEGATIVE (NEGATIVE); BENZODIAZEPINES SCREEN URINE NEGATIVE (NEGATIVE); CANNABINOID SCREEN, URINE NEGATIVE (NEGATIVE); COCAINE SCREEN URINE NEGATIVE (NEGATIVE); METHADONE STAT NEGATIVE (NEGATIVE); METHAMPHETAMINE SCREEN URINE S NEGATIVE (NEGATIVE); OPIATE SCREEN URINE NEGATIVE (NEGATIVE); OXYCODONE STAT NEGATIVE (NEGATIVE); PROPOXYPHENE STAT NEGATIVE (NEGATIVE); TRICYCLIC ANTIDEPRESSANTS SCRE POSITIVE (NEGATIVE)
[2021-02-18] MEDS ORDERED: NS 100 ML (IVPB) BAG IV ONE (20:30)
[2021-02-18] MEDS ORDERED: HOLD METFORMIN - RECEIVED CONTRAST 20 ML VIAL IV SCH (20:30)
[2021-02-18] MEDS ORDERED: IOHEXOL 350 MG/ML 100 ML (OMNIPAQUE 350) VIAL IV ONE (20:30)
--- NOTE | 2021-02-18 20:42 | Diagnostic Imaging Report ---
CT ABDOMEN/PELVIS W TECHNIQUE: Multiple contiguous axial images were obtained through the abdomen and pelvis after administration of intravenous contrast. All CT scans use one or more of the following dose optimizing techniques: automated exposure control, MA and/or KvP adjustment based on a patient size and exam type, or iterative reconstruction. INDICATION: Nausea and vomiting. Prior gastric surgery. COMPARISON: None available. FINDINGS: Lower chest: The lung bases are clear. No pericardial or pleural effusion. Peritoneum: No free intraperitoneal air or fluid. Liver and biliary system: The liver is normal. Gallbladder is moderately distended likely from recent fasting. No radiopaque gallstones. Spleen and Pancreas: Spleen is normal. The pancreas enhances normally without mass lesion or peripancreatic inflammatory changes. Adrenals: Normal. tract: The kidneys enhance normally without suspicious mass or obstruction. Urinary bladder is decompressed by Amaya catheter. Uterus and ovaries are normal in appearance. GI tract: There nidhi along the greater curvature of the stomach. The stomach is decompressed and has no appreciable wall thickening. No bowel obstruction. No pericolonic inflammatory changes. Normal appendix. Vasculature and Lymph nodes: Normal caliber aorta. No abdominal or pelvic lymphadenopathy. Musculoskeletal: No concerning osseous lesion. IMPRESSION: 1. No acute obstructive or inflammatory process in abdomen or pelvis. 2. Moderate distention of gallbladder likely from recent fasting. Dictated by: Dictated on workstation # [id number]
[2021-02-18 21:53] VITALS: BP 142/69
[2021-02-18] MEDS ORDERED: ONDANSETRON 4 MG/2 ML (SDV) Z0FRAN ONE (22:10)
[2021-02-18] MEDS: LORazepam INJ 2 MG/ML (ATIVAN) VIAL IV PRN (22:26)
[2021-02-18] MEDS ORDERED: ONDANSETRON 4 MG/2 ML (SDV) Z0FRAN IV PRN (22:30)
[2021-02-18] MEDS ORDERED: PROMETHAZINE INJ 25 MG/ML (PHENERGAN) AMP IVP PRN (22:30)
[2021-02-18] MEDS ORDERED: diphenhydrAMINE 50 MG/ML INJ (BENADRYL) IV PRN (22:30)
[2021-02-19] VITALS (7 sets, daily range): BP systolic 125–170; BP diastolic 60–89
[2021-02-19] MEDS: D5 1/2 NS W/KCL 20 MEQ/L 1,000 ML IV SCH ×4 (03:38→17:13)
[2021-02-19 06:34] LABS: BASOPHILS % (AUTO) 1 % (0-10); EOSINOPHILS # (AUTO) 0.1 10^3/uL (0.0-0.3); EOSINOPHILS % (AUTO) 3 % (0-10); HEMATOCRIT 37 % (35-52); HEMOGLOBIN 11.8 g/dL (11.5-16.0); LYMPHOCYTES # (AUTO) 1.9 10^3/uL (1.0-4.0); LYMPHOCYTES % (AUTO) 34 % (12-44); MEAN CORPUSCULAR HEMOGLOBIN 27 pg (25-34); MEAN CORPUSCULAR HGB CONC 32 g/dL (32-36); MEAN CORPUSCULAR VOLUME 84 fL (80-99); MEAN PLATELET VOLUME 12.6 fL (9.0-12.2); MONOCYTES # (AUTO) 0.5 10^3/uL (0.0-1.0); MONOCYTES % (AUTO) 8 % (0-12); NEUTROPHILS # (AUTO) 3.1 10^3/uL (1.8-7.8); NEUTROPHILS % (AUTO) 54 % (42-75); PLATELET COUNT 338 10^3/uL (130-400); WHITE BLOOD COUNT 5.6 10^3/uL (4.3-11.0)
[2021-02-19 06:49] LABS: ALANINE AMINOTRANSFERASE < 6 U/L (0-55); ALBUMIN 3.6 GM/DL (3.2-4.5); ALKALINE PHOSPHATASE 144 U/L (40-136); BILIRUBIN,TOTAL 0.4 MG/DL (0.1-1.0); BUN/CREATININE RATIO 9; CALCIUM 9.3 MG/DL (8.5-10.1); CARBON DIOXIDE 22 MMOL/L (21-32); CHLORIDE 106 MMOL/L (98-107); CREATININE SERUM 0.58 MG/DL (0.60-1.30); GFR ESTIMATED > 60; GLUCOSE 103 MG/DL (70-105); MAGNESIUM 1.9 MG/DL (1.6-2.4); SODIUM 138 MMOL/L (135-145); TOTAL PROTEIN 6.1 GM/DL (6.4-8.2)
[2021-02-19] MEDS: PANTOPRAZOLE 40 MG (PROTONIX) VIAL IV SCH (08:05)
[2021-02-19] MEDS ORDERED: RYTARY PO SCH (10:00)
[2021-02-19] MEDS: RYTARY PO SCH ×4 (12:03→20:02)
--- NOTE | 2021-02-19 12:05 | History & Physical-Hospitalist ---
BENJIE COPE MED STUDENT 02/19/21 1205: History of Present Illness HPI/Chief Complaint Ms. Simmons is a 56 year old female seen today due to one week of nausea and vomiting. She reports that she vomits multiple times per day, typically after eating, and that she at times dry heaves. She associates the nausea with starting amantadine for her parkinson's about one week ago. Her parkinson's symptoms have been less controlled this week, as she has been vomiting after taking her medications. She also reports being diagnosed with a UTI one week ago, and having an episode of diarrhea after taking an antibiotic she was prescribed in the ED, which was switched. She reports that her UTI symptoms have resolved. Over the past week she reports having dizziness and light headedness with standing, as well as chronic numbness from neuropathy in her hands and feet, due to her parkinsons. When seen this morning she denies having any nausea or vomiting. Reports she is upset about having to move to an assisted living facility due to her Parkinson's. Denies having had any fevers/chills, abdominal pain, constipation, melena, hematemesis, cp/sob. Source: patient Exam Limitations: no limitations Date Seen 02/19/21 Time Seen by a Provider: 08:00 Attending Physician Martina Hogan MD PCP Gregory Dudley DO Referring Physician Date of Admission Feb 18, 2021 at 20:50 Home Medications & Allergies Home Medications Reviewed patient Home Medication Reconciliation performed by pharmacy medication reconciliations mathematical engineering technician and/or nursing. Patients Allergies have been reviewed. Allergies Allergies Coded Allergies No Known Drug Allergies (Unverified06/26/17) Patient Social History Tobacco Use?: No Tobacco type used: Cigarettes Smoking Status: Former Smoker (20 years 1/2 ppd, quit 10 years ago) Substance use?: No Alcohol Use?: No Pt stated abuse/neglect: No Immunizations Up To Date Influenza Vaccine Up-to-Date: No; Not Current Current Status status: No Do you have an Advance Directi: No Communicates: Verbally Primary Language: Lebanese Preferred Spoken Language: Lebanese Is interpretation needed?: No Sensory deficits: Vision impairment Implanted or Applied Medical D: None Review of Systems Constitutional: No chills; dizziness; No fever, No weakness EENTM: No blurred vision, No double vision, No vision loss Respiratory: No cough, No short of breath Cardiovascular: No chest pain, No palpitations, No syncope Gastrointestinal: No abdominal pain, No constipation; diarrhea (1 episode earlier this week); No hematemesis, No melena; nausea, vomiting Genitourinary: No dysuria, No frequency, No hematuria, No hesitancy Psychiatric/Neurological: Denies Headache; Numbness (chronic neuropathy), Tingling (chronic neuropathy), Tremors (parkinson's disease); Denies Weakness Physical Exam Physical Exam Vital Signs Vital Signs - First Documented 02/18/21 02/18/21 19:25 21:34 Temp 36.1 Pulse 92 Resp 20 B/P (MAP) 171/99 (123) Pulse Ox 100 O2 Delivery Room Air Capillary Refill : Less Than 3 Seconds Height, Weight, BMI Height: 5'6.00" Weight: 272lbs. 0.0oz. 123.358682bv; 39.22 BMI Method:Stated General Appearance: No Apparent Distress, Obese Eyes: Bilateral Eye Normal Inspection, Bilateral Eye PERRL, Bilateral Eye EOMI HEENT: PERRL/EOMI Neck: Normal Inspection, Non Tender, Supple Respiratory: Lungs Clear, Normal Breath Sounds, No Accessory Muscle Use, No Respiratory Distress Cardiovascular: Regular Rate, Rhythm, No Edema, No Murmur, Normal Peripheral Pulses Gastrointestinal: Normal Bowel Sounds, No Organomegaly, Non Tender, Soft Extremity: Normal Inspection, Non Tender, No Calf Tenderness, No Pedal Edema Neurologic/Psychiatric: Alert, Oriented x3, Normal Mood/Affect Skin: Normal Color, Warm/Dry Results Results/Procedures Labs Laboratory Tests 02/18/21 19:35 02/19/21 05:24 Patient resulted labs reviewed. Assessment/Plan Assessment and Plan A/P: Nausea and vomiting * No n/v this morning, hold IVF and resume regular diet * Continue phenergen 25 mg po q4h prn * Zofran 4 mg IV q4h prn available if refractory * CT abdomen 02/19 reports no acute obstructive or inflammatory process in abdomen or pelvis. Consult Dr. Cha to determine need to evaluate Lap band. UTI * received ceftriaxone last night, denies having any symptoms currently Hypokalemia * 3.0 this morning after receiving 1000 mL KCl/Dextrose/NaCl last night, continue to monitor following Mg replacement and regular diet Hypomagnesemia * received 100 mL Mg this morning, continue to monitor Parkinson's disease * Hold amantadine, continue home medications Hypothyroidism * Resume home levothyroxine LISETTE MAHAJAN MD 02/19/21 1334: Assessment/Plan Admission Diagnosis Intractable nausea and vomiting Admission Status: Observation Assessment and Plan Continue anti emetics and advance diet slowly. Surgery consulted for evaluation of nause and vomiting given history of lap band. PT/OT consulted and IRU eval requested as well. Advance directive ordered. Supervisory-Addendum Brief Verification & Attestation Participated in pt care: history, MDM, physical Personally performed: exam, history, MDM, supervision of care Care discussed with: Medical Student Procedures: n/a Results interpretation: Verified all documentation Verification and Attestation of Medical Student E/M Service A medical student performed and documented this service in my presence. I reviewed and verified all information documented by the medical student and made modifications to such information, when appropriate. I personally performed the physical exam and medical decision making. Lisette Mahajan, Feb 19, 2021,13:33 BENJIE COPE MED STUDENT Feb 19, 2021 12:05 LISETTE MAHAJAN MD Feb 19, 2021 13:34
[2021-02-19] MEDS: ONDANSETRON 4 MG (ZOFRAN) ORAL DISSOLVE TAB PO PRN ×2 (12:30→17:03)
[2021-02-19] MEDS: LORazepam INJ 2 MG/ML (ATIVAN) VIAL IV PRN ×3 (13:25→22:32)
--- NOTE | 2021-02-19 14:47 | Physical Therapy Evaluation ---
PT Evaluation-General Medical Diagnosis Admission Date Feb 18, 2021 at 20:50 Medical Diagnosis: Nausea/vomiting Onset Date: Feb 18, 2021 Therapy Diagnosis Therapy Diagnosis: debility/weakness/dyskinesia Height/Weight Height (Feet): 5 Height (Inches): 6.00 Weight (Pounds): 272 Weight (Ounces): 0.0 Precautions Precautions/Isolations: Fall Prevention, Standard Precautions Referral Physician: Zaina Reason for Referral: Evaluation/Treatment Medical History Pertinent Medical History: Neuropathy, Parkinson's Additional Medical History gastric sleeve/obesity Current History EMS secondary to N&V/multiple ER visits due to same symptoms Reviewed History: Yes Social History Home: Apartment Current Living Status: Alone Entry Into Home: Level Entry Prior Prior Level of Function SCALE: Activities may be completed with or without assistive devices. 6-Huqbsrvwln-kmtylsd completes the activity by him/herself with no assistance from a helper. 5-Set-up or Clean-up Assistance-helper sets up or cleans up; patient completes activity. Selfridge assists only prior to or following the activity. 4-Supervision or Touching Assistance-helper provides verbal cues and/or touching/steadying and/or contact guard assistance as patient completes activity. Assistance may be provided throughout the activity or intermittently. 3-Partial/Moderate Assistance-helper does LESS THAN HALF the effort. Selfridge lifts, holds or supports trunk or limbs, but provides less than half the effort. 2-Substantial/Maximal Assistance-helper does MORE THAN HALF the effort. Selfridge lifts or holds trunk or limbs and provides more than half the effort. 4-Tihxwnxrv-lqwjjj does ALL the effort. Patient does none of the effort to complete the activity. Or, the assistance of 2 or more helpers is required for the patient to complete the activity. If activity was not attempted, code reason: 7-Patient Refused. 9-Not Applicable-not attempted and the patient did not perform the activity before the current illness, exacerbation or injury. 10-Not Attempted due to Environmental Limitations-(lack of equipment, weather restraints, etc.). 88-Not Attempted due to Medical Conditions or Safety Concerns. Bed Mobility: 6 Transfers (B,C,W/C): 6 Gait: 6 Stairs: 9 Wheelchair Mobility: 9 Indoor Mobility (Ambulation): Independent Stairs: Not Applicalbe Prior Devices Use: Walker PT Evaluation-Current Subjective Patient reports multiple falls due to weakness. Agrees to PT. Objective Patient Orientation: Normal For Age Attachments: Amaya Catheter, IV ROM/Strength ROM Lower Extremities bilateral LE WFL Strength Lower Extremities 3/5 grossly bilateral LE Integumentary/Posture Integumentary refer to nursing notes Bladder Incontinence: Amaya Cath Posture WFL Neuromuscular (Tone, Coordination, Reflexes) severe dyskinesia/Parkinson's Sensory Vision: Wears Glasses Hearing: Functional Sensation Right Lower Extremit: Impaired Sensation Left Lower Extremity: Impaired Transfers Roll Left to Right (QC): 4 Sit to Lying (QC): 4 Lying to Sitting/Side of Bed(Q: 4 Sit to Stand (QC): 2 Chair/Vfm-gp-Urvth Xfer(QC): 2 Gait Does the Patient Walk?: Yes Mode of Locomotion: Walk Anticipated Mode of Locomotion: Walk Walk 10 feet (QC): 2 Walk 50 ft with 2 Turns(QC): 2 Walk 150 ft (QC): 88 Distance: 100' Gait Assistive Device: FWW Comments/Gait Description severe dyskinesia bilateral UE and LE/uncoordinated, involuntary movements of all extremities Balance Sitting Static: Fair Sitting Dynamic: Fair Standing Static: Poor Standing Dynamic: Poor Picking up an Object (QC): 88 Assessment/Needs 56 y.o. female, will benefit from skilled PT to address functional strength and mobility to improve current LOF. From a PT standpoint, patient would benefit from ARU to address balance and coordination, as well as, safety with all mobility and ADL's. Rehab Potential: Fair PT Egg Grader Goals Egg Grader Goals PT Egg Grader Goals Time Frame: Mar 10, 2021 Roll Left & Right (QC): 5 Sit to Lying (QC): 5 Lying-Sitting on Side/Bed(QC): 5 Sit to Stand (QC): 5 Chair/Obb-mi-Vnrnh Xfer(QC): 5 Toilet Transfer (QC): 5 Does the Patient Walk: Yes Walk 10 feet (QC): 5 Walk 50ft with 2 Turns (QC): 5 Walk 150 ft (QC): 5 PT Plan Problem List Problem List: Activity Tolerance, Functional Strength, Safety, Balance, Gait, Transfer, Bed Mobility, Other (dyskinesia) Treatment/Plan Treatment Plan: Continue Plan of Care Treatment Plan: Bed Mobility, Education, Functional Activity Judy, Functional Strength, Gait, Safety, Therapeutic Exercise, Transfers Treatment Duration: Mar 10, 2021 Frequency: 6 times per week Estimated Hrs Per Day: .5 hour per day Patient and/or Family Agrees t: Yes Discharge Recommendations Therapy Discharge Recommendati: Other, See Comments (ARU) Time/GCodes Time In: 1410 Time Out: 1430 Total Billed Treatment Time: 20 Total Billed Treatment 1 visit EVModC 20 min KATHY FAROOQ PT Feb 19, 2021 14:47
--- NOTE | 2021-02-19 15:09 | Occupational Therapy Eval ---
OT Evaluation-General/PLF Medical Diagnosis Admission Date Feb 18, 2021 at 8:50 pm Medical Diagnosis: Nausea/vomiting Onset Date: Feb 18, 2021 Therapy Diagnosis Therapy Diagnosis: weakness/decreased ADL status Height/Weight Height (Feet): 5 Height (Inches): 6.00 Weight (Pounds): 272 Weight (Ounces): 0.0 Precautions Precautions/Isolations: Fall Prevention, Standard Precautions Referral Physician: Zaina Referral Reason: Evaluation/Treatment Medical History Pertinent Medical History: Neuropathy, Parkinson's Additional Medical History gastric sleeve, arthritis, GERD, hypothyroidism, anxiety/depression, headaches/migraines Current History ED due to n/v x1 week, vomits multiple times a day, typically after eating. Pt has been to ED multiple times for same issue. Social History Home: Apartment Current Living Status: Alone Entry Into Home: Level Entry ADL-Prior Level of Function SCALE: Activities may be completed with or without assistive devices. 2-Fwotbghenm-rrqtzey completes the activity by him/herself with no assistance from a helper. 5-Set-up or Clean-up Assistance-helper sets up or cleans up; patient completes activity. Gruver assists only prior to or following the activity. 4-Supervision or Touching Assistance-helper provides verbal cues and/or touching/steadying and/or contact guard assistance as patient completes activity. Assistance may be provided throughout the activity or intermittently. 3-Partial/Moderate Assistance-helper does LESS THAN HALF the effort. Gruver lifts, holds or supports trunk or limbs, but provides less than half the effort. 2-Substantial/Maximal Assistance-helper does MORE THAN HALF the effort. Gruver lifts or holds trunk or limbs and provides more than half the effort. 4-Jrsnebwyy-jdabng does ALL the effort. Patient does none of the effort to complete the activity. Or, the assistance of 2 or more helpers is required for the patient to complete the activity. If activity was not attempted, code reason: 7-Patient Refused. 9-Not Applicable-not attempted and the patient did not perform the activity before the current illness, exacerbation or injury. 10-Not Attempted due to Environmental Limitations-(lack of equipment, weather restraints, etc.). 88-Not Attempted due to Medical Conditions or Safety Concerns. ADL PLOF Comments Pt reports being independent with I/ADLs using walker as needed. She reports having increased difficulty lately. Pt reports she is planning on getting a Parkinson's walker. Self Care: Independent Functional Cognition: Independent DME/Equipment: Bath Chair, Shower DME/Equipment Comments walker OT Current Status Subjective Pt laying in bed, agreeable to OT tx. Mental Status/Objective Patient Orientation: Person, Place, Time, Situation Attachments: Amaya Catheter, IV Current Glasses/Contacts: Yes Upper Extremity ROM WFL Upper Extremity Coordination decreased, severe dyskinesia/Parkinson's Upper Extremity Sensation pt reports tingling/numbness in fingertips Upper Extremity Strength grossly 3/5 BUEs ADL-Treatment On/Off Footwear (QC): 1 (Total assist donning adaptive shoes with zippers/velcro) Other Treatments Pt laying in bed, transferred supine to sit EOB, donned shoes. Pt then used FWW to ambulate in hallways, 100' (QC 2). Noted severe dyskinesia bilateral UE and LE/uncoordinated, involuntary movements of all extremities. Pt returned to her room, transferring to recliner. OT educated pt on adaptive utensils with eating (Nabil cup and built up utensils), providing pt with utensils to use while in hospital. Pt able to use Nabil cup independently after set up, and indicates the utensils will seem to work well and she will try with dinner. OT educated pt on POC while in hospital, she verbalized understanding. Post tx, pt in recliner, call light in reach and all needs met. Education OT Patient Education: Correct positioning, Modified ADL techniques, Progress toward Goal/Update tx plan, Purpose of tx/functional activities, Rehab process, Use of adapted equipment Teaching Recipient: Patient Teaching Methods: Discussion Response to Teaching: Verbalize Understanding OT Halfway Goals Nutrition Services Manager Goals Time Frame: Mar 02, 2021 Eating (QC): 6 Oral Hygiene (QC): 6 Toileting Hygiene (QC): 4 Shower/Bathe Self (QC): 4 Upper Body Dressing (QC): 5 Lower Body Dressing (QC): 4 On/Off Footwear (QC): 4 Additional Goals: 1-Demonstrate ADL Tasks, 2-Verbalize Understanding, 3- ImproveStrength/Judy 1=Demonstrate adherence to instructed precautions during ADL tasks. 2=Patient will verbalize/demonstrate understanding of assistive devices/modifications for ADL. 3=Patient will improve strength/tolerance for activity to enable patient to perform ADL's. OT Education/Plan Problem List/Assessment Assessment: Decreased Activ Tolerance, Decreased UE Strength, Impaired Coordination, Impaired Funct Balance, Impaired I ADL's, Impaired Self-Care Skills, Restricted Funct UE ROM Discharge Recommendations Plan/Recommendations: Continue POC Therapy Discharge Recommendati: Post Acute OT Treatment Plan/Plan of Care Treatment,Training & Education: Yes Patient would benefit from OT for education, treatment and training to promote independence in ADL's, mobility, safety and/or upper extremity function for ADL's. Plan of Care: ADL Retraining, Functional Mobility, UE Funct Exercise/Act Treatment Duration: Mar 02, 2021 Frequency: 5 times per week Estimated Hrs Per Day: .25 hour per day Rehab Potential: Fair Time/GCodes Start Time: 14:10 Stop Time: 14:45 Total Time Billed (hr/min): 35 Billed Treatment Time 1, EVM (15'), ADL (15') SCOTT SCANLON OT Feb 19, 2021 3:08 pm
[2021-02-19] MEDS ORDERED: IBUP-2473 PO (15:27)
[2021-02-19] MEDS ORDERED: ONDA-105 PO (15:27)
[2021-02-19] MEDS ORDERED: CARB1CAP5 PO (15:27)
[2021-02-19] MEDS ORDERED: GABA300C PO ×2 (15:27)
[2021-02-19] MEDS ORDERED: LEVO75TA6 PO (15:27)
[2021-02-19] MEDS ORDERED: SERT-413 PO (15:27)
[2021-02-19] MEDS ORDERED: AMAN100C18 PO (15:27)
[2021-02-19] MEDS ORDERED: CYAN500T8 PO (15:27)
[2021-02-19] MEDS ORDERED: morphine INJ 4 MG/ML 1 ML (VIAL/SYRINGE) IVP PRN (20:00)
[2021-02-19] MEDS: ENOXAPARIN 40 MG/0.4 ML (LOVENOX) SYR SC SCH (20:19)
--- NOTE | 2021-02-19 20:24 | CONSULTATION REPORT ---
DATE OF SERVICE: 02/19/2021 ATTENDING PRIMARY CARE PHYSICIAN: Gregory Dudley DO ADMITTING PHYSICIAN: Dr. Martina Hogan. HISTORY OF PRESENT ILLNESS: The patient is a 56-year-old female known to us. She struggled with morbid obesity for many years and had tried many diet and exercise attempts with no success. She also tried medications and was able to lose approximately 30 pounds; however, discontinuation of the medication, she would regain the weight back. On 07/03/2017, she underwent a laparoscopic gastric sleeve resection, which she tolerated well. The following day, she was able to tolerate at least 60 mL of phase-1 clear liquid diet every 30 minutes and had adequate pain control, was ambulating well and was discharged home. She was admitted yesterday for a two-week history of nausea, vomiting and dry heaving as well as dehydration and urinary tract infection associated with it. She states that this has been significant for the past 2 weeks when she was started on amantadine for her Parkinson's syndrome. Because of her urinary tract infection, she was also started on an antibiotic; however, she did develop diarrhea, and this was discontinued. Upon further questioning, she reports that she has had milder episodes usually after eating meals for the past 2 years. She does not report any epigastric burning sensation or crampy pain that would indicate significant gastroesophageal reflux disease; however, is common after gastric restrictive procedure. She was initially placed on Protonix after surgery; however, states that she did discontinue this medication. This may also be contributing to her nausea and vomiting. She does not report any hematemesis, no coffee ground emesis and does report some issues with constipation; however, no red blood per rectum nor any dark tarry stools. Her preoperative weight was approximately 316 pounds and she states that she has been hovering around 235 pounds. PAST MEDICAL HISTORY: Parkinson's disease, obstructive sleep apnea, degenerative joint disease, hypothyroid, insomnia, diabetes, left hand tremor. PAST SURGERIES: D and C in 1983, miscarriage 1999, LEEP procedure in 2007, laparoscopic gastric sleeve resection 2016. ALLERGIES: No known drug allergies. MEDICATIONS: Levodopa, amantadine, amitriptyline 100 mg daily, levothyroxine 75 mcg daily, Neurontin 300 mg t.i.d. and 600 mg at bedtime, sertraline 100 mg daily, vitamin B12 daily. SOCIAL HISTORY: Previous smoke, quit 2018. Negative alcohol. FAMILY HISTORY: Noncontributory. VITAL SIGNS: Temperature 36.4, blood pressure 170/89, pulse 84, respirations 20, pulse ox 98% on room air. REVIEW OF SYSTEMS: Well-nourished female, in no acute distress. She does not have any appetite and did not eat much of her dinner tray. A 2-week history of nausea and vomiting with only a few episodes of vomiting. No hematemesis, no coffee ground emesis. No diarrhea, constipation, no red blood per rectum, no dark tarry stools. No fever, chills, no recent inadvertent weight loss. All other review of systems negative. PHYSICAL EXAMINATION: CHEST: Clear. Good breath sounds bilaterally. HEART: Regular, no murmurs. EXTREMITIES: No lower extremity edema, negative Homans sign. HEENT: No scleral icterus, no cervical lymphadenopathy. ABDOMEN: Soft, nondistended. There is mild discomfort in the epigastric region as well as a right upper abdominal quadrant. No peritoneal signs. No hernias. SKIN: Warm, dry. LABORATORY DATA: WBC 5.6, hemoglobin 11.8, hematocrit 37, platelets 338. ASSESSMENT AND PLAN: A 56-year-old female with persistent nausea and vomiting, status post gastric sleeve resection. We feel that this may be multifactorial may be related to gastritis, for she is not on an acid load mixer and we will start her on Protonix IV at this time. A CT scan on admission was also performed, which did show a significantly dilated gallbladder and she has had signs and symptoms consistent with biliary sludge versus a biliary dyskinesia and we will proceed with an ultrasound and if this is negative, then proceed with a HIDA scan. If this is positive, we will schedule her for simultaneous laparoscopic cholecystectomy as well as an EGD as well as biopsies as appropriate. Job ID: [id number] DocumentID: [id number] Dictated Date: 02/19/2021 19:58:51 Adjunct Instructor Date: 02/19/2021 20:24:17 Dictated By: JESUS MANCILLA MD
[2021-02-20] VITALS (13 sets, daily range): BP systolic 85–154; BP diastolic 52–92
[2021-02-20] MEDS: D5 1/2 NS W/KCL 20 MEQ/L 1,000 ML IV SCH ×5 (05:39→23:09)
[2021-02-20] MEDS: PANTOPRAZOLE 40 MG (PROTONIX) VIAL IV SCH (08:26)
[2021-02-20] MEDS: GABAPENTIN 300 MG (NEURONTIN) CAP PO SCH ×4 (08:26→20:41)
[2021-02-20] MEDS: LEVOTHYROXINE 75 MCG (LEVOTHROID) TABLET PO SCH (08:27)
[2021-02-20] MEDS: AMANTADINE 100 MG (SYMMETREL) CAP PO SCH (08:27)
[2021-02-20] MEDS: RYTARY PO SCH ×4 (08:27→20:40)
--- NOTE | 2021-02-20 10:04 | Physical Therapy Progress Note ---
Therapy Progress Note Patient to have surgery on this date and had just received a surgical shower. Patient reports fatigue and is relaxed and not having dyskinesia at this time. PT respects patient wanting to rest due to prior inability to do so. PT will resume in a.m. 1 visit KATHY FAROOQ PT Feb 20, 2021 10:04
--- NOTE | 2021-02-20 10:09 | Diagnostic Imaging Report ---
INDICATION: Nausea and vomiting TECHNIQUE: Multiple grayscale sonographic images were obtained of the right upper quadrant of the abdomen. CORRELATION STUDY: None FINDINGS: LIVER: There is uniform echotexture within the visualized portions of the liver. There is normal, hepatopedal direction of flow within the main portal vein. GALLBLADDER: Mobile, shadowing gallstones are present. Gallbladder wall thickness upper limits of normal at 0.3 cm. COMMON BILE DUCT: Nondilated at 0.4 cm. PANCREAS: Visualized portions appearing unremarkable. AORTA/IVC: Not well visualized. RIGHT KIDNEY: 12.6 x 5.8 x 5.1 cm. No hydronephrosis. OTHER: None. IMPRESSION: 1. Cholelithiasis. Borderline gallbladder wall thickening. No bile duct dilatation. Dictated by: Dictated on workstation # [id number]
--- NOTE | 2021-02-20 10:45 | Occ Therapy Progress Note ---
Therapy Progress Note Pt politely declined OT tx on this date, as she is having surgery and recently had a surgical shower. Pt reports the adaptive utensils are working better than regular utensils, but she needs more practice with them. OT respects pt's wishes to continue resting, as she is going down to surgery this AM. OT will resume tomorrow 1, visit 1035 SCOTT SCANLON OT Feb 20, 2021 10:45
[2021-02-20] MEDS ORDERED: LIDOCAINE/EPI 1%-1:100,000 (XYLOCAINE) 20ML ONE (11:23)
--- NOTE | 2021-02-20 11:25 | Progress Note-Pre Operative ---
Pre-Operative Progress Note H&P Reviewed The H&P was reviewed, patient examined and no changes noted. Date Seen by Provider: Feb 20, 2021 Time Seen by Provider: 10:30 Date H&P Reviewed: Feb 20, 2021 Time H&P Reviewed: 10:30 Pre-Operative Diagnosis: nausea/vomiting, sx chronic calculous cholecystitis JESUS MANCILLA MD Feb 20, 2021 11:25
[2021-02-20] MEDS ORDERED: HYDR-3817 PO (11:26)
--- NOTE | 2021-02-20 11:27 | Discharge Inst-Surgical ---
D/C Lap Instructions-LAURENT New, Converted, or Re-Newed RX: RX on Chart Follow Up Appt in 2 weeks Activity as tolerated No driving for 24 hours No driving while on pain medications Incentive Spirometry use every 2 hours while awake Regular Diet Symptoms to Report: Fever over 101 degree F, Nausea/Vomiting Infection Signs and Symptoms to report: Increased redness, Foul odor of wound, Increased drainage Bathing instructions: May shower Operative Area Clean/Dry; Keep incision clean/dry If any problems/questions: Contact your physician or go to Emergency Room JESUS MANCILLA MD Feb 20, 2021 11:27
[2021-02-20] MEDS ORDERED: MIDAZOLAM 2 MG/2 ML (VERSED) VIAL ONE (11:34)
[2021-02-20] MEDS ORDERED: fentaNYL INJ 100 MCG/2 ML AMP ONE (11:34)
[2021-02-20] MEDS ORDERED: ONDANSETRON 4 MG/2 ML (SDV) Z0FRAN ONE (11:34)
[2021-02-20] MEDS ORDERED: SEVOFLURANE (ULTANE) 15 ML INHAL SOLN ONE ×2 (11:34→13:19)
[2021-02-20] MEDS ORDERED: proPOfol 200 MG/20 ML (DIPRIVAN) VIAL IV ONE (11:34)
[2021-02-20] MEDS ORDERED: ROCURONIUM 10 MG/ML 5 ML SYRINGE IV ONE (11:34)
[2021-02-20] MEDS: LACTATED RINGERS 1,000 ML IV SCH ×2 (12:32→13:20)
[2021-02-20] MEDS ORDERED: ceFAZolin INJECTION 2,000 MG ONE (12:40)
[2021-02-20] MEDS ORDERED: WATER (STERILE) FOR INJECTION 40 ML ONE (12:41)
[2021-02-20] MEDS ORDERED: PHENYLEPHRINE 100 MCG/ML 10 ML (ANESTHESIA) SYR ONE (12:52)
[2021-02-20] MEDS ORDERED: NEOSTIGMINE 3 MG/3 ML VIAL ONE (13:10)
[2021-02-20] MEDS ORDERED: GLYCOPYRROLATE 0.2 MG/ML (ROBINUL) 2 ML VIAL ONE ×2 (13:10→13:22)
--- NOTE | 2021-02-20 13:45 | Progress Note-Post Operative ---
Post-Operative Progess Note Surgeon (s)/Roller Inspector And Mender (s) Surgeon JESUS MANCILLA MD Roller Inspector And Mender: aubrey forbes AORN Pre-Operative Diagnosis nausea/vomiting, sx chronic calculous cholecystitis Post-Operative Diagnosis chronic calculous cholecystitis, reflux esophagitis(stage 2), moderate gastritis. Procedure & Operative Findings Date of Procedure 02/20/21 Procedure Performed/Findings laparoscopic cholecystectomy. EGD with bx. Anesthesia Type get Estimated Blood Loss Estimated blood loss (mL): minimal Specimens/Packing Specimens Removed gallbladder, ge jxn, antrum JESUS MANCILLA MD Feb 20, 2021 13:45
[2021-02-20] MEDS ORDERED: HYDROmorphone 2 MG/ML VIAL (DILAUDID) IV ONE (14:00)
[2021-02-20] MEDS ORDERED: ONDANSETRON 4 MG/2 ML (SDV) Z0FRAN IVP PRN (14:00)
--- NOTE | 2021-02-20 14:21 | Anesthesia-General Post-Op ---
General Patient Condition Mental Status/LOC: Same as Preop Cardiovascular: Satisfactory Nausea/Vomiting: Absent Respiratory: Satisfactory Pain: Controlled Complications: Absent Post Op Complications Complications None Follow Up Care/Instructions Patient Instructions None needed. Anesthesia/Patient Condition Patient Condition Patient is doing well, no complaints, stable vital signs, no apparent adverse anesthesia problems. No complications reported per nursing. D/C home per [facility] Criteria: KENYETTA Resendez CRNA Feb 20, 2021 14:21
--- NOTE | 2021-02-20 15:46 | Progress Note - Hospitalist ---
Subjective HPI/CC On Admission Date Seen by Provider: Feb 20, 2021 Time Seen by Provider: 15:31 Subjective/Events-last exam Pt sleeping soundly on arrival. Awakens easily and reports doing well. No complaints. Objective Exam Vital Signs Vital Signs Date Time Temp Pulse Resp B/P (MAP) Pulse Ox O2 Delivery O2 Flow Rate FiO2 02/20/21 14:50 Room Air 02/20/21 14:50 36.3 18 103/58 (73) 96 02/20/21 14:26 3 02/20/21 11:41 77 Capillary Refill : Less Than 3 Seconds General Appearance: No Apparent Distress, Chronically ill Respiratory: Lungs Clear, No Respiratory Distress Cardiovascular: Regular Rate, Rhythm, No Murmur Neurologic/Psychiatric: Alert, Oriented x3 Results/Procedures Lab Patient resulted labs reviewed. Assessment/Plan Assessment and Plan Assess & Plan/Chief Complaint Intractable nausea and vomiting Cholecystitis Surgery consulted, usg ordered Continue antiemetics PPI Possible lap paulie pending usg with EGD Parkinson's disease Continue home meds Hypothyroidism Continue synthroid LISETTE LUDWIG MD Feb 20, 2021 15:46
--- NOTE | 2021-02-20 16:39 | OPERATIVE REPORT ---
DATE OF SERVICE: 02/20/2021 ATTENDING PRIMARY CARE PHYSICIAN: Dr. Gregory Dudley. ADMITTING PHYSICIAN: Dr. Martina Hogan. PREOPERATIVE DIAGNOSES: Persistent nausea, vomiting, symptomatic chronic calculous cholecystitis. POSTOPERATIVE DIAGNOSES: Symptomatic chronic calculous cholecystitis, reflux esophagitis stage II, moderate gastritis. No distal obstructions. PROCEDURE: Laparoscopic cholecystectomy, EGD with biopsy. SURGEON: Jesus Mancilla MD. ANESTHESIA: General endotracheal. ESTIMATED BLOOD LOSS: Minimal. FINDINGS: Symptomatic chronic calculous cholecystitis, reflux esophagitis stage II, moderate gastritis. No distal obstructions. DISPOSITION: The patient tolerated the procedure well. INDICATIONS: The patient is a 56-year-old female known to us. 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 She was admitted with a 2-week history of nausea and vomiting as well as dry heaving, dehydration as well as a urinary infection associated with it. She states that this has been significant for the past two weeks and she was started on amantadine for Parkinson's syndrome and thought that this was the cause. Because of urinary tract infection, she was started on antibiotics; however, she did develop diarrhea and this was discontinued. Upon further questioning, she reports that she has had milder episodes of issues related to this after eating meals for the past two years. She also does report that she has epigastric burning sensation. She does not report any classic symptoms of reflux; however, again continues to have nausea and vomiting and is not on a PPI acid pattern gater. Her preoperative weight was approximately 316 pounds and she states that she has been hovering around 235 pounds. An ultrasound was performed, which did show multiple gallstones as well as gallbladder wall thickening. DESCRIPTION OF PROCEDURE: The patient was brought to the operating room, laid supine on the table. After adequate IV pain and sedating medications and general endotracheal intubation, the abdomen was prepped and draped in standard surgical fashion. A 0.5% Marcaine with epinephrine was used to anesthetize the overlying skin in the left upper abdominal quadrant and a transverse skin incision made using a 15 blade. An 0 silk suture was applied to the medial aspect of incision for retraction and a Veress needle inserted with a low opening pressure of 0 mmHg and the abdomen was then insufflated to 15 mmHg pressure. The Veress needle removed and a 5 mm XL trocar placed followed by a 5 mm 45-degree angle laparoscope visualizing the peritoneal cavity. A 4-quadrant abdominal exploration was performed. There was a dilated as well as distended gallbladder with mild gallbladder wall thickening as well as omental adhesions towards the fundus of the gallbladder. Under direct visualization, we then proceeded to place a supraumbilical 10 mm port after the skin and peritoneal lining were anesthetized using 0.5% Marcaine with epinephrine and a transverse skin incision made using a 15 blade. In a similar manner, a right upper abdominal quadrant 5 mm port was placed. The patient was then placed in reverse Trendelenburg position as well as plane right side up, left side down. The fundus of the gallbladder was then retracted anteriorly and superiorly. The omental adhesions were then taken down using blunt dissection as well as electrocautery on hook instrument. The hepatoduodenal ligament was then identified and similarly dissected using a hook instrument. The entire critical view of safety was identified including the triangle of Calot as well as the cystic duct and artery as the only two structures going into the gallbladder as well as the cystic plate behind the proximal gallbladder. A timeout was then taken and the cystic duct and artery were then clipped proximally and distally and cut with EndoShears. The gallbladder was then dissected off of the liver bed using electrocautery with visualization of good hemostasis as well as no leaking ducts of Luschka. The gallbladder was removed through the 10 mm port site using an EndoCatch bag. The fascia and peritoneum to the 10 mm port site was then closed under direct visualization using a Warren-Josefa device and 0 Vicryl suture. The abdomen was then desufflated and remaining ports removed. All skin incisions were closed using 4-0 Monocryl running subcuticular sutures. Wounds were then cleaned and covered with Dermabond. The mouthpiece was then applied and we then proceeded with the EGD portion of the procedure and the endoscope was placed in the mouth, visualizing the pharynx and hypopharyngeal region, which appeared normal. The endoscope was then gently intubated at the esophageal opening and esophagus insufflated. The endoscope was then advanced to the first, second and third portion of esophagus at the level of GE junction, reflux esophagitis stage II identified. No ulcers or strictures identified in this region. A biopsy was taken with forceps with visualization of good hemostasis. The endoscope was then advanced into the gastric pouch with moderate diffuse gastritis noted. There were no strictures identified. A biopsy was taken of the stomach antrum with forceps with visualization of good hemostasis. The endoscope was then advanced through the pylorus and the first and second portion of the duodenum, which appeared normal with no distal obstructions. The endoscope was then slowly withdrawn while taking a second look and suctioning of residual air with no additional findings. The patient tolerated the procedure well. We will start IV normal pain medication as well as a clear liquid diet and advance as tolerated. When she is eating well, has adequate pain control with oral pain medications, ambulating well, she may be discharged home. We will also have her continue with a PPI acid pattern gater on a daily basis. Job ID: [id number] DocumentID: [id number] Dictated Date: 02/20/2021 13:54:22 Fire Tower Keeper Date: 02/20/2021 16:38:28 Dictated By: JESUS MANCILLA MD
[2021-02-20] MEDS: ENOXAPARIN 40 MG/0.4 ML (LOVENOX) SYR SC SCH (20:40)
[2021-02-20] MEDS: SERTRALINE 50 MG (ZOLOFT) TABLET PO SCH (20:41)
[2021-02-20] MEDS: AMITRIPTYLINE 50 MG (ELAVIL) TAB PO SCH (20:41)
[2021-02-20] MEDS: LORazepam INJ 2 MG/ML (ATIVAN) VIAL IV PRN (21:26)
[2021-02-21 00:40] VITALS: BP 132/80
[2021-02-21 04:08] VITALS: BP 117/78
[2021-02-21] MEDS: D5 1/2 NS W/KCL 20 MEQ/L 1,000 ML IV SCH ×3 (05:26→19:16)
[2021-02-21 07:25] VITALS: BP 144/83
[2021-02-21] MEDS: RYTARY PO SCH ×4 (08:19→20:46)
[2021-02-21] MEDS: LEVOTHYROXINE 75 MCG (LEVOTHROID) TABLET PO SCH (09:45)
[2021-02-21] MEDS: PANTOPRAZOLE 40 MG (PROTONIX) VIAL IV SCH (09:45)
[2021-02-21] MEDS: GABAPENTIN 300 MG (NEURONTIN) CAP PO SCH ×4 (09:45→20:46)
[2021-02-21] MEDS: AMANTADINE 100 MG (SYMMETREL) CAP PO SCH (09:45)
[2021-02-21] MEDS: HYDROcodone/APAP 5 MG/325 MG (LORTAB) TAB PO PRN ×2 (09:47→20:52)
--- NOTE | 2021-02-21 09:56 | Physical Therapy Daily Note ---
PT Daily Note-Current Subjective Patient in bed pre tx, agrees to PT, had a gallbladder surgery yesterday, has 3/10 pain in abdomen Appearance Patient in bed post tx with nurse call, phone, tray, all needs met. Mental Status Patient Orientation: Person, Place, Situation Attachments: Amaya Catheter, IV Transfers SCALE: Activities may be completed with or without assistive devices. 7-Nbosjyrpil-qyhnysk completes the activity by him/herself with no assistance from a helper. 5-Set-up or Clean-up Assistance-helper sets up or cleans up; patient completes activity. [place] assists only prior to or following the activity. 4-Supervision or Touching Assistance-helper provides verbal cues and/or touching/steadying and/or contact guard assistance as patient completes activity. Assistance may be provided throughout the activity or intermittently. 3-Partial/Moderate Assistance-helper does LESS THAN HALF the effort. [place] lifts, holds or supports trunk or limbs, but provides less than half the effort. 2-Substantial/Maximal Assistance-helper does MORE THAN HALF the effort. [place] lifts or holds trunk or limbs and provides more than half the effort. 6-Hviummloy-lnfsfu does ALL the effort. Patient does none of the effort to complete the activity. Or, the assistance of 2 or more helpers is required for the patient to complete the activity. If activity was not attempted, code reason: 7-Patient Refused. 9-Not Applicable-not attempted and the patient did not perform the activity before the current illness, exacerbation or injury. 10-Not Attempted due to Environmental Limitations-(lack of equipment, weather restraints, etc.). 88-Not Attempted due to Medical Conditions or Safety Concerns. Roll Left & Right (QC): 6 Sit to Lying (QC): 3 Lying to Sitting/Side of Bed(Q: 3 Sit to Stand (QC): 3 Chair/Hyw-jz-Hwymb Xfer(QC): 3 Gait Training Distance: 120', 30', 10' Walk 10 feet (QC): 3 Walk 50 ft with 2 Turns(QC): 3 Gait Assistive Device: FWW Patient ambulated 120' and needed to sit, then 30' and had to sit, then the last 10'. Patient is extremely unsteady during ambulation, her hands slip off the walker, would certainly fall multiple times without assist Treatments bed mobility and transfers, ambulation Assessment Current Status: Poor Progress very unsteady with ambulation, had to take a couple of seated rest breaks on the way back to her room PT Shelter Goals Shelter Goals PT Shelter Goals Time Frame: Mar 10, 2021 Roll Left & Right (QC): 5 Sit to Lying (QC): 5 Lying-Sitting on Side/Bed(QC): 5 Sit to Stand (QC): 5 Chair/Khr-bw-Hcszs Xfer(QC): 5 Toilet Transfer (QC): 5 Does the Patient Walk: Yes Walk 10 feet (QC): 5 Walk 50ft with 2 Turns (QC): 5 Walk 150 ft (QC): 5 PT Plan Problem List Problem List: Activity Tolerance, Functional Strength, Safety, Balance, Gait, Transfer, Bed Mobility, ROM Treatment/Plan Treatment Plan: Continue Plan of Care Treatment Plan: Bed Mobility, Education, Functional Activity Judy, Functional Strength, Gait, Safety, Therapeutic Exercise, Transfers Treatment Duration: Mar 10, 2021 Frequency: 6 times per week Estimated Hrs Per Day: .5 hour per day Patient and/or Family Agrees t: Yes Safety Risks/Education Patient Education: Gait Training, Transfer Techniques, Correct Positioning, Safety Issues Teaching Recipient: Patient Teaching Methods: Demonstration, Discussion Response to Teaching: Reinforcement Needed Time/GCodes Time In: 922 Time Out: 944 Total Billed Treatment Time: 22 Total Billed Treatment 1 visit GT 22' JEROD DALY PT Feb 21, 2021 09:56
--- NOTE | 2021-02-21 11:31 | Occupational Ther Daily Note ---
OT Current Status-Daily Note Subjective Pt in bed, agreeable to OT tx. ADL-Treatment Therapy Code Descriptions/Definitions Functional [place] Measure: 0=Not Assessed/NA 4=Minimal Assistance 1=Total Assistance 5=Supervision or Setup 2=Maximal Assistance 6=Modified [place] 3=Moderate Assistance 7=Complete IndependenceSCALE: Activities may be completed with or without assistive devices. 4-Qhcoiqyhjq-wdaesrb completes the activity by him/herself with no assistance from a helper. 5-Set-up or Clean-up Assistance-helper sets up or cleans up; patient completes activity. [place] assists only prior to or following the activity. 4-Supervision or Touching Assistance-helper provides verbal cues and/or touching/steadying and/or contact guard assistance as patient completes activity. Assistance may be provided throughout the activity or intermittently. 3-Partial/Moderate Assistance-helper does LESS THAN HALF the effort. [place] lifts, holds or supports trunk or limbs, but provides less than half the effort. 2-Substantial/Maximal Assistance-helper does MORE THAN HALF the effort. [place] lifts or holds trunk or limbs and provides more than half the effort. 0-Hrjgjkxkc-rclcjt does ALL the effort. Patient does none of the effort to complete the activity. Or, the assistance of 2 or more helpers is required for the patient to complete the activity. If activity was not attempted, code reason: 7-Patient Refused. 9-Not Applicable-not attempted and the patient did not perform the activity befo re the current illness, exacerbation or injury. 10-Not Attempted due to Environmental Limitations-(lack of equipment, weather re straints, etc.). 88-Not Attempted due to Medical Conditions or Safety Concerns. Eating (QC): 5 (set up, assist to open containers and cut food. Able to bring built up utensils to mouth in order to eat.) Oral Hygiene (QC): 5 (set up, assist to open toothpaste conatiner. Pt able to brush.) Upper Body Dressing (QC): 3 (Based on clinical judgement and discussion with pt, pt unable to complete fasteners on bra. Able to don test puller shirt.) Lower Body Dressing (QC): 3 (Based on clinical judgement and discussion with pt, pt able to thread BLEs, assist with pant hike. Pt reports decreased standing balance.) On/Off Footwear: 3 (Based on clinical judgement and discussion with pt, pt able to don socks and adaptive shoes (zippers and velcro), min A overall with task.) Toileting Hygiene (QC): 3 (Based on clinical judgement and discussion with pt, pt requires assist with pant hike) Other Treatment Pt laying in bed, agreeable to OT tx. OT provided pt with dycem to place phone and objects she is using on to prevent them from slipping (pt had uncoordinated/involuntary movements of her hands). Pt then able to use phone better. OT also provided pt with built up foam handle, pt placed on stylus pen and then able to use better per report (OT educated pt on using built up foam on toothbrush and other objects as needed). Pt has difficulty holding Nabil cup due to slippery surface, OT placed dycem around the cup with tape, pt then able to take a drink without dropping the cup. Pt declined changing clothes at this time due to IV in arm and pt prefers to complete later today. OT talked with pt about pt's ability to complete ADLs, pt states having decreased standing balance and has had multiple falls at home. QC scores above based on clinical judgment and discussion with pt. Post tx, pt laying in bed, call light in reach and all needs met. Education OT Patient Education: Correct positioning, Modified ADL techniques, Progress toward Goal/Update tx plan, Purpose of tx/functional activities Teaching Recipient: Patient Teaching Methods: Discussion Response to Teaching: Verbalize Understanding OT Laundry Tub Maker Goals Custodial Goals Time Frame: Mar 02, 2021 Eating (QC): 6 Oral Hygiene (QC): 6 Toileting Hygiene (QC): 4 Shower/Bathe Self (QC): 4 Upper Body Dressing (QC): 5 Lower Body Dressing (QC): 4 On/Off Footwear (QC): 4 Additional Goals: 1-Demonstrate ADL Tasks, 2-Verbalize Understanding, 3- ImproveStrength/Judy 1=Demonstrate adherence to instructed precautions during ADL tasks. 2=Patient will verbalize/demonstrate understanding of assistive devices/modifications for ADL. 3=Patient will improve strength/tolerance for activity to enable patient to perform ADL's. OT Education/Plan Problem List/Assessment Assessment: Decreased Activ Tolerance, Decreased UE Strength, Impaired Coordination, Impaired I ADL's, Impaired Self-Care Skills, Restricted Funct UE ROM Discharge Recommendations Plan/Recommendations: Continue POC Treatment Plan/Plan of Care Patient would benefit from OT for education, treatment and training to promote independence in ADL's, mobility, safety and/or upper extremity function for ADL's. Plan of Care: ADL Retraining, Functional Mobility, UE Funct Exercise/Act Treatment Duration: Mar 02, 2021 Frequency: 5 times per week Estimated Hrs Per Day: .25 hour per day Rehab Potential: Fair Time/GCodes Start Time: 10:55 Stop Time: 11:20 Total Time Billed (hr/min): 25 Billed Treatment Time 1, ADL 2 SCOTT SCANLON OT Feb 21, 2021 11:31
--- NOTE | 2021-02-21 12:50 | Progress Note - Hospitalist ---
Subjective HPI/CC On Admission Date Seen by Provider: Feb 21, 2021 Time Seen by Provider: 12:41 Subjective/Events-last exam Pt reports doing well. No complaints. Pain well controlled. Objective Exam Vital Signs Vital Signs Date Time Temp Pulse Resp B/P (MAP) Pulse Ox O2 Delivery O2 Flow Rate FiO2 02/21/21 08:16 Room Air 02/21/21 07:25 36.1 72 18 144/83 (103) 98 02/20/21 14:26 3 Capillary Refill : Less Than 3 Seconds General Appearance: No Apparent Distress, Chronically ill Respiratory: Lungs Clear, No Respiratory Distress Cardiovascular: Regular Rate, Rhythm, No Murmur Extremity: No Calf Tenderness, No Pedal Edema Neurologic/Psychiatric: Alert, Oriented x3 Results/Procedures Lab Patient resulted labs reviewed. Assessment/Plan Assessment and Plan Assess & Plan/Chief Complaint Intractable nausea and vomiting Cholecystitis Surgery consulted, usg ordered Continue antiemetics PPI s/p lap paulie and EGD on 02/21, doing well, pain well controlled Parkinson's disease Continue home meds Has been worsening recently PT/OT Would benefit from IRU Insurance declined IRU admission Peer to Peer requested Hypothyroidism Continue synthroid LISETTE LUDWIG MD Feb 21, 2021 12:50
--- NOTE | 2021-02-21 14:23 | Progress Note ---
Subjective Date Seen by a Provider: Feb 21, 2021 Time Seen by a Provider: 14:00 Subjective/Events-last exam doing well. tolerating diet. no nausea/vomiting. pain controlled. Objective Exam Vital Signs Date Time Temp Pulse Resp B/P (MAP) Pulse Ox O2 Delivery O2 Flow Rate FiO2 02/21/21 12:35 81 02/21/21 08:16 Room Air 02/21/21 07:25 36.1 72 18 144/83 (103) 98 Room Air 02/21/21 06:32 63 02/21/21 04:08 36.4 67 18 117/78 (91) 95 Room Air 02/21/21 01:00 85 02/21/21 00:40 37.3 83 18 132/80 (97) 95 Room Air 02/20/21 20:40 Room Air 02/20/21 20:00 37.0 80 18 106/61 (76) 96 Room Air 02/20/21 19:00 84 02/20/21 16:00 36.4 75 18 107/60 (76) 95 Room Air 02/20/21 14:50 Room Air 02/20/21 14:50 36.3 18 103/58 (73) 96 Room Air 02/20/21 14:40 18 98/57 (71) 95 Room Air 02/20/21 14:40 Room Air 02/20/21 14:36 18 93/63 (73) 95 Room Air 02/20/21 14:30 18 89/55 (66) 96 Room Air 02/20/21 14:26 OxyMask 3 I & O 02/21/21 07:00 Intake Total 1630 ml Output Total 3035 ml Balance -1405 ml Capillary Refill : Less Than 3 Seconds General Appearance: No Apparent Distress HEENT: PERRL/EOMI Neck: Full Range of Motion Respiratory: Chest Non Tender, Lungs Clear Cardiovascular: Regular Rate, Rhythm Gastrointestinal: normal bowel sounds, soft, tenderness Extremity: Normal Capillary Refill Neurologic/Psychiatric: Alert, Oriented x3 Skin: Normal Color Lymphatic: No Adenopathy Assessment/Plan Assessment/Plan Assess & Plan/Chief Complaint nausea/vomiting s/p lap paulie and EGD. diet as tolerated. will likely need ARU for parkinsons and meds JESUS MANCILLA MD Feb 21, 2021 14:23
[2021-02-21 16:09] VITALS: BP 120/77
[2021-02-21] MEDS: LORazepam INJ 2 MG/ML (ATIVAN) VIAL IV PRN (17:59)
[2021-02-21 19:20] VITALS: BP 99/61
[2021-02-21] MEDS: ENOXAPARIN 40 MG/0.4 ML (LOVENOX) SYR SC SCH (20:46)
[2021-02-21] MEDS: AMITRIPTYLINE 50 MG (ELAVIL) TAB PO SCH (20:46)
[2021-02-21] MEDS: SERTRALINE 50 MG (ZOLOFT) TABLET PO SCH (20:46)
[2021-02-22 00:50] VITALS: BP 129/88
[2021-02-22] MEDS: D5 1/2 NS W/KCL 20 MEQ/L 1,000 ML IV SCH ×4 (01:59→20:21)
[2021-02-22 04:35] VITALS: BP 146/89
[2021-02-22 08:19] VITALS: BP 148/92
[2021-02-22] MEDS: RYTARY PO SCH ×4 (08:42→20:19)
[2021-02-22] MEDS: PANTOPRAZOLE 40 MG (PROTONIX) VIAL IV SCH (08:42)
[2021-02-22] MEDS: LEVOTHYROXINE 75 MCG (LEVOTHROID) TABLET PO SCH (08:42)
[2021-02-22] MEDS: GABAPENTIN 300 MG (NEURONTIN) CAP PO SCH ×4 (08:42→21:46)
[2021-02-22] MEDS: AMANTADINE 100 MG (SYMMETREL) CAP PO SCH (08:48)
[2021-02-22] MEDS ORDERED: polyethylene glycoL POWDER 17 GM (MIRALAX) PACK PO ONE (09:00)
[2021-02-22] MEDS ORDERED: SENNA W/DOCUSATE (SENOKOT S) TABLET PO PRN (09:00)
[2021-02-22] MEDS ORDERED: polyethylene glycoL POWDER 17 GM (MIRALAX) PACK PO PRN (09:00)
--- NOTE | 2021-02-22 09:11 | Progress Note - Hospitalist ---
Subjective HPI/CC On Admission Date Seen by Provider: Feb 22, 2021 Time Seen by Provider: 09:07 Subjective/Events-last exam Pt reports doing well. No complaints. Awaiting results from fast appeal process. Objective Exam Vital Signs Vital Signs Date Time Temp Pulse Resp B/P (MAP) Pulse Ox O2 Delivery O2 Flow Rate FiO2 02/22/21 08:19 35.8 68 18 148/92 (110) 98 Room Air 02/20/21 14:26 3 Capillary Refill : Less Than 3 Seconds General Appearance: No Apparent Distress, Chronically ill Respiratory: Lungs Clear, No Respiratory Distress Cardiovascular: Regular Rate, Rhythm, No Murmur Neurologic/Psychiatric: Alert, Oriented x3 Results/Procedures Lab Patient resulted labs reviewed. Assessment/Plan Assessment and Plan Assess & Plan/Chief Complaint Intractable nausea and vomiting- resolved Cholecystitis Surgery consulted, appreciate recs Continue antiemetics as needed PPI s/p lap paulie and EGD on 02/21, doing well, pain well controlled Parkinson's disease Continue home meds Has been worsening recently PT/OT Would benefit from IRU Insurance declined IRU admission Peer to Peer done 02/21 and declination upheld Patient began FAST appeal process yesterday, awaiting response Hypothyroidism Continue synthroid LISETTE LUDWIG MD Feb 22, 2021 09:11
--- NOTE | 2021-02-22 10:01 | Occupational Ther Daily Note ---
OT Current Status-Daily Note Subjective Pt in bed, agreeable to OT tx. Nurse aide arrives to assist pt into shower, present throughout tx. BP 96/54 seated in SC, once supine BP 108/64. Mental Status/Objective Patient Orientation: Person, Place, Time, Situation Attachments: IV, Telemetry ADL-Treatment Therapy Code Descriptions/Definitions Functional [place] Measure: 0=Not Assessed/NA 4=Minimal Assistance 1=Total Assistance 5=Supervision or Setup 2=Maximal Assistance 6=Modified [place] 3=Moderate Assistance 7=Complete IndependenceSCALE: Activities may be completed with or without assistive devices. 3-Mesmdyotbf-jlgucsx completes the activity by him/herself with no assistance from a helper. 5-Set-up or Clean-up Assistance-helper sets up or cleans up; patient completes activity. [place] assists only prior to or following the activity. 4-Supervision or Touching Assistance-helper provides verbal cues and/or touching/steadying and/or contact guard assistance as patient completes activity. Assistance may be provided throughout the activity or intermittently. 3-Partial/Moderate Assistance-helper does LESS THAN HALF the effort. [place] lifts, holds or supports trunk or limbs, but provides less than half the effort. 2-Substantial/Maximal Assistance-helper does MORE THAN HALF the effort. [place] lifts or holds trunk or limbs and provides more than half the effort. 5-Enwtpgyll-rxldnm does ALL the effort. Patient does none of the effort to complete the activity. Or, the assistance of 2 or more helpers is required for the patient to complete the activity. If activity was not attempted, code reason: 7-Patient Refused. 9-Not Applicable-not attempted and the patient did not perform the activity before the current illness, exacerbation or injury. 10-Not Attempted due to Environmental Limitations-(lack of equipment, weather restraints, etc.). 88-Not Attempted due to Medical Conditions or Safety Concerns. Oral Hygiene (QC): 5 (set up at sink. Assist opening toothpaste container and placing on toothbrush. Built up foam on toothbrush.) Other Treatment Pt transferred supine to sit EOB, min A. Transferred to shower chair, SPT. Pt sat at sink to brush teeth, reports lightheadedness and feels like she is going to pass out (she gets this feeling at home). BP 96/54. Pt assisted to recliner, then reclined back. Nurse aware and present. Nurse aide placed telemetry back on pt (removed prior to transfer due to plan of showering). Once supine, BP 108/64, pt no longer symptomatic. Post tx, pt laying back in recliner, call light in tonia ch and all needs met, nurse present. Education OT Patient Education: Correct positioning, Modified ADL techniques, Progress toward Goal/Update tx plan, Purpose of tx/functional activities Teaching Recipient: Patient Teaching Methods: Discussion Response to Teaching: Verbalize Understanding OT Detention Goals Detention Goals Time Frame: Mar 02, 2021 Eating (QC): 6 Oral Hygiene (QC): 6 Toileting Hygiene (QC): 4 Shower/Bathe Self (QC): 4 Upper Body Dressing (QC): 5 Lower Body Dressing (QC): 4 On/Off Footwear (QC): 4 Additional Goals: 1-Demonstrate ADL Tasks, 2-Verbalize Understanding, 3- ImproveStrength/Judy 1=Demonstrate adherence to instructed precautions during ADL tasks. 2=Patient will verbalize/demonstrate understanding of assistive devices/modifications for ADL. 3=Patient will improve strength/tolerance for activity to enable patient to perform ADL's. OT Education/Plan Problem List/Assessment Assessment: Decreased Activ Tolerance, Decreased UE Strength, Impaired Funct Balance, Impaired I ADL's, Impaired Self-Care Skills Discharge Recommendations Plan/Recommendations: Continue POC Treatment Plan/Plan of Care Patient would benefit from OT for education, treatment and training to promote independence in ADL's, mobility, safety and/or upper extremity function for ADL's. Plan of Care: ADL Retraining, Functional Mobility, UE Funct Exercise/Act Treatment Duration: Mar 02, 2021 Frequency: 5 times per week Estimated Hrs Per Day: .25 hour per day Rehab Potential: Fair Time/GCodes Start Time: 09:25 Stop Time: 09:48 Total Time Billed (hr/min): 23 Billed Treatment Time 1, ADL 2 SCOTT SCANLON OT Feb 22, 2021 10:01
[2021-02-22 10:44] LABS: HEMOGLOBIN 12.1 g/dL (11.5-16.0); MEAN PLATELET VOLUME 11.3 fL (9.0-12.2); WHITE BLOOD COUNT 5.7 10^3/uL (4.3-11.0)
[2021-02-22] MEDS: HYDROcodone/APAP 5 MG/325 MG (LORTAB) TAB PO PRN ×2 (11:04→20:20)
[2021-02-22 11:05] LABS: BUN/CREATININE RATIO 7; CALCIUM 9.3 MG/DL (8.5-10.1); CARBON DIOXIDE 26 MMOL/L (21-32); CHLORIDE 106 MMOL/L (98-107); GFR ESTIMATED > 60; GLUCOSE 67 MG/DL (70-105); POTASSIUM 3.5 MMOL/L (3.6-5.0); SODIUM 141 MMOL/L (135-145)
[2021-02-22 11:28] VITALS: BP 126/76
--- NOTE | 2021-02-22 11:33 | Physical Therapy Daily Note ---
PT Daily Note-Current Subjective Patient in recliner pre tx, agrees to PT, has 2/10 abdominal pain. Patient had some BP issues earlier this morning, and she did feel a little woozy during tx but her BP was 127/84. Appearance Patient in bed post tx with nurse call, phone, tray, all needs met. Mental Status Patient Orientation: Person, Place, Situation Attachments: IV Transfers SCALE: Activities may be completed with or without assistive devices. 2-Owestoannu-yfgmrhy completes the activity by him/herself with no assistance from a helper. 5-Set-up or Clean-up Assistance-helper sets up or cleans up; patient completes a ctivity. [place] assists only prior to or following the activity. 4-Supervision or Touching Assistance-helper provides verbal cues and/or touching/steadying and/or contact guard assistance as patient completes activity. Assistance may be provided throughout the activity or intermittently. 3-Partial/Moderate Assistance-helper does LESS THAN HALF the effort. [place] lifts, holds or supports trunk or limbs, but provides less than half the effort. 2-Substantial/Maximal Assistance-helper does MORE THAN HALF the effort. [place] lifts or holds trunk or limbs and provides more than half the effort. 3-Zmhsmhdbj-nckmsd does ALL the effort. Patient does none of the effort to complete the activity. Or, the assistance of 2 or more helpers is required for the patient to complete the activity. If activity was not attempted, code reason: 7-Patient Refused. 9-Not Applicable-not attempted and the patient did not perform the activity before the current illness, exacerbation or injury. 10-Not Attempted due to Environmental Limitations-(lack of equipment, weather restraints, etc.). 88-Not Attempted due to Medical Conditions or Safety Concerns. Roll Left & Right (QC): 6 Sit to Lying (QC): 4 Sit to Stand (QC): 3 Chair/Soa-ie-Dltak Xfer(QC): 3 Gait Training Distance: 100' Walk 10 feet (QC): 3 Walk 50 ft with 2 Turns(QC): 3 Gait Persons Needed: 1 Gait Assistive Device: FWW Patient's hands slip off the walker less often but she has poorer stepping coordination. Patient needs assist with balance during ambulation, she would certainly fall without assistance. Exercises Supine Ex: Ankle pumps, Quad Set, Glut sets, Heel Slides Supine Reps: 20 Treatments bed mobility and transfers, ambulation, LE exercise Assessment Current Status: Fair Progress Patient ambulated a shorter distance today and did not need seated rest breaks like yesterday. PT Supply Chain Manager Goals Custodial Goals PT Custodial Goals Time Frame: Mar 10, 2021 Roll Left & Right (QC): 5 Sit to Lying (QC): 5 Lying-Sitting on Side/Bed(QC): 5 Sit to Stand (QC): 5 Chair/Lvc-rm-Ukjes Xfer(QC): 5 Toilet Transfer (QC): 5 Does the Patient Walk: Yes Walk 10 feet (QC): 5 Walk 50ft with 2 Turns (QC): 5 Walk 150 ft (QC): 5 PT Plan Problem List Problem List: Activity Tolerance, Functional Strength, Safety, Balance, Gait, Transfer, Bed Mobility, ROM Treatment/Plan Treatment Plan: Continue Plan of Care Treatment Plan: Bed Mobility, Education, Functional Activity Judy, Functional Strength, Gait, Safety, Therapeutic Exercise, Transfers Treatment Duration: Mar 10, 2021 Frequency: 6 times per week Estimated Hrs Per Day: .5 hour per day Patient and/or Family Agrees t: Yes Safety Risks/Education Patient Education: Gait Training, Transfer Techniques, Correct Positioning, Safety Issues Teaching Recipient: Patient Teaching Methods: Demonstration, Discussion Response to Teaching: Reinforcement Needed Time/GCodes Time In: 1106 Time Out: 1124 Total Billed Treatment Time: 12 Total Billed Treatment 1 visit FA 12' JEROD DALY PT Feb 22, 2021 11:33
[2021-02-22 16:00] VITALS: BP 129/80
[2021-02-22 20:00] VITALS: BP 130/81
[2021-02-22] MEDS: AMITRIPTYLINE 50 MG (ELAVIL) TAB PO SCH (20:20)
[2021-02-22] MEDS: SERTRALINE 50 MG (ZOLOFT) TABLET PO SCH (20:20)
[2021-02-22] MEDS: LORazepam INJ 2 MG/ML (ATIVAN) VIAL IV PRN (20:21)
[2021-02-22] MEDS: ENOXAPARIN 40 MG/0.4 ML (LOVENOX) SYR SC SCH (20:25)
[2021-02-23 00:37] VITALS: BP 123/89
[2021-02-23 04:12] VITALS: BP 137/87
[2021-02-23] MEDS: D5 1/2 NS W/KCL 20 MEQ/L 1,000 ML IV SCH ×3 (04:14→22:42)
[2021-02-23 07:32] VITALS: BP 153/90
[2021-02-23] MEDS: LEVOTHYROXINE 75 MCG (LEVOTHROID) TABLET PO SCH (08:31)
[2021-02-23] MEDS: RYTARY PO SCH ×4 (08:31→20:29)
[2021-02-23] MEDS: PANTOPRAZOLE 40 MG (PROTONIX) TAB PO SCH (08:31)
[2021-02-23] MEDS: GABAPENTIN 300 MG (NEURONTIN) CAP PO SCH ×4 (08:32→20:31)
[2021-02-23] MEDS: HYDROcodone/APAP 5 MG/325 MG (LORTAB) TAB PO PRN ×2 (08:32→20:30)
[2021-02-23] MEDS: AMANTADINE 100 MG (SYMMETREL) CAP PO SCH (09:22)
[2021-02-23] MEDS ORDERED: polyethylene glycoL POWDER 17 GM (MIRALAX) PACK PO NR (11:45)
--- NOTE | 2021-02-23 11:47 | Physical Therapy Daily Note ---
PT Daily Note-Current Subjective Patient sitting in chair and agrees to PT. Mental Status Patient Orientation: Normal For Age Transfers SCALE: Activities may be completed with or without assistive devices. 4-Iwqnaipnfc-cloufao completes the activity by him/herself with no assistance from a helper. 5-Set-up or Clean-up Assistance-helper sets up or cleans up; patient completes activity. [place] assists only prior to or following the activity. 4-Supervision or Touching Assistance-helper provides verbal cues and/or touching/steadying and/or contact guard assistance as patient completes activity. Assistance may be provided throughout the activity or intermittently. 3-Partial/Moderate Assistance-helper does LESS THAN HALF the effort. [place] lifts, holds or supports trunk or limbs, but provides less than half the effort. 2-Substantial/Maximal Assistance-helper does MORE THAN HALF the effort. [place] lifts or holds trunk or limbs and provides more than half the effort. 4-Qumewkeaq-zntbso does ALL the effort. Patient does none of the effort to complete the activity. Or, the assistance of 2 or more helpers is required for the patient to complete the activity. If activity was not attempted, code reason: 7-Patient Refused. 9-Not Applicable-not attempted and the patient did not perform the activity before the current illness, exacerbation or injury. 10-Not Attempted due to Environmental Limitations-(lack of equipment, weather restraints, etc.). 88-Not Attempted due to Medical Conditions or Safety Concerns. Sit to Stand (QC): 3 Gait Training Does the Patient Walk?: Yes Distance: 100' x 2 Walk 10 feet (QC): 3 Walk 50 ft with 2 Turns(QC): 3 Walk 150 ft (QC): 88 Gait Assistive Device: FWW ataxic gait sequence with 2 episodes of bilateral UE's "falling" off FWW Exercises Seated Therapy Exercises: Ankle pumps, Long arc quads, Hip flexion Seated Reps: 15 Assessment Patient tolerated treatment well. PT to increase activity as tolerated by patient. From a PT standpoint, patient would benefit from ARU to ensure safe return to home by address gross and fine motor skills more intensely. PT Stabilizer Operator Goals Stabilizer Operator Goals PT Stabilizer Operator Goals Time Frame: Mar 10, 2021 Roll Left & Right (QC): 5 Sit to Lying (QC): 5 Lying-Sitting on Side/Bed(QC): 5 Sit to Stand (QC): 5 Chair/Ynm-zx-Aruay Xfer(QC): 5 Toilet Transfer (QC): 5 Does the Patient Walk: Yes Walk 10 feet (QC): 5 Walk 50ft with 2 Turns (QC): 5 Walk 150 ft (QC): 5 PT Plan Treatment/Plan Treatment Plan: Continue Plan of Care Treatment Plan: Bed Mobility, Education, Functional Activity Judy, Functional Strength, Gait, Safety, Therapeutic Exercise, Transfers Treatment Duration: Mar 10, 2021 Frequency: 6 times per week Estimated Hrs Per Day: .5 hour per day Patient and/or Family Agrees t: Yes Time/GCodes Time In: 1121 Time Out: 1136 Total Billed Treatment Time: 15 Total Billed Treatment 1 visit FA 15 min KATHY FAROOQ PT Feb 23, 2021 11:47
--- NOTE | 2021-02-23 12:31 | Progress Note - Hospitalist ---
Subjective HPI/CC On Admission Date Seen by Provider: Feb 23, 2021 Time Seen by Provider: 12:29 Subjective/Events-last exam Pt reports doing well. Just awaiting notification from insurance on results of FAST appeal process. Nausea resolved. Objective Exam Vital Signs Vital Signs Date Time Temp Pulse Resp B/P (MAP) Pulse Ox O2 Delivery O2 Flow Rate FiO2 02/23/21 08:00 Room Air 02/23/21 07:32 36.9 66 18 153/90 (111) 96 02/20/21 14:26 3 Capillary Refill : Less Than 3 Seconds General Appearance: No Apparent Distress, Chronically ill Respiratory: Lungs Clear, No Respiratory Distress Cardiovascular: Regular Rate, Rhythm, No Murmur Gastrointestinal: Normal Bowel Sounds, Non Tender, Soft Neurologic/Psychiatric: Alert, Oriented x3 Results/Procedures Lab Patient resulted labs reviewed. Assessment/Plan Assessment and Plan Assess & Plan/Chief Complaint Intractable nausea and vomiting- resolved Cholecystitis Surgery consulted, appreciate recs Continue antiemetics as needed PPI s/p lap paulie and EGD on 02/21, doing well, pain well controlled Parkinson's disease Continue home meds Has been worsening recently PT/OT Would benefit from IRU Insurance declined IRU admission Peer to Peer done 02/21 and declination upheld Patient began FAST appeal process 02/21 awaiting response still Hypothyroidism Continue synthroid LISETTE LUDWIG MD Feb 23, 2021 12:31
[2021-02-23 13:00] VITALS: BP 114/72
[2021-02-23] MEDS: LORazepam INJ 2 MG/ML (ATIVAN) VIAL IV PRN ×2 (13:42→20:31)
--- NOTE | 2021-02-23 14:44 | Occupational Ther Daily Note ---
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 Pt denies OOB, though agrees to bed ex and OT adapting walker Mental Status/Objective Patient Orientation: Person, Place, Situation ADL-Treatment Therapy Code Descriptions/Definitions Functional [place] Measure: 0=Not Assessed/NA 4=Minimal Assistance 1=Total Assistance 5=Supervision or Setup 2=Maximal Assistance 6=Modified [place] 3=Moderate Assistance 7=Complete IndependenceSCALE: Activities may be completed with or without assistive devices. 6-Lyihpijxyf-esozxaj completes the activity by him/herself with no assistance from a helper. 5-Set-up or Clean-up Assistance-helper sets up or cleans up; patient completes activity. [place] assists only prior to or following the activity. 4-Supervision or Touching Assistance-helper provides verbal cues and/or touching/steadying and/or contact guard assistance as patient completes activity. Assistance may be provided throughout the activity or intermittently. 3-Partial/Moderate Assistance-helper does LESS THAN HALF the effort. [place] lifts, holds or supports trunk or limbs, but provides less than half the effort. 2-Substantial/Maximal Assistance-helper does MORE THAN HALF the effort. [place] lifts or holds trunk or limbs and provides more than half the effort. 8-Ccgezfaud-kuezdt does ALL the effort. Patient does none of the effort to complete the activity. Or, the assistance of 2 or more helpers is required for the patient to complete the activity. If activity was not attempted, code reason: 7-Patient Refused. 9-Not Applicable-not attempted and the patient did not perform the activity before the current illness, exacerbation or injury. 10-Not Attempted due to Environmental Limitations-(lack of equipment, weather restraints, etc.). 88-Not Attempted due to Medical Conditions or Safety Concerns. Eating (QC): 3 (min A with small items and assist opening containers with s/u) Other Treatment Pt states her hands are "slippery" and do not stay gripped on walker. Adaptation with built up foam/ tape for increased mail inserter applied. Pt denies OOB to attempt, but ensures will be better than prior. Pt completes ther ex in bed with the following ex, 10 reps each: bicep curls and internal shoulder rotation with doubled theraband to ensure increased mail inserter/ modified mail inserter, AROM of shoulder flexion/ ext, scapular push-ups with shoulders extended into bed for assist to push-up. Pt states a desire for certain pop, encouraged to place phone call to cafeteria. Pt attempts phone call 2x with modified mail inserter/ adaptation to pushing buttons; however, due to incoordination/ decreased sequencing, pt unable to complete. OT completes dialing, pt completes phone call. Pt given soda as requested, requires assist with opening can and placement in different cup for increased IND. All needs met, call light in reach. Education OT Patient Education: Exercise program, Home exercise program, Purpose of tx/functional activities, Use of adapted equipment Teaching Recipient: Patient Teaching Methods: Demonstration, Discussion Response to Teaching: Verbalize Understanding, Return Demonstration OT Program Manager Slp Goals Mcc Goals Time Frame: Mar 02, 2021 Eating (QC): 6 Oral Hygiene (QC): 6 Toileting Hygiene (QC): 4 Shower/Bathe Self (QC): 4 Upper Body Dressing (QC): 5 Lower Body Dressing (QC): 4 On/Off Footwear (QC): 4 Additional Goals: 1-Demonstrate ADL Tasks, 2-Verbalize Understanding, 3- ImproveStrength/Judy 1=Demonstrate adherence to instructed precautions during ADL tasks. 2=Patient will verbalize/demonstrate understanding of assistive dev ices/modifications for ADL. 3=Patient will improve strength/tolerance for activity to enable patient to perform ADL's. OT Education/Plan Problem List/Assessment Assessment: Decreased Activ Tolerance, Decreased UE Strength, Dependent Transfers, Impaired Bed Mobility, Impaired Coordination, Impaired Funct Balance, Impaired I ADL's, Impaired Self-Care Skills Discharge Recommendations Plan/Recommendations: Continue POC Therapy Discharge Recommendati: Home & Family, Post Acute OT Treatment Plan/Plan of Care Treatment,Training & Education: Yes Patient would benefit from OT for education, treatment and training to promote independence in ADL's, mobility, safety and/or upper extremity function for ADL's. Plan of Care: ADL Retraining, Functional Mobility, UE Funct Exercise/Act Treatment Duration: Mar 02, 2021 Frequency: 5 times per week Estimated Hrs Per Day: .25 hour per day Rehab Potential: Fair Time/GCodes Start Time: 14:17 Stop Time: 14:37 Total Time Billed (hr/min): 20 Billed Treatment Time 1, EX (20) TANI MANZANO OTR Feb 23, 2021 14:44
--- NOTE | 2021-02-23 15:51 | D/C HH Face to Face Order ---
D/C Face to Face Orders Instructions for Patient Via [facility], Patient Instructions/FollowUp: Please continue to take your medications as written. Please follow up with your primary care doctor to follow up this hospital stay. Please follow up with Dr Cha as scheduled. Physician to follow Patient: Dr Dudley Discharge Diet for Home: No Restrictions Patient Data-Allergies,Ht & Wt Patient Allergies: Coded Allergies: No Known Drug Allergies (Unverified , 06/26/17) Height (Feet): 5 Height (Inches): 6.00 Weight (Pounds): 272 Weight (Ounces): 0.0 Home Health Need/Face to Face Date of Face to Face: Feb 23, 2021 Clinical Findings: Muscle weakness, Unsteady gait I have seen Pt zvco-rg-nvhd: Yes Discharged To: Home Diagnosis/Conditions: Parkinson's disease Patient is Homebound due to: Soraida fall risk due to instabilty, Muscle weakness Homebound Status Due to the above stated illness, injury or surgical procedure (medical condition or diagnosis) and associated clinical findings, the patient is homebound because of his/her inability to leave home except with aid of a supportive device and/or person AND leaving the home requires a considerable and taxing effort or is medically contraindicated. Pt req the following assistanc: Aid of another person, Walker Home Health Nursing Orders Home Health Services Order: Nursing Services, Antitank Assault Gunner-Evaluate & Treat, Physical Therapy-Evaluate & Treat Home Health Infusion Therapy Line Start Date: Feb 21, 2021 Therapy Orders Therapy Orders: OT (must have SN or PT order), Physical Therapy Therapy Specific Orders: Eval assistive deivces, Teach enviro modifications/safety, Gait training, Increase strength/endurance, Restore ROM Certify Stmt I certify that this patient is under my care and that I, a nurse practitioner or a physician; a ssn/ssbn assistant navigator working with me, had a face to face encounter that - meets the physician face to face encounter requirements with this patient as dated. LISETTE LUDWIG MD Feb 23, 2021 15:51
[2021-02-23 16:07] VITALS: BP 125/81
[2021-02-23 19:22] VITALS: BP 112/65
[2021-02-23] MEDS: AMITRIPTYLINE 50 MG (ELAVIL) TAB PO SCH (20:30)
[2021-02-23] MEDS: ENOXAPARIN 40 MG/0.4 ML (LOVENOX) SYR SC SCH (20:30)
[2021-02-23] MEDS: SERTRALINE 50 MG (ZOLOFT) TABLET PO SCH (20:31)
[2021-02-23] MEDS ORDERED: polyethylene glycoL POWDER 17 GM (MIRALAX) PACK PO SCH (21:00)
[2021-02-24] VITALS: BP 115/69
[2021-02-24] MEDS: D5 1/2 NS W/KCL 20 MEQ/L 1,000 ML IV SCH ×2 (04:35→11:36)
[2021-02-24 04:55] VITALS: BP 143/87
[2021-02-24 05:58] LABS: BUN/CREATININE RATIO 10; CALCIUM 9.5 MG/DL (8.5-10.1); CARBON DIOXIDE 23 MMOL/L (21-32); CHLORIDE 105 MMOL/L (98-107); CREATININE SERUM 0.63 MG/DL (0.60-1.30); GFR ESTIMATED > 60; GLUCOSE 80 MG/DL (70-105); POTASSIUM 3.8 MMOL/L (3.6-5.0); SODIUM 137 MMOL/L (135-145)
[2021-02-24 08:00] VITALS: BP 137/86
[2021-02-24] MEDS: RYTARY PO SCH (08:10)
[2021-02-24] MEDS: LEVOTHYROXINE 75 MCG (LEVOTHROID) TABLET PO SCH (08:11)
[2021-02-24] MEDS: AMANTADINE 100 MG (SYMMETREL) CAP PO SCH (08:11)
[2021-02-24] MEDS: PANTOPRAZOLE 40 MG (PROTONIX) TAB PO SCH (08:11)
[2021-02-24] MEDS: GABAPENTIN 300 MG (NEURONTIN) CAP PO SCH (08:11)
--- NOTE | 2021-02-24 09:28 | Discharge Summary ---
Diagnosis/Chief Complaint Date of Admission Feb 18, 2021 at 20:50 Date of Discharge Discharge Date: Feb 24, 2021 Admission Diagnosis Intractable nausea and vomiting Primary Care Gregory Dudley DO Discharge Summary Discharge Physical Exam Allergies: Coded Allergies: No Known Drug Allergies (Unverified , 06/26/17) Vitals & I&Os Vital Signs Date Time Temp Pulse Resp B/P (MAP) Pulse Ox O2 Delivery O2 Flow Rate FiO2 02/24/21 08:00 36.2 66 20 137/86 (103) 97 Room Air 02/20/21 14:26 3 General Appearance: No Apparent Distress, Chronically ill Respiratory: Lungs Clear, No Respiratory Distress Cardiovascular: Regular Rate, Rhythm, No Murmur Neurologic/Psychiatric: Alert, Oriented x3 Hospital Course Pt was admitted due to intractable nausea and vomiting. She was found to have chronic cholecystitis and underwent lap cholecystectomy with EGD. She was started on a PPI and did well. Nausea and vomiting resolved completely. She was seen by PT/OT due to her debility from surgery and known Parkinson's disease. She was deemed and appropriate candidate for Inpatient Rehab by myself and Dr Sánchez ambrosio, internist medical doctor md of IRU, but insurance approval was denied. I did peer to peer to help facilitate admission but the declination was upheld by Dr Gould at [facility]. Patient this attempted a FAST appeal to her insurance and after this review they continued to uphold their declination. She was then discharged home with home health in stable and improved condition. Labs (last 24 hrs) Laboratory Tests 02/24/21 05:10: Sodium Level 137, Potassium Level 3.8, Chloride Level 105, Carbon Dioxide Level 23, Anion Gap 9, Blood Urea Nitrogen 6L, Creatinine 0.63, Estimat Glomerular Filtration Rate > 60, BUN/Creatinine Ratio 10, Glucose Level 80, Calcium Level 9.5 Patient resulted labs reviewed. Pending Labs Laboratory Tests 02/24/21 05:10: Sodium Level 137, Potassium Level 3.8, Chloride Level 105, Carbon Dioxide Level 23, Anion Gap 9, Blood Urea Nitrogen 6, Creatinine 0.63, Estimat Glomerular Filtration Rate > 60, BUN/Creatinine Ratio 10, Glucose Level 80, Calcium Level 9.5 Discussion & Recommendations Discharge Planning: >30 minutes discharge planning Discharge Home Medications: Active Scripts Active Hydrocodone-Acetamin 7.5-325 (Hydrocodone/Acetaminophen) 1 Each Tablet 1 Each PO Q4H Reported Ibuprofen 200 Mg Tablet 600 Mg PO Q6H PRN TAKES 3 (200MG) TABLETS Vitamin B-12 (Cyanocobalamin (Vitamin B-12)) 500 Mcg Tablet 500 Mcg PO DAILY Levothyroxine Sodium 75 Mcg Tablet 75 Mcg PO DAILY LAST FILLED 08/21/2020 #90 90 DAY SUPPLY Rytary ER 48.75 mg-195 mg Cap (Carbidopa/Levodopa) 1 Each Capsule.er 1 Each PO QID Neurontin (Gabapentin) 300 Mg Capsule 600 Mg PO HS TAKES 2 (300MG) CAPSULES Neurontin (Gabapentin) 300 Mg Capsule 300 Mg PO TID Sertraline HCl 50 Mg Tablet 50 Mg PO HS Ondansetron HCl 4 Mg Tablet 4 Mg PO Q4H PRN Amantadine (Amantadine HCl) 100 Mg Capsule 100 Mg PO DAILY Amitriptyline HCl 100 Mg Tablet 100 Mg PO HS Instructions to patient/family Please see electronic discharge instructions given to patient. LISETTE LUDWIG MD Feb 24, 2021 09:28
--- NOTE | 2021-02-24 10:48 | Physical Therapy Progress Note ---
Therapy Progress Note Pt supine in bed upon arrival to room, states she is going home today and would like to rest before having to leave. Pt refused any OOB activities. 1, Ref ([id number]) RACHAEL AL PT Feb 24, 2021 10:48
== END 2021-02-24 12:25 | disposition home or self-care (01) ==
LOC: EDUNIT# 19:25 → ER 19:26 → 4TH 20:50
PROVIDERS: ADMIT Internal Medicine; ATTEND Internal Medicine
DX: K80.10 Calculus of gallbladder with chronic cholecystitis without obstruction (principal); K21.00 Gastro-esophageal reflux disease with esophagitis, without bleeding; K29.50 Unspecified chronic gastritis without bleeding; M19.90 Unspecified osteoarthritis, unspecified site; E66.01 Morbid (severe) obesity due to excess calories; E03.9 Hypothyroidism, unspecified; E11.9 Type 2 diabetes mellitus without complications; E83.42 Hypomagnesemia; M25.569 Pain in unspecified knee; N39.0 Urinary tract infection, site not specified; G43.909 Migraine, unspecified, not intractable, without status migrainosus; G20 Parkinson's disease; G89.29 Other chronic pain; G47.33 Obstructive sleep apnea (adult) (pediatric); G47.00 Insomnia, unspecified; F32.9 Major depressive disorder, single episode, unspecified; F41.9 Anxiety disorder, unspecified; Z98.84 Bariatric surgery status; Z79.899 Other long term (current) drug therapy; Z79.890 Hormone replacement therapy; Z68.39 Body mass index [BMI] 39.0-39.9, adult; Z87.891 Personal history of nicotine dependence; Z83.3 Family history of diabetes mellitus; Z80.42 Family history of malignant neoplasm of prostate; Z82.49 Family history of ischemic heart disease and other diseases of the circulatory system
CPT/HCPCS: 43239; 47562; 51702; 74177; 76705; 80048 ×2; 80053 ×2; 80306; 81000; 82150; 83690; 83735 ×2; 85025 ×2; 85027; 88305; 96361; 96365; 96375; 97110; 97116; 97162; 97166; 97530 ×2; 97535 ×3; 99284; G0378; G0480; 36415; 80320; 88304

== ENCOUNTER 2021-03-14 20:40 | Emergency (ER) | payer MEDICAID ==
[~2021-03-14] VITALS: Ht 165.1 cm; Wt 106.8 kg
[~2021-03-14 20:40] MED LIST changes: +AMAN100C18 PO; +CARB1CAP5 PO; +CYAN500T8 PO; +GABA300C PO; +HYDR-3817 PO; +IBUP-2473 PO; +LEVO75TA6 PO; +ONDA-105 PO; +SERT-413 PO
[2021-03-14 21:00] LABS: BASOPHILS % (AUTO) 0 % (0-10); EOSINOPHILS % (AUTO) 0 % (0-10); HEMATOCRIT 40 % (35-52); HEMOGLOBIN 12.5 g/dL (11.5-16.0); LYMPHOCYTES # (AUTO) 0.5 10^3/uL (1.0-4.0); LYMPHOCYTES % (AUTO) 6 % (12-44); MEAN CORPUSCULAR HEMOGLOBIN 26 pg (25-34); MEAN CORPUSCULAR HGB CONC 32 g/dL (32-36); MEAN CORPUSCULAR VOLUME 84 fL (80-99); MEAN PLATELET VOLUME 11.6 fL (9.0-12.2); MONOCYTES # (AUTO) 0.6 10^3/uL (0.0-1.0); MONOCYTES % (AUTO) 7 % (0-12); NEUTROPHILS # (AUTO) 6.8 10^3/uL (1.8-7.8); NEUTROPHILS % (AUTO) 86 % (42-75); PLATELET COUNT 333 10^3/uL (130-400)
[2021-03-14 21:12] LABS: CLARITY,URINE SL CLOUDY; COLOR,URINE ORANGE; GLUCOSE, URINE (UA) NEGATIVE (NEGATIVE); KETONES,URINE 1+ (NEGATIVE); LEUKOCYTE ESTERASE ,URINE TRACE (NEGATIVE); NITRITE,URINE NEGATIVE (NEGATIVE); PROTEIN,URINE TRACE (NEGATIVE)
[2021-03-14] MEDS ORDERED: ONDANSETRON 4 MG/2 ML (SDV) Z0FRAN IVP ONE (21:15)
[2021-03-14] MEDS ORDERED: PANTOPRAZOLE 40 MG (PROTONIX) VIAL IV ONE (21:15)
[2021-03-14] MEDS ORDERED: LACTATED RINGERS 1,000 ML IV ONE (21:15)
--- NOTE | 2021-03-14 21:17 | ED GI ---
General Chief Complaint: Abdominal/GI Problems Stated Complaint: N/V Source of Information: Patient, Old Records History of Present Illness Date Seen by Provider: Mar 14, 2021 Time Seen by Provider: 20:42 Initial Comments PT ARRIVES VIA EMS FROM [facility] C/O NAUSEA, DRY HEAVES AND DIARRHEA FOR THE LAST 3 DAYS HAS HAD DIARRHEA X 5 TODAY, NO BLACK/BLOODY/TARRY STOOLS NO ABDOMINAL PAIN NO FEVER/SWEATS/CHILLS NO URINARY SYMPTOMS AND VOIDING A NORMAL AMOUNT STATES SHE HAD HER GALLBLADDER REMOVED 3 WEEKS AGO HAS NOT SEEN HIM SINCE SURGERY, HAS AN APPOINTMENT NEXT WEEK PT WAS ADMITTED 02/18/21-02/23/21 FOR INTRACTABLE NAUSEA/VOMITING HAD LAP CHOLECYSTECTOMY AND EGD/BIOPSY 02/20/21. WAS ALSO FOUND TO HAVE SOME GASTRITIS/GERD AT THAT TIME. PCP: DR. TOM Allergies and Home Medications Allergies Coded Allergies: No Known Drug Allergies (Unverified , 06/26/17) Home Medications Amantadine HCl 100 Mg Capsule, 100 MG PO DAILY, (Reported) Amitriptyline HCl 100 Mg Tablet, 100 MG PO HS, (Reported) Carbidopa/Levodopa 1 Each Capsule.er, 1 EACH PO QID, (Reported) Cefdinir 300 Mg Capsule, 300 MG PO BID Prescribed by: JENARO WASHINGTON on 03/14/212154 Cyanocobalamin (Vitamin B-12) 500 Mcg Tablet, 500 MCG PO DAILY, (Reported) Gabapentin 300 Mg Capsule, 300 MG PO TID, (Reported) Gabapentin 300 Mg Capsule, 600 MG PO HS, (Reported) TAKES 2 (300MG) CAPSULES Hydrocodone/Acetaminophen 1 Each Tablet, 1 EACH PO Q4H Prescribed by: JESUS MANCILLA on 02/20/21 1126 Ibuprofen 200 Mg Tablet, 600 MG PO Q6H PRN for PAIN-MILD (1-4), (Reported) TAKES 3 (200MG) TABLETS Levothyroxine Sodium 75 Mcg Tablet, 75 MCG PO DAILY, (Reported) LAST FILLED 08/21/2020 #90 90 DAY SUPPLY Ondansetron 8 Mg Tab.rapdis, 8 MG PO Q6H Prescribed by: JENARO WASHINGTON on 03/14/212154 Ondansetron HCl 4 Mg Tablet, 4 MG PO Q4H PRN for NAUSEA/VOMITING-1ST LINE, (Reported) Sertraline HCl 50 Mg Tablet, 50 MG PO HS, (Reported) Patient Home Medication List Home Medication List Reviewed: Yes Review of Systems Review of Systems Constitutional: no symptoms reported; No chills, No diaphoresis, No dizziness, No fever Respiratory: No Symptoms Reported Cardiovascular: No Symptoms Reported Gastrointestinal: See HPI; Denies Abdominal Pain; Diarrhea, Nausea, Poor Appetite, Poor Fluid Intake, Vomiting (DRY HEAVES--NO ACTUAL VOMITING) Genitourinary: No Symptoms Reported Musculoskeletal: no symptoms reported Skin: no symptoms reported Psychiatric/Neurological: Anxiety Endocrine: No Symptoms Reported Hematologic/Lymphatic: No Symptoms Reported Past Liqqgxe-Gqivnj-Gifdmj Hx Past Med/Social Hx: Reviewed and Corrections made Patient Social History Alcohol Use: Occasionally Uses Alcohol Beverage of Choice: Beer Drug of Choice: DENIES Smoking Status: Former Smoker Type Used: Cigarettes Former Smoker, Quit: May 26, 2017 2nd Hand Smoke Exposure: No Recent Hopitalizations: No Immunizations Up To Date Date of Influenza Vaccine: Aug 26, 2016 Seasonal Allergies Seasonal Allergies: Yes Past Medical History Surgeries: Yes (D&C, GASTRIC SLEEVE) Abdominal Respiratory: No Cardiac: No Neurological: Yes Headaches /Migraines, Parkinson's Disease 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 Disorders: No Female 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 Disorders: 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 Sexually Transmitted Disease: No HIV/AIDS: No Genitourinary: Yes UTI-Chronic Gastrointestinal: Yes (GASTRIC SLEEVE SURGERY; GASTRITIS) Gastroesophageal Reflux, Gall Bladder Disease Musculoskeletal: Yes (CHRONIC KNEE PAIN ) Arthritis Endocrine: Yes (MORBID OBESITY) Hypothyroidsim HEENT: Yes (GLASSES) Loss of Vision: Bilateral Hearing Impairment: Denies Cancer: No Psychosocial: Yes Anxiety, Depression Integumentary: No Blood Disorders: No Adverse Reaction/Blood Tranf: No (N/A) Family Medical History Cardiovascular disease 19 MOTHER Diabetes mellitus G8 BROTHER FH: prostate cancer PAST SURGICAL HISTORY: -LAPAROSCOPIC CHOLECYSTECTOMY 02/20/[address] MANCILLA -EGD 02/20/[address] MANCILLA--REFLUX ESOPHAGITIS AND GASTRITIS -GASTRIC SLEEVE 07/03/[address] MANCILLA Physical Exam Vital Signs Vital Signs - First Documented 03/14/21 20:40 Temp 36.2 Pulse 94 Resp 18 B/P (MAP) 106/85 (92) Pulse Ox 98 O2 Delivery Room Air Capillary Refill : Height/Weight/BMI Height: 5'6.00" Weight: 272lbs. 0.0oz. [id number]; 39.22 BMI Method:Stated General Appearance: WD/WN, no apparent distress, obese, other (CONSTANT MOVEMENTS OF HANDS AND FEET--NOT CLASSIC TREMORS OF PARKINSON'S. MOVEMENTS STOP WHEN DISTRACTED. 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, no motor/sensory deficits, alert, oriented x 3, other (ANXIOUS) Skin: normal color, warm/dry, other (MULTIPLE SORES/SCARS/SCABS ON FACE AND ARMS) Progress/Results/Core Measures Results/Orders Lab Results Laboratory Tests Test 03/14/21 20:45 03/14/21 20:58 Range/Units White Blood Count 8.0 4.3-11.0 10^3/uL Red Blood Count 4.74 3.80-5.11 10^6/uL Hemoglobin 12.5 11.5-16.0 g/dL Hematocrit 40 35-52 % Mean Corpuscular Volume 84 80-99 fL Mean Corpuscular Hemoglobin 26 25-34 pg Mean Corpuscular Hemoglobin Concent 32 32-36 g/dL Red Cell Distribution Width 16.7 H 10.0-14.5 % Platelet Count 333 130-400 10^3/uL Mean Platelet Volume 11.6 9.0-12.2 fL Immature Granulocyte % (Auto) 0 % Neutrophils (%) (Auto) 86 H 42-75 % Lymphocytes (%) (Auto) 6 L 12-44 % Monocytes (%) (Auto) 7 0-12 % Eosinophils (%) (Auto) 0 0-10 % Basophils (%) (Auto) 0 0-10 % Neutrophils # (Auto) 6.8 1.8-7.8 10^3/uL Lymphocytes # (Auto) 0.5 L 1.0-4.0 10^3/uL Monocytes # (Auto) 0.6 0.0-1.0 10^3/uL Eosinophils # (Auto) 0.0 0.0-0.3 10^3/uL Basophils # (Auto) 0.0 0.0-0.1 10^3/uL Immature Granulocyte # (Auto) 0.0 0.0-0.1 10^3/uL Neutrophils % (Manual) 88 % Lymphocytes % (Manual) 5 % Monocytes % (Manual) 7 % Blood Morphology Comment NORMAL Prothrombin Time 14.3 12.2-14.7 SEC INR Comment 1.1 0.8-1.4 Activated Partial Thromboplast Time 25 24-35 SEC Sodium Level 139 135-145 MMOL/L Potassium Level 3.0 L 3.6-5.0 MMOL/L Chloride Level 102 98-107 MMOL/L Carbon Dioxide Level 22 21-32 MMOL/L Anion Gap 15 H 5-14 MMOL/L Blood Urea Nitrogen 17 7-18 MG/DL Creatinine 0.74 0.60-1.30 MG/DL Estimat Glomerular Filtration Rate > 60 BUN/Creatinine Ratio 23 Glucose Level 107 H 70-105 MG/DL Calcium Level 10.4 H 8.5-10.1 MG/DL Corrected Calcium 10.2 H 8.5-10.1 MG/DL Magnesium Level 1.7 1.6-2.4 MG/DL Total Bilirubin 0.7 0.1-1.0 MG/DL Aspartate Amino Transf (AST/SGOT) 5 5-34 U/L Alanine Aminotransferase (ALT/SGPT) < 6 0-55 U/L Alkaline Phosphatase 224 H 40-136 U/L Total Protein 7.2 6.4-8.2 GM/DL Albumin 4.2 3.2-4.5 GM/DL Amylase Level 96 25-125 U/L Lipase 83 H 8-78 U/L Coronavirus 2019 (PHILLY) Negative Not Detecte Urine Color ORANGE Urine Clarity SL CLOUDY Urine pH 6.0 5-9 Urine Specific [place] >=1.030 1.016-1.022 Urine Protein TRACE H NEGATIVE Urine Glucose (UA) NEGATIVE NEGATIVE Urine Ketones 1+ H NEGATIVE Urine Nitrite NEGATIVE NEGATIVE Urine Bilirubin 1+ H NEGATIVE Urine Urobilinogen 2.0 < = 1.0 MG/DL Urine Leukocyte Esterase TRACE H NEGATIVE Urine RBC (Auto) NEGATIVE NEGATIVE Urine RBC NONE /HPF Urine WBC 5-10 H /HPF Urine Crystals PRESENT H /LPF Urine Calcium Oxalate Crystals FEW H /LPF Urine Uric Acid Crystals MODERATE H /LPF Urine Bacteria LARGE H /HPF Urine Casts NONE /LPF Urine Mucus SMALL H /LPF Urine Culture Indicated YES My Orders Orders - JENARO WASHINGTON DO Ed Iv/Invasive Line Start (03/14/21 20:42) Catheter(Urinary) Insert & Ass ,15 (03/14/21 20:42) Monitor-Rhythm Ecg Trace Only (03/14/21 20:42) Amylase (03/14/21 20:42) Cbc With Automated Diff (03/14/21 20:42) Comprehensive Metabolic Panel (03/14/21 20:42) Lipase (03/14/21 20:42) Magnesium (03/14/21 20:42) Protime With Inr (03/14/21 20:42) Partial Thromboplastin Time (03/14/21 20:42) Ua Culture If Indicated (03/14/21 20:42) Covid 19 Inhouse Test (03/14/21 20:42) Ondansetron Injection (Zofran Injectio (03/14/21 21:15) Ed Iv/Invasive Line Start (03/14/21 21:10) Lactated Ringers (Lr 1000 Ml Iv Solution (03/14/21 21:15) Pantoprazole Injection (Protonix Injecti (03/14/21 21:15) Manual Differential (03/14/21 20:45) 1/2 Ns W/Kcl 20 Meq/L (0.45% Sodium Chlo (03/14/21 21:30) Urine Culture (03/14/21 20:58) Ceftriaxone For Iv Use (Rocephin For I (03/14/21 21:45) Scopolamine Patch (Transderm-Scop Patch) (03/14/21 22:00) Potassium Chloride (Tablet) (Klor Con Ta (03/14/21 22:00) Potassium Chloride (Tablet) (Klor Con Ta (03/14/21 22:15) Medications Given in ED Current Medications Medications Dose Ordered Sig/Chris Route Start Time Stop Time Status Last Admin Dose Admin Ceftriaxone Sodium 1000 mg/ Sterile Water 10 ml @ 200 mls/hr ONCE ONCE IV 03/14/21 21:45 03/14/21 21:47 DC 03/14/21 22:25 200 MLS/HR Lactated Ringer's 1,000 ml @ 0 mls/hr Q0M ONCE IV 03/14/21 21:15 03/14/21 21:16 DC 03/14/21 21:28 0 MLS/HR Ondansetron HCl 8 mg ONCE ONCE IVP 03/14/21 21:15 03/14/21 21:16 DC 03/14/21 21:29 8 MG Pantoprazole 40 mg ONCE ONCE IV 03/14/21 21:15 03/14/21 21:16 DC 03/14/21 21:28 40 MG Potassium Chloride 20 meq 2200 ONCE PO 03/14/21 22:00 03/14/21 22:01 DC 03/14/21 22:25 20 MEQ Potassium Chloride 20 meq ONCE ONCE PO 03/14/21 22:15 03/14/21 22:16 DC 03/14/21 22:26 20 MEQ Scopolamine 1.5 mg ONCE ONCE TD 03/14/21 22:00 03/14/21 22:01 DC 03/14/21 22:26 1.5 MG Vital Signs/I&O 03/14/21 20:40 Temp 36.2 Pulse 94 Resp 18 B/P (MAP) 106/85 (92) Pulse Ox 98 O2 Delivery Room Air Progress Progress Note : Progress Note GIVEN IV FLUIDS AND ZOFRAN NAUSEA RESOLVED. NO DRY HEAVES AND NO DIARRHEA DURING ER STAY PT ABLE TO TOLERATE WATER PRIOR TO DISMISSAL Departure Impression Primary Impression: Nausea vomiting and diarrhea Additional Impressions: UTI (urinary tract infection) Hypokalemia Disposition: 03 XFER SNF Condition: Improved Departure-Patient Inst. Referrals: YUSEF TOM DO (PCP/Family) Primary Care Physician Patient Instructions: [id number], Hypokalemia (DC), Urinary Tract Infection, Adult (DC) Add. Discharge Instructions: YOU MAY LEAVE SCOPOLAMINE PATCH IN PLACE FOR 72 HOURS INCREASE YOUR FLUID INTAKE--WATER, BROTH, JELLO, GATORADE CONTINUE YOUR CURRENT MEDICATIONS PRESCRIBED FOLLOW UP WITH YOUR DR IN 1-2 DAYS IF NO BETTER, RETURN TO ER IF WORSE All discharge instructions reviewed with patient and/or family. Voiced understanding. Scripts Ondansetron (Ondansetron Odt) 8 Mg Tab.rapdis 8 MG PO Q6H, #10 TAB Prov: JENARO WASHINGTON DO 03/14/21 Cefdinir (Cefdinir) 300 Mg Capsule 300 MG PO BID, #20 CAP Prov: JENARO WASHINGTON DO 03/14/21 JENARO WASHINGTON DO Mar 14, 2021 21:17
[2021-03-14 21:23] LABS: ALANINE AMINOTRANSFERASE < 6 U/L (0-55); ALBUMIN 4.2 GM/DL (3.2-4.5); ALKALINE PHOSPHATASE 224 U/L (40-136); AMYLASE 96 U/L (25-125); BILIRUBIN,TOTAL 0.7 MG/DL (0.1-1.0); BUN/CREATININE RATIO 23; CALCIUM 10.4 MG/DL (8.5-10.1); CARBON DIOXIDE 22 MMOL/L (21-32); CHLORIDE 102 MMOL/L (98-107); CREATININE SERUM 0.74 MG/DL (0.60-1.30); GFR ESTIMATED > 60; GLUCOSE 107 MG/DL (70-105); LIPASE 83 U/L (8-78); MAGNESIUM 1.7 MG/DL (1.6-2.4); SODIUM 139 MMOL/L (135-145); TOTAL PROTEIN 7.2 GM/DL (6.4-8.2)
[2021-03-14 21:30] LABS: INR 1.1 (0.8-1.4); PROTHROMBIN TIME PATIENT 14.3 SEC (12.2-14.7)
[2021-03-14] MEDS ORDERED: 1/2 NS W/KCL 20 MEQ/L 1,000 ML IV SCH (21:30)
[2021-03-14 21:32] LABS: BACTERIA,URINE LARGE /HPF; CALCIUM OXALATE CRYSTALS,UR FEW /LPF
[2021-03-14 21:33] LABS: URIC ACID CRYSTALS,URINE MODERATE /LPF
[2021-03-14 21:37] LABS: BILIRUBIN,URINE 1+ (NEGATIVE)
[2021-03-14] MEDS ORDERED: cefTRIAXone FOR IV USE 1,000 MG in WATER (STERILE) FOR INJECTION 10 ML IV ONE (21:45)
[2021-03-14] MEDS ORDERED: CEFD300C3 PO (21:55)
[2021-03-14] MEDS ORDERED: ONDA8TAB13 PO (21:55)
[2021-03-14] MEDS ORDERED: SCOPOLAMINE 1.5 MG (TRANSDERM-SCOP) PATCH TD ONE (22:00)
[2021-03-14] MEDS ORDERED: KCL 10 MEQ TAB (MICRO K) PO ONE ×2 (22:00→22:15)
[2021-03-14 22:01] LABS: LYMPHOCYTES % (MANUAL) 5 %; MONOCYTES % (MANUAL) 7 %; NEUTROPHILS % (MANUAL) 88 %; RBC MORPH NORMAL
[2021-03-14 22:38] VITALS: BP 113/76
== END 2021-03-14 22:44 ==
LOC: EDUNIT# 20:40 → ER 20:41
DX: R11.2 Nausea with vomiting, unspecified (principal); R19.7 Diarrhea, unspecified; N39.0 Urinary tract infection, site not specified; E87.6 Hypokalemia; F41.9 Anxiety disorder, unspecified; F32.9 Major depressive disorder, single episode, unspecified; E03.9 Hypothyroidism, unspecified; G20 Parkinson's disease; E66.01 Morbid (severe) obesity due to excess calories; Z68.39 Body mass index [BMI] 39.0-39.9, adult; Z87.891 Personal history of nicotine dependence; Z20.822 Contact with and (suspected) exposure to COVID-19; Z79.890 Hormone replacement therapy; Z79.899 Other long term (current) drug therapy
CPT/HCPCS: 80053; 81000; 82150; 83690; 83735; 85007; 85027; 85610; 85730; 87077; 87088; 93041; 99284; U0002; 36415; 87186; 87635

== ENCOUNTER 2021-03-17 15:34 | Emergency (ER) | payer MEDICAID ==
[~2021-03-17] VITALS: Ht 165.1 cm; Wt 102.1 kg
[~2021-03-17 15:34] MED LIST changes: +ONDA8TAB13 PO
[2021-03-17 16:23] LABS: BASOPHILS # (AUTO) 0.1 10^3/uL (0.0-0.1); BASOPHILS % (AUTO) 1 % (0-10); EOSINOPHILS # (AUTO) 0.4 10^3/uL (0.0-0.3); EOSINOPHILS % (AUTO) 6 % (0-10); HEMATOCRIT 36 % (35-52); HEMOGLOBIN 11.4 g/dL (11.5-16.0); LYMPHOCYTES # (AUTO) 2.4 10^3/uL (1.0-4.0); LYMPHOCYTES % (AUTO) 38 % (12-44); MEAN CORPUSCULAR HEMOGLOBIN 26 pg (25-34); MEAN CORPUSCULAR HGB CONC 31 g/dL (32-36); MEAN CORPUSCULAR VOLUME 83 fL (80-99); MEAN PLATELET VOLUME 12.3 fL (9.0-12.2); MONOCYTES # (AUTO) 0.7 10^3/uL (0.0-1.0); MONOCYTES % (AUTO) 12 % (0-12); NEUTROPHILS # (AUTO) 2.8 10^3/uL (1.8-7.8); NEUTROPHILS % (AUTO) 44 % (42-75); PLATELET COUNT 343 10^3/uL (130-400); WHITE BLOOD COUNT 6.3 10^3/uL (4.3-11.0)
[2021-03-17 16:25] LABS: CHLORIDE 103 MMOL/L (98-107); POTASSIUM 3.1 MMOL/L (3.6-5.0); SODIUM 138 MMOL/L (135-145)
[2021-03-17 16:26] LABS: CALCIUM 9.8 MG/DL (8.5-10.1)
[2021-03-17 16:28] LABS: GLUCOSE 96 MG/DL (70-105)
[2021-03-17 16:29] LABS: BILIRUBIN,TOTAL 0.3 MG/DL (0.1-1.0); CARBON DIOXIDE 24 MMOL/L (21-32)
[2021-03-17 16:31] LABS: ALKALINE PHOSPHATASE 202 U/L (40-136)
[2021-03-17 16:32] LABS: CREATININE SERUM 0.69 MG/DL (0.60-1.30); GFR ESTIMATED > 60
[2021-03-17 16:33] LABS: BUN/CREATININE RATIO 20
[2021-03-17 16:34] LABS: ALANINE AMINOTRANSFERASE < 6 U/L (0-55)
--- NOTE | 2021-03-17 16:57 | ED Neurological Problem ---
General Chief Complaint: Neurological Problems Stated Complaint: SEIZURE Nursing Triage Note: PT BROUGHT IN BY [facility] FROM [facility] FOR A SEIZURE THAT LASTED APPROX 2 MINUTES. PT WAS SITTING IN CHAIR WHEN SHE HAD A SEIZURE THAT LASTED 2 MINUTES THAT WAS WITNESSED BY STAFF AND FAMILY AT 1450. PER STAFF PT WAS POSTICTAL, BUT FOR EMS WAS BACK TO BASELINE ON ARRIVAL. PT IS ALERT AND ORIENTED X4 ON TIME OF TRIAGE. STATES DOES NOT HAVE SEIZURE HX. WAS SEEN IN ER 4 DAYS AGO FOR UTI. PRESCRIBED CEFDINIR BUT WAS SWITCHED TO BACTRIM BY DR LOPEZ. Nursing Sepsis Screen: No Definite Risk Source: patient Exam Limitations: no limitations History of Present Illness Date Seen by Provider: March 17, 2021 Time Seen by Provider: 16:00 Initial Comments To ER by EMS from [facility] where she resides due to advanced Parkinson's disease and inability to care for herself. She was sitting on the porch visiting with family and friends when she had convulsions, she states that she remained conscious for the entire thing, it lasted for about 2 minutes, she states that her eyes rolled back into her head and her neck went limp. She felt fine prior to this happening and now she feels okay with the exception of some fatigue. Timing/Duration: 1/2 hour Severity: moderate Associated Symptoms: No nausea/vomiting Allergies and Home Medications Allergies Coded Allergies: No Known Drug Allergies (Unverified , 06/26/17) Home Medications Amantadine HCl 100 Mg Capsule, 100 MG PO DAILY, (Reported) Amitriptyline HCl 100 Mg Tablet, 100 MG PO HS, (Reported) Carbidopa/Levodopa 1 Each Capsule.er, 1 EACH PO QID, (Reported) Cefdinir 300 Mg Capsule, 300 MG PO BID Prescribed by: JENARO WASHINGTON on 03/14/212154 Cyanocobalamin (Vitamin B-12) 500 Mcg Tablet, 500 MCG PO DAILY, (Reported) Gabapentin 300 Mg Capsule, 300 MG PO TID, (Reported) Gabapentin 300 Mg Capsule, 600 MG PO HS, (Reported) TAKES 2 (300MG) CAPSULES Hydrocodone/Acetaminophen 1 Each Tablet, 1 EACH PO Q4H Prescribed by: JESUS MANCILLA on 02/20/21 1126 Ibuprofen 200 Mg Tablet, 600 MG PO Q6H PRN for PAIN-MILD (1-4), (Reported) TAKES 3 (200MG) TABLETS Levothyroxine Sodium 75 Mcg Tablet, 75 MCG PO DAILY, (Reported) LAST FILLED 08/21/2020 #90 90 DAY SUPPLY Ondansetron 8 Mg Tab.rapdis, 8 MG PO Q6H Prescribed by: JENARO WASHINGTON on 03/14/212154 Ondansetron HCl 4 Mg Tablet, 4 MG PO Q4H PRN for NAUSEA/VOMITING-1ST LINE, (Reported) Sertraline HCl 50 Mg Tablet, 50 MG PO HS, (Reported) Patient Home Medication List Home Medication List Reviewed: Yes Review of Systems Review of Systems Constitutional: see HPI Eyes: No Symptoms Reported Ears, Nose, Mouth, Throat: no symptoms reported Respiratory: no symptoms reported Cardiovascular: no symptoms reported Genitourinary: no symptoms reported Musculoskeletal: no symptoms reported Skin: no symptoms reported Psychiatric/Neurological: No Symptoms Reported Past Fvpseyx-Yvixua-Sqpzfu Hx Patient Social History Alcohol Use: Rarely Uses Number of Drinks Today: AA Alcohol Beverage of Choice: Beer Drug of Choice: DENIES Smoking Status: Former Smoker Type Used: Cigarettes Former Smoker, Quit: May 26, 2017 2nd Hand Smoke Exposure: No Recent Infectious Disease Expo: No Recent Hopitalizations: No Immunizations Up To Date Tetanus Booster (TDap): Unknown Date of Influenza Vaccine: Aug 26, 2016 Seasonal Allergies Seasonal Allergies: Yes Past Medical History Surgeries: Yes (D&C, GASTRIC SLEEVE) Abdominal Respiratory: No Cardiac: No Neurological: Yes Headaches /Migraines, Parkinson's Disease 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 Disorders: No 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 Sexually Transmitted Disease: No HIV/AIDS: No Genitourinary: Yes UTI-Chronic Gastrointestinal: Yes (GASTRIC SLEEVE SURGERY; GASTRITIS) Gastroesophageal Reflux, Gall Bladder Disease Musculoskeletal: Yes (CHRONIC KNEE PAIN ) Arthritis Endocrine: Yes (MORBID OBESITY) Hypothyroidsim HEENT: Yes (GLASSES) Loss of Vision: Bilateral Hearing Impairment: Denies Cancer: No Psychosocial: Yes Anxiety, Depression Integumentary: No Blood Disorders: No Adverse Reaction/Blood Tranf: No (N/A) Family Medical History Cardiovascular disease 19 MOTHER Diabetes mellitus G8 BROTHER FH: prostate cancer PAST SURGICAL HISTORY: -LAPAROSCOPIC CHOLECYSTECTOMY 02/20/[address] MANCILLA -EGD 02/20/[address] MANCILLA--REFLUX ESOPHAGITIS AND GASTRITIS -GASTRIC SLEEVE 07/03/[address] MANCILLA Physical Exam Vital Signs Vital Signs - First Documented 03/17/21 15:34 Temp 36.4 Pulse 87 Resp 19 B/P (MAP) 115/97 (103) Pulse Ox 94 O2 Delivery Room Air Capillary Refill : Less Than 3 Seconds Height, Weight, BMI Height: 5'6.00" Weight: 272lbs. 0.0oz. 123.344931vb; 37.00 BMI Method:Stated General Appearance: WD/WN, no apparent distress Respiratory: no respiratory distress, no accessory muscle use Gastrointestinal: normal bowel sounds, soft Neurologic/Psychiatric: alert, normal mood/affect, oriented x 3 Crainal Nerves: normal hearing, normal speech, PERRL Motor/Sensory: no motor deficit, no sensory deficit Focused Exam Lactate Level 03/17/21 17:30: Lactic Acid Level Laboratory Tests Test 03/17/21 17:30 Progress/Results/Core Measures Results/Orders Lab Results Laboratory Tests Test 03/17/21 15:42 03/17/21 17:30 Range/Units White Blood Count 6.3 4.3-11.0 10^3/uL Red Blood Count 4.37 3.80-5.11 10^6/uL Hemoglobin 11.4 L 11.5-16.0 g/dL Hematocrit 36 35-52 % Mean Corpuscular Volume 83 80-99 fL Mean Corpuscular Hemoglobin 26 25-34 pg Mean Corpuscular Hemoglobin Concent 31 L 32-36 g/dL Red Cell Distribution Width 17.2 H 10.0-14.5 % Platelet Count 343 130-400 10^3/uL Mean Platelet Volume 12.3 H 9.0-12.2 fL Immature Granulocyte % (Auto) 0 % Neutrophils (%) (Auto) 44 42-75 % Lymphocytes (%) (Auto) 38 12-44 % Monocytes (%) (Auto) 12 0-12 % Eosinophils (%) (Auto) 6 0-10 % Basophils (%) (Auto) 1 0-10 % Neutrophils # (Auto) 2.8 1.8-7.8 10^3/uL Lymphocytes # (Auto) 2.4 1.0-4.0 10^3/uL Monocytes # (Auto) 0.7 0.0-1.0 10^3/uL Eosinophils # (Auto) 0.4 H 0.0-0.3 10^3/uL Basophils # (Auto) 0.1 0.0-0.1 10^3/uL Immature Granulocyte # (Auto) 0.0 0.0-0.1 10^3/uL Sodium Level 138 135-145 MMOL/L Potassium Level 3.1 L 3.6-5.0 MMOL/L Chloride Level 103 98-107 MMOL/L Carbon Dioxide Level 24 21-32 MMOL/L Anion Gap 11 5-14 MMOL/L Blood Urea Nitrogen 14 7-18 MG/DL Creatinine 0.69 0.60-1.30 MG/DL Estimat Glomerular Filtration Rate > 60 BUN/Creatinine Ratio 20 Glucose Level 96 70-105 MG/DL Calcium Level 9.8 8.5-10.1 MG/DL Corrected Calcium 9.8 8.5-10.1 MG/DL Total Bilirubin 0.3 0.1-1.0 MG/DL Aspartate Amino Transf (AST/SGOT) 10 5-34 U/L Alanine Aminotransferase (ALT/SGPT) < 6 0-55 U/L Alkaline Phosphatase 202 H 40-136 U/L Total Protein 7.0 6.4-8.2 GM/DL Albumin 4.0 3.2-4.5 GM/DL My Orders Orders - SARIAH FREIRE APRN Cbc With Automated Diff (03/17/21 16:17) Comprehensive Metabolic Panel (03/17/21 16:17) Lactic Acid Analyzer (03/17/21 16:17) Ua Culture If Indicated (03/17/21 16:17) Ed Iv/Invasive Line Start (03/17/21 16:17) Ct Head Wo (03/17/21 17:00) Vital Signs/I&O 03/17/21 15:34 Temp 36.4 Pulse 87 Resp 19 B/P (MAP) 115/97 (103) Pulse Ox 94 O2 Delivery Room Air Blood Pressure Mean: 103 Departure Impression Primary Impression: Seizure-like activity Disposition: 01 HOME, SELF-CARE Condition: Stable Departure-Patient Inst. Decision time for Depature: 17:35 Referrals: YUSEF TOM DO (PCP/Family) Primary Care Physician Patient Instructions: NO INSTRUCTIONS GIVEN SARIAH FREIRE APRN March 17, 2021 16:57
--- NOTE | 2021-03-17 17:29 | Diagnostic Imaging Report ---
INDICATION: Seizure. TECHNIQUE: Multiple contiguous axial images were obtained through the brain without the use of intravenous contrast. Auto Exposure Controls were utilized during the CT exam to meet ALARA standards for radiation dose reduction. COMPARISON: There is no prior brain CT for comparison. FINDINGS: There is no extra-axial fluid collection. No intracranial hemorrhage. No intracranial mass or mass effect. No midline shift. The ventricles are normal in size and position. There are no focal parenchymal abnormalities in the brain. Visualized portions of the orbits and sinuses are unremarkable. Calvarial windows appear unremarkable. IMPRESSION: Negative noncontrast brain CT. Dictated by: Dictated on workstation # [id number]
[2021-03-17 19:07] VITALS: BP 112/88
== END 2021-03-17 17:54 | disposition home or self-care (01) ==
LOC: EDUNIT# 15:34 → ER 15:36
DX: R56.9 Unspecified convulsions (principal); G20 Parkinson's disease; F41.9 Anxiety disorder, unspecified; F32.9 Major depressive disorder, single episode, unspecified; E03.9 Hypothyroidism, unspecified; E66.01 Morbid (severe) obesity due to excess calories; Z68.37 Body mass index [BMI] 37.0-37.9, adult; Z87.891 Personal history of nicotine dependence; Z79.890 Hormone replacement therapy; Z79.899 Other long term (current) drug therapy
CPT/HCPCS: 36415; 70450; 80053; 83605; 85025

== ENCOUNTER 2021-04-05 13:14 | Outpatient (RCR) | payer MEDICAID ==
[2021-04-06] MEDS ORDERED: LORA10TA72 PO (18:25)
[2021-04-06] MEDS ORDERED: SUCR1TAB36 PO (18:25)
[2021-04-06] MEDS ORDERED: LORA-404 PO ×2 (18:25)
[2021-04-06] MEDS ORDERED: PANT40SU PO (18:25)
[2021-04-06] MEDS ORDERED: POTA-51 PO (18:25)
[2021-04-17] MEDS ORDERED: LEVE500T6 PO (19:31)
== END 2021-05-14 15:15 | disposition home or self-care (01) ==
PROVIDERS: ATTEND Family Medicine
DX: G20 Parkinson's disease (principal)

== ENCOUNTER 2021-04-06 12:49 | Observation (INO) | payer MEDICAID ==
[~2021-04-06] VITALS: Ht 167 cm; Wt 90.6 kg
[2021-04-06 13:40] LABS: EOSINOPHILS # (AUTO) 0.1 10^3/uL (0.0-0.3); EOSINOPHILS % (AUTO) 1 % (0-10); HEMOGLOBIN 11.8 g/dL (11.5-16.0); MEAN PLATELET VOLUME 11.4 fL (9.0-12.2)
[2021-04-06 13:42] LABS: BASOPHILS % (AUTO) 0 % (0-10); HEMATOCRIT 36 % (35-52); LYMPHOCYTES # (AUTO) 2.1 10^3/uL (1.0-4.0); LYMPHOCYTES % (AUTO) 25 % (12-44); MEAN CORPUSCULAR HEMOGLOBIN 27 pg (25-34); MEAN CORPUSCULAR HGB CONC 33 g/dL (32-36); MEAN CORPUSCULAR VOLUME 81 fL (80-99); MONOCYTES # (AUTO) 0.8 10^3/uL (0.0-1.0); MONOCYTES % (AUTO) 10 % (0-12); NEUTROPHILS # (AUTO) 5.3 10^3/uL (1.8-7.8); NEUTROPHILS % (AUTO) 63 % (42-75); PLATELET COUNT 362 10^3/uL (130-400); WHITE BLOOD COUNT 8.4 10^3/uL (4.3-11.0)
[2021-04-06 13:45] LABS: CHLORIDE 101 MMOL/L (98-107); POTASSIUM 3.7 MMOL/L (3.6-5.0); SODIUM 137 MMOL/L (135-145)
[2021-04-06] MEDS ORDERED: ONDANSETRON 4 MG/2 ML (SDV) Z0FRAN IVP ONE (13:45)
[2021-04-06] MEDS ORDERED: LACTATED RINGERS 1,000 ML IV ONE (13:45)
[2021-04-06 13:46] LABS: CALCIUM 10.7 MG/DL (8.5-10.1)
[2021-04-06 13:47] LABS: GLUCOSE 107 MG/DL (70-105); TOTAL PROTEIN 6.9 GM/DL (6.4-8.2)
[2021-04-06 13:49] LABS: BILIRUBIN,TOTAL 0.6 MG/DL (0.1-1.0); CARBON DIOXIDE 23 MMOL/L (21-32)
[2021-04-06 13:51] LABS: ALKALINE PHOSPHATASE 213 U/L (40-136); CREATININE SERUM 0.69 MG/DL (0.60-1.30); GFR ESTIMATED > 60
[2021-04-06 13:51] LABS: CLARITY,URINE CLEAR; COLOR,URINE YELLOW; GLUCOSE, URINE (UA) NEGATIVE (NEGATIVE); KETONES,URINE 1+ (NEGATIVE); LEUKOCYTE ESTERASE ,URINE TRACE (NEGATIVE); NITRITE,URINE NEGATIVE (NEGATIVE); PROTEIN,URINE TRACE (NEGATIVE)
[2021-04-06 13:52] LABS: BUN/CREATININE RATIO 19
[2021-04-06 13:54] LABS: ALANINE AMINOTRANSFERASE < 6 U/L (0-55); MAGNESIUM 1.6 MG/DL (1.6-2.4)
--- NOTE | 2021-04-06 14:02 | ED General ---
General Chief Complaint: General Problems/Pain Stated Complaint: DEHYDRATION, N/V,WEAKNESS Nursing Triage Note: PT PRESENTS TO ED BY WHEELCHAIR FOR DECREASE APPETITE, NAUSEA, LIGHTHEADEDNESS. PT REPORTS 6 WEEKS AGO SHE HAD HER GALLBLADDER REMOVED AND SINCE THEN SHE HAS LOST 40 POUNDS. TODAY SHE FEELS LIKE SHE IS DEHYDRATED. Nursing Sepsis Screen: No Definite Risk Source of Information: Patient Exam Limitations: No Limitations History of Present Illness Date Seen by Provider: April 06, 2021 Time Seen by Provider: 13:18 Initial Comments Here with nausea, vomiting, lightheaded, decreased appetite and overall not feeling well since she had her gallbladder removed [address] Cha. Does have history of Parkinson's disease and takes medication for that. She has history of UTI multiple times and is not sure if she has 1 of those now. Overall she states that she feels weak. During orthostatic vital signs, she had near syncopal episode. States that she has had problems with dehydration. Timing/Duration: Other (6 weeks) Severity: Moderate Associated Systoms: No Chest Pain, No Cough, No Fever/Chills; Loss of Appetite, Nausea/Vomiting; No Shortness of Air; Weakness Allergies and Home Medications Allergies Coded Allergies: No Known Drug Allergies (Unverified , 06/26/17) Home Medications Amantadine HCl 100 Mg Capsule, 100 MG PO DAILY, (Reported) Amitriptyline HCl 100 Mg Tablet, 100 MG PO HS, (Reported) Carbidopa/Levodopa 1 Each Capsule.er, 1 EACH PO QID, (Reported) Cefdinir 300 Mg Capsule, 300 MG PO BID Prescribed by: JENARO WASHINGTON on 03/14/212154 Cyanocobalamin (Vitamin B-12) 500 Mcg Tablet, 500 MCG PO DAILY, (Reported) Gabapentin 300 Mg Capsule, 300 MG PO TID, (Reported) Gabapentin 300 Mg Capsule, 600 MG PO HS, (Reported) TAKES 2 (300MG) CAPSULES Hydrocodone/Acetaminophen 1 Each Tablet, 1 EACH PO Q4H Prescribed by: JESUS CHA on 02/20/21 1126 Ibuprofen 200 Mg Tablet, 600 MG PO Q6H PRN for PAIN-MILD (1-4), (Reported) TAKES 3 (200MG) TABLETS Levothyroxine Sodium 75 Mcg Tablet, 75 MCG PO DAILY, (Reported) LAST FILLED 08/21/2020 #90 90 DAY SUPPLY Ondansetron 8 Mg Tab.rapdis, 8 MG PO Q6H Prescribed by: JENARO WASHINGTON on 03/14/212154 Ondansetron HCl 4 Mg Tablet, 4 MG PO Q4H PRN for NAUSEA/VOMITING-1ST LINE, (Reported) Sertraline HCl 50 Mg Tablet, 50 MG PO HS, (Reported) Patient Home Medication List Home Medication List Reviewed: Yes Review of Systems Review of Systems Constitutional: see HPI; No fever; malaise, weakness, weight loss EENTM: No nose congestion, No nose pain, No throat pain Respiratory: No cough, No short of breath Cardiovascular: No chest pain, No edema Gastrointestinal: abdominal pain, diarrhea, nausea, vomiting Genitourinary: dysuria; No pain Musculoskeletal: No back pain; muscle weakness Skin: No change in color, No lesions Psychiatric/Neurological: Denies Headache; Pre-Existing Deficit, Weakness All Other Systems Reviewed Negative Unless Noted: Yes Past Kbnuuqg-Fvhols-Uiilsa Hx Past Med/Social Hx: Reviewed Nursing Past Med/Soc Hx Patient Social History Alcohol Use: Denies Use Number of Drinks Today: AA Alcohol Beverage of Choice: Beer Drug of Choice: DENIES Type Used: Cigarettes Former Smoker, Quit: May 26, 2017 2nd Hand Smoke Exposure: No Recent Infectious Disease Expo: No Recent Hopitalizations: No Immunizations Up To Date Tetanus Booster (TDap): Unknown Date of Influenza Vaccine: Aug 26, 2016 Seasonal Allergies Seasonal Allergies: Yes Past Medical History Surgeries: Yes (D&C, GASTRIC SLEEVE) Abdominal Respiratory: No Cardiac: No Neurological: Yes Headaches /Migraines, Parkinson's Disease 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 Disorders: No Female 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 Disorders: 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 Sexually Transmitted Disease: No HIV/AIDS: No Genitourinary: Yes UTI-Chronic Gastrointestinal: Yes (GASTRIC SLEEVE SURGERY; GASTRITIS) Gastroesophageal Reflux, Gall Bladder Disease Musculoskeletal: Yes (CHRONIC KNEE PAIN ) Arthritis Endocrine: Yes (MORBID OBESITY) Hypothyroidsim HEENT: Yes (GLASSES) Loss of Vision: Bilateral Hearing Impairment: Denies Cancer: No Psychosocial: Yes Anxiety, Depression Integumentary: No Blood Disorders: No Adverse Reaction/Blood Tranf: No (N/A) Family Medical History Reviewed Nursing Family Hx Cardiovascular disease 19 MOTHER Diabetes mellitus G8 BROTHER FH: prostate cancer PAST SURGICAL HISTORY: -LAPAROSCOPIC CHOLECYSTECTOMY 02/20/[address] CHA -EGD 02/20/[address] CHA--REFLUX ESOPHAGITIS AND GASTRITIS -GASTRIC SLEEVE 07/03/[address] CHA Physical Exam Vital Signs Vital Signs - First Documented 04/06/21 13:04 Temp 36.1 Pulse 96 Resp 20 B/P (MAP) 107/80 (89) Pulse Ox 97 O2 Delivery Room Air Capillary Refill : Less Than 3 Seconds Height, Weight, BMI Height: 5'6.00" Weight: 272lbs. 0.0oz. 123.735845vw; 30.00 BMI Method:Stated General Appearance: Chronically ill, Mild Distress HEENT: PERRL/EOMI, Pharynx Normal Neck: Non Tender, Supple Respiratory: Lungs Clear, Normal Breath Sounds Cardiovascular: Regular Rate, Rhythm, No Murmur Gastrointestinal: Non Tender, Soft Back: Normal Inspection, No CVA Tenderness, No Vertebral Tenderness Extremity: Normal Range of Motion, Non Tender Neurologic/Psychiatric: Alert, Oriented x3 Skin: Normal Color, Warm/Dry Progress/Results/Core Measures Suspected Sepsis Recent Fever Within 48 Hours: No Infection Criteria Present: None New/Unexplained Altered Menta: No Sepsis Screen: No Definite Risk SIRS Temperature: Pulse: 96 Respiratory Rate: 20 Laboratory Tests 04/06/21 13:21: White Blood Count 8.4 Blood Pressure 107 /80 Mean: 89 Laboratory Tests 04/06/21 13:21: Creatinine 0.69, Platelet Count 362, Total Bilirubin 0.6 Results/Orders Lab Results Laboratory Tests Test 04/06/21 13:21 04/06/21 13:44 Range/Units White Blood Count 8.4 4.3-11.0 10^3/uL Red Blood Count 4.41 3.80-5.11 10^6/uL Hemoglobin 11.8 11.5-16.0 g/dL Hematocrit 36 35-52 % Mean Corpuscular Volume 81 80-99 fL Mean Corpuscular Hemoglobin 27 25-34 pg Mean Corpuscular Hemoglobin Concent 33 32-36 g/dL Red Cell Distribution Width 18.1 H 10.0-14.5 % Platelet Count 362 130-400 10^3/uL Mean Platelet Volume 11.4 9.0-12.2 fL Immature Granulocyte % (Auto) 0 % Neutrophils (%) (Auto) 63 42-75 % Lymphocytes (%) (Auto) 25 12-44 % Monocytes (%) (Auto) 10 0-12 % Eosinophils (%) (Auto) 1 0-10 % Basophils (%) (Auto) 0 0-10 % Neutrophils # (Auto) 5.3 1.8-7.8 10^3/uL Lymphocytes # (Auto) 2.1 1.0-4.0 10^3/uL Monocytes # (Auto) 0.8 0.0-1.0 10^3/uL Eosinophils # (Auto) 0.1 0.0-0.3 10^3/uL Basophils # (Auto) 0.0 0.0-0.1 10^3/uL Immature Granulocyte # (Auto) 0.0 0.0-0.1 10^3/uL Percent Immature Platelet Fraction 7.7 H 0.0-7.6 % Sodium Level 137 135-145 MMOL/L Potassium Level 3.7 3.6-5.0 MMOL/L Chloride Level 101 98-107 MMOL/L Carbon Dioxide Level 23 21-32 MMOL/L Anion Gap 13 5-14 MMOL/L Blood Urea Nitrogen 13 7-18 MG/DL Creatinine 0.69 0.60-1.30 MG/DL Estimat Glomerular Filtration Rate > 60 BUN/Creatinine Ratio 19 Glucose Level 107 H 70-105 MG/DL Calcium Level 10.7 H 8.5-10.1 MG/DL Corrected Calcium 10.7 H 8.5-10.1 MG/DL Magnesium Level 1.6 1.6-2.4 MG/DL Total Bilirubin 0.6 0.1-1.0 MG/DL Aspartate Amino Transf (AST/SGOT) 10 5-34 U/L Alanine Aminotransferase (ALT/SGPT) < 6 0-55 U/L Alkaline Phosphatase 213 H 40-136 U/L C-Reactive Protein High Sensitivity 0.34 0.00-0.50 MG/DL Total Protein 6.9 6.4-8.2 GM/DL Albumin 4.0 3.2-4.5 GM/DL Urine Color YELLOW Urine Clarity CLEAR Urine pH 6.0 5-9 Urine Specific [place] 1.025 H 1.016-1.022 Urine Protein TRACE H NEGATIVE Urine Glucose (UA) NEGATIVE NEGATIVE Urine Ketones 1+ H NEGATIVE Urine Nitrite NEGATIVE NEGATIVE Urine Bilirubin 1+ H NEGATIVE Urine Urobilinogen 4.0 < = 1.0 MG/DL Urine Leukocyte Esterase TRACE H NEGATIVE Urine RBC (Auto) NEGATIVE NEGATIVE Urine RBC NONE /HPF Urine WBC 2-5 /HPF Urine Squamous Epithelial Cells 2-5 /HPF Urine Crystals NONE /LPF Urine Bacteria FEW H /HPF Urine Casts NONE /LPF Urine Mucus NEGATIVE /LPF Urine Yeast LARGE H /HPF Urine Culture Indicated YES My Orders Orders - JAVIER COVARRUBIAS MD Straight Cath For Spec.-Adult (04/06/21 13:32) Cbc With Automated Diff (04/06/21 13:32) Comprehensive Metabolic Panel (04/06/21 13:32) Hs C Reactive Protein (04/06/21 13:32) Magnesium (04/06/21 13:32) Ua Culture If Indicated (04/06/21 13:32) Ed Iv/Invasive Line Start (04/06/21 13:32) Lactated Ringers (Lr 1000 Ml Iv Solution (04/06/21 13:45) Ondansetron Injection (Zofran Injectio (04/06/21 13:45) Urine Culture (04/06/21 13:44) Fluconazole Tablet (Ed Only) (Diflucan T (04/06/21 14:34) Ed Iv/Invasive Line Start (04/06/21 15:09) Ns Iv 500 Ml (Sodium Chloride 0.9%) (04/06/21 15:15) Medications Given in ED Current Medications Medications Dose Ordered Sig/Chris Route Start Time Stop Time Status Last Admin Dose Admin Lactated Ringer's 1,000 ml @ 0 mls/hr Q0M ONCE IV 04/06/21 13:45 04/06/21 13:46 DC 04/06/21 13:38 0 MLS/HR Ondansetron HCl 4 mg ONCE ONCE IVP 04/06/21 13:45 04/06/21 13:46 DC 04/06/21 13:39 4 MG Sodium Chloride 500 ml @ 0 mls/hr Q0M ONCE IV 04/06/21 15:15 04/06/21 15:16 DC 04/06/21 15:20 0 MLS/HR Vital Signs/I&O 04/06/21 04/06/21 04/06/21 13:04 15:53 15:53 Temp 36.1 Pulse 96 85 85 101 Resp 20 B/P (MAP) 107/80 (89) 121/83 (96) 121/83 (96) 77/37 (50) Pulse Ox 97 O2 Delivery Room Air Capillary Refill : Less Than 3 Seconds Blood Pressure Mean: 89 Progress Note : Progress Note Seen and evaluated. Orthostatic vital signs positive as patient had near syncopal episode. IV, labs, UA via straight cath, LR 1 L bolus, Zofran 4 mg IV ordered. Monitor patient. 1434: Diflucan 150 mg p.o. for yeast findings in urine. Monitor patient. 1535 we will give an additional dose of normal saline 500 mL bolus and reevaluate orthostasis. 1605: The orthostatic vital signs were attempted but patient's blood pressure dropped to 77 systolic when sitting up and she felt like she was going to pass out. She is clearly failed orthostatic challenge. I did discuss the case with Dr. Hogan and she accepts patient for admission, observation status and we will continue LR at 125 an hour overnight and she will reevaluate in the morning. This was discussed with patient and family who agree with plan. ECG Initial ECG Impression Date: April 06, 2021 Initial ECG Impression Time: 13:15 Initial ECG Rate: 99 Comment Sinus rhythm with low volume P's or junctional rhythm. There is some artifact noted. No evidence of ST elevation NM. No previous available for comparison. Interpreted by me. Departure Communication (Admissions) Time/Spoke to Admitting Phy: 16:05 Impression Primary Impression: Orthostatic hypotension Additional Impression: Vaginal yeast infection Disposition: ADMITTED INPATIENT Condition: Stable Admissions Decision to Admit Reason: Admit from ER (General) Decision to Admit/Date: April 06, 2021 Time/Decision to Admit Time: 16:05 Departure-Patient Inst. Referrals: YUSEF TOM DO (PCP/Family) Primary Care Physician JAVIER COVARRUBIAS MD April 06, 2021 14:02
[2021-04-06 14:15] LABS: BACTERIA,URINE FEW /HPF; YEAST,URINE LARGE /HPF
[2021-04-06] MEDS ORDERED: FLUCONAZOLE 150 MG TABLET (ED ONLY) PO STA (14:34)
[2021-04-06] MEDS ORDERED: NS IV 500 ML 500 ML IV ONE (15:15)
[2021-04-06 15:53] VITALS: BP_SYST 121; BP_SYST 77; BP_DIAS 37; BP_DIAS 83
[2021-04-06 17:18] VITALS: BP 115/79
[2021-04-06] MEDS: ONDANSETRON 4 MG/2 ML (SDV) Z0FRAN IV PRN (17:53)
[2021-04-06] MEDS: LACTATED RINGERS 1,000 ML IV SCH (17:53)
[2021-04-06] MEDS ORDERED: CATHETER FLUSH 10 ML SYR IV PRN (18:00)
[2021-04-06] MEDS ORDERED: POTA-51 PO (18:25)
[2021-04-06] MEDS ORDERED: LORA-404 PO ×2 (18:25)
[2021-04-06] MEDS ORDERED: LORA10TA72 PO (18:25)
[2021-04-06] MEDS ORDERED: PANT40SU PO (18:25)
[2021-04-06] MEDS ORDERED: SUCR1TAB36 PO (18:25)
[2021-04-06] MEDS ORDERED: LORazepam 1 MG (ATIVAN) TAB ONE (18:29)
[2021-04-06] MEDS ORDERED: NON-FORMULARY MEDICATION 1 EA EA (Ondansetron HCl 4 MG) PO PRN (18:30)
[2021-04-06] MEDS ORDERED: IBUPROFEN TABLET 200 MG TAB PO PRN (18:30)
[2021-04-06] MEDS: LORazepam 0.5 MG (ATIVAN) TABLET PO PRN (18:39)
[2021-04-06] MEDS ORDERED: PATIENT MAY USE OWN MEDS, ALL MC SCH (18:45)
[2021-04-06] MEDS: KCL 20 MEQ TAB (K-DUR) PO SCH (19:34)
[2021-04-06 19:43] VITALS: BP 120/64
[2021-04-06] MEDS ORDERED: NON-FORMULARY MEDICATION 1 EA EA (Potassium Chloride 20 MEQ) PO SCH (21:00)
[2021-04-06] MEDS ORDERED: NON-FORMULARY MEDICATION 1 EA EA (Amitriptyline HCl 100 MG) PO SCH (21:00)
[2021-04-06] MEDS: SERTRALINE 50 MG (ZOLOFT) TABLET PO SCH (21:38)
[2021-04-06] MEDS: RYTARY PO SCH (21:38)
[2021-04-06] MEDS: AMITRIPTYLINE 50 MG (ELAVIL) TAB PO SCH (21:38)
[2021-04-06] MEDS: GABAPENTIN 300 MG (NEURONTIN) CAP PO SCH (21:38)
[2021-04-06] MEDS: SUCRALFATE 1 GM (CARAFATE) TAB PO SCH (21:38)
[2021-04-06] MEDS: LORazepam 0.5 MG (ATIVAN) TABLET PO SCH (21:39)
[2021-04-07] VITALS: BP 144/86
[2021-04-07] MEDS: LACTATED RINGERS 1,000 ML IV SCH ×3 (02:28→16:46)
[2021-04-07 04:00] VITALS: BP 113/79
[2021-04-07 05:32] LABS: HEMOGLOBIN 9.2 g/dL (11.5-16.0)
[2021-04-07 05:34] LABS: BASOPHILS % (AUTO) 1 % (0-10); EOSINOPHILS # (AUTO) 0.1 10^3/uL (0.0-0.3); EOSINOPHILS % (AUTO) 2 % (0-10); HEMATOCRIT 29 % (35-52); LYMPHOCYTES # (AUTO) 2.2 10^3/uL (1.0-4.0); LYMPHOCYTES % (AUTO) 37 % (12-44); MEAN CORPUSCULAR HEMOGLOBIN 26 pg (25-34); MEAN CORPUSCULAR HGB CONC 32 g/dL (32-36); MEAN CORPUSCULAR VOLUME 81 fL (80-99); MEAN PLATELET VOLUME 12.2 fL (9.0-12.2); MONOCYTES # (AUTO) 0.5 10^3/uL (0.0-1.0); MONOCYTES % (AUTO) 9 % (0-12); NEUTROPHILS % (AUTO) 51 % (42-75); PLATELET COUNT 256 10^3/uL (130-400); WHITE BLOOD COUNT 5.9 10^3/uL (4.3-11.0)
[2021-04-07 05:45] LABS: CHLORIDE 105 MMOL/L (98-107); POTASSIUM 3.2 MMOL/L (3.6-5.0); SODIUM 137 MMOL/L (135-145)
[2021-04-07 05:47] LABS: CALCIUM 9.6 MG/DL (8.5-10.1); GLUCOSE 83 MG/DL (70-105)
[2021-04-07 05:48] LABS: CARBON DIOXIDE 25 MMOL/L (21-32)
[2021-04-07 05:51] LABS: CREATININE SERUM 0.59 MG/DL (0.60-1.30); GFR ESTIMATED > 60
[2021-04-07 05:52] LABS: BUN/CREATININE RATIO 20
[2021-04-07] MEDS: LEVOTHYROXINE 75 MCG (LEVOTHROID) TABLET PO SCH (06:20)
[2021-04-07] MEDS: CYANOCOBALAMIN 1,000 MCG (VITAMIN B-12) TABLET PO SCH (06:20)
[2021-04-07] MEDS: LORazepam 0.5 MG (ATIVAN) TABLET PO PRN (08:04)
[2021-04-07] MEDS: GABAPENTIN 300 MG (NEURONTIN) CAP PO SCH ×3 (08:04→20:19)
[2021-04-07] MEDS: KCL 20 MEQ TAB (K-DUR) PO SCH ×2 (08:04→16:45)
[2021-04-07] MEDS: SUCRALFATE 1 GM (CARAFATE) TAB PO SCH ×2 (08:04→20:19)
[2021-04-07] MEDS: LORATADINE (CLARITIN) 10 MG TAB PO SCH (08:04)
[2021-04-07] MEDS: RYTARY PO SCH ×4 (08:05→20:18)
[2021-04-07] MEDS: ONDANSETRON 4 MG/2 ML (SDV) Z0FRAN IV PRN (08:19)
[2021-04-07 08:34] VITALS: BP 116/70
[2021-04-07 08:35] LABS: BILIRUBIN,URINE 1+ (NEGATIVE)
[2021-04-07] MEDS ORDERED: NON-FORMULARY MEDICATION 1 EA EA (Pantoprazole Sodium (Protonix) 40 MG) PO SCH (09:00)
[2021-04-07] MEDS ORDERED: PANTOPRAZOLE 40 MG (PROTONIX) TAB PO SCH (09:00)
[2021-04-07] MEDS ORDERED: NON-FORMULARY MEDICATION 1 EA EA (Loratadine (Claritin) 10 MG) PO SCH (09:00)
[2021-04-07] MEDS ORDERED: NON-FORMULARY MEDICATION 1 EA EA (Cyanocobalamin (Vitamin B-12) (Vitamin B-12) 500 MCG) PO SCH (09:00)
--- NOTE | 2021-04-07 11:20 | CONSULTATION REPORT ---
DATE OF SERVICE: 04/06/2021 ADMITTING PRIMARY CARE PHYSICIAN: Gregory Dudley DO. HISTORY OF PRESENT ILLNESS: The patient is a 56-year-old female known to us. She has struggled with morbid obesity for ears and on 07/03/2017, she underwent a laparoscopic gastric sleeve resection, which she had done well with in terms of weight loss and maintenance of her weight loss. She was then admitted on 02/19/2021 for a two-week history of nausea, vomiting and dry heaving as well as dehydration and urinary tract infection. She also does have a history of Parkinson syndrome. She underwent a workup, which did show a low ejection fraction consistent with a biliary dyskinesia and the patient was found to have gallstones. On 02/20/2021, she underwent a laparoscopic cholecystectomy as well as an EGD. She was found to have a reflux esophagitis stage II as well as a moderate gastritis. Since that time, she states that she did well for approximately one week; however, has had intermittent episodes of nausea and dry heaving. She states that this normally occurs once a day and there is no inciting food or beverage. She reports that her bowel movements are normal. She was started on a PPI acid fusing machine tender; however, has not been taking this. She does not report any hematemesis and no coffee coffee-ground emesis. PAST MEDICAL HISTORY: Parkinson's disease, obstructive sleep apnea, degenerative joint disease, hypothyroid, insomnia, diabetes, and left hand tremor. PAST SURGICAL HISTORY: D and C in 1983 and 1999, LEEP procedure 2007, laparoscopic gastric sleeve resection in 2016, and laparoscopic cholecystectomy 02/20/2021. ALLERGIES: No known drug allergies. MEDICATIONS: Levodopa, amantadine, amitriptyline, levothyroxine, Neurontin, and sertraline. SOCIAL HISTORY: Previous smoker, quit 17. Negative alcohol. FAMILY HISTORY: Noncontributory. REVIEW OF SYSTEMS: This is a well-nourished female, currently in no acute distress. She is not experiencing any shortness of breath or difficulty breathing. No chest pain, palpitations or diaphoresis. She states that she has daily episodes of nausea and dry heaving. Sometimes, she does vomit undigested food. She does not report any hematemesis, no coffee ground emesis. She states that her bowel movements are normal. No fever or chills. She states that she has lost approximately 30 pounds since her gallbladder surgery. PHYSICAL EXAMINATION: VITAL SIGNS: Temperature 36.0, blood pressure 116/70, pulse 79, respirations 18, and pulse ox 96% on room air. CHEST: Clear. Good breath sounds bilaterally. HEART: Regular and no murmurs. EXTREMITIES: No lower extremity edema and negative Homans sign. HEENT: No scleral icterus. NECK: No cervical lymphadenopathy. ABDOMEN: Soft, nontender, and nondistended. SKIN: Warm and dry. LABORATORY DATA: WBC 5.9, hemoglobin 9.2, hematocrit 29, and platelets 256. BUN 12, creatinine 0.59, and total bilirubin is normal. Alkaline phosphatase is 213. ASSESSMENT AND PLAN: A 56-year-old female with persistent nausea and vomiting. This is likely due to gastritis. She is status post laparoscopic gastric sleeve resection, which is ulcerogenic procedure and she was prescribed a PPI acid fusing machine tender; however, has not been taking this. We will start her now on Protonix 40 mg IV b.i.d. However, once her nausea is under control, we will just have her take this on a daily basis orally. If her nausea and vomiting persist, we will then proceed with an EGD. Job ID: [id number] DocumentID: [id number] Dictated Date: 04/07/2021 10:46:56 Manager Mobile Date: 04/07/2021 11:19:11 Dictated By: JESUS MANCILLA MD
[2021-04-07 11:35] VITALS: BP 121/80
--- NOTE | 2021-04-07 12:05 | History & Physical-Hospitalist ---
History of Present Illness HPI/Chief Complaint Pt is a 56yoCF known to me from recent admission who presented to the ER due to weakness and dehydration. She states that she has not been doing well since she had her gallbladder out. She has lost roughly 40lbs since that time and has felt very dehydrated because she is constantly nauseated and unable to keep food blaine n. In the ER she was profoundly orthostatic and had a near syncopal episode trying to stand. Even after 1.5L bolus she was still profoundly orthostatic with SBP to the 70s so she was admitted overnight. She was admitted for further IVF and monitoring. This morning she states she feels much better and was able to keep her breakfast down. She is also requesting evaluation at IRU again. Source: patient Date Seen 04/07/21 Time Seen by a Provider: 11:56 Attending Physician Lisette Mahajan MD PCP Gregory Dudley DO Referring Physician Date of Admission April 06, 2021 at 16:08 Home Medications & Allergies Home Medications Reviewed patient Home Medication Reconciliation performed by pharmacy medication reconciliations civilian technician and/or nursing. Patients Allergies have been reviewed. Allergies Allergies Coded Allergies No Known Drug Allergies (Unverified06/26/17) Past Medical/Social/Family Hx Patient Social History Employed/Student: unemployed Smoking Status: Never a Smoker Immunizations Up To Date Influenza Vaccine Up-to-Date: No; Not Current Current Status Communicates: Verbally Primary Language: Maltese Preferred Spoken Language: Maltese Is interpretation needed?: No Past Medical History Parkinson's with sinemet induced dyskinesia, hypothyroidism, anxiety, depression Cholecystectomy, gastric sleeve Family Medical History Family Hx: PAST SURGICAL HISTORY: -LAPAROSCOPIC CHOLECYSTECTOMY 02/20/[address] MANCILLA -EGD 02/20/[address] MANCILLA--REFLUX ESOPHAGITIS AND GASTRITIS -GASTRIC SLEEVE 07/03/[address] MANCILLA Family history: non contributory Review of Systems Constitutional: No chills, No fever; malaise, weakness EENTM: no symptoms reported Respiratory: No cough, No short of breath Cardiovascular: No chest pain, No palpitations; syncope Gastrointestinal: No abdominal pain, No constipation, No loss of appetite; nausea, vomiting Genitourinary: no symptoms reported Musculoskeletal: no symptoms reported Skin: no symptoms reported Psychiatric/Neurological: See HPI Physical Exam Physical Exam Vital Signs Vital Signs - First Documented 04/06/21 13:04 Temp 36.1 Pulse 96 Resp 20 B/P (MAP) 107/80 (89) Pulse Ox 97 O2 Delivery Room Air Capillary Refill : Less Than 3 Seconds Height, Weight, BMI Height: 5'6.00" Weight: 272lbs. 0.0oz. 123.985735ra; 32.62 BMI Method:Stated General Appearance: No Apparent Distress, Chronically ill HEENT: PERRL/EOMI, Moist Mucous Membranes; No Scleral Icterus (L), No Scleral Icterus (R) Neck: Full Range of Motion, Supple Respiratory: Lungs Clear, No Accessory Muscle Use, No Respiratory Distress Cardiovascular: Regular Rate, Rhythm, No Murmur Gastrointestinal: Normal Bowel Sounds, Non Tender, Soft Extremity: Normal Capillary Refill, No Calf Tenderness, No Pedal Edema Neurologic/Psychiatric: Alert, Oriented x3, Normal Mood/Affect, Other (chorea liek movements of hands) Skin: Normal Color, Warm/Dry Results Results/Procedures Labs Laboratory Tests 04/06/21 13:21 04/07/21 05:04 Patient resulted labs reviewed. Imaging: Reviewed Imaging Report Assessment/Plan Admission Diagnosis Orthostatic Hypotension Admission Status: Observation Assessment and Plan Orthostatic Hypotension Intractable nausea and vomiting s/p recent lap paulie s/p gastric sleeve Continue IVF Symptoms much improved Will repeat orthostatic vitals Continue PPI Surgery consulted, appreciate assistance Consider EGD if not improvement per their note Hypothyroidism Continue home supplement Parkinson's Disease Sinemet induced dyskinesia PT/OT consulted Patient requested IRU evaluation again, ordered placed Diagnosis/Problems Diagnosis/Problems (1) Parkinson disease (2) Intractable nausea and vomiting (3) H/O gastric bypass (4) Orthostatic hypotension Status: Acute (5) Vaginal yeast infection Status: Acute LISETTE MAHAJAN MD April 07, 2021 12:05
[2021-04-07 16:12] VITALS: BP 101/62
[2021-04-07 19:27] VITALS: BP 114/76
[2021-04-07] MEDS: SERTRALINE 50 MG (ZOLOFT) TABLET PO SCH (20:18)
[2021-04-07] MEDS: PANTOPRAZOLE 40 MG (PROTONIX) VIAL IV SCH (20:18)
[2021-04-07] MEDS: LORazepam 0.5 MG (ATIVAN) TABLET PO SCH (20:19)
[2021-04-07] MEDS: AMITRIPTYLINE 50 MG (ELAVIL) TAB PO SCH (20:19)
[2021-04-08] VITALS (8 sets, daily range): BP systolic 90–137; BP diastolic 57–87
[2021-04-08] MEDS: LACTATED RINGERS 1,000 ML IV SCH (02:01)
[2021-04-08] MEDS: CYANOCOBALAMIN 1,000 MCG (VITAMIN B-12) TABLET PO SCH (05:22)
[2021-04-08] MEDS: LEVOTHYROXINE 75 MCG (LEVOTHROID) TABLET PO SCH (05:22)
[2021-04-08] MEDS: RYTARY PO SCH ×4 (05:23→20:30)
[2021-04-08 05:46] LABS: BASOPHILS % (AUTO) 0 % (0-10); EOSINOPHILS # (AUTO) 0.3 10^3/uL (0.0-0.3); EOSINOPHILS % (AUTO) 6 % (0-10); HEMATOCRIT 29 % (35-52); LYMPHOCYTES % (AUTO) 40 % (12-44); MEAN CORPUSCULAR HEMOGLOBIN 26 pg (25-34); MEAN CORPUSCULAR HGB CONC 32 g/dL (32-36); MEAN CORPUSCULAR VOLUME 83 fL (80-99); MEAN PLATELET VOLUME 11.4 fL (9.0-12.2); MONOCYTES # (AUTO) 0.4 10^3/uL (0.0-1.0); MONOCYTES % (AUTO) 9 % (0-12); NEUTROPHILS # (AUTO) 2.3 10^3/uL (1.8-7.8); NEUTROPHILS % (AUTO) 45 % (42-75); PLATELET COUNT 278 10^3/uL (130-400)
[2021-04-08 06:11] LABS: ALANINE AMINOTRANSFERASE < 6 U/L (0-55); ALKALINE PHOSPHATASE 188 U/L (40-136); BILIRUBIN,TOTAL 0.3 MG/DL (0.1-1.0); BUN/CREATININE RATIO 13; CALCIUM 9.1 MG/DL (8.5-10.1); CARBON DIOXIDE 27 MMOL/L (21-32); CHLORIDE 106 MMOL/L (98-107); GFR ESTIMATED > 60; GLUCOSE 81 MG/DL (70-105); POTASSIUM 3.3 MMOL/L (3.6-5.0); SODIUM 138 MMOL/L (135-145); TOTAL PROTEIN 5.2 GM/DL (6.4-8.2)
[2021-04-08] MEDS: GABAPENTIN 300 MG (NEURONTIN) CAP PO SCH ×3 (08:31→20:30)
[2021-04-08] MEDS: KCL 20 MEQ TAB (K-DUR) PO SCH ×2 (08:32→17:29)
[2021-04-08] MEDS: SUCRALFATE 1 GM (CARAFATE) TAB PO SCH ×2 (08:32→20:30)
[2021-04-08] MEDS: LORATADINE (CLARITIN) 10 MG TAB PO SCH (08:32)
[2021-04-08] MEDS: PANTOPRAZOLE 40 MG (PROTONIX) VIAL IV SCH ×2 (08:32→20:29)
--- NOTE | 2021-04-08 10:03 | Progress Note ---
Subjective Date Seen by a Provider: April 08, 2021 Time Seen by a Provider: 09:30 Subjective/Events-last exam Patient seen with Dr. Cha. Patient reports doing better this morning. Tolerating diet with no nausea or vomiting. Denies any abdominal pain or reflux. Objective Exam Vital Signs Date Time Temp Pulse Resp B/P (MAP) Pulse Ox O2 Delivery O2 Flow Rate FiO2 04/08/21 08:08 Room Air 04/08/21 08:00 36.8 85 18 137/73 (94) 94 Room Air 04/08/21 04:00 36.7 82 18 118/87 (97) 97 Room Air 04/08/21 00:00 36.0 82 18 120/75 (90) 93 Room Air 04/07/21 21:00 Room Air 04/07/21 19:27 36.8 85 16 114/76 (89) 97 Room Air 04/07/21 16:12 36.4 82 18 101/62 (75) 97 Room Air 04/07/21 11:35 36.2 86 18 121/80 (94) 96 Room Air I & O 04/08/21 07:00 Intake Total 1690 ml Balance 1690 ml Capillary Refill : Less Than 3 Seconds General Appearance: No Apparent Distress, WD/WN Neck: Normal Inspection, Supple Respiratory: No Accessory Muscle Use, No Respiratory Distress Cardiovascular: Regular Rate, Rhythm, No Edema Gastrointestinal: normal bowel sounds, non tender, soft Extremity: Normal Inspection, Normal Range of Motion Neurologic/Psychiatric: Alert, Oriented x3 Skin: Normal Color, Warm/Dry Results Lab Laboratory Tests 04/08/21 05:14: White Blood Count 5.0, Red Blood Count 3.45L, Hemoglobin 9.0L, Hematocrit 29L, Mean Corpuscular Volume 83, Mean Corpuscular Hemoglobin 26, Mean Corpuscular Hemoglobin Concent 32, Red Cell Distribution Width 18.5H, Platelet Count 278, Mean Platelet Volume 11.4, Immature Granulocyte % (Auto) 0, Neutrophils (%) (Auto) 45, Lymphocytes (%) (Auto) 40, Monocytes (%) (Auto) 9, Eosinophils (%) (Auto) 6, Basophils (%) (Auto) 0, Neutrophils # (Auto) 2.3, Lymphocytes # (Auto) 2.0, Monocytes # (Auto) 0.4, Eosinophils # (Auto) 0.3, Basophils # (Auto) 0.0, Immature Granulocyte # (Auto) 0.0, Sodium Level 138, Potassium Level 3.3L, Chloride Level 106, Carbon Dioxide Level 27, Anion Gap 5, Blood Urea Nitrogen 8, Creatinine 0.60, Estimat Glomerular Filtration Rate > 60, BUN/Creatinine Ratio 13, Glucose Level 81, Calcium Level 9.1, Corrected Calcium 9.9, Total Bilirubin 0.3, Aspartate Amino Transf (AST/SGOT) 8, Alanine Aminotransferase (ALT/SGPT) < 6, Alkaline Phosphatase 188H, Total Protein 5.2L, Albumin 3.0L Microbiology 04/06/21 Urine Culture - Preliminary, Resulted 3 or more isolates Assessment/Plan Assessment/Plan Assess & Plan/Chief Complaint A 56-year-old female with persistent nausea and vomiting, likely secondary to gastritis, S/P laparoscopic gastric sleeve resection VSS Continue with medical management with PPI acid in home 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
--- NOTE | 2021-04-08 10:56 | Progress Note ---
Standard Progress Note Progress Notes/Assess & Plan Date Seen by a Provider: April 08, 2021 Time Seen by a Provider: 10:00 Progress/Assessment & Plan doing better today and tolerating diet. no nausea/vomiting. likely severe gastritis however improving on PPI. ok for home when ok with PMD. PO protonix and carafate as OP. JESUS MANCILLA MD April 08, 2021 10:56
--- NOTE | 2021-04-08 11:09 | Progress Note - Hospitalist ---
Subjective HPI/CC On Admission Date Seen by Provider: April 08, 2021 Time Seen by Provider: 11:08 Pt is a 56yoCF known to me from recent admission who presented to the ER due to weakness and dehydration. She states that she has not been doing well since she had her gallbladder out. She has lost roughly 40lbs since that time and has felt very dehydrated because she is constantly nauseated and unable to keep food down. In the ER she was profoundly orthostatic and had a near syncopal episode trying to stand. Even after 1.5L bolus she was still profoundly orthostatic with SBP to the 70s so she was admitted overnight. She was admitted for further IVF and monitoring. This morning she states she feels much better and was able to keep her breakfast down. She is also requesting evaluation at IRU again. Subjective/Events-last exam Pt reports doing well today. Eating and drinking well. No complaints. Objective Exam Vital Signs Vital Signs Date Time Temp Pulse Resp B/P (MAP) Pulse Ox O2 Delivery O2 Flow Rate FiO2 04/08/21 08:08 Room Air 04/08/21 08:00 36.8 85 18 137/73 (94) 94 Capillary Refill : Less Than 3 Seconds General Appearance: No Apparent Distress, Chronically ill Respiratory: Lungs Clear, No Respiratory Distress Cardiovascular: Regular Rate, Rhythm, No Murmur Neurologic/Psychiatric: Alert, Oriented x3 Results/Procedures Lab Laboratory Tests 04/08/21 05:14 Patient resulted labs reviewed. Imaging: Reviewed Imaging Report Assessment/Plan Assessment and Plan Assess & Plan/Chief Complaint Orthostatic Hypotension Intractable nausea and vomiting s/p recent lap paulie s/p gastric sleeve DC IVF Symptoms much improved Will repeat orthostatic vitals- these are still pending Continue PPI Surgery consulted, appreciate assistance Consider EGD if no improvement per their note Hypothyroidism Continue home supplement Parkinson's Disease Sinemet induced dyskinesia PT/OT consulted Patient requested IRU evaluation again, ordered placed Diagnosis/Problems Diagnosis/Problems (1) Parkinson disease (2) Intractable nausea and vomiting (3) H/O gastric bypass (4) Orthostatic hypotension Status: Acute (5) Vaginal yeast infection Status: Acute LISETTE LUDWIG MD April 08, 2021 11:09
[2021-04-08] MEDS: LORazepam 0.5 MG (ATIVAN) TABLET PO PRN (17:29)
[2021-04-08] MEDS: AMITRIPTYLINE 50 MG (ELAVIL) TAB PO SCH (20:30)
[2021-04-08] MEDS: LORazepam 0.5 MG (ATIVAN) TABLET PO SCH (20:30)
[2021-04-08] MEDS: SERTRALINE 50 MG (ZOLOFT) TABLET PO SCH (20:30)
[2021-04-09 03:29] VITALS: BP 141/80
[2021-04-09 05:38] LABS: BUN/CREATININE RATIO 8; CALCIUM 9.3 MG/DL (8.5-10.1); CARBON DIOXIDE 27 MMOL/L (21-32); CHLORIDE 106 MMOL/L (98-107); GFR ESTIMATED > 60; GLUCOSE 80 MG/DL (70-105); MAGNESIUM 1.7 MG/DL (1.6-2.4); POTASSIUM 3.3 MMOL/L (3.6-5.0); SODIUM 138 MMOL/L (135-145)
[2021-04-09] MEDS: MAGNESIUM 1 GM/100 ML IVPB 100 ML IV SCH (05:45)
[2021-04-09] MEDS: KCL 20 MEQ TAB (K-DUR) PO SCH ×3 (05:51→17:50)
[2021-04-09] MEDS ORDERED: KCL 20 MEQ TAB (K-DUR) PO ONE ×2 (06:00→08:00)
[2021-04-09] MEDS: LEVOTHYROXINE 75 MCG (LEVOTHROID) TABLET PO SCH (06:37)
[2021-04-09] MEDS: CYANOCOBALAMIN 1,000 MCG (VITAMIN B-12) TABLET PO SCH (06:37)
[2021-04-09] MEDS: RYTARY PO SCH ×4 (06:38→20:15)
[2021-04-09 08:30] VITALS: BP 110/74
[2021-04-09] MEDS: GABAPENTIN 300 MG (NEURONTIN) CAP PO SCH ×3 (08:42→20:16)
[2021-04-09] MEDS: PANTOPRAZOLE 40 MG (PROTONIX) VIAL IV SCH ×2 (08:42→20:16)
[2021-04-09] MEDS: LORATADINE (CLARITIN) 10 MG TAB PO SCH (08:42)
[2021-04-09] MEDS: SUCRALFATE 1 GM (CARAFATE) TAB PO SCH ×2 (08:42→20:16)
--- NOTE | 2021-04-09 10:39 | Physical Therapy Evaluation ---
PT Evaluation-General Medical Diagnosis Admission Date April 06, 2021 at 16:08 Medical Diagnosis: orthostatic hypotension Onset Date: April 06, 2021 Therapy Diagnosis Therapy Diagnosis: debility/weakness Height/Weight Height (Feet): 5 Height (Inches): 6.00 Weight (Pounds): 272 Weight (Ounces): 0.0 Precautions Precautions/Isolations: Fall Prevention, Standard Precautions, Pressure Ulcer Referral Physician: Zaina Reason for Referral: Evaluation/Treatment Medical History Pertinent Medical History: Hypothroidism, Neuropathy, Parkinson's (with dyskinesia) Additional Medical History gastric sleeve Current History ER via w/c secondary to decreased appetite, nausea, lightheadedness x 6 weeks with a 40 lb weight loss. Reviewed History: Yes Social History Home: Apartment Current Living Status: Alone (with caregivers) Entry Into Home: Level Entry Prior Prior Level of Function SCALE: Activities may be completed with or without assistive devices. 3-Exwfadkilw-ecdtxjo completes the activity by him/herself with no assistance from a helper. 5-Set-up or Clean-up Assistance-helper sets up or cleans up; patient completes activity. [place] assists only prior to or following the activity. 4-Supervision or Touching Assistance-helper provides verbal cues and/or touching/steadying and/or contact guard assistance as patient completes activity. Assistance may be provided throughout the activity or intermittently. 3-Partial/Moderate Assistance-helper does LESS THAN HALF the effort. [place] lifts, holds or supports trunk or limbs, but provides less than half the effort. 2-Substantial/Maximal Assistance-helper does MORE THAN HALF the effort. [place] lifts or holds trunk or limbs and provides more than half the effort. 6-Buowygkyj-durnff does ALL the effort. Patient does none of the effort to complete the activity. Or, the assistance of 2 or more helpers is required for the patient to complete the activity. If activity was not attempted, code reason: 7-Patient Refused. 9-Not Applicable-not attempted and the patient did not perform the activity before the current illness, exacerbation or injury. 10-Not Attempted due to Environmental Limitations-(lack of equipment, weather restraints, etc.). 88-Not Attempted due to Medical Conditions or Safety Concerns. Bed Mobility: 4 Transfers (B,C,W/C): 3 Gait: 9 (patient reports due to her dyskinesia she has been unable to walk safely and has been in a w/c for mobility and safety) Stairs: 9 Wheelchair Mobility: 3 Stairs: Not Applicalbe Prior Devices Use: Manual wheelchair PT Evaluation-Current Subjective Patient agrees to PT. Patient reports she hasn't been able to walk at home due to her dyskinesia. For her safety, a w/c has been utilized and she reports some assistance in home from friends. Objective Patient Orientation: Normal For Age Attachments: IV ROM/Strength ROM Lower Extremities bilateral LE WFL Strength Lower Extremities 3-/5 grossly bilateral LE Integumentary/Posture Integumentary refer to nursing notes Bladder Incontinence: No Posture WFL Neuromuscular (Tone, Coordination, Reflexes) severely diminished coordination Sensory Vision: Wears Glasses Hearing: Functional Sensation Right Upper Extremit: Impaired Sensation Left Upper Extremity: Impaired Sensation Right Lower Extremit: Impaired Sensation Left Lower Extremity: Impaired Transfers Roll Left to Right (QC): 4 Sit to Lying (QC): 4 Lying to Sitting/Side of Bed(Q: 3 Sit to Stand (QC): 2 Chair/Sit-yz-Lofod Xfer(QC): 2 Toilet Transfer (QC): 2 Gait Does the Patient Walk?: No and Walking Goal IS indicated Mode of Locomotion: Both Anticipated Mode of Locomotion: Both Walk 10 feet (QC): 1 (x 2) Walk 50 ft with 2 Turns(QC): 88 Walk 150 ft (QC): 88 Gait Assistive Device: FWW Comments/Gait Description unable to grab FWW due to neuropathy bilateral hands/severe retropulsion in sit to stand and with ambulating to restroom with assist of 2 and noted ataxic gait Wheelchair Training Does the Pt Use a Wheelchair?: Yes Balance Sitting Static: Fair Sitting Dynamic: Fair Standing Static: Poor Standing Dynamic: Poor Picking up an Object (QC): 88 Assessment/Needs 56 y.o. female, will benefit from skilled PT to address functional strength and mobility to improve current LOF. Patient's dyskinesia is currently limiting her safe mobility. Rehab Potential: Guarded PT Offc Spec Goals Offc Spec Goals PT Offc Spec Goals Time Frame: Apr 28, 2021 Roll Left & Right (QC): 4 Sit to Lying (QC): 4 Lying-Sitting on Side/Bed(QC): 4 Sit to Stand (QC): 4 Chair/Jtl-tx-Lcnox Xfer(QC): 4 Toilet Transfer (QC): 4 Does the Patient Walk: Yes Walk 10 feet (QC): 3 Walk 50ft with 2 Turns (QC): 3 PT Plan Problem List Problem List: Activity Tolerance, Functional Strength, Safety, Balance, Gait, Transfer, Bed Mobility Treatment/Plan Treatment Plan: Continue Plan of Care Treatment Plan: Bed Mobility, Education, Functional Activity Judy, Functional Strength, Gait, Safety, Therapeutic Exercise, Transfers Treatment Duration: Apr 28, 2021 Frequency: 6 times per week Estimated Hrs Per Day: .5 hour per day Patient and/or Family Agrees t: Yes Time/GCodes Time In: 830 Time Out: 849 Total Billed Treatment Time: 19 Total [facility] KATHY FAROOQ PT April 09, 2021 10:39
[2021-04-09] MEDS: POTASSIUM CL 10MEQ/50ML IVPB 50 ML IV SCH ×2 (11:30→12:28)
[2021-04-09 11:45] VITALS: BP 110/63
[2021-04-09] MEDS ORDERED: NS IV 500 ML 500 ML IV ONE (13:15)
--- NOTE | 2021-04-09 14:17 | Progress Note - Hospitalist ---
Subjective HPI/CC On Admission Date Seen by Provider: April 09, 2021 Time Seen by Provider: 10:10 Pt is a 56yoCF known to me from recent admission who presented to the ER due to weakness and dehydration. She states that she has not been doing well since she had her gallbladder out. She has lost roughly 40lbs since that time and has felt very dehydrated because she is constantly nauseated and unable to keep food down. In the ER she was profoundly orthostatic and had a near syncopal episode trying to stand. Even after 1.5L bolus she was still profoundly orthostatic with SBP to the 70s so she was admitted overnight. She was admitted for further IVF and monitoring. This morning she states she feels much better and was able to keep her breakfast down. She is also requesting evaluation at IRU again. Subjective/Events-last exam She is feeling better today. She is not having any nausea or vomiting. She is not feeling lightheaded or dizzy. She continues to feel weak. Objective Exam Vital Signs Vital Signs Date Time Temp Pulse Resp B/P (MAP) Pulse Ox O2 Delivery O2 Flow Rate FiO2 04/09/21 11:45 36.4 95 20 110/63 (79) 98 Room Air Capillary Refill : Less Than 3 Seconds General Appearance: No Apparent Distress, WD/WN Respiratory: Lungs Clear, Normal Breath Sounds, No Respiratory Distress Cardiovascular: Regular Rate, Rhythm, No Edema, No Murmur Gastrointestinal: Normal Bowel Sounds, Non Tender, Soft Extremity: Normal Inspection, Non Tender, No Pedal Edema Neurologic/Psychiatric: Alert, Oriented x3, Other (tremor) Skin: Normal Color, Warm/Dry Results/Procedures Lab Laboratory Tests 04/09/21 04:49 Patient resulted labs reviewed. Imaging: Reviewed Imaging Report Assessment/Plan Assessment and Plan Assess & Plan/Chief Complaint Orthostatic hypotension Intractable nausea and vomiting s/p recent lap paulie s/p gastric sleeve Symptoms improved Continue PPI Surgery consulted, appreciate assistance Hypothyroidism Continue home supplement Parkinson's Disease Sinemet induced dyskinesia Debility PT/OT consulted IRU accepted, awaiting insurance approval DVT prophylaxis: Lovenox Diagnosis/Problems Diagnosis/Problems (1) Orthostatic hypotension Status: Acute (2) Intractable nausea and vomiting Status: Acute (3) Parkinson disease Status: Acute (4) Debility Status: Acute GUNNAR MORALES MD April 09, 2021 14:17
[2021-04-09] MEDS: ENOXAPARIN 40 MG/0.4 ML (LOVENOX) SYR SC SCH (14:41)
--- NOTE | 2021-04-09 15:12 | Occupational Therapy Eval ---
OT Evaluation-General/PLF Medical Diagnosis Admission Date April 06, 2021 at 16:08 Medical Diagnosis: orthostatic hypotension Onset Date: April 06, 2021 Therapy Diagnosis Therapy Diagnosis: Weakness Height/Weight Height (Feet): 5 Height (Inches): 6.00 Weight (Pounds): 272 Weight (Ounces): 0.0 Precautions Precautions/Isolations: Fall Prevention, Standard Precautions, Pressure Ulcer Weight Bear Status Weight Bearing Restriction: Weight Bearing/Tolerated Referral Physician: Zaina Referral Reason: Activity Tolerance, Self Care, Evaluation/Treatment, Str engthening/ROM Medical History Pertinent Medical History: Hypothroidism, Neuropathy, Parkinson's (with dyskinesia) Additional Medical History Gastric sleeve, Parkinsons, dyskinesia Current History Pt. states that she was diagnosed with Parkinsons in 2018. Prior to this she was having tremors in hand, and had a gastric sleeve that exacerbated her tremors. Approximately 8 weeks ago, she became severely dehydrated and was nauseated. She ended up in ER 4 times. She had her gall bladder out. Went home. Did well for a week. Came back to ER. Had lost 40 lbs. She has started on a medication for increased acid, and is doing much better. She currently has athetoid type movements, but states that this is normal. Reviewed History: Yes Social History Home: Assisted Living Current Living Status: Alone (with caregivers) Entry Into Home: Level Entry ADL-Prior Level of Function SCALE: Activities may be completed with or without assistive devices. 9-Pzptqofyuh-dvjqbqh completes the activity by him/herself with no assistance from a helper. 5-Set-up or Clean-up Assistance-helper sets up or cleans up; patient completes activity. [place] assists only prior to or following the activity. 4-Supervision or Touching Assistance-helper provides verbal cues and/or touching/steadying and/or contact guard assistance as patient completes activity. Assistance may be provided throughout the activity or intermittently. 3-Partial/Moderate Assistance-helper does LESS THAN HALF the effort. [place] lifts, holds or supports trunk or limbs, but provides less than half the effort. 2-Substantial/Maximal Assistance-helper does MORE THAN HALF the effort. [place] lifts or holds trunk or limbs and provides more than half the effort. 7-Fjzaeowsm-jmprve does ALL the effort. Patient does none of the effort to complete the activity. Or, the assistance of 2 or more helpers is required for the patient to complete the activity. If activity was not attempted, code reason: 7-Patient Refused. 9-Not Applicable-not attempted and the patient did not perform the activity before the current illness, exacerbation or injury. 10-Not Attempted due to Environmental Limitations-(lack of equipment, weather restraints, etc.). 88-Not Attempted due to Medical Conditions or Safety Concerns. ADL PLOF Comments Pt. lives at [facility]. She has assistance for bathing/dressing/toileting. She reports that she was in a wheelchair, and could not propel it herself. She recently got a Parkinsons type walker, but does not know how to use it yet. She is able to feed herself, but does have difficulty. She can use regular utensils, but also has some built up ones. She has great difficulty holding regular cups and bringing to her mouth. She states that she has a special cup she uses. 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 reports no pain, but does become tearful at current situation. Mental Status/Objective Patient Orientation: Person, Place, Time, Situation Current Hand Dominance: Right Upper Extremity ROM Pt. is able to move bilateral UE in all planes to full capacity, but movements are jumpy and not functional at times. Upper Extremity Coordination coordination is poor. Pt. demonstrates poor fine motor coordination, and gross motor coordination is difficult with specific tasks. Upper Extremity Sensation Impaired. Pt. states that due to her neuropathy, she has decreased sensation in bilateral hands. She feels "pin pricks" in her fingertips. Upper Extremity Strength Pt. demonstrates 3/5 strength overall in all planes. Pt. demonstrates significant athetoid type movements that are involuntary. Voluntary and purposeful type movements are difficult for her. She attempted to bring small Sprite bottle with straw to her mouth. She used both hands and her hands were moving so much, that she had to bear down and bring her head down so that she could drink as fast as she could to get a drink. ADL-Treatment Eating (QC): 5 (At evaluation, pt. was able to eat finger food with very specific set up. This was still difficult at times for her.) Lower Body Dressing (QC): 2 (Per clinical judgement at time of evaluation due to current and present movements.) On/Off Footwear (QC): 2 Toileting Hygiene (QC): 2 (As reported by pt.) Other Treatments OT spoke with pt. in depth regarding current situation. Completed MMT with UE. Assessed UE sensation and coordination. Observed pt. feed self with finger foods. OT brought in plate guard, built up weight handled spork for next feeding with regular food, Nabil cup for spill proof drinking with low grasp, universal cuff if needed, bilateral wrist weights to assist with tremors during feeding and grooming tasks, and pink therapy hand sponge to work with bilateral hand strengthening. Pt. educated on all equipment. OT donned bilateral wrist weights to provide proprioceptive feedback during feeding, and to increased weight for lowered tremors. OT put water into Nabil cup to increase independence with drinking. Pt. will attempt to use rest of equipment at next meal that is not finger foods. Pt. verbalizes understanding of all equipment. All needs met. Will continue to address ADL skills, as well as fine motor coordination and strengthening skills. Education OT Patient Education: Correct positioning, Exercise program, Modified ADL techniques, Progress toward Goal/Update tx plan, Purpose of tx/functional ac tivities, Reviewed precautions, Rehab process, Transfer techniques Teaching Recipient: Patient Teaching Methods: Demonstration, Discussion Response to Teaching: Verbalize Understanding, Return Demonstration OT Short Term Goals Short Term Goals Time Frame: April 16, 2021 Eatin Oral hygiene: 3 Toileting hygiene: 3 Upper body dressin OT Family Law Mediator Goals Retirement Goals Time Frame: Apr 23, 2021 Eating (QC): 5 Oral Hygiene (QC): 5 Toileting Hygiene (QC): 4 Upper Body Dressing (QC): 4 Additional Goals: 1-Demonstrate ADL Tasks, 2-Verbalize Understanding, 3- ImproveStrength/Judy 1=Demonstrate adherence to instructed precautions during ADL tasks. 2=Patient will verbalize/demonstrate understanding of assistive devices/modifications for ADL. 3=Patient will improve strength/tolerance for activity to enable patient to perform ADL's. OT Education/Plan Problem List/Assessment Assessment: Decreased Activ Tolerance, Decreased UE Strength, Dependent Transfers, Impaired Bed Mobility, Impaired Coordination, Impaired Funct Balance, Impaired I ADL's, Impaired Self-Care Skills, Restricted Funct UE ROM Discharge Recommendations Plan/Recommendations: Continue POC Therapy Discharge Recommendati: Post Acute OT Treatment Plan/Plan of Care Treatment,Training & Education: Yes Patient would benefit from OT for education, treatment and training to promote independence in ADL's, mobility, safety and/or upper extremity function for AD L's. Plan of Care: ADL Retraining, Functional Mobility, UE Funct Exercise/Act Treatment Duration: Apr 23, 2021 Frequency: At least 5 of 7 days/Wk (IRF) Estimated Hrs Per Day: 1.5 hours per day Agreement: Yes Rehab Potential: Fair Time/GCodes Start Time: 13:20 Stop Time: 14:00 Total Time Billed (hr/min): 40 Billed Treatment Time 1, EVH x 15minutes, ADL x 25minutes DESTIN MURO OT April 09, 2021 15:12
[2021-04-09] MEDS: LORazepam 0.5 MG (ATIVAN) TABLET PO PRN (15:21)
[2021-04-09 16:00] VITALS: BP 101/71
--- NOTE | 2021-04-09 17:33 | Progress Note ---
Subjective Date Seen by a Provider: April 09, 2021 Time Seen by a Provider: 17:00 Subjective/Events-last exam Patient seen with Dr. Cha. Patient reports doing well today. Denies any nausea, vomiting, reflux, or abdominal pain. Tolerating diet. Objective Exam Vital Signs Date Time Temp Pulse Resp B/P (MAP) Pulse Ox O2 Delivery O2 Flow Rate FiO2 04/09/21 16:00 37.2 72 20 101/71 (81) 98 Room Air 04/09/21 11:45 36.4 95 20 110/63 (79) 98 Room Air 04/09/21 09:00 Room Air 04/09/21 08:30 36.4 92 20 110/74 (86) 98 Room Air 04/09/21 03:29 36.5 83 18 141/80 (100) 97 Room Air 04/08/21 23:53 36.6 82 16 98/57 (71) 97 Room Air 04/08/21 21:00 Room Air 04/08/21 20:37 36.8 90 20 90/60 (70) 97 Room Air I & O 04/09/21 07:00 Intake Total 2610 ml Output Total 1700 ml Balance 910 ml Capillary Refill : Less Than 3 Seconds General Appearance: No Apparent Distress, WD/WN Neck: Normal Inspection, Supple Respiratory: No Accessory Muscle Use, No Respiratory Distress Cardiovascular: Regular Rate, Rhythm, No Edema Gastrointestinal: normal bowel sounds, non tender, soft Extremity: Normal Inspection, Normal Range of Motion Neurologic/Psychiatric: Alert, Oriented x3 Skin: Normal Color, Warm/Dry Results Lab Laboratory Tests 04/09/21 04:49: Sodium Level 138, Potassium Level 3.3L, Chloride Level 106, Carbon Dioxide Level 27, Anion Gap 5, Blood Urea Nitrogen 5L, Creatinine 0.60, Estimat Glomerular Filtration Rate > 60, BUN/Creatinine Ratio 8, Glucose Level 80, Calcium Level 9.3, Magnesium Level 1.7 Microbiology 04/06/21 Urine Culture - Final, Complete YEAST Gram Pos Mixed Bacterial Chanel Assessment/Plan Assessment/Plan Assess & Plan/Chief Complaint A 56-year-old female with persistent nausea and vomiting, likely secondary to gastritis, S/P laparoscopic gastric sleeve resection VSS Continue with medical management with 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
[2021-04-09 19:32] VITALS: BP 92/55
[2021-04-09] MEDS: LORazepam 0.5 MG (ATIVAN) TABLET PO SCH (20:16)
[2021-04-09] MEDS: SERTRALINE 50 MG (ZOLOFT) TABLET PO SCH (20:16)
[2021-04-09] MEDS: AMITRIPTYLINE 50 MG (ELAVIL) TAB PO SCH (20:16)
[2021-04-10] VITALS (7 sets, daily range): BP systolic 100–139; BP diastolic 60–80
[2021-04-10 06:09] LABS: CHLORIDE 107 MMOL/L (98-107); POTASSIUM 3.7 MMOL/L (3.6-5.0); SODIUM 139 MMOL/L (135-145)
[2021-04-10] MEDS: LEVOTHYROXINE 75 MCG (LEVOTHROID) TABLET PO SCH (06:09)
[2021-04-10] MEDS: RYTARY PO SCH ×4 (06:09→19:55)
[2021-04-10] MEDS: CYANOCOBALAMIN 1,000 MCG (VITAMIN B-12) TABLET PO SCH (06:09)
[2021-04-10 06:10] LABS: CALCIUM 9.4 MG/DL (8.5-10.1)
[2021-04-10 06:11] LABS: GLUCOSE 84 MG/DL (70-105)
[2021-04-10 06:12] LABS: CARBON DIOXIDE 25 MMOL/L (21-32)
[2021-04-10 06:15] LABS: CREATININE SERUM 0.55 MG/DL (0.60-1.30); GFR ESTIMATED > 60
[2021-04-10 06:16] LABS: BUN/CREATININE RATIO 11
[2021-04-10 06:17] LABS: MAGNESIUM 1.8 MG/DL (1.6-2.4)
[2021-04-10] MEDS: MAGNESIUM 1 GM/100 ML IVPB 100 ML IV SCH (06:24)
[2021-04-10] MEDS: KCL 20 MEQ TAB (K-DUR) PO SCH ×3 (06:24→17:49)
[2021-04-10] MEDS: PANTOPRAZOLE 40 MG (PROTONIX) VIAL IV SCH ×2 (07:55→19:56)
[2021-04-10] MEDS: SUCRALFATE 1 GM (CARAFATE) TAB PO SCH ×2 (07:55→19:56)
[2021-04-10] MEDS: LORATADINE (CLARITIN) 10 MG TAB PO SCH (07:55)
[2021-04-10] MEDS: GABAPENTIN 300 MG (NEURONTIN) CAP PO SCH ×3 (07:55→19:56)
--- NOTE | 2021-04-10 09:49 | Physical Therapy Daily Note ---
PT Daily Note-Current Subjective Patient agrees to PT. Mental Status Patient Orientation: Normal For Age Transfers SCALE: Activities may be completed with or without assistive devices. 4-Dexmzpqixc-cmfxiyb completes the activity by him/herself with no assistance from a helper. 5-Set-up or Clean-up Assistance-helper sets up or cleans up; patient completes activity. [place] assists only prior to or following the activity. 4-Supervision or Touching Assistance-helper provides verbal cues and/or touching/steadying and/or contact guard assistance as patient completes activity. Assistance may be provided throughout the activity or intermittently. 3-Partial/Moderate Assistance-helper does LESS THAN HALF the effort. [place] lifts, holds or supports trunk or limbs, but provides less than half the effort. 2-Substantial/Maximal Assistance-helper does MORE THAN HALF the effort. [place] lifts or holds trunk or limbs and provides more than half the effort. 2-Rpjiknxfh-ixlzeq does ALL the effort. Patient does none of the effort to complete the activity. Or, the assistance of 2 or more helpers is required for the patient to complete the activity. If activity was not attempted, code reason: 7-Patient Refused. 9-Not Applicable-not attempted and the patient did not perform the activity befo re the current illness, exacerbation or injury. 10-Not Attempted due to Environmental Limitations-(lack of equipment, weather re straints, etc.). 88-Not Attempted due to Medical Conditions or Safety Concerns. Roll Left & Right (QC): 6 Lying to Sitting/Side of Bed(Q: 4 Sit to Stand (QC): 3 (to FWW x 4 sets) Chair/Cnv-ri-Gbmqk Xfer(QC): 2 athetoid movements/dyskinesia total body Gait Training Distance: 10' Walk 10 feet (QC): 2 Walk 50 ft with 2 Turns(QC): 88 Walk 150 ft (QC): 88 Parkinson's walker which requires hand brake mechanisms to activate to ambulate (attempt to use this, however, patient has not attempted this and was unable to squeeze hand mechanism to safely ambulate and then began to "melt" requiring dependent assist to maintain stand until nursing was able to bring chair behind patient to safely sit. Exercises Supine Ex: Quad Set, Heel Slides, Straight leg raise Supine Reps: 12 Seated Therapy Exercises: Long arc quads Seated Reps: 12 Assessment Patient fatigues with activity and is up in recliner with needs met. PT to increase activity as tolerated by patient. Patient also reports she lives in [place] due to inability to care for self. Yesterday, patient told this PT she lived in apartment with assist of family and friends. PT Penology Professor Goals Penology Professor Goals PT Penology Professor Goals Time Frame: Apr 28, 2021 Roll Left & Right (QC): 4 Sit to Lying (QC): 4 Lying-Sitting on Side/Bed(QC): 4 Sit to Stand (QC): 4 Chair/Tan-jr-Qroki Xfer(QC): 4 Toilet Transfer (QC): 4 Does the Patient Walk: Yes Walk 10 feet (QC): 3 Walk 50ft with 2 Turns (QC): 3 PT Plan Treatment/Plan Treatment Plan: Continue Plan of Care Treatment Plan: Bed Mobility, Education, Functional Activity Judy, Functional Strength, Gait, Safety, Therapeutic Exercise, Transfers Treatment Duration: Apr 28, 2021 Frequency: 6 times per week Estimated Hrs Per Day: .5 hour per day Patient and/or Family Agrees t: Yes Time/GCodes Time In: 818 Time Out: 841 Total Billed Treatment Time: 23 Total Billed Treatment 1 visit EX 15 min GT 8 min KATHY FAROOQ PT April 10, 2021 09:49
--- NOTE | 2021-04-10 10:12 | Occupational Ther Daily Note ---
OT Current Status-Daily Note Subjective Pt AxO, upright in recliner. Pt agrees to tx. States she's been feeling better. Mental Status/Objective Patient Orientation: Normal For Age ADL-Treatment Therapy Code Descriptions/Definitions Functional Patrick Measure: 0=Not Assessed/NA 4=Minimal Assistance 1=Total Assistance 5=Supervision or Setup 2=Maximal Assistance 6=Modified Patrick 3=Moderate Assistance 7=Complete IndependenceSCALE: Activities may be completed with or without assistive devices. 7-Kceblhysff-aqintxf completes the activity by him/herself with no assistance from a helper. 5-Set-up or Clean-up Assistance-helper sets up or cleans up; patient completes activity. [place] assists only prior to or following the activity. 4-Supervision or Touching Assistance-helper provides verbal cues and/or touching/steadying and/or contact guard assistance as patient completes activity. Assistance may be provided throughout the activity or intermittently. 3-Partial/Moderate Assistance-helper does LESS THAN HALF the effort. [place] lifts, holds or supports trunk or limbs, but provides less than half the effort. 2-Substantial/Maximal Assistance-helper does MORE THAN HALF the effort. [place] lifts or holds trunk or limbs and provides more than half the effort. 6-Tpaaygafe-ktdclg does ALL the effort. Patient does none of the effort to complete the activity. Or, the assistance of 2 or more helpers is required for the patient to complete the activity. If activity was not attempted, code reason: 7-Patient Refused. 9-Not Applicable-not attempted and the patient did not perform the activity before the current illness, exacerbation or injury. 10-Not Attempted due to Environmental Limitations-(lack of equipment, weather restraints, etc.). 88-Not Attempted due to Medical Conditions or Safety Concerns. Eating (QC): 5 (s/u, use of 1# wrist weight on RUE and use of weighted adaptive spork. Pt able to scoop apple sauce with good/ SBA ability and bring to mouth without spillage) Other Treatment Pt completes feeding as outlined. Pt then completes 10 reps of each of the 4 different diagonal PNF patterns to reinforce large motor movement. Pt is given therapy sponge, completes finger lift operator/ pinch ex. Pt left in recliner with all needs met, call light in reach. Education OT Patient Education: Exercise program, Home exercise program, Modified ADL techniques, Progress toward Goal/Update tx plan, Use of adapted equipment Teaching Recipient: Patient Teaching Methods: Demonstration, Discussion Response to Teaching: Verbalize Understanding, Return Demonstration, Reinforcement Needed OT Short Term Goals Short Term Goals Time Frame: April 16, 2021 Eatin Oral hygiene: 3 Toileting hygiene: 3 Upper body dressin OT [facility] Goals Fci Goals Time Frame: Apr 23, 2021 Eating (QC): 5 Oral Hygiene (QC): 5 Toileting Hygiene (QC): 4 Upper Body Dressing (QC): 4 Additional Goals: 1-Demonstrate ADL Tasks, 2-Verbalize Understanding, 3-ImproveStrength/Judy 1=Demonstrate adherence to instructed precautions during ADL tasks. 2=Patient will verbalize/demonstrate understanding of assistive devices/modifications for ADL. 3=Patient will improve strength/tolerance for activity to enable patient to perf orm ADL's. OT Education/Plan Problem List/Assessment Assessment: Decreased Activ Tolerance, Decreased UE Strength, Dependent Transfers, Impaired Bed Mobility, Impaired Coordination, Impaired Funct Balance, Impaired I ADL's, Impaired Self-Care Skills Discharge Recommendations Plan/Recommendations: Continue POC Therapy Discharge Recommendati: Assisted Living, Post Acute OT Treatment Plan/Plan of Care Treatment,Training & Education: Yes Patient would benefit from OT for education, treatment and training to promote independence in ADL's, mobility, safety and/or upper extremity function for ADL's. Plan of Care: ADL Retraining, Functional Mobility, UE Funct Exercise/Act Treatment Duration: Apr 23, 2021 Frequency: At least 5 of 7 days/Wk (IRF) Estimated Hrs Per Day: 1.5 hours per day Agreement: Yes Rehab Potential: Fair Time/GCodes Start Time: 09:36 Stop Time: 09:48 Total Time Billed (hr/min): 12 Billed Treatment Time 1, ADL (12) TANI MANZANO OTR April 10, 2021 10:12
--- NOTE | 2021-04-10 11:00 | Progress Note - Hospitalist ---
Subjective HPI/CC On Admission Date Seen by Provider: April 10, 2021 Time Seen by Provider: 09:00 Pt is a 56yoCF known to me from recent admission who presented to the ER due to weakness and dehydration. She states that she has not been doing well since she had her gallbladder out. She has lost roughly 40lbs since that time and has felt very dehydrated because she is constantly nauseated and unable to keep food down. In the ER she was profoundly orthostatic and had a near syncopal episode trying to stand. Even after 1.5L bolus she was still profoundly orthostatic with SBP to the 70s so she was admitted overnight. She was admitted for further IVF and monitoring. This morning she states she feels much better and was able to keep her breakfast down. She is also requesting evaluation at IRU again. Subjective/Events-last exam She is doing well today. She was able to eat breakfast. She had no trouble with nausea or vomiting. She continues to feel weak. Objective Exam Vital Signs Vital Signs Date Time Temp Pulse Resp B/P (MAP) Pulse Ox O2 Delivery O2 Flow Rate FiO2 04/10/21 09:20 Room Air 04/10/21 08:00 35.5 79 18 112/70 (84) 98 Capillary Refill : Less Than 3 Seconds General Appearance: No Apparent Distress, Obese Respiratory: Lungs Clear, Normal Breath Sounds, No Respiratory Distress Cardiovascular: Regular Rate, Rhythm, No Edema, No Murmur Gastrointestinal: Normal Bowel Sounds, Non Tender, Soft Extremity: Normal Inspection, Non Tender, No Pedal Edema Neurologic/Psychiatric: Alert, Oriented x3, Motor Weakness, Other (Tremors) Skin: Normal Color, Warm/Dry Results/Procedures Lab Laboratory Tests 04/10/21 05:15 Patient resulted labs reviewed. Imaging: Reviewed Imaging Report Assessment/Plan Assessment and Plan Assess & Plan/Chief Complaint Parkinson's Disease Sinemet induced dyskinesia Debility PT/OT consulted IRU accepted, awaiting insurance approval s/p recent lap paulie s/p gastric sleeve Continue PPI Hypothyroidism Continue home supplement DVT prophylaxis: Lovenox Orthostatic hypotension, resolved Intractable nausea and vomiting, resolved Diagnosis/Problems Diagnosis/Problems (1) Orthostatic hypotension Status: Resolved Resolution Date/Time: 04/10/21 @ 11:00 (2) Intractable nausea and vomiting Status: Resolved Resolution Date/Time: 04/10/21 @ 11:00 (3) Parkinson disease Status: Acute (4) Debility Status: Acute GUNNAR MORALES MD April 10, 2021 11:00
[2021-04-10] MEDS: LORazepam 0.5 MG (ATIVAN) TABLET PO PRN ×2 (12:45→17:04)
[2021-04-10] MEDS: ENOXAPARIN 40 MG/0.4 ML (LOVENOX) SYR SC SCH (14:50)
[2021-04-10] MEDS: LORazepam 0.5 MG (ATIVAN) TABLET PO SCH (19:56)
[2021-04-10] MEDS: AMITRIPTYLINE 50 MG (ELAVIL) TAB PO SCH (19:56)
[2021-04-10] MEDS: SERTRALINE 50 MG (ZOLOFT) TABLET PO SCH (19:56)
[2021-04-11 04:00] VITALS: BP 114/81
[2021-04-11 05:43] LABS: CHLORIDE 108 MMOL/L (98-107); POTASSIUM 3.5 MMOL/L (3.6-5.0); SODIUM 140 MMOL/L (135-145)
[2021-04-11 05:44] LABS: CALCIUM 9.6 MG/DL (8.5-10.1)
[2021-04-11 05:45] LABS: GLUCOSE 85 MG/DL (70-105)
[2021-04-11 05:46] LABS: CARBON DIOXIDE 25 MMOL/L (21-32)
[2021-04-11 05:49] LABS: CREATININE SERUM 0.59 MG/DL (0.60-1.30); GFR ESTIMATED > 60
[2021-04-11 05:50] LABS: BUN/CREATININE RATIO 12
[2021-04-11 05:51] LABS: MAGNESIUM 1.8 MG/DL (1.6-2.4)
[2021-04-11] MEDS: MAGNESIUM 1 GM/100 ML IVPB 100 ML IV SCH (05:56)
[2021-04-11] MEDS: KCL 20 MEQ TAB (K-DUR) PO SCH ×3 (05:57→18:27)
[2021-04-11] MEDS: LEVOTHYROXINE 75 MCG (LEVOTHROID) TABLET PO SCH (06:45)
[2021-04-11] MEDS: CYANOCOBALAMIN 1,000 MCG (VITAMIN B-12) TABLET PO SCH (06:45)
[2021-04-11] MEDS: RYTARY PO SCH ×4 (06:46→20:25)
[2021-04-11 07:29] VITALS: BP 120/80
[2021-04-11] MEDS ORDERED: KCL 20 MEQ TAB (K-DUR) PO ONE (08:00)
[2021-04-11] MEDS: LORATADINE (CLARITIN) 10 MG TAB PO SCH (08:38)
[2021-04-11] MEDS: SUCRALFATE 1 GM (CARAFATE) TAB PO SCH ×2 (08:38→20:26)
[2021-04-11] MEDS: GABAPENTIN 300 MG (NEURONTIN) CAP PO SCH ×3 (08:38→20:26)
[2021-04-11] MEDS: PANTOPRAZOLE 40 MG (PROTONIX) VIAL IV SCH ×2 (08:39→20:26)
--- NOTE | 2021-04-11 10:10 | Progress Note - Hospitalist ---
Subjective HPI/CC On Admission Date Seen by Provider: April 11, 2021 Time Seen by Provider: 09:30 Pt is a 56yoCF known to me from recent admission who presented to the ER due to weakness and dehydration. She states that she has not been doing well since she had her gallbladder out. She has lost roughly 40lbs since that time and has felt very dehydrated because she is constantly nauseated and unable to keep food down. In the ER she was profoundly orthostatic and had a near syncopal episode trying to stand. Even after 1.5L bolus she was still profoundly orthostatic with SBP to the 70s so she was admitted overnight. She was admitted for further IVF and monitoring. This morning she states she feels much better and was able to keep her breakfast down. She is also requesting evaluation at IRU again. Subjective/Events-last exam She is feeling well today. She is not having any pain. She is not having any shortness of breath. She has been eating and drinking. She has been up and moving around with physical therapy. Objective Exam Vital Signs Vital Signs Date Time Temp Pulse Resp B/P (MAP) Pulse Ox O2 Delivery O2 Flow Rate FiO2 04/11/21 07:29 36.4 79 16 120/80 (93) 100 Room Air Capillary Refill : Less Than 3 Seconds General Appearance: No Apparent Distress, Obese Respiratory: Lungs Clear, Normal Breath Sounds, No Respiratory Distress Cardiovascular: Regular Rate, Rhythm, No Edema, No Murmur Gastrointestinal: Normal Bowel Sounds, Non Tender, Soft Extremity: Normal Inspection, Non Tender, No Pedal Edema Neurologic/Psychiatric: Alert, Oriented x3, Other (Tremulous) Skin: Normal Color, Warm/Dry Results/Procedures Lab Laboratory Tests 04/11/21 05:19 Patient resulted labs reviewed. Imaging: Reviewed Imaging Report Assessment/Plan Assessment and Plan Assess & Plan/Chief Complaint Parkinson's Disease Sinemet induced dyskinesia Debility PT/OT consulted IRU accepted, insurance denied, appeal process started s/p recent lap pualie s/p gastric sleeve Continue PPI Hypothyroidism Continue home supplement Obesity Clinically significant, no acute management needs DVT prophylaxis: Lovenox Orthostatic hypotension, resolved Intractable nausea and vomiting, resolved Diagnosis/Problems Diagnosis/Problems (1) Orthostatic hypotension Status: Resolved Resolution Date/Time: 04/10/21 @ 11:00 (2) Intractable nausea and vomiting Status: Resolved Resolution Date/Time: 04/10/21 @ 11:00 (3) Parkinson disease Status: Acute (4) Debility Status: Acute (5) Obesity Status: Chronic GUNANR MORALES MD April 11, 2021 10:09
[2021-04-11] MEDS: LORazepam 0.5 MG (ATIVAN) TABLET PO SCH (10:51)
[2021-04-11 12:00] VITALS: BP 112/74
--- NOTE | 2021-04-11 14:35 | Occupational Ther Daily Note ---
OT Current Status-Daily Note Subjective No pain reported. Mental Status/Objective Patient Orientation: Person, Place, Time, Situation ADL-Treatment Therapy Code Descriptions/Definitions Functional [place] Measure: 0=Not Assessed/NA 4=Minimal Assistance 1=Total Assistance 5=Supervision or Setup 2=Maximal Assistance 6=Modified [place] 3=Moderate Assistance 7=Complete IndependenceSCALE: Activities may be completed with or without assistive devices. 5-Vmxpvzwcwq-gumynpd completes the activity by him/herself with no assistance from a helper. 5-Set-up or Clean-up Assistance-helper sets up or cleans up; patient completes activity. [place] assists only prior to or following the activity. 4-Supervision or Touching Assistance-helper provides verbal cues and/or touching/steadying and/or contact guard assistance as patient completes activity. Assistance may be provided throughout the activity or intermittently. 3-Partial/Moderate Assistance-helper does LESS THAN HALF the effort. [place] lifts, holds or supports trunk or limbs, but provides less than half the effort. 2-Substantial/Maximal Assistance-helper does MORE THAN HALF the effort. [place] lifts or holds trunk or limbs and provides more than half the effort. 4-Rjignmpoh-nieqxw does ALL the effort. Patient does none of the effort to complete the activity. Or, the assistance of 2 or more helpers is required for the patient to complete the activity. If activity was not attempted, code reason: 7-Patient Refused. 9-Not Applicable-not attempted and the patient did not perform the activity before the current illness, exacerbation or injury. 10-Not Attempted due to Environmental Limitations-(lack of equipment, weather restraints, etc.). 88-Not Attempted due to Medical Conditions or Safety Concerns. Eating (QC): 3 (Min assist) Other Treatment Pt. in bed. OT talked with her regarding utensils that were brought in previously. Pt. does not like the weighted spork that was brought in, but does like the universal cuff. Pt. states that she likes a weighted fork, but OT did not bring this in and pt. states, "maybe I dreamed that." Pt. states that she likes the Nabil cup "okay" but that she spills. OT observed her attempt to drink out of this and she was unable to fully bring to her mouth due to it not being weight enough. Pt. does have her own weighted cup in room that she likes better. Pt's lunch arrived and OT set up tray for her. OT opened packages, cup up salad, and donned universal cuff. Put fork in cuff and observed pt. eat. Pt. seems to tolerate well. Noted that during conversation, pt. was talking about a previous situation in regards to her diagnosis, and became increasingly shaky, had difficulty talking, and had to slow down to breathe. Pt. states that she had a panic attack earlier in the shower. She is encouraged to talk about her diagnosis, and her feelings in regards to it. OT will follow up with this for continued emotional support for pt. Pt. is able to identify each emotion that she is having, and is able to verbalize her awareness of her anxiety. At end of treatment, pt. is able to calmly talk and joke, and is able to feed self with adapted utensil. All needs met at bed level. Education OT Patient Education: Correct positioning, Modified ADL techniques, Progress toward Goal/Update tx plan, Purpose of tx/functional activities, Reviewed precautions, Rehab process, Use of adapted equipment Teaching Recipient: Patient Teaching Methods: Demonstration, Discussion Response to Teaching: Verbalize Understanding, Return Demonstration OT Short Term Goals Short Term Goals Time Frame: April 16, 2021 Eatin Oral hygiene: 3 Toileting hygiene: 3 Upper body dressin OT Tool Carrier Goals Mcfp Goals Time Frame: Apr 23, 2021 Eating (QC): 5 Oral Hygiene (QC): 5 Toileting Hygiene (QC): 4 Upper Body Dressing (QC): 4 Additional Goals: 1-Demonstrate ADL Tasks, 2-Verbalize Understanding, 3- ImproveStrength/Judy 1=Demonstrate adherence to instructed precautions during ADL tasks. 2=Patient will verbalize/demonstrate understanding of assistive devices/modifications for ADL. 3=Patient will improve strength/tolerance for activity to enable patient to perform ADL's. OT Education/Plan Problem List/Assessment Assessment: Decreased Activ Tolerance, Impaired Bed Mobility, Impaired Coordination, Impaired I ADL's, Impaired Self-Care Skills Discharge Recommendations Plan/Recommendations: Continue POC Treatment Plan/Plan of Care Treatment,Training & Education: Yes Patient would benefit from OT for education, treatment and training to promote independence in ADL's, mobility, safety and/or upper extremity function for ADL's. Plan of Care: ADL Retraining, Functional Mobility, UE Funct Exercise/Act Treatment Duration: Apr 23, 2021 Frequency: At least 5 of 7 days/Wk (IRF) Estimated Hrs Per Day: 1.5 hours per day Agreement: Yes Rehab Potential: Fair Time/GCodes Start Time: 13:10 Stop Time: 13:40 Total Time Billed (hr/min): 30 Billed Treatment Time 1, ADL x 30minutes DESTIN MURO OT April 11, 2021 14:35
[2021-04-11] MEDS: ENOXAPARIN 40 MG/0.4 ML (LOVENOX) SYR SC SCH (14:53)
[2021-04-11] MEDS: ONDANSETRON 4 MG (ZOFRAN) ORAL DISSOLVE TAB PO PRN (14:53)
--- NOTE | 2021-04-11 14:59 | Physical Therapy Daily Note ---
PT Daily Note-Current Subjective Patient in bed pre tx, agrees to PT, has no complaints of pain. Appearance Patient in bed post tx with nurse call, phone, tray, all needs met. Mental Status Patient Orientation: Person, Place, Situation Transfers SCALE: Activities may be completed with or without assistive devices. 5-Radvudnmby-qlvddfk completes the activity by him/herself with no assistance from a helper. 5-Set-up or Clean-up Assistance-helper sets up or cleans up; patient completes activity. [place] assists only prior to or following the activity. 4-Supervision or Touching Assistance-helper provides verbal cues and/or touching/steadying and/or contact guard assistance as patient completes activity. Assistance may be provided throughout the activity or intermittently. 3-Partial/Moderate Assistance-helper does LESS THAN HALF the effort. [place] lifts, holds or supports trunk or limbs, but provides less than half the effort. 2-Substantial/Maximal Assistance-helper does MORE THAN HALF the effort. [place] lifts or holds trunk or limbs and provides more than half the effort. 2-Fgtfqwgna-idikfb does ALL the effort. Patient does none of the effort to complete the activity. Or, the assistance of 2 or more helpers is required for the patient to complete the activity. If activity was not attempted, code reason: 7-Patient Refused. 9-Not Applicable-not attempted and the patient did not perform the activity before the current illness, exacerbation or injury. 10-Not Attempted due to Environmental Limitations-(lack of equipment, weather restraints, etc.). 88-Not Attempted due to Medical Conditions or Safety Concerns. Roll Left & Right (QC): 3 Sit to Lying (QC): 3 (mod A) Lying to Sitting/Side of Bed(Q: 3 (mod A) Sit to Stand (QC): 3 Patient was able to stand x3 with mod assist each time. Patient would get dizzy with standing and need to sit back down each time. She recovered after a couple of minutes each time. It did not improve at all by the 3rd stand. Exercises Supine Ex: Ankle pumps, Quad Set, Glut sets Supine Reps: 20 Treatments bed mobility, standing, LE exercise Assessment Current Status: Poor Progress Patient's orthostatic hypotension is severe, even sitting she seems to have athetosis, she writhes constantly. PT Mcc Goals Mcc Goals PT Segmental Paving Supervisor Goals Time Frame: Apr 28, 2021 Roll Left & Right (QC): 4 Sit to Lying (QC): 4 Lying-Sitting on Side/Bed(QC): 4 Sit to Stand (QC): 4 Chair/Cot-xl-Vlahm Xfer(QC): 4 Toilet Transfer (QC): 4 Does the Patient Walk: Yes Walk 10 feet (QC): 3 Walk 50ft with 2 Turns (QC): 3 PT Plan Problem List Problem List: Activity Tolerance, Functional Strength, Safety, Balance, Gait, Transfer, Bed Mobility, ROM Treatment/Plan Treatment Plan: Continue Plan of Care Treatment Plan: Bed Mobility, Education, Functional Activity Judy, Functional Strength, Gait, Safety, Therapeutic Exercise, Transfers Treatment Duration: Apr 28, 2021 Frequency: 6 times per week Estimated Hrs Per Day: .5 hour per day Patient and/or Family Agrees t: Yes Safety Risks/Education Patient Education: Correct Positioning, Safety Issues Teaching Recipient: Patient Teaching Methods: Demonstration, Discussion Response to Teaching: Reinforcement Needed Time/GCodes Time In: 1435 Time Out: 1450 Total Billed Treatment Time: 15 Total Billed Treatment 1 visit FA JEROD SALMON PT April 11, 2021 14:59
[2021-04-11] MEDS: ONDANSETRON 4 MG/2 ML (SDV) Z0FRAN IV PRN (15:03)
[2021-04-11] MEDS ORDERED: LORazepam INJ 2 MG/ML (ATIVAN) VIAL ONE (15:57)
[2021-04-11 16:00] VITALS: BP 118/82
[2021-04-11] MEDS ORDERED: LORazepam INJ 2 MG/ML (ATIVAN) VIAL IVP ONE (16:15)
[2021-04-11] MEDS: HYDROcodone/APAP 7.5 MG/325 MG (LORTAB, LORCET PLUS) TABLET PO PRN (16:15)
[2021-04-11] MEDS ORDERED: LORazepam INJ 2 MG/ML (ATIVAN) VIAL IVP PRN (19:00)
[2021-04-11 19:56] VITALS: BP 101/60
[2021-04-11] MEDS: SERTRALINE 50 MG (ZOLOFT) TABLET PO SCH (20:26)
[2021-04-11] MEDS: AMITRIPTYLINE 50 MG (ELAVIL) TAB PO SCH (20:26)
[2021-04-12] VITALS: BP 93/66
[2021-04-12 03:59] VITALS: BP 112/74
[2021-04-12 05:48] LABS: CHLORIDE 107 MMOL/L (98-107); POTASSIUM 3.6 MMOL/L (3.6-5.0); SODIUM 139 MMOL/L (135-145)
[2021-04-12 05:49] LABS: CALCIUM 9.8 MG/DL (8.5-10.1); GLUCOSE 82 MG/DL (70-105)
[2021-04-12 05:51] LABS: CARBON DIOXIDE 23 MMOL/L (21-32)
[2021-04-12 05:53] LABS: CREATININE SERUM 0.63 MG/DL (0.60-1.30); GFR ESTIMATED > 60
[2021-04-12 05:54] LABS: BUN/CREATININE RATIO 13
[2021-04-12 05:56] LABS: MAGNESIUM 1.9 MG/DL (1.6-2.4)
[2021-04-12] MEDS: MAGNESIUM 1 GM/100 ML IVPB 100 ML IV SCH (05:58)
[2021-04-12] MEDS: KCL 20 MEQ TAB (K-DUR) PO SCH ×3 (05:58→17:49)
[2021-04-12] MEDS: LEVOTHYROXINE 75 MCG (LEVOTHROID) TABLET PO SCH (06:35)
[2021-04-12] MEDS: CYANOCOBALAMIN 1,000 MCG (VITAMIN B-12) TABLET PO SCH (06:35)
[2021-04-12] MEDS: RYTARY PO SCH ×4 (06:35→19:51)
[2021-04-12 07:25] VITALS: BP_SYST 106; BP_SYST 123; BP_DIAS 70; BP_DIAS 85
[2021-04-12] MEDS ORDERED: KCL 20 MEQ TAB (K-DUR) PO ONE ×2 (08:00)
[2021-04-12] MEDS: LORATADINE (CLARITIN) 10 MG TAB PO SCH (09:50)
[2021-04-12] MEDS: GABAPENTIN 300 MG (NEURONTIN) CAP PO SCH ×3 (09:50→19:50)
[2021-04-12] MEDS: PANTOPRAZOLE 40 MG (PROTONIX) VIAL IV SCH (09:50)
[2021-04-12] MEDS: SUCRALFATE 1 GM (CARAFATE) TAB PO SCH ×2 (09:51→19:50)
[2021-04-12] MEDS ORDERED: LACTATED RINGERS 1,000 ML IV ONE (10:30)
--- NOTE | 2021-04-12 10:35 | Physical Therapy Daily Note ---
PT Daily Note-Current Subjective Patient agrees to PT. Reports fatigue. Appearance dry mouth and very dark brown urine Mental Status Patient Orientation: Normal For Age Transfers SCALE: Activities may be completed with or without assistive devices. 2-Fyorfxsyqq-oltzauy completes the activity by him/herself with no assistance from a helper. 5-Set-up or Clean-up Assistance-helper sets up or cleans up; patient completes activity. [place] assists only prior to or following the activity. 4-Supervision or Touching Assistance-helper provides verbal cues and/or touching/steadying and/or contact guard assistance as patient completes activit y. Assistance may be provided throughout the activity or intermittently. 3-Partial/Moderate Assistance-helper does LESS THAN HALF the effort. [place] lifts, holds or supports trunk or limbs, but provides less than half the effort. 2-Substantial/Maximal Assistance-helper does MORE THAN HALF the effort. [place] lifts or holds trunk or limbs and provides more than half the effort. 7-Dtxdnjtyv-cyixuq does ALL the effort. Patient does none of the effort to complete the activity. Or, the assistance of 2 or more helpers is required for the patient to complete the activity. If activity was not attempted, code reason: 7-Patient Refused. 9-Not Applicable-not attempted and the patient did not perform the activity before the current illness, exacerbation or injury. 10-Not Attempted due to Environmental Limitations-(lack of equipment, weather restraints, etc.). 88-Not Attempted due to Medical Conditions or Safety Concerns. Lying to Sitting/Side of Bed(Q: 3 Sit to Stand (QC): 3 Chair/Ben-zh-Lfsrl Xfer(QC): 3 Gait Training Does the Patient Walk?: No and Walking Goal IS indicated Distance: 5 steps Gait Assistive Device: FWW improve gait sequence, however, orthostatic hypotension prevented continuation Exercises Standing: Sit to Stand (x 3 with BP taken x 2) Treatments Attempted to take BP in stand, however, machine unable to take it due to hypotension (88/61 in sit after second standing activity and 84/52 after 3rd stand) RN notified. Patient was able to stand x3 with mod assist each time. Patient would get dizzy with standing and need to sit back down each time. She recovered after a couple of minutes each time. It did not improve at all by the 3rd stand. (same as yesterday) Assessment Patient tolerates minimal activity and requires time to recover. Patient voices frustration and states she's dehydrated. RN in room to assess patient per PT request. PT Mcfp Goals Mcfp Goals PT Greeting Card Maker Goals Time Frame: Apr 28, 2021 Roll Left & Right (QC): 4 Sit to Lying (QC): 4 Lying-Sitting on Side/Bed(QC): 4 Sit to Stand (QC): 4 Chair/Kfb-gz-Oqvbc Xfer(QC): 4 Toilet Transfer (QC): 4 Does the Patient Walk: Yes Walk 10 feet (QC): 3 Walk 50ft with 2 Turns (QC): 3 PT Plan Treatment/Plan Treatment Plan: Continue Plan of Care Treatment Plan: Bed Mobility, Education, Functional Activity Judy, Functional Strength, Gait, Safety, Therapeutic Exercise, Transfers Treatment Duration: Apr 28, 2021 Frequency: 6 times per week Estimated Hrs Per Day: .5 hour per day Patient and/or Family Agrees t: Yes Time/GCodes Time In: 920 Time Out: 935 Total Billed Treatment Time: 15 Total Billed Treatment 1 visit FA 15 min KATHY FAROOQ PT April 12, 2021 10:35
[2021-04-12 11:40] VITALS: BP 106/72
--- NOTE | 2021-04-12 14:07 | Occupational Ther Daily Note ---
OT Current Status-Daily Note Subjective Pt seated upright in recliner, lights off eating lunch. ADL-Treatment Therapy Code Descriptions/Definitions Functional [place] Measure: 0=Not Assessed/NA 4=Minimal Assistance 1=Total Assistance 5=Supervision or Setup 2=Maximal Assistance 6=Modified [place] 3=Moderate Assistance 7=Complete IndependenceSCALE: Activities may be completed with or without assistive devices. 0-Hscigrvwct-cwkhmlt completes the activity by him/herself with no assistance from a helper. 5-Set-up or Clean-up Assistance-helper sets up or cleans up; patient completes activity. [place] assists only prior to or following the activity. 4-Supervision or Touching Assistance-helper provides verbal cues and/or touching/steadying and/or contact guard assistance as patient completes activity. Assistance may be provided throughout the activity or intermittently. 3-Partial/Moderate Assistance-helper does LESS THAN HALF the effort. [place] lifts, holds or supports trunk or limbs, but provides less than half the effort. 2-Substantial/Maximal Assistance-helper does MORE THAN HALF the effort. [place] lifts or holds trunk or limbs and provides more than half the effort. 7-Vjhdgsitq-kgduim does ALL the effort. Patient does none of the effort to complete the activity. Or, the assistance of 2 or more helpers is required for the patient to complete the activity. If activity was not attempted, code reason: 7-Patient Refused. 9-Not Applicable-not attempted and the patient did not perform the activity before the current illness, exacerbation or injury. 10-Not Attempted due to Environmental Limitations-(lack of equipment, weather restraints, etc.). 88-Not Attempted due to Medical Conditions or Safety Concerns. Eating (QC): 5 (set up, pt able to eat finger foods) Other Treatment Pt seated in recliner eating lunch, lights off. OT turned on light for pt. Pt agreeable to OT Tx with focus on increasing BUE strength and activity tolerance. 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 Pt completed x10 reps each of the following: shoulder flexion, horizontal abduction, elbow flexion and elbow extension. Pt took rest breaks as needed. OT assisted pt with opening ketchup packets and squeezing onto tray. Pt then able to continue eating. Post tx, pt seated in recliner, call light in reach and all needs met, visitor present. Education OT Patient Education: Correct positioning, Energy conservation, Exercise program, Home exercise program, Modified ADL techniques, Progress toward Goal/Update tx plan, Purpose of tx/functional activities Teaching Recipient: Patient Teaching Methods: Discussion Response to Teaching: Verbalize Understanding OT Short Term Goals Short Term Goals Time Frame: April 16, 2021 Eatin Oral hygiene: 3 Toileting hygiene: 3 Upper body dressin OT Care Home Goals Postdoctoral Fellow Goals Time Frame: Apr 23, 2021 Eating (QC): 5 Oral Hygiene (QC): 5 Toileting Hygiene (QC): 4 Upper Body Dressing (QC): 4 Additional Goals: 1-Demonstrate ADL Tasks, 2-Verbalize Understanding, 3- ImproveStrength/Judy 1=Demonstrate adherence to instructed precautions during ADL tasks. 2=Patient will verbalize/demonstrate understanding of assistive devices/jim fications for ADL. 3=Patient will improve strength/tolerance for activity to enable patient to perform ADL's. OT Education/Plan Problem List/Assessment Assessment: Decreased Activ Tolerance, Decreased UE Strength, Impaired I ADL's, Impaired Self-Care Skills, Restricted Funct UE ROM Discharge Recommendations Plan/Recommendations: Continue POC Treatment Plan/Plan of Care Patient would benefit from OT for education, treatment and training to promote independence in ADL's, mobility, safety and/or upper extremity function for ADL's. Plan of Care: ADL Retraining, Functional Mobility, UE Funct Exercise/Act Treatment Duration: Apr 23, 2021 Frequency: At least 5 of 7 days/Wk (IRF) Estimated Hrs Per Day: 1.5 hours per day Agreement: Yes Rehab Potential: Fair Time/GCodes Start Time: 13:40 Stop Time: 13:59 Total Time Billed (hr/min): 19 Billed Treatment Time 1, EX SCOTT SCANLON OT April 12, 2021 14:07
[2021-04-12] MEDS: ENOXAPARIN 40 MG/0.4 ML (LOVENOX) SYR SC SCH (14:19)
[2021-04-12 16:00] VITALS: BP 97/48
--- NOTE | 2021-04-12 18:54 | Progress Note - Hospitalist ---
Subjective HPI/CC On Admission Date Seen by Provider: April 12, 2021 Time Seen by Provider: 12:00 Pt is a 56yoCF known to me from recent admission who presented to the ER due to weakness and dehydration. She states that she has not been doing well since she had her gallbladder out. She has lost roughly 40lbs since that time and has felt very dehydrated because she is constantly nauseated and unable to keep food down. In the ER she was profoundly orthostatic and had a near syncopal episode trying to stand. Even after 1.5L bolus she was still profoundly orthostatic with SBP to the 70s so she was admitted overnight. She was admitted for further IVF and monitoring. This morning she states she feels much better and was able to keep her breakfast down. She is also requesting evaluation at IRU again. Subjective/Events-last exam She had some lightheadedness today. This has improved after a fluid bolus. She was anxious yesterday, but this is improved also. She has no other concerns. Objective Exam Vital Signs Vital Signs Date Time Temp Pulse Resp B/P (MAP) Pulse Ox O2 Delivery O2 Flow Rate FiO2 04/12/21 16:00 35.7 67 20 97/48 (64) 92 Room Air 04/12/21 07:25 3.00 Capillary Refill : Less Than 3 Seconds General Appearance: No Apparent Distress, Obese Respiratory: Lungs Clear, Normal Breath Sounds, No Respiratory Distress Cardiovascular: Regular Rate, Rhythm, No Edema, No Murmur Gastrointestinal: Normal Bowel Sounds, Non Tender, Soft Extremity: Normal Inspection, Non Tender, No Pedal Edema Neurologic/Psychiatric: Alert, Oriented x3, Normal Mood/Affect, Other (tremulous) Skin: Normal Color, Warm/Dry Results/Procedures Lab Laboratory Tests 04/12/21 05:29 Patient resulted labs reviewed. Imaging: Reviewed Imaging Report Assessment/Plan Assessment and Plan Assess & Plan/Chief Complaint Parkinson's Disease Sinemet induced dyskinesia Debility Orthostatic hypotension PT/OT consulted IRU accepted, insurance denied, awaiting appeal decision Fluid bolus this am s/p recent lap paulie s/p gastric sleeve Continue PPI Hypothyroidism Continue home supplement Obesity Clinically significant, no acute management needs DVT prophylaxis: Lovenox Intractable nausea and vomiting, resolved Diagnosis/Problems Diagnosis/Problems (1) Orthostatic hypotension Status: Resolved Resolution Date/Time: 04/10/21 @ 11:00 (2) Intractable nausea and vomiting Status: Resolved Resolution Date/Time: 04/10/21 @ 11:00 (3) Parkinson disease Status: Acute (4) Debility Status: Acute (5) Obesity Status: Chronic GUNNAR MORALES MD April 12, 2021 18:54
[2021-04-12] MEDS: SERTRALINE 50 MG (ZOLOFT) TABLET PO SCH (19:50)
[2021-04-12] MEDS: LORazepam 0.5 MG (ATIVAN) TABLET PO SCH (19:50)
[2021-04-12] MEDS: AMITRIPTYLINE 50 MG (ELAVIL) TAB PO SCH (19:50)
[2021-04-12] MEDS: PANTOPRAZOLE 40 MG (PROTONIX) TAB PO SCH (19:51)
[2021-04-12 20:00] VITALS: BP 126/51
[2021-04-12] MEDS: LORazepam 0.5 MG (ATIVAN) TABLET PO PRN (22:49)
[2021-04-13] VITALS: BP 100/62
[2021-04-13 04:00] VITALS: BP 111/61
[2021-04-13 05:52] LABS: CHLORIDE 105 MMOL/L (98-107); POTASSIUM 3.7 MMOL/L (3.6-5.0); SODIUM 137 MMOL/L (135-145)
[2021-04-13 05:53] LABS: CALCIUM 9.9 MG/DL (8.5-10.1)
[2021-04-13 05:54] LABS: GLUCOSE 86 MG/DL (70-105)
[2021-04-13 05:55] LABS: CARBON DIOXIDE 22 MMOL/L (21-32)
[2021-04-13 05:58] LABS: BUN/CREATININE RATIO 11; CREATININE SERUM 0.64 MG/DL (0.60-1.30); GFR ESTIMATED > 60
[2021-04-13 06:00] LABS: MAGNESIUM 1.9 MG/DL (1.6-2.4)
[2021-04-13] MEDS: LEVOTHYROXINE 75 MCG (LEVOTHROID) TABLET PO SCH (06:38)
[2021-04-13] MEDS: RYTARY PO SCH ×4 (06:38→19:37)
[2021-04-13] MEDS: KCL 20 MEQ TAB (K-DUR) PO SCH ×3 (06:46→18:02)
[2021-04-13] MEDS: MAGNESIUM 1 GM/100 ML IVPB 100 ML IV SCH (06:46)
[2021-04-13 08:03] VITALS: BP 102/70
[2021-04-13] MEDS: GABAPENTIN 300 MG (NEURONTIN) CAP PO SCH ×3 (08:04→19:36)
[2021-04-13] MEDS: PANTOPRAZOLE 40 MG (PROTONIX) TAB PO SCH ×2 (08:04→19:37)
[2021-04-13] MEDS: SUCRALFATE 1 GM (CARAFATE) TAB PO SCH ×2 (08:04→19:36)
[2021-04-13] MEDS: CYANOCOBALAMIN 1,000 MCG (VITAMIN B-12) TABLET PO SCH (08:04)
[2021-04-13] MEDS: LORATADINE (CLARITIN) 10 MG TAB PO SCH (08:06)
--- NOTE | 2021-04-13 10:26 | Progress Note - Hospitalist ---
Subjective HPI/CC On Admission Date Seen by Provider: April 13, 2021 Time Seen by Provider: 09:10 Pt is a 56yoCF known to me from recent admission who presented to the ER due to weakness and dehydration. She states that she has not been doing well since she had her gallbladder out. She has lost roughly 40lbs since that time and has felt very dehydrated because she is constantly nauseated and unable to keep food down. In the ER she was profoundly orthostatic and had a near syncopal episode trying to stand. Even after 1.5L bolus she was still profoundly orthostatic with SBP to the 70s so she was admitted overnight. She was admitted for further IVF and monitoring. This morning she states she feels much better and was able to keep her breakfast down. She is also requesting evaluation at IRU again. Subjective/Events-last exam She is feeling okay this morning. She slept in this morning. She has not been out of bed yet. She has not had any lightheadedness or dizziness. She has not been having trouble with anxiety. She has been eating and drinking well without issues. She has no other complaints or concerns. Objective Exam Vital Signs Vital Signs Date Time Temp Pulse Resp B/P (MAP) Pulse Ox O2 Delivery O2 Flow Rate FiO2 04/13/21 09:00 Room Air 04/13/21 08:03 36.0 78 18 102/70 (81) 98 04/12/21 07:25 3.00 Capillary Refill : Less Than 3 Seconds General Appearance: No Apparent Distress, WD/WN Respiratory: Lungs Clear, Normal Breath Sounds, No Respiratory Distress Cardiovascular: Regular Rate, Rhythm, No Edema, No Murmur Gastrointestinal: Normal Bowel Sounds, Non Tender, Soft Extremity: Normal Inspection, Non Tender, No Pedal Edema Neurologic/Psychiatric: Alert, Oriented x3, No Motor/Sensory Deficits, Normal Mood/Affect Skin: Normal Color, Warm/Dry Results/Procedures Lab Laboratory Tests 04/13/21 05:30 Patient resulted labs reviewed. Imaging: Reviewed Imaging Report Assessment/Plan Assessment and Plan Assess & Plan/Chief Complaint Parkinson's Disease Sinemet induced dyskinesia Debility Orthostatic hypotension PT/OT consulted IRU accepted, insurance denied, appeal denied, planning for second level appeal s/p recent lap paulie s/p gastric sleeve Continue PPI Hypothyroidism Continue home supplement Obesity Clinically significant, no acute management needs DVT prophylaxis: Lovenox Intractable nausea and vomiting, resolved Diagnosis/Problems Diagnosis/Problems (1) Orthostatic hypotension Status: Resolved Resolution Date/Time: 04/10/21 @ 11:00 (2) Intractable nausea and vomiting Status: Resolved Resolution Date/Time: 04/10/21 @ 11:00 (3) Parkinson disease Status: Acute (4) Debility Status: Acute (5) Obesity Status: Chronic GUNNAR MORALES MD April 13, 2021 10:26
--- NOTE | 2021-04-13 11:55 | Physical Therapy Daily Note ---
PT Daily Note-Current Subjective Patient in bed pre tx, agrees to PT, has no complaints of pain. Appearance Patient in recliner post tx with nurse call, phone, tray, all needs met, legs reclined Mental Status Patient Orientation: Normal For Age Transfers SCALE: Activities may be completed with or without assistive devices. 3-Xwrjgtwnfj-julvlel completes the activity by him/herself with no assistance from a helper. 5-Set-up or Clean-up Assistance-helper sets up or cleans up; patient completes activity. [place] assists only prior to or following the activity. 4-Supervision or Touching Assistance-helper provides verbal cues and/or touc salomón/steadying and/or contact guard assistance as patient completes activity. Assistance may be provided throughout the activity or intermittently. 3-Partial/Moderate Assistance-helper does LESS THAN HALF the effort. [place] lifts, holds or supports trunk or limbs, but provides less than half the effort. 2-Substantial/Maximal Assistance-helper does MORE THAN HALF the effort. [place] lifts or holds trunk or limbs and provides more than half the effort. 3-Qnozditrv-naxksh does ALL the effort. Patient does none of the effort to complete the activity. Or, the assistance of 2 or more helpers is required for the patient to complete the activity. If activity was not attempted, code reason: 7-Patient Refused. 9-Not Applicable-not attempted and the patient did not perform the activity before the current illness, exacerbation or injury. 10-Not Attempted due to Environmental Limitations-(lack of equipment, weather restraints, etc.). 88-Not Attempted due to Medical Conditions or Safety Concerns. Roll Left & Right (QC): 6 Lying to Sitting/Side of Bed(Q: 3 Sit to Stand (QC): 3 Chair/Krt-ns-Jscin Xfer(QC): 3 Min assist for supine to sit, mod assist for sit to stand and transfer to recliner. Patient stood twice until dizzy which was only about 10 seconds, she then sat to recover. On the third attempt patient took a few steps to recliner with mod assist. Patient is retropulsive immediately upon standing and when she extends legs careful guarding is required to keep her feet from slipping forward on the floor. 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 [employer]os Goals PT Executive Producer [employer] Goals Time Frame: Apr 28, 2021 Roll Left & Right (QC): 4 Sit to Lying (QC): 4 Lying-Sitting on Side/Bed(QC): 4 Sit to Stand (QC): 4 Chair/Sez-sl-Otqxs Xfer(QC): 4 Toilet Transfer (QC): 4 Does the Patient Walk: Yes Walk 10 feet (QC): 3 Walk 50ft with 2 Turns (QC): 3 PT Plan Problem List Problem List: Activity Tolerance, Functional Strength, Safety, Balance, Gait, Transfer, Bed Mobility, ROM Treatment/Plan Treatment Plan: Continue Plan of Care Treatment Plan: Bed Mobility, Education, Functional Activity [place], Functional Strength, Gait, Safety, Therapeutic Exercise, Transfers Treatment Duration: Apr 28, 2021 Frequency: 6 times per week Estimated Hrs Per Day: .5 hour per day Patient and/or Family Agrees t: Yes Safety Risks/Education Patient Education: Gait Training, Transfer Techniques, Correct Positioning, Safety Issues Teaching Recipient: Patient Teaching Methods: Demonstration, Discussion Response to Teaching: Reinforcement Needed Time/GCodes Time In: 1130 Time Out: 1146 Total Billed Treatment Time: 16 Total Billed Treatment 1 visit FA 16' JEROD DALY PT April 13, 2021 11:55
[2021-04-13 12:04] VITALS: BP 100/54
--- NOTE | 2021-04-13 12:09 | Occupational Ther Daily Note ---
OT Current Status-Daily Note Subjective Pt. does not report pain but does report some dizziness with standing. Mental Status/Objective Patient Orientation: Person, Place, Time, Situation ADL-Treatment Therapy Code Descriptions/Definitions Functional [place] Measure: 0=Not Assessed/NA 4=Minimal Assistance 1=Total Assistance 5=Supervision or Setup 2=Maximal Assistance 6=Modified [place] 3=Moderate Assistance 7=Complete IndependenceSCALE: Activities may be completed with or without assistive devices. 5-Rdlcxqtelo-tycepmz completes the activity by him/herself with no assistance from a helper. 5-Set-up or Clean-up Assistance-helper sets up or cleans up; patient completes activity. [place] assists only prior to or following the activity. 4-Supervision or Touching Assistance-helper provides verbal cues and/or touching/steadying and/or contact guard assistance as patient completes activity. Assistance may be provided throughout the activity or intermittently. 3-Partial/Moderate Assistance-helper does LESS THAN HALF the effort. [place] lifts, holds or supports trunk or limbs, but provides less than half the effort. 2-Substantial/Maximal Assistance-helper does MORE THAN HALF the effort. [place] lifts or holds trunk or limbs and provides more than half the effort. 5-Whpvueejf-zfqmro does ALL the effort. Patient does none of the effort to complete the activity. Or, the assistance of 2 or more helpers is required for the patient to complete the activity. If activity was not attempted, code reason: 7-Patient Refused. 9-Not Applicable-not attempted and the patient did not perform the activity before the current illness, exacerbation or injury. 10-Not Attempted due to Environmental Limitations-(lack of equipment, weather restraints, etc.). 88-Not Attempted due to Medical Conditions or Safety Concerns. On/Off Footwear: 2 Toileting Hygiene (QC): 1 Other Treatment Pt. seen for co-treatment with PT/OT due to need of skilled assistance x 2. Pt. transferred supine-sit with min assist. Stood x 3 with OT providing assistance for hand placement on walker and PT providing cues for foot placement. Pt. unable to tolerate stands very long as she verbalizes dizziness. Sits quickly. Nursing aware of dizziness. Stands 3rd time with therapist foot in place to block pt's for maximal steps and pt. is able to take small steps to turn and sit in reclining chair. Decreased athytoid type movements noted overall. OT provided pt. with fine motor activity and went over continued UE exercises for continued strengthening. Pt. verbalizes understanding overall. All needs met up in chair. Education OT Patient Education: Correct positioning, Exercise program, Progress toward Goal/Update tx plan, Purpose of tx/functional activities, Reviewed precautions, Rehab process, Transfer techniques Teaching Recipient: Patient Teaching Methods: Demonstration, Discussion Response to Teaching: Verbalize Understanding, Return Demonstration OT Short Term Goals Short Term Goals Time Frame: April 16, 2021 Eatin Oral hygiene: 3 Toileting hygiene: 3 Upper body dressin OT Learning Facilitator Goals Learning Facilitator Goals Time Frame: Apr 23, 2021 Eating (QC): 5 Oral Hygiene (QC): 5 Toileting Hygiene (QC): 4 Upper Body Dressing (QC): 4 Additional Goals: 1-Demonstrate ADL Tasks, 2-Verbalize Understanding, 3-ImproveStrength/Judy 1=Demonstrate adherence to instructed precautions during ADL tasks. 2=Patient will verbalize/demonstrate understanding of assistive devices/modifications for ADL. 3=Patient will improve strength/tolerance for activity to enable patient to perform ADL's. OT Education/Plan Problem List/Assessment Assessment: Decreased Activ Tolerance, Decreased UE Strength, Dependent Transfers, Impaired Bed Mobility, Impaired Funct Balance, Impaired I ADL's, Impaired Self-Care Skills Discharge Recommendations Plan/Recommendations: Continue POC Therapy Discharge Recommendati: Post Acute OT Treatment Plan/Plan of Care Treatment,Training & Education: Yes Patient would benefit from OT for education, treatment and training to promote independence in ADL's, mobility, safety and/or upper extremity function for ADL's. Plan of Care: ADL Retraining, Functional Mobility, UE Funct Exercise/Act Treatment Duration: Apr 23, 2021 Frequency: At least 5 of 7 days/Wk (IRF) Estimated Hrs Per Day: 1.5 hours per day Agreement: Yes Rehab Potential: Fair Time/GCodes Start Time: 11:30 Stop Time: 11:45 Total Time Billed (hr/min): 15 Billed Treatment Time 1, FA x [id number]-ohcchnlpe with PT DESTIN MURO OT April 13, 2021 12:09
[2021-04-13] MEDS: ENOXAPARIN 40 MG/0.4 ML (LOVENOX) SYR SC SCH (14:14)
[2021-04-13] MEDS: LORazepam 0.5 MG (ATIVAN) TABLET PO PRN (14:47)
[2021-04-13 15:32] VITALS: BP 104/72
[2021-04-13 19:25] VITALS: BP 121/77
[2021-04-13] MEDS: AMITRIPTYLINE 50 MG (ELAVIL) TAB PO SCH (19:36)
[2021-04-13] MEDS: LORazepam 0.5 MG (ATIVAN) TABLET PO SCH (19:36)
[2021-04-13] MEDS: SERTRALINE 50 MG (ZOLOFT) TABLET PO SCH (19:37)
[2021-04-14] VITALS (7 sets, daily range): BP systolic 110–130; BP diastolic 63–83
[2021-04-14] MEDS: LORazepam 0.5 MG (ATIVAN) TABLET PO PRN ×2 (00:12→23:19)
[2021-04-14] MEDS: LEVOTHYROXINE 75 MCG (LEVOTHROID) TABLET PO SCH (06:18)
[2021-04-14] MEDS: CYANOCOBALAMIN 1,000 MCG (VITAMIN B-12) TABLET PO SCH (06:18)
[2021-04-14] MEDS: RYTARY PO SCH ×4 (06:18→19:43)
[2021-04-14 06:51] LABS: CHLORIDE 104 MMOL/L (98-107); POTASSIUM 3.7 MMOL/L (3.6-5.0); SODIUM 136 MMOL/L (135-145)
[2021-04-14 06:52] LABS: CALCIUM 9.8 MG/DL (8.5-10.1)
[2021-04-14 06:53] LABS: GLUCOSE 86 MG/DL (70-105)
[2021-04-14 06:54] LABS: CARBON DIOXIDE 22 MMOL/L (21-32)
[2021-04-14 06:57] LABS: CREATININE SERUM 0.62 MG/DL (0.60-1.30); GFR ESTIMATED > 60
[2021-04-14 06:58] LABS: BUN/CREATININE RATIO 15
[2021-04-14 06:59] LABS: MAGNESIUM 2.1 MG/DL (1.6-2.4)
[2021-04-14] MEDS: KCL 20 MEQ TAB (K-DUR) PO SCH ×3 (07:01→17:39)
[2021-04-14] MEDS: MAGNESIUM 1 GM/100 ML IVPB 100 ML IV SCH (07:01)
--- NOTE | 2021-04-14 10:05 | Progress Note - Hospitalist ---
Subjective HPI/CC On Admission Date Seen by Provider: April 14, 2021 Time Seen by Provider: 09:30 Pt is a 56yoCF known to me from recent admission who presented to the ER due to weakness and dehydration. She states that she has not been doing well since she had her gallbladder out. She has lost roughly 40lbs since that time and has felt very dehydrated because she is constantly nauseated and unable to keep food down. In the ER she was profoundly orthostatic and had a near syncopal episode trying to stand. Even after 1.5L bolus she was still profoundly orthostatic with SBP to the 70s so she was admitted overnight. She was admitted for further IVF and monitoring. This morning she states she feels much better and was able to keep her breakfast down. She is also requesting evaluation at IRU again. Subjective/Events-last exam She is doing well this morning. She got out of bed without feeling lightheaded or dizzy. She is back in bed resting at this time. She has no other complaints or concerns. Objective Exam Vital Signs Vital Signs Date Time Temp Pulse Resp B/P (MAP) Pulse Ox O2 Delivery O2 Flow Rate FiO2 04/14/21 08:00 36.0 76 16 114/63 (80) 96 Room Air 04/12/21 07:25 3.00 Capillary Refill : Less Than 3 Seconds General Appearance: No Apparent Distress, Obese Respiratory: Lungs Clear, Normal Breath Sounds, No Respiratory Distress Cardiovascular: Regular Rate, Rhythm, No Edema, No Murmur Gastrointestinal: Normal Bowel Sounds, Non Tender, Soft Extremity: Normal Inspection, Non Tender, No Pedal Edema Neurologic/Psychiatric: Alert, Oriented x3, No Motor/Sensory Deficits, Normal Mood/Affect Skin: Normal Color, Warm/Dry Results/Procedures Lab Laboratory Tests 04/14/21 06:31 Patient resulted labs reviewed. Imaging: Reviewed Imaging Report Assessment/Plan Assessment and Plan Assess & Plan/Chief Complaint Parkinson's Disease Sinemet induced dyskinesia Debility PT/OT consulted IRU accepted, insurance denied, appeal denied, next level appeal in process s/p recent lap paulie s/p gastric sleeve Continue PPI Hypothyroidism Continue home supplement Obesity Clinically significant, no acute management needs DVT prophylaxis: Lovenox Intractable nausea and vomiting, resolved Orthostatic hypotension, resolved Diagnosis/Problems Diagnosis/Problems (1) Orthostatic hypotension Status: Resolved Resolution Date/Time: 04/10/21 @ 11:00 (2) Intractable nausea and vomiting Status: Resolved Resolution Date/Time: 04/10/21 @ 11:00 (3) Parkinson disease Status: Acute (4) Debility Status: Acute (5) Obesity Status: Chronic GUNNAR MORALES MD April 14, 2021 10:05
[2021-04-14] MEDS: SUCRALFATE 1 GM (CARAFATE) TAB PO SCH ×2 (10:26→19:42)
[2021-04-14] MEDS: GABAPENTIN 300 MG (NEURONTIN) CAP PO SCH ×3 (10:26→19:42)
[2021-04-14] MEDS: PANTOPRAZOLE 40 MG (PROTONIX) TAB PO SCH ×2 (10:26→19:43)
[2021-04-14] MEDS: LORATADINE (CLARITIN) 10 MG TAB PO SCH (10:26)
--- NOTE | 2021-04-14 11:43 | Physical Therapy Daily Note ---
PT Daily Note-Current Subjective Pt supine in bed upon arrival to room, agreeable to PT session, as requests need to use commode. Pt verbalizes that she is feeling discouraged this date Appearance Following session, pt supine in bed with call light, tray and phone within reach. Denies any further needs. Mental Status Patient Orientation: Person, Place, Situation Transfers SCALE: Activities may be completed with or without assistive devices. 8-Dlyxblafci-wofoang completes the activity by him/herself with no assistance from a helper. 5-Set-up or Clean-up Assistance-helper sets up or cleans up; patient completes activity. [place] assists only prior to or following the activity. 4-Supervision or Touching Assistance-helper provides verbal cues and/or touching/steadying and/or contact guard assistance as patient completes activity. Assistance may be provided throughout the activity or intermittently. 3-Partial/Moderate Assistance-helper does LESS THAN HALF the effort. [place] lifts, holds or supports trunk or limbs, but provides less than half the effort. 2-Substantial/Maximal Assistance-helper does MORE THAN HALF the effort. [place] l ifts or holds trunk or limbs and provides more than half the effort. 0-Ajyvltnhv-fculrf does ALL the effort. Patient does none of the effort to complete the activity. Or, the assistance of 2 or more helpers is required for the patient to complete the activity. If activity was not attempted, code reason: 7-Patient Refused. 9-Not Applicable-not attempted and the patient did not perform the activity before the current illness, exacerbation or injury. 10-Not Attempted due to Environmental Limitations-(lack of equipment, weather restraints, etc.). 88-Not Attempted due to Medical Conditions or Safety Concerns. Roll Left & Right (QC): 4 Sit to Lying (QC): 4 Lying to Sitting/Side of Bed(Q: 4 Sit to Stand (QC): 3 Chair/Mxy-eh-Regsr Xfer(QC): 3 Min A needed this date on pt transfer to BSC and sit-stand x 2. Pt with improved strength and balance. Took 2-3 steps to pivot to BSC and return to bed Assessment Current Status: Fair Progress Pt with improved balance, and functional strength this date. No reports of dizziness. Will continue to progress as able PT Sharepoint Architect Goals Sharepoint Architect Goals PT Sharepoint Architect Goals Time Frame: Apr 28, 2021 Roll Left & Right (QC): 4 Sit to Lying (QC): 4 Lying-Sitting on Side/Bed(QC): 4 Sit to Stand (QC): 4 Chair/Mcw-pd-Ecuqh Xfer(QC): 4 Toilet Transfer (QC): 4 Does the Patient Walk: Yes Walk 10 feet (QC): 3 Walk 50ft with 2 Turns (QC): 3 PT Plan Problem List Problem List: Activity Tolerance, Functional Strength, Safety, Balance, Gait, Transfer, Bed Mobility, ROM Treatment/Plan Treatment Plan: Continue Plan of Care Treatment Plan: Bed Mobility, Education, Functional Activity Judy, Functional Strength, Gait, Safety, Therapeutic Exercise, Transfers Treatment Duration: Apr 28, 2021 Frequency: 6 times per week Estimated Hrs Per Day: .5 hour per day Patient and/or Family Agrees t: Yes Time/GCodes Time In: 900 Time Out: 924 Total Billed Treatment 1 visit FA x 2 (24') RACHAEL AL PT April 14, 2021 11:43
[2021-04-14] MEDS: ONDANSETRON 4 MG/2 ML (SDV) Z0FRAN IV PRN ×3 (12:14→22:11)
[2021-04-14] MEDS: ENOXAPARIN 40 MG/0.4 ML (LOVENOX) SYR SC SCH (14:28)
[2021-04-14] MEDS: LORazepam 0.5 MG (ATIVAN) TABLET PO SCH (16:27)
[2021-04-14] MEDS: SERTRALINE 50 MG (ZOLOFT) TABLET PO SCH (19:43)
[2021-04-14] MEDS: ONDANSETRON 4 MG (ZOFRAN) ORAL DISSOLVE TAB PO PRN (20:50)
[2021-04-14] MEDS: AMITRIPTYLINE 50 MG (ELAVIL) TAB PO SCH (23:20)
[2021-04-14] MEDS: HYDROcodone/APAP 7.5 MG/325 MG (LORTAB, LORCET PLUS) TABLET PO PRN (23:22)
[2021-04-15 04:03] VITALS: BP 109/74
[2021-04-15 04:37] LABS: CHLORIDE 106 MMOL/L (98-107); POTASSIUM 3.8 MMOL/L (3.6-5.0); SODIUM 137 MMOL/L (135-145)
[2021-04-15 04:38] LABS: CALCIUM 9.7 MG/DL (8.5-10.1); GLUCOSE 84 MG/DL (70-105)
[2021-04-15 04:40] LABS: CARBON DIOXIDE 20 MMOL/L (21-32)
[2021-04-15 04:42] LABS: CREATININE SERUM 0.58 MG/DL (0.60-1.30); GFR ESTIMATED > 60
[2021-04-15 04:43] LABS: BUN/CREATININE RATIO 19
[2021-04-15 04:44] LABS: MAGNESIUM 1.9 MG/DL (1.6-2.4)
[2021-04-15] MEDS: KCL 20 MEQ TAB (K-DUR) PO SCH ×3 (05:14→17:06)
[2021-04-15] MEDS: MAGNESIUM 1 GM/100 ML IVPB 100 ML IV SCH (05:14)
[2021-04-15] MEDS: LEVOTHYROXINE 75 MCG (LEVOTHROID) TABLET PO SCH (05:48)
[2021-04-15] MEDS: CYANOCOBALAMIN 1,000 MCG (VITAMIN B-12) TABLET PO SCH (05:48)
[2021-04-15] MEDS: ONDANSETRON 4 MG/2 ML (SDV) Z0FRAN IV PRN ×2 (05:48→22:29)
[2021-04-15] MEDS: ONDANSETRON 4 MG (ZOFRAN) ORAL DISSOLVE TAB PO PRN (05:48)
[2021-04-15] MEDS: RYTARY PO SCH ×4 (05:49→19:54)
[2021-04-15 07:54] VITALS: BP 120/73
[2021-04-15] MEDS: LORATADINE (CLARITIN) 10 MG TAB PO SCH (07:55)
[2021-04-15] MEDS: GABAPENTIN 300 MG (NEURONTIN) CAP PO SCH ×3 (07:55→19:55)
[2021-04-15] MEDS: PANTOPRAZOLE 40 MG (PROTONIX) TAB PO SCH ×2 (07:55→19:55)
[2021-04-15] MEDS: SUCRALFATE 1 GM (CARAFATE) TAB PO SCH ×2 (07:56→19:58)
--- NOTE | 2021-04-15 10:30 | Progress Note - Hospitalist ---
Subjective HPI/CC On Admission Date Seen by Provider: April 15, 2021 Time Seen by Provider: 09:30 Pt is a 56yoCF known to me from recent admission who presented to the ER due to weakness and dehydration. She states that she has not been doing well since she had her gallbladder out. She has lost roughly 40lbs since that time and has felt very dehydrated because she is constantly nauseated and unable to keep food down. In the ER she was profoundly orthostatic and had a near syncopal episode trying to stand. Even after 1.5L bolus she was still profoundly orthostatic with SBP to the 70s so she was admitted overnight. She was admitted for further IVF and monitoring. This morning she states she feels much better and was able to keep her breakfast down. She is also requesting evaluation at IRU again. Subjective/Events-last exam She is nauseous this morning. She did not sleep well. She has no other concerns. Objective Exam Vital Signs Vital Signs Date Time Temp Pulse Resp B/P (MAP) Pulse Ox O2 Delivery O2 Flow Rate FiO2 04/15/21 08:46 96 Room Air 04/15/21 07:54 36.2 74 16 120/73 (89) 04/12/21 07:25 3.00 Capillary Refill : Less Than 3 Seconds General Appearance: No Apparent Distress, Obese Respiratory: Lungs Clear, Normal Breath Sounds, No Respiratory Distress Cardiovascular: Regular Rate, Rhythm, No Edema, No Murmur Gastrointestinal: Normal Bowel Sounds, Non Tender, Soft Extremity: Normal Inspection, Non Tender, No Pedal Edema Neurologic/Psychiatric: Alert, Oriented x3, No Motor/Sensory Deficits, Depressed Affect Skin: Normal Color, Warm/Dry Results/Procedures Lab Laboratory Tests 04/15/21 04:22 Patient resulted labs reviewed. Imaging: Reviewed Imaging Report Assessment/Plan Assessment and Plan Assess & Plan/Chief Complaint Parkinson's Disease Sinemet induced dyskinesia Debility PT/OT consulted IRU accepted, insurance denied, appeal denied, next level appeal in process s/p recent lap paulie s/p gastric sleeve Nausea Continue PPI Continue Zofran as needed Add Phenergan Hypothyroidism Continue home supplement Obesity Clinically significant, no acute management needs DVT prophylaxis: Lovenox Intractable nausea and vomiting, resolved Orthostatic hypotension, resolved Diagnosis/Problems Diagnosis/Problems (1) Orthostatic hypotension Status: Resolved Resolution Date/Time: 04/10/21 @ 11:00 (2) Intractable nausea and vomiting Status: Resolved Resolution Date/Time: 04/10/21 @ 11:00 (3) Parkinson disease Status: Acute (4) Debility Status: Acute (5) Obesity Status: Chronic GUNNAR MORALES MD April 15, 2021 10:30
[2021-04-15] MEDS: PROMETHAZINE INJ 25 MG/ML (PHENERGAN) AMP IVP PRN ×3 (10:43→23:20)
--- NOTE | 2021-04-15 10:52 | Progress Note ---
Subjective Date Seen by a Provider: April 15, 2021 Time Seen by a Provider: 10:00 Subjective/Events-last exam doing ok. developed nausea however no vomiting yesterday. mild nausea today. has not had BM for several days. Objective Exam Vital Signs Date Time Temp Pulse Resp B/P (MAP) Pulse Ox O2 Delivery O2 Flow Rate FiO2 04/15/21 08:46 96 Room Air 04/15/21 07:54 36.2 74 16 120/73 (89) 96 Room Air 04/15/21 04:03 36.1 82 18 109/74 (86) 93 Room Air 04/14/21 23:51 36.7 94 17 117/67 (84) 94 Room Air 04/14/21 20:53 Room Air 04/14/21 19:31 37.0 80 18 114/73 (87) 97 Room Air 04/14/21 16:47 37.4 101 20 116/78 (91) 97 Room Air 04/14/21 12:00 36.8 74 16 110/73 (85) 95 Room Air I & O 04/15/21 07:00 Intake Total 1760 ml Balance 1760 ml Capillary Refill : Less Than 3 Seconds General Appearance: No Apparent Distress HEENT: PERRL/EOMI Neck: Full Range of Motion Respiratory: Chest Non Tender, Lungs Clear, Normal Breath Sounds Cardiovascular: Regular Rate, Rhythm Gastrointestinal: normal bowel sounds, non tender, soft Neurologic/Psychiatric: Alert, Oriented x3 Skin: Normal Color Lymphatic: No Adenopathy Results Lab Laboratory Tests 04/15/21 04:22: Sodium Level 137, Potassium Level 3.8, Chloride Level 106, Carbon Dioxide Level 20L, Anion Gap 11, Blood Urea Nitrogen 11, Creatinine 0.58L, Estimat Glomerular Filtration Rate > 60, BUN/Creatinine Ratio 19, Glucose Level 84, Calcium Level 9.7, Magnesium Level 1.9 Microbiology 04/06/21 Urine Culture - Final, Complete YEAST Gram Pos Mixed Bacterial Chan[place] Assessment/Plan Assessment/Plan Assess & Plan/Chief Complaint nausea likely secondary gastritis. start mirlax BID. ambulate. ok for ARU transfer. will do EGD if nausea peristent. JESUS MANCILLA MD April 15, 2021 10:52
[2021-04-15] MEDS ORDERED: polyethylene glycoL POWDER 17 GM (MIRALAX) PACK PO PRN (11:00)
[2021-04-15 11:27] VITALS: BP 98/55
[2021-04-15] MEDS: ENOXAPARIN 40 MG/0.4 ML (LOVENOX) SYR SC SCH (13:37)
[2021-04-15 15:38] VITALS: BP 108/66
[2021-04-15 19:26] VITALS: BP 109/64
[2021-04-15] MEDS: SERTRALINE 50 MG (ZOLOFT) TABLET PO SCH (19:55)
[2021-04-15] MEDS: AMITRIPTYLINE 50 MG (ELAVIL) TAB PO SCH (22:30)
[2021-04-15] MEDS: HYDROcodone/APAP 7.5 MG/325 MG (LORTAB, LORCET PLUS) TABLET PO PRN (22:30)
[2021-04-15] MEDS: LORazepam 0.5 MG (ATIVAN) TABLET PO SCH (22:30)
[2021-04-15 23:05] VITALS: BP 141/6
[2021-04-16 04:00] VITALS: BP 128/75
[2021-04-16 04:42] LABS: CHLORIDE 107 MMOL/L (98-107); POTASSIUM 4.1 MMOL/L (3.6-5.0); SODIUM 139 MMOL/L (135-145)
[2021-04-16 04:43] LABS: CALCIUM 9.9 MG/DL (8.5-10.1); GLUCOSE 92 MG/DL (70-105)
[2021-04-16 04:45] LABS: CARBON DIOXIDE 20 MMOL/L (21-32)
[2021-04-16 04:47] LABS: GFR ESTIMATED > 60
[2021-04-16 04:48] LABS: BUN/CREATININE RATIO 23
[2021-04-16 04:50] LABS: MAGNESIUM 1.9 MG/DL (1.6-2.4)
[2021-04-16] MEDS: MAGNESIUM 1 GM/100 ML IVPB 100 ML IV SCH (05:31)
[2021-04-16] MEDS: KCL 20 MEQ TAB (K-DUR) PO SCH ×3 (05:31→16:42)
[2021-04-16] MEDS: CYANOCOBALAMIN 1,000 MCG (VITAMIN B-12) TABLET PO SCH (05:57)
[2021-04-16] MEDS: LEVOTHYROXINE 75 MCG (LEVOTHROID) TABLET PO SCH (05:58)
[2021-04-16] MEDS: RYTARY PO SCH ×4 (05:59→19:45)
[2021-04-16] MEDS: GABAPENTIN 300 MG (NEURONTIN) CAP PO SCH ×3 (07:39→19:45)
[2021-04-16] MEDS: SUCRALFATE 1 GM (CARAFATE) TAB PO SCH ×2 (07:39→19:45)
[2021-04-16] MEDS: PANTOPRAZOLE 40 MG (PROTONIX) TAB PO SCH ×2 (07:39→19:44)
[2021-04-16] MEDS: LORATADINE (CLARITIN) 10 MG TAB PO SCH (07:39)
[2021-04-16 07:55] VITALS: BP 112/76
[2021-04-16] MEDS: PROMETHAZINE INJ 25 MG/ML (PHENERGAN) AMP IVP PRN ×3 (09:21→21:45)
--- NOTE | 2021-04-16 10:53 | Progress Note - Hospitalist ---
Subjective HPI/CC On Admission Date Seen by Provider: April 16, 2021 Time Seen by Provider: 10:51 Pt is a 56yoCF known to me from recent admission who presented to the ER due to weakness and dehydration. She states that she has not been doing well since she had her gallbladder out. She has lost roughly 40lbs since that time and has felt very dehydrated because she is constantly nauseated and unable to keep food down. In the ER she was profoundly orthostatic and had a near syncopal episode trying to stand. Even after 1.5L bolus she was still profoundly orthostatic with SBP to the 70s so she was admitted overnight. She was admitted for further IVF and monitoring. This morning she states she feels much better and was able to keep her breakfast down. She is also requesting evaluation at IRU again. Subjective/Events-last exam Pt reports no complaints. Had some nausea and got phenergan so sleepy. Discussed plan to await insurance appeal process results. Objective Exam Vital Signs Vital Signs Date Time Temp Pulse Resp B/P (MAP) Pulse Ox O2 Delivery O2 Flow Rate FiO2 04/16/21 09:26 Room Air 04/16/21 07:55 36.3 79 18 112/76 (88) 5 04/12/21 07:25 3.00 Capillary Refill : Less Than 3 Seconds General Appearance: No Apparent Distress, Chronically ill Respiratory: Lungs Clear, No Respiratory Distress Cardiovascular: Regular Rate, Rhythm, No Murmur Neurologic/Psychiatric: Alert, Oriented x3 Results/Procedures Lab Laboratory Tests 04/16/21 04:08 Patient resulted labs reviewed. Imaging: Reviewed Imaging Report Assessment/Plan Assessment and Plan Assess & Plan/Chief Complaint Parkinson's Disease Sinemet induced dyskinesia Debility PT/OT consulted IRU accepted, insurance denied, appeal denied, next level appeal in process s/p recent lap paulie s/p gastric sleeve Nausea Continue PPI and carafate Continue Zofran as needed Add Phenergan Hypothyroidism Continue home supplement Obesity Clinically significant, no acute management needs DVT prophylaxis: Lovenox Intractable nausea and vomiting, resolved Orthostatic hypotension, resolved Diagnosis/Problems Diagnosis/Problems (1) Parkinson disease Status: Acute (2) Intractable nausea and vomiting Status: Resolved Resolution Date/Time: 04/10/21 @ 11:00 (3) H/O gastric bypass (4) Orthostatic hypotension Status: Resolved Resolution Date/Time: 04/10/21 @ 11:00 (5) Vaginal yeast infection Status: Acute ILSETTE LUDWIG MD April 16, 2021 10:53
[2021-04-16 11:47] VITALS: BP 125/82
--- NOTE | 2021-04-16 12:13 | Physical Therapy Progress Note ---
Therapy Progress Note Pt requested to hold therapy today. She got up with nursing to take a shower and fainted. She feels nauseated and does not want to get out of bed. Resume therapy 04/17/21 GALE ROTHMAN PT April 16, 2021 12:13
[2021-04-16] MEDS: ONDANSETRON 4 MG/2 ML (SDV) Z0FRAN IV PRN (12:16)
--- NOTE | 2021-04-16 12:22 | Occupational Ther Daily Note ---
OT Current Status-Daily Note Subjective Pt. does not report pain, but states that she has been very sick to her stomach, has been asleep due to medication for nausea, and feels very weak. Mental Status/Objective Patient Orientation: Person, Place, Time, Situation ADL-Treatment Therapy Code Descriptions/Definitions Functional [place] Measure: 0=Not Assessed/NA 4=Minimal Assistance 1=Total Assistance 5=Supervision or Setup 2=Maximal Assistance 6=Modified [place] 3=Moderate Assistance 7=Complete IndependenceSCALE: Activities may be completed with or without assistive devices. 4-Duxircnuyn-yfdbtrh completes the activity by him/herself with no assistance from a helper. 5-Set-up or Clean-up Assistance-helper sets up or cleans up; patient completes activity. [place] assists only prior to or following the activity. 4-Supervision or Touching Assistance-helper provides verbal cues and/or touching/steadying and/or contact guard assistance as patient completes activity. Assistance may be provided throughout the activity or intermittently. 3-Partial/Moderate Assistance-helper does LESS THAN HALF the effort. [place] lifts, holds or supports trunk or limbs, but provides less than half the effort. 2-Substantial/Maximal Assistance-helper does MORE THAN HALF the effort. [place] lifts or holds trunk or limbs and provides more than half the effort. 6-Eycegnnjq-hsytof does ALL the effort. Patient does none of the effort to complete the activity. Or, the assistance of 2 or more helpers is required for the patient to complete the activity. If activity was not attempted, code reason: 7-Patient Refused. 9-Not Applicable-not attempted and the patient did not perform the activity before the current illness, exacerbation or injury. 10-Not Attempted due to Environmental Limitations-(lack of equipment, weather restraints, etc.). 88-Not Attempted due to Medical Conditions or Safety Concerns. Eating (QC): 2 (Pt. has great difficulty bringing water bottle up to her mouth to give herself a drink. OT assists her with this.) Other Treatment OT went into pt's room. Pt. asleep but wakes up. States that she has been discouraged due to recent nausea and vomiting. OT talks with nurse and nursing reports that pt. has been having difficulty with movement. Attempted earlier to get onto shower chair, became ill with upright movement and began vomiting. Nursing okay for OT to attempt treatment if pt. can tolerate. Pt. agrees to try. Pt. slumped down in bed. OT attempts different methods for pt. to complete her own bed mobility, including putting bed flatter and holding pt's feet for her to attempt pushing self toward HOB. Pt. does not have strength to do this very well, but is able to move self enough so that OT can elevate HOB for pt. to pull self forward. Pt. is able to hold self in upright seated position, and OT brushes her hair. OT brings HOB all the way to her, and pt. is able to recline back onto bed and is more elevated in comfortable position. OT attempts to encourage pt. and offer support. All needs met. Education OT Patient Education: Correct positioning, Modified ADL techniques, Progress toward Goal/Update tx plan, Purpose of tx/functional activities, Reviewed precautions, Rehab process, Transfer techniques Teaching Recipient: Patient Teaching Methods: Demonstration, Discussion Response to Teaching: Verbalize Understanding, Return Demonstration OT Short Term Goals Short Term Goals Time Frame: April 16, 2021 Eatin Oral hygiene: 3 Toileting hygiene: 3 Upper body dressin OT Detention Goals [employer] Engineer Goals Time Frame: Apr 23, 2021 Eating (QC): 5 Oral Hygiene (QC): 5 Toileting Hygiene (QC): 4 Upper Body Dressing (QC): 4 Additional Goals: 1-Demonstrate ADL Tasks, 2-Verbalize Understanding, 3- ImproveStrength/Judy 1=Demonstrate adherence to instructed precautions during ADL tasks. 2=Patient will verbalize/demonstrate understanding of assistive devices/modifications for ADL. 3=Patient will improve strength/tolerance for activity to enable patient to perform ADL's. OT Education/Plan Discharge Recommendations Plan/Recommendations: Continue POC Therapy Discharge Recommendati: Post Acute OT Treatment Plan/Plan of Care Treatment,Training & Education: Yes Patient would benefit from OT for education, treatment and training to promote independence in ADL's, mobility, safety and/or upper extremity function for ADL's. Plan of Care: ADL Retraining, Functional Mobility, UE Funct Exercise/Act Treatment Duration: Apr 23, 2021 Frequency: At least 5 of 7 days/Wk (IRF) Estimated Hrs Per Day: 1.5 hours per day Agreement: Yes Rehab Potential: Fair Time/GCodes Start Time: 11:50 Stop Time: 12:10 Total Time Billed (hr/min): 20 Billed Treatment Time 1, FA DESTIN MURO OT April 16, 2021 12:22
[2021-04-16] MEDS: ENOXAPARIN 40 MG/0.4 ML (LOVENOX) SYR SC SCH (14:37)
[2021-04-16 16:00] VITALS: BP 121/73
[2021-04-16] MEDS: LORazepam 0.5 MG (ATIVAN) TABLET PO PRN (16:42)
[2021-04-16] MEDS: AMITRIPTYLINE 50 MG (ELAVIL) TAB PO SCH (19:44)
[2021-04-16] MEDS: SERTRALINE 50 MG (ZOLOFT) TABLET PO SCH (19:44)
[2021-04-16] MEDS: LORazepam 0.5 MG (ATIVAN) TABLET PO SCH (19:45)
[2021-04-16 20:31] VITALS: BP 108/69
[2021-04-16] MEDS ORDERED: PHENYTOIN INJECTION 1,000 MG in NS (IVPB) 50 ML, 0.2 MICRON FILTER 1 EACH INJ ONE ×3 (23:00)
[2021-04-17] VITALS (7 sets, daily range): BP systolic 98–129; BP diastolic 60–83
[2021-04-17 04:48] LABS: CHLORIDE 104 MMOL/L (98-107); POTASSIUM 3.8 MMOL/L (3.6-5.0); SODIUM 137 MMOL/L (135-145)
[2021-04-17 04:50] LABS: CALCIUM 9.9 MG/DL (8.5-10.1); GLUCOSE 91 MG/DL (70-105)
[2021-04-17 04:52] LABS: CARBON DIOXIDE 22 MMOL/L (21-32)
[2021-04-17 04:54] LABS: GFR ESTIMATED > 60
[2021-04-17 04:55] LABS: BUN/CREATININE RATIO 25
[2021-04-17] MEDS: KCL 20 MEQ TAB (K-DUR) PO SCH ×3 (05:03→18:28)
[2021-04-17] MEDS: MAGNESIUM 1 GM/100 ML IVPB 100 ML IV SCH (05:03)
[2021-04-17] MEDS: LEVOTHYROXINE 75 MCG (LEVOTHROID) TABLET PO SCH (07:45)
[2021-04-17] MEDS: SUCRALFATE 1 GM (CARAFATE) TAB PO SCH ×2 (07:45→20:19)
[2021-04-17] MEDS: LORATADINE (CLARITIN) 10 MG TAB PO SCH (07:45)
[2021-04-17] MEDS: PANTOPRAZOLE 40 MG (PROTONIX) TAB PO SCH ×2 (07:45→20:19)
[2021-04-17] MEDS: RYTARY PO SCH ×4 (07:46→20:18)
[2021-04-17] MEDS: CYANOCOBALAMIN 1,000 MCG (VITAMIN B-12) TABLET PO SCH (08:01)
[2021-04-17] MEDS: GABAPENTIN 300 MG (NEURONTIN) CAP PO SCH ×3 (08:01→20:19)
--- NOTE | 2021-04-17 10:02 | Progress Note - Hospitalist ---
Subjective HPI/CC On Admission Date Seen by Provider: Apr 17, 2021 Time Seen by Provider: 10:00 Pt is a 56yoCF known to me from recent admission who presented to the ER due to weakness and dehydration. She states that she has not been doing well since she had her gallbladder out. She has lost roughly 40lbs since that time and has felt very dehydrated because she is constantly nauseated and unable to keep food down. In the ER she was profoundly orthostatic and had a near syncopal episode trying to stand. Even after 1.5L bolus she was still profoundly orthostatic with SBP to the 70s so she was admitted overnight. She was admitted for further IVF and monitoring. This morning she states she feels much better and was able to keep her breakfast down. She is also requesting evaluation at IRU again. Subjective/Events-last exam Pt had a seizure last night and received ativan. Is somewhat sleepy now. No other complaints or concerns. Does not appear to be on antiepileptics at home but has a history of seizures. Objective Exam Vital Signs Vital Signs Date Time Temp Pulse Resp B/P (MAP) Pulse Ox O2 Delivery O2 Flow Rate FiO2 04/17/21 09:38 Room Air 04/17/21 08:00 36.6 80 20 129/83 (98) 98 2.00 Capillary Refill : Less Than 3 Seconds General Appearance: No Apparent Distress, Chronically ill Cardiovascular: Regular Rate, Rhythm, No Murmur Gastrointestinal: Normal Bowel Sounds, Soft Neurologic/Psychiatric: Alert, Oriented x3 (but sleepy) Results/Procedures Lab Laboratory Tests 04/17/21 03:54 Patient resulted labs reviewed. Imaging: Reviewed Imaging Report Assessment/Plan Assessment and Plan Assess & Plan/Chief Complaint Parkinson's Disease Sinemet induced dyskinesia Debility PT/OT consulted IRU accepted, insurance denied, appeal denied, next level appeal in process Awaiting insurance appeal results still- if denied will DC home with HH s/p recent lap paulie s/p gastric sleeve Nausea Continue PPI and carafate Continue Zofran and Phenergan prn Hypothyroidism Continue home supplement Obesity Clinically significant, no acute management needs Seizure disorder Started on keppra Seizure precautions DVT prophylaxis: Lovenox Intractable nausea and vomiting, resolved Orthostatic hypotension, resolved Diagnosis/Problems Diagnosis/Problems (1) Parkinson disease Status: Acute (2) Intractable nausea and vomiting Status: Resolved Resolution Date/Time: 04/10/21 @ 11:00 (3) H/O gastric bypass (4) Orthostatic hypotension Status: Resolved Resolution Date/Time: 04/10/21 @ 11:00 (5) Vaginal yeast infection Status: Acute LISETTE LUDWIG MD Apr 17, 2021 10:02
--- NOTE | 2021-04-17 12:16 | Physical Therapy Daily Note ---
PT Daily Note-Current Subjective Pt reports she had a seizure last night. "Today, I am just real tired." Pt agreeable to treatment in bed. Pt states "I have to pee" during therapy. Pt c/o "lightheaded" upon sitting on commode. Pt states "It comes in waves." Mental Status Patient Orientation: Person, Place, Situation Transfers SCALE: Activities may be completed with or without assistive devices. 7-Gqeitdippx-exweujz completes the activity by him/herself with no assistance from a helper. 5-Set-up or Clean-up Assistance-helper sets up or cleans up; patient completes activity. [place] assists only prior to or following the activity. 4-Supervision or Touching Assistance-helper provides verbal cues and/or touching/steadying and/or contact guard assistance as patient completes acti vity. Assistance may be provided throughout the activity or intermittently. 3-Partial/Moderate Assistance-helper does LESS THAN HALF the effort. [place] lifts, holds or supports trunk or limbs, but provides less than half the effort. 2-Substantial/Maximal Assistance-helper does MORE THAN HALF the effort. [place] lifts or holds trunk or limbs and provides more than half the effort. 1-Dguuubnzb-kcwets does ALL the effort. Patient does none of the effort to complete the activity. Or, the assistance of 2 or more helpers is required for the patient to complete the activity. If activity was not attempted, code reason: 7-Patient Refused. 9-Not Applicable-not attempted and the patient did not perform the activity before the current illness, exacerbation or injury. 10-Not Attempted due to Environmental Limitations-(lack of equipment, weather restraints, etc.). 88-Not Attempted due to Medical Conditions or Safety Concerns. Gait Training Gait Assistive Device: FWW Pt able to take 2-3 steps to commode and back to bed. Pt required min A of 2 persons. Exercises Supine Ex: Ankle pumps, Quad Set, Heel Slides, Hip abd/add Supine Reps: 20 Seated Therapy Exercises: Ankle pumps Assessment Current Status: Fair Progress Pt demonstrated ability to transfer to EOB mod (I). Pt requires min A -CGA at all times for sitting balance and safety. Pt back to bed with call light and all needs met. OT present. PT Chcf Goals Chcf Goals PT Brake [address] Freight Goals Time Frame: Apr 28, 2021 Roll Left & Right (QC): 4 Sit to Lying (QC): 4 Lying-Sitting on Side/Bed(QC): 4 Sit to Stand (QC): 4 Chair/Ffz-ik-Ghijd Xfer(QC): 4 Toilet Transfer (QC): 4 Does the Patient Walk: Yes Walk 10 feet (QC): 3 Walk 50ft with 2 Turns (QC): 3 PT Plan Treatment/Plan Treatment Plan: Continue Plan of Care Treatment Plan: Bed Mobility, Education, Functional Activity Judy, Functional Strength, Gait, Safety, Therapeutic Exercise, Transfers Treatment Duration: Apr 28, 2021 Frequency: 6 times per week Estimated Hrs Per Day: .5 hour per day Patient and/or Family Agrees t: Yes Time/GCodes Time In: 1030 Time Out: 1100 Total Billed Treatment Time: 30 Total Billed Treatment 1, Ther ex 15', FA 15' JL SARAVIA CPTA Apr 17, 2021 12:16
[2021-04-17] MEDS: D5 LR IV SOLUTION 1,000 ML IV SCH ×3 (13:45→22:12)
--- NOTE | 2021-04-17 14:08 | Occupational Ther Daily Note ---
OT Current Status-Daily Note Subjective Pt. does not report pain, but does report fatigue and light headedness during transfer. Nursing comes in room and assesses pt. Mental Status/Objective Patient Orientation: Person, Place, Time, Situation ADL-Treatment Therapy Code Descriptions/Definitions Functional [place] Measure: 0=Not Assessed/NA 4=Minimal Assistance 1=Total Assistance 5=Supervision or Setup 2=Maximal Assistance 6=Modified [place] 3=Moderate Assistance 7=Complete IndependenceSCALE: Activities may be completed with or without assistive devices. 6-Pcharwldrh-qjeqjku completes the activity by him/herself with no assistance from a helper. 5-Set-up or Clean-up Assistance-helper sets up or cleans up; patient completes activity. [place] assists only prior to or following the activity. 4-Supervision or Touching Assistance-helper provides verbal cues and/or touching/steadying and/or contact guard assistance as patient completes activity. Assistance may be provided throughout the activity or intermittently. 3-Partial/Moderate Assistance-helper does LESS THAN HALF the effort. [place] lifts, holds or supports trunk or limbs, but provides less than half the effort. 2-Substantial/Maximal Assistance-helper does MORE THAN HALF the effort. [place] lifts or holds trunk or limbs and provides more than half the effort. 9-Hffatpiho-vjbpxk does ALL the effort. Patient does none of the effort to complete the activity. Or, the assistance of 2 or more helpers is required for the patient to complete the activity. If activity was not attempted, code reason: 7-Patient Refused. 9-Not Applicable-not attempted and the patient did not perform the activity before the current illness, exacerbation or injury. 10-Not Attempted due to Environmental Limitations-(lack of equipment, weather restraints, etc.). 88-Not Attempted due to Medical Conditions or Safety Concerns. Toileting Hygiene (QC): 3 (Mod assist for balance while pt. is able to cleanse front juan area on BSC.) Toilet Transfer (QC): 1 (Please see note.) Other Treatment OT comes in room to assist pt, and PT in room after exercises. Co-treat pt. for safe transfer to chair side, after okay'd by nursing. Pt. transfers supine-sit with min assist. Demonstrates appropriate balance EOB while gait belt is being placed. Chair is ready and pt. requests BSC, as she needs to urinate. BSC is placed, and both OT/PT position on either side with walker in front to assist pt. into stance for safe step pivot to commode. Pt. able to stand with min/mod x 2. She is able to take several steps, but then legs go weak and pt. [place] [facility] [place] force x 2. Demonstrates poor balance for a moment on commode, with leaned forward posture and legs lifted off ground. Nursing called into room to be on standby, as pt. states that she is "going in and out." Pt. is able to continue talking, and soon feels better. She is able to urinate, and cleanse self with increased time. Transfers back to bed with max x 2 for sit-stand and sit-supine. All needs met at bed level. Education OT Patient Education: Correct positioning, Modified ADL techniques, Progress toward Goal/Update tx plan, Purpose of tx/functional activities, Reviewed precautions, Rehab process, Transfer techniques Teaching Recipient: Patient Teaching Methods: Demonstration, Discussion Response to Teaching: Verbalize Understanding, Return Demonstration, Reinforcement Needed OT Short Term Goals Short Term Goals Time Frame: April 16, 2021 Eatin Oral hygiene: 3 Toileting hygiene: 3 Upper body dressin OT Fpc Goals Fpc Goals Time Frame: Apr 23, 2021 Eating (QC): 5 Oral Hygiene (QC): 5 Toileting Hygiene (QC): 4 Upper Body Dressing (QC): 4 Additional Goals: 1-Demonstrate ADL Tasks, 2-Verbalize Understanding, 3- ImproveStrength/Judy 1=Demonstrate adherence to instructed precautions during ADL tasks. 2=Patient will verbalize/demonstrate understanding of assistive devices/modifications for ADL. 3=Patient will improve strength/tolerance for activity to enable patient to perform ADL's. OT Education/Plan Problem List/Assessment Assessment: Decreased Activ Tolerance, Dependent Transfers, Impaired Bed M obility, Impaired Coordination, Impaired Funct Balance, Impaired I ADL's, Impaired Self-Care Skills Discharge Recommendations Plan/Recommendations: Continue POC Therapy Discharge Recommendati: Post Acute OT Treatment Plan/Plan of Care Treatment,Training & Education: Yes Patient would benefit from OT for education, treatment and training to promote independence in ADL's, mobility, safety and/or upper extremity function for ADL's. Plan of Care: ADL Retraining, Functional Mobility, UE Funct Exercise/Act Treatment Duration: Apr 23, 2021 Frequency: At least 5 of 7 days/Wk (IRF) Estimated Hrs Per Day: 1.5 hours per day Agreement: Yes Rehab Potential: Fair Time/GCodes Start Time: 10:45 Stop Time: 11:09 Total Time Billed (hr/min): 24 Billed Treatment Time 1, FA x 24minutes- Co-treatment with PT-Please see above note. DESTIN MURO OT Apr 17, 2021 14:08
[2021-04-17] MEDS: ENOXAPARIN 40 MG/0.4 ML (LOVENOX) SYR SC SCH (14:51)
[2021-04-17] MEDS ORDERED: LEVE500T6 PO (19:31)
[2021-04-17] MEDS: SERTRALINE 50 MG (ZOLOFT) TABLET PO SCH (20:19)
[2021-04-17] MEDS ORDERED: NS IV SCH ×3 (21:00)
[2021-04-17] MEDS ORDERED: PHENYTOIN IV SCH ×3 (21:00)
[2021-04-17] MEDS ORDERED: MICRON FILTER IV SCH ×3 (21:00)
[2021-04-17] MEDS: HYDROcodone/APAP 7.5 MG/325 MG (LORTAB, LORCET PLUS) TABLET PO PRN (22:13)
[2021-04-17] MEDS: LORazepam 0.5 MG (ATIVAN) TABLET PO SCH (22:13)
[2021-04-17] MEDS: AMITRIPTYLINE 50 MG (ELAVIL) TAB PO SCH (22:13)
[2021-04-18 03:23] VITALS: BP 105/63
[2021-04-18 05:37] LABS: CHLORIDE 102 MMOL/L (98-107); POTASSIUM 3.1 MMOL/L (3.6-5.0); SODIUM 136 MMOL/L (135-145)
[2021-04-18 05:38] LABS: CALCIUM 9.2 MG/DL (8.5-10.1)
[2021-04-18 05:39] LABS: GLUCOSE 105 MG/DL (70-105)
[2021-04-18 05:40] LABS: CARBON DIOXIDE 24 MMOL/L (21-32)
[2021-04-18 05:43] LABS: BUN/CREATININE RATIO 26; CREATININE SERUM 0.54 MG/DL (0.60-1.30); GFR ESTIMATED > 60
[2021-04-18 05:45] LABS: MAGNESIUM 1.8 MG/DL (1.6-2.4)
[2021-04-18] MEDS: KCL 20 MEQ TAB (K-DUR) PO SCH ×3 (05:48→17:17)
[2021-04-18] MEDS: MAGNESIUM 1 GM/100 ML IVPB 100 ML IV SCH (05:48)
[2021-04-18] MEDS: RYTARY PO SCH ×4 (06:00→21:38)
[2021-04-18] MEDS: LEVOTHYROXINE 75 MCG (LEVOTHROID) TABLET PO SCH (06:00)
[2021-04-18] MEDS ORDERED: KCL 20 MEQ TAB (K-DUR) PO ONE ×3 (06:00→08:00)
[2021-04-18] MEDS: CYANOCOBALAMIN 1,000 MCG (VITAMIN B-12) TABLET PO SCH (06:00)
[2021-04-18] MEDS: D5 LR IV SOLUTION 1,000 ML IV SCH ×2 (06:11→14:20)
[2021-04-18 07:49] VITALS: BP 126/84
[2021-04-18] MEDS: PANTOPRAZOLE 40 MG (PROTONIX) TAB PO SCH ×2 (08:19→21:36)
[2021-04-18] MEDS: SUCRALFATE 1 GM (CARAFATE) TAB PO SCH ×2 (08:19→21:32)
[2021-04-18] MEDS: LORATADINE (CLARITIN) 10 MG TAB PO SCH (08:19)
[2021-04-18] MEDS: GABAPENTIN 300 MG (NEURONTIN) CAP PO SCH ×3 (08:19→21:36)
--- NOTE | 2021-04-18 11:20 | Occ Therapy Progress Note ---
Therapy Progress Note Pt. on hold this date per PT from physician, and per nursing due to change in medical status. Will continue to monitor pt. 1120 DESTIN MURO OT Apr 18, 2021 11:20
--- NOTE | 2021-04-18 11:28 | Physical Therapy Progress Note ---
Therapy Progress Note Patient is on hold today due to heavy sedation and inability to safely participate with skilled therapy. KATHY FAROOQ PT Apr 18, 2021 11:28
[2021-04-18 11:45] VITALS: BP 110/63
--- NOTE | 2021-04-18 12:45 | Progress Note - Hospitalist ---
Subjective HPI/CC On Admission Date Seen by Provider: Apr 18, 2021 Time Seen by Provider: 10:00 Pt is a 56yoCF known to me from recent admission who presented to the ER due to weakness and dehydration. She states that she has not been doing well since she had her gallbladder out. She has lost roughly 40lbs since that time and has felt very dehydrated because she is constantly nauseated and unable to keep food down. In the ER she was profoundly orthostatic and had a near syncopal episode trying to stand. Even after 1.5L bolus she was still profoundly orthostatic with SBP to the 70s so she was admitted overnight. She was admitted for further IVF and monitoring. This morning she states she feels much better and was able to keep her breakfast down. She is also requesting evaluation at IRU again. Subjective/Events-last exam Pt is still sleeping. Received ativan last night. Has not complaints. Awaiting insurance approval still. Objective Exam Vital Signs Vital Signs Date Time Temp Pulse Resp B/P (MAP) Pulse Ox O2 Delivery O2 Flow Rate FiO2 04/18/21 11:45 36.3 80 20 110/63 (79) 94 Room Air 04/17/21 15:42 2.00 Capillary Refill : Less Than 3 Seconds General Appearance: No Apparent Distress, Chronically ill Respiratory: Lungs Clear, No Respiratory Distress Cardiovascular: Regular Rate, Rhythm, No Murmur Results/Procedures Lab Laboratory Tests 04/18/21 05:14 Patient resulted labs reviewed. Imaging: Reviewed Imaging Report Assessment/Plan Assessment and Plan Assess & Plan/Chief Complaint Parkinson's Disease Sinemet induced dyskinesia Debility PT/OT consulted IRU accepted, insurance denied, appeal denied, next level appeal in process Awaiting insurance appeal results still- if denied will DC home with HH DC nightly gabapentin and DC scheduld ativan due to daytime drowsiness s/p recent lap paulie s/p gastric sleeve Nausea Continue PPI and carafate Continue Zofran and Phenergan prn Hypothyroidism Continue home supplement Obesity Clinically significant, no acute management needs Seizure disorder Continue keppra Seizure precautions DVT prophylaxis: Lovenox Intractable nausea and vomiting, resolved Orthostatic hypotension, resolved Diagnosis/Problems Diagnosis/Problems (1) Parkinson disease Status: Acute (2) Intractable nausea and vomiting Status: Resolved Resolution Date/Time: 04/10/21 @ 11:00 (3) H/O gastric bypass (4) Orthostatic hypotension Status: Resolved Resolution Date/Time: 04/10/21 @ 11:00 (5) Vaginal yeast infection Status: Acute LISETTE LUDWIG MD Apr 18, 2021 12:45
--- NOTE | 2021-04-18 14:14 | Progress Note ---
Subjective Date Seen by a Provider: Apr 18, 2021 Time Seen by a Provider: 13:00 Subjective/Events-last exam has intermittent bouts of nausea when dehydrated or anxious. PPI does help considerably. applied for IRU however currently denied. Objective Exam Vital Signs Date Time Temp Pulse Resp B/P (MAP) Pulse Ox O2 Delivery O2 Flow Rate FiO2 04/18/21 11:45 36.3 80 20 110/63 (79) 94 Room Air 04/18/21 09:44 Room Air 04/18/21 07:49 36.2 71 18 126/84 (98) 96 Room Air 04/18/21 03:23 35.9 71 16 105/63 (77) 94 Room Air 04/17/21 23:58 36.4 81 16 107/60 (76) 94 Room Air 04/17/21 20:30 Room Air 04/17/21 19:40 37.0 84 18 98/61 (73) 93 Room Air 04/17/21 15:47 36.2 77 18 123/80 (94) 99 Room Air 04/17/21 15:42 Nasal Cannula 2.00 I & O 04/18/21 07:00 Intake Total 2050 ml Balance 2050 ml Capillary Refill : Less Than 3 Seconds General Appearance: No Apparent Distress HEENT: PERRL/EOMI Neck: Full Range of Motion Respiratory: Chest Non Tender, Lungs Clear, Normal Breath Sounds Cardiovascular: Regular Rate, Rhythm Gastrointestinal: normal bowel sounds, non tender, soft Extremity: Normal Capillary Refill Neurologic/Psychiatric: Alert, Oriented x3 Skin: Normal Color Lymphatic: No Adenopathy Results Lab Laboratory Tests 04/18/21 05:14: Sodium Level 136, Potassium Level 3.1L, Chloride Level 102, Carbon Dioxide Level 24, Anion Gap 10, Blood Urea Nitrogen 14, Creatinine 0.54L, Estimat Glomerular Filtration Rate > 60, BUN/Creatinine Ratio 26, Glucose Level 105, Calcium Level 9.2, Magnesium Level 1.8 Microbiology 04/06/21 Urine Culture - Final, Complete YEAST Gram Pos Mixed Bacterial Chanel Assessment/Plan Assessment/Plan Assess & Plan/Chief Complaint nausea likely secondary gastritis. cont PPI start mirlax BID. ambulate. will do EGD if nausea peristent as OP. JESUS MANCILLA MD Apr 18, 2021 14:14
[2021-04-18] MEDS: ENOXAPARIN 40 MG/0.4 ML (LOVENOX) SYR SC SCH (14:20)
[2021-04-18] MEDS: ONDANSETRON 4 MG/2 ML (SDV) Z0FRAN IV PRN (15:17)
[2021-04-18 16:57] VITALS: BP 115/71
[2021-04-18] MEDS ORDERED: KCL 20 MEQ TAB (K-DUR) PO NR (18:00)
[2021-04-18 20:39] VITALS: BP 111/77
[2021-04-18] MEDS: LORazepam 0.5 MG (ATIVAN) TABLET PO PRN (21:37)
[2021-04-18] MEDS: HYDROcodone/APAP 7.5 MG/325 MG (LORTAB, LORCET PLUS) TABLET PO PRN (21:37)
[2021-04-18] MEDS: AMITRIPTYLINE 50 MG (ELAVIL) TAB PO SCH (21:37)
[2021-04-18] MEDS: SERTRALINE 50 MG (ZOLOFT) TABLET PO SCH (21:37)
[2021-04-18 23:25] VITALS: BP 115/72
[2021-04-19 03:20] VITALS: BP 107/64
[2021-04-19] MEDS: D5 LR IV SOLUTION 1,000 ML IV SCH ×3 (03:27→15:44)
[2021-04-19] MEDS: RYTARY PO SCH ×4 (05:14→20:45)
[2021-04-19] MEDS: CYANOCOBALAMIN 1,000 MCG (VITAMIN B-12) TABLET PO SCH (05:14)
[2021-04-19] MEDS: LEVOTHYROXINE 75 MCG (LEVOTHROID) TABLET PO SCH (05:15)
[2021-04-19 05:29] LABS: CHLORIDE 106 MMOL/L (98-107)
[2021-04-19 05:30] LABS: POTASSIUM 3.7 MMOL/L (3.6-5.0); SODIUM 139 MMOL/L (135-145)
[2021-04-19 05:31] LABS: CALCIUM 9.2 MG/DL (8.5-10.1); GLUCOSE 88 MG/DL (70-105)
[2021-04-19 05:33] LABS: CARBON DIOXIDE 26 MMOL/L (21-32)
[2021-04-19 05:35] LABS: GFR ESTIMATED > 60
[2021-04-19 05:36] LABS: BUN/CREATININE RATIO 12
[2021-04-19 05:37] LABS: MAGNESIUM 1.7 MG/DL (1.6-2.4)
[2021-04-19] MEDS: KCL 20 MEQ TAB (K-DUR) PO SCH ×3 (06:20→16:23)
[2021-04-19] MEDS: MAGNESIUM 1 GM/100 ML IVPB 100 ML IV SCH ×3 (06:21→07:58)
[2021-04-19 08:24] VITALS: BP 119/58
[2021-04-19] MEDS: LORATADINE (CLARITIN) 10 MG TAB PO SCH (08:31)
[2021-04-19] MEDS: SUCRALFATE 1 GM (CARAFATE) TAB PO SCH ×2 (08:31→20:47)
[2021-04-19] MEDS: GABAPENTIN 300 MG (NEURONTIN) CAP PO SCH ×3 (08:31→20:46)
[2021-04-19] MEDS: PANTOPRAZOLE 40 MG (PROTONIX) TAB PO SCH ×2 (08:31→20:47)
[2021-04-19] MEDS: HYDROcodone/APAP 7.5 MG/325 MG (LORTAB, LORCET PLUS) TABLET PO PRN ×2 (08:32→20:47)
[2021-04-19] MEDS ORDERED: PROMETHAZINE INJ 25 MG/ML (PHENERGAN) AMP IVP PRN ×2 (09:30→10:00)
--- NOTE | 2021-04-19 09:39 | Progress Note ---
Subjective Date Seen by a Provider: Apr 19, 2021 Time Seen by a Provider: 09:20 Subjective/Events-last exam Patient seen with Dr. Cha. Patient does report nausea but no vomiting. Tolerating diet. She reports that she tried phenergan but it made her sleepy. She is ok to try it again but at a reduced dosage. Objective Exam Vital Signs Date Time Temp Pulse Resp B/P (MAP) Pulse Ox O2 Delivery O2 Flow Rate FiO2 04/19/21 08:24 36.2 77 20 119/58 (78) 98 Room Air 04/19/21 03:20 36.1 73 14 107/64 (78) 97 Room Air 04/18/21 23:25 36.6 95 18 115/72 (86) 96 Room Air 04/18/21 21:45 Room Air 04/18/21 20:39 37.0 91 18 111/77 (88) 97 Room Air 04/18/21 16:57 36.4 87 18 115/71 (86) 96 Room Air 04/18/21 11:45 36.3 80 20 110/63 (79) 94 Room Air 04/18/21 09:44 Room Air I & O 04/19/21 06:59 Intake Total 3195 ml Output Total 1175 ml Balance 2020 ml Capillary Refill : Less Than 3 Seconds General Appearance: No Apparent Distress, WD/WN Neck: Normal Inspection, Supple Respiratory: No Accessory Muscle Use, No Respiratory Distress Cardiovascular: Regular Rate, Rhythm, No Edema Gastrointestinal: normal bowel sounds, non tender, soft Extremity: Normal Inspection, Normal Range of Motion Neurologic/Psychiatric: Alert, Oriented x3 Skin: Normal Color, Warm/Dry Results Lab Laboratory Tests 04/19/21 05:00: Sodium Level 139, Potassium Level 3.7, Chloride Level 106, Carbon Dioxide Level 26, Anion Gap 7, Blood Urea Nitrogen 6L, Creatinine 0.50L, Estimat Glomerular Filtration Rate > 60, BUN/Creatinine Ratio 12, Glucose Level 88, Calcium Level 9.2, Magnesium Level 1.7 Microbiology 04/06/21 Urine Culture - Final, Complete YEAST Gram Pos Mixed Bacterial Chanel Assessment/Plan Assessment/Plan Assess & Plan/Chief Complaint A 56 year old female with nausea likely secondary gastritis. cont PPI Continue mirlax BID. ambulate. will do EGD if nausea peristent as OP. Will try phenergan 12.5mg IV prn for nausea ELSA,GEOVANI L LITURGICAL MUSIC DIRECTOR Apr 19, 2021 09:38
--- NOTE | 2021-04-19 09:46 | Progress Note - Hospitalist ---
Subjective HPI/CC On Admission Date Seen by Provider: Apr 19, 2021 Time Seen by Provider: 09:42 Pt is a 56yoCF known to me from recent admission who presented to the ER due to weakness and dehydration. She states that she has not been doing well since she had her gallbladder out. She has lost roughly 40lbs since that time and has felt very dehydrated because she is constantly nauseated and unable to keep food down. In the ER she was profoundly orthostatic and had a near syncopal episode trying to stand. Even after 1.5L bolus she was still profoundly orthostatic with SBP to the 70s so she was admitted overnight. She was admitted for further IVF and monitoring. This morning she states she feels much better and was able to keep her breakfast down. She is also requesting evaluation at IRU again. Subjective/Events-last exam Pt reports doing better today. Some nausea after eating breakfast. Discussed plan going forward and that I do not anticipate that insurance will approve IRU and her SNF is coming to evaluate if they can take her back at this level. She was very tearful but thanked me for the honesty. Objective Exam Vital Signs Vital Signs Date Time Temp Pulse Resp B/P (MAP) Pulse Ox O2 Delivery O2 Flow Rate FiO2 04/19/21 08:24 36.2 77 20 119/58 (78) 98 Room Air 04/17/21 15:42 2.00 Capillary Refill : Less Than 3 Seconds General Appearance: No Apparent Distress, Chronically ill Respiratory: Lungs Clear, No Respiratory Distress Cardiovascular: Regular Rate, Rhythm, No Murmur Results/Procedures Lab Laboratory Tests 04/19/21 05:00 Patient resulted labs reviewed. Imaging: Reviewed Imaging Report Assessment/Plan Assessment and Plan Assess & Plan/Chief Complaint Parkinson's Disease Sinemet induced dyskinesia Debility PT/OT consulted IRU accepted, insurance denied, appeal denied, next level appeal in process Awaiting insurance appeal results still- if denied will DC home with HH if [facility] will take patient back Most more alert today without scheduled ativan at night, still available prn s/p recent lap paulie s/p gastric sleeve Nausea Continue PPI and carafate Continue Zofran and Phenergan prn Hypothyroidism Continue home supplement Obesity Clinically significant, no acute management needs Seizure disorder Continue keppra Seizure precautions DVT prophylaxis: Lovenox Intractable nausea and vomiting, resolved Orthostatic hypotension, resolved Diagnosis/Problems Diagnosis/Problems (1) Parkinson disease Status: Acute (2) Intractable nausea and vomiting Status: Resolved Resolution Date/Time: 04/10/21 @ 11:00 (3) H/O gastric bypass (4) Orthostatic hypotension Status: Resolved Resolution Date/Time: 04/10/21 @ 11:00 (5) Vaginal yeast infection Status: Acute LISETTE LUDWIG MD Apr 19, 2021 09:46
--- NOTE | 2021-04-19 10:24 | Physical Therapy Daily Note ---
PT Daily Note-Current Subjective Patient agrees to PT. Continues to c/o nausea and vomiting. RN notified. Mental Status Patient Orientation: Normal For Age Attachments: IV Transfers SCALE: Activities may be completed with or without assistive devices. 2-Fhhtmubqpm-pbspcsg completes the activity by him/herself with no assistance from a helper. 5-Set-up or Clean-up Assistance-helper sets up or cleans up; patient completes activity. Myrtle assists only prior to or following the activity. 4-Supervision or Touching Assistance-helper provides verbal cues and/or touching/steadying and/or contact guard assistance as patient completes act ivity. Assistance may be provided throughout the activity or intermittently. 3-Partial/Moderate Assistance-helper does LESS THAN HALF the effort. Myrtle lifts, holds or supports trunk or limbs, but provides less than half the effort. 2-Substantial/Maximal Assistance-helper does MORE THAN HALF the effort. Myrtle lifts or holds trunk or limbs and provides more than half the effort. 1-Ojavtmxbw-ggycqz does ALL the effort. Patient does none of the effort to complete the activity. Or, the assistance of 2 or more helpers is required for the patient to complete the activity. If activity was not attempted, code reason: 7-Patient Refused. 9-Not Applicable-not attempted and the patient did not perform the activity before the current illness, exacerbation or injury. 10-Not Attempted due to Environmental Limitations-(lack of equipment, weather restraints, etc.). 88-Not Attempted due to Medical Conditions or Safety Concerns. Lying to Sitting/Side of Bed(Q: 4 Sit to Stand (QC): 1 Chair/Wfo-dq-Pgjjd Xfer(QC): 1 (with bilateral knees buckleing) Gait Training Does the Patient Walk?: No and Walking Goal IS indicated Exercises Seated Therapy Exercises: Ankle pumps, Long arc quads Seated Reps: 12 Assessment Patient tolerates minimal activity and treatment is ceased due to increase in nausea. RN notified. PT Mailing Clerk Goals Mailing Clerk Goals PT Shelter Goals Time Frame: Apr 28, 2021 Roll Left & Right (QC): 4 Sit to Lying (QC): 4 Lying-Sitting on Side/Bed(QC): 4 Sit to Stand (QC): 4 Chair/Utt-rw-Xxwsq Xfer(QC): 4 Toilet Transfer (QC): 4 Does the Patient Walk: Yes Walk 10 feet (QC): 3 Walk 50ft with 2 Turns (QC): 3 PT Plan Treatment/Plan Treatment Plan: Continue Plan of Care Treatment Plan: Bed Mobility, Education, Functional Activity Judy, Functional Strength, Gait, Safety, Therapeutic Exercise, Transfers Treatment Duration: Apr 28, 2021 Frequency: 6 times per week Estimated Hrs Per Day: .5 hour per day Patient and/or Family Agrees t: Yes Time/GCodes Time In: 856 Time Out: 910 Total Billed Treatment Time: 14 Total Billed Treatment 1 visit FA 14 min KATHY FAROOQ PT Apr 19, 2021 10:24
[2021-04-19] MEDS: ONDANSETRON 4 MG/2 ML (SDV) Z0FRAN IV PRN ×2 (10:41→21:16)
[2021-04-19] MEDS: LORazepam 0.5 MG (ATIVAN) TABLET PO PRN ×2 (11:52→21:16)
[2021-04-19 12:28] VITALS: BP 121/78
--- NOTE | 2021-04-19 12:30 | D/C HH Face to Face Order ---
D/C Face to Face Orders Instructions for Patient Via [facility], Patient Instructions/FollowUp: Please continue to take your medications as written. Physician to follow Patient: Dr Dudley Discharge Diet for Home: No Restrictions Patient Data-Allergies,Ht & Wt Patient Allergies: Coded Allergies: No Known Drug Allergies (Unverified , 06/26/17) Height (Feet): 5 Height (Inches): 6.00 Weight (Pounds): 272 Weight (Ounces): 0.0 Home Health Need/Face to Face Date of Face to Face: Apr 19, 2021 Clinical Findings: Generalized weakness and fatigue I have seen Pt otks-cr-[id number]: Yes Discharged To: Home Diagnosis/Conditions: Parkinson's Disease Patient is Homebound due to: Soraida fall risk due to instabilty, Muscle weakness Homebound Status Due to the above stated illness, injury or surgical procedure (medical condition or diagnosis) and associated clinical findings, the patient is homebound because of his/her inability to leave home except with aid of a supportive device and/or person AND leaving the home requires a considerable and taxing effort or is medically contraindicated. Pt req the following assistanc: Aid of another person, Walker Home Health Nursing Orders Home Health Services Order: Certified Medical Records Coder-Evaluate & Treat, Physical Therapy-Evaluate & Treat Home Health Infusion Therapy Line Start Date: Apr 17, 2021 Therapy Orders Therapy Orders: OT (must have SN or PT order), Physical Therapy Therapy Specific Orders: Eval assistive deivces, Teach enviro modifications/safety, Gait training, Increase strength/endurance Certify Stmt I certify that this patient is under my care and that I, a nurse practitioner or a physician; a program assistant working with me, had a face to face encounter that - meets the physician face to face encounter requirements with this patient as dated. LISETTE LUDWIG MD Apr 19, 2021 12:30
[2021-04-19] MEDS: ENOXAPARIN 40 MG/0.4 ML (LOVENOX) SYR SC SCH (13:32)
--- NOTE | 2021-04-19 15:14 | Occ Therapy Progress Note ---
Therapy Progress Note Pt. in bed. Asleep but wakes up for OT. Groggy. States that she is still not feeling well. Pleasant and requests water. OT assists pt. with drinking water, multiple drinks. Noted pt's lips dry and so applied chap stick. Pt. states that she is comfortable and would like to rest. Pt. feeling better at end of visit, but no functional movement performed due to continued nausea and continual changes in medical status. All needs met and pt. resting. [id number] 1, visit x 12minutes DESTIN MURO OT Apr 19, 2021 15:14
[2021-04-19 15:57] VITALS: BP 117/78
[2021-04-19 19:24] VITALS: BP 100/66
[2021-04-19] MEDS: AMITRIPTYLINE 50 MG (ELAVIL) TAB PO SCH (20:47)
[2021-04-19] MEDS: SERTRALINE 50 MG (ZOLOFT) TABLET PO SCH (20:48)
[2021-04-20 00:04] VITALS: BP 135/81
[2021-04-20 03:46] VITALS: BP 133/91
[2021-04-20] MEDS: D5 LR IV SOLUTION 1,000 ML IV SCH ×2 (05:30→06:36)
[2021-04-20] MEDS: LEVOTHYROXINE 75 MCG (LEVOTHROID) TABLET PO SCH (05:31)
[2021-04-20] MEDS: RYTARY PO SCH ×2 (05:31→11:56)
[2021-04-20] MEDS: CYANOCOBALAMIN 1,000 MCG (VITAMIN B-12) TABLET PO SCH (05:39)
[2021-04-20 05:45] LABS: CHLORIDE 105 MMOL/L (98-107); SODIUM 139 MMOL/L (135-145)
[2021-04-20 05:46] LABS: CALCIUM 9.2 MG/DL (8.5-10.1)
[2021-04-20 05:47] LABS: GLUCOSE 86 MG/DL (70-105)
[2021-04-20 05:48] LABS: CARBON DIOXIDE 25 MMOL/L (21-32)
[2021-04-20 05:51] LABS: CREATININE SERUM 0.51 MG/DL (0.60-1.30); GFR ESTIMATED > 60
[2021-04-20 05:52] LABS: BUN/CREATININE RATIO 6
[2021-04-20 05:53] LABS: MAGNESIUM 1.9 MG/DL (1.6-2.4)
[2021-04-20] MEDS: MAGNESIUM 1 GM/100 ML IVPB 100 ML IV SCH (06:34)
[2021-04-20] MEDS: KCL 20 MEQ TAB (K-DUR) PO SCH ×2 (06:34→08:11)
[2021-04-20 08:08] VITALS: BP 135/87
[2021-04-20] MEDS: SUCRALFATE 1 GM (CARAFATE) TAB PO SCH (08:16)
[2021-04-20] MEDS: GABAPENTIN 300 MG (NEURONTIN) CAP PO SCH (08:16)
[2021-04-20] MEDS: PANTOPRAZOLE 40 MG (PROTONIX) TAB PO SCH (08:17)
[2021-04-20] MEDS: LORATADINE (CLARITIN) 10 MG TAB PO SCH (08:17)
--- NOTE | 2021-04-20 10:28 | Occ Therapy Progress Note ---
Therapy Progress Note Pt stated that she continues to feel nauseous and is planning on being discharged today. Pt declined OT at this time due to nausea. Will check on pt in pm. 1 [id number] ALONA CHIANG Apr 20, 2021 10:28
--- NOTE | 2021-04-20 10:44 | Discharge Summary ---
Diagnosis/Chief Complaint Date of Admission April 06, 2021 at 16:08 Date of Discharge Discharge Date: Apr 17, 2021 Admission Diagnosis Orthostatic Hypotension Primary Care Gregory Dudley DO Discharge Diagnosis (1) Orthostatic hypotension Status: Resolved (2) Intractable nausea and vomiting Status: Resolved (3) Parkinson disease Status: Acute (4) Debility Status: Acute (5) Obesity Status: Chronic Discharge Summary Discharge Physical Exam Allergies: Coded Allergies: No Known Drug Allergies (Unverified , 06/26/17) Vitals & I&Os Vital Signs Date Time Temp Pulse Resp B/P (MAP) Pulse Ox O2 Delivery O2 Flow Rate FiO2 04/20/21 11:26 36.1 80 20 109/71 (84) 96 Room Air 04/17/21 15:42 2.00 General Appearance: No Apparent Distress, Chronically ill Respiratory: Lungs Clear, No Respiratory Distress Cardiovascular: Regular Rate, Rhythm, No Murmur Neurologic/Psychiatric: Alert, Oriented x3 Hospital Course Pt was admitted due to orthostatics and dehydration. She was started on IVF and did well and was seen by PT. She requested evaluation for inpatient rehab stay again and was accepted medically but was declined by insurance. She had a very prolonged hospital stay due to multiples appeals to the insurance denial. Ultimately on her third appeal it was still denied. She was accepted by to her [facility] and home health was arranged. She was seen by surgery as well and they recommended an EGD as an outpatient. We discussed the possible of PEG or J tube placement with that if she continues to have weight loss and dehydration. She was discharged in improved and stable condition to follow up this hospital stay with her primary care doctor. Labs (last 24 hrs) Laboratory Tests 04/20/21 05:25: Sodium Level 139, Potassium Level 4.0, Chloride Level 105, Carbon Dioxide Level 25, Anion Gap 9, Blood Urea Nitrogen 3L, Creatinine 0.51L, Estimat Glomerular Filtration Rate > 60, BUN/Creatinine Ratio 6, Glucose Level 86, Calcium Level 9.2, Magnesium Level 1.9 Microbiology 04/06/21 Urine Culture - Final, Complete YEAST Gram Pos Mixed Bacterial Chanel Patient resulted labs reviewed. Pending Labs Laboratory Tests 04/20/21 05:25: Sodium Level 139, Potassium Level 4.0, Chloride Level 105, Carbon Dioxide Level 25, Anion Gap 9, Blood Urea Nitrogen 3, Creatinine 0.51, Estimat Glomerular Filtration Rate > 60, BUN/Creatinine Ratio 6, Glucose Level 86, Calcium Level 9.2, Magnesium Level 1.9 Imaging: Reviewed Imaging Report Discussion & Recommendations Discharge Planning: >30 minutes discharge planning Discharge Home Medications: Active Scripts Active Levetiracetam 500 Mg Tablet 500 Mg PO BID Reported Ativan (Lorazepam) 0.5 Mg Tablet 0.5 Mg PO BID PRN Ativan (Lorazepam) 0.5 Mg Tablet 0.5 Mg PO HS Protonix (Pantoprazole Sodium) 40 Mg Granpkt.dr 40 Mg PO DAILY Claritin (Loratadine) 10 Mg Tab.rapdis 10 Mg PO DAILY Carafate (Sucralfate) 1 Gm Tablet 1 Gm PO BID Potassium Chloride 20 Meq Tablet.er 20 Meq PO BID Ibuprofen 200 Mg Tablet 600 Mg PO Q6H PRN TAKES 3 (200MG) TABLETS Vitamin B-12 (Cyanocobalamin (Vitamin B-12)) 500 Mcg Tablet 500 Mcg PO DAILY Levothyroxine Sodium 75 Mcg Tablet 75 Mcg PO DAILY Rytary ER 48.75 mg-195 mg Cap (Carbidopa/Levodopa) 1 Each Capsule.er 1 Each PO QID Neurontin (Gabapentin) 300 Mg Capsule 600 Mg PO HS TAKES 2 (300MG) CAPSULES Neurontin (Gabapentin) 300 Mg Capsule 300 Mg PO BID Sertraline HCl 50 Mg Tablet 50 Mg PO HS Ondansetron HCl 4 Mg Tablet 4 Mg PO Q4H PRN Amitriptyline HCl 100 Mg Tablet 100 Mg PO HS Instructions to patient/family Please see electronic discharge instructions given to patient. Copy Copies To 1: GREGORY DUDLEY KATELYN M MD Apr 20, 2021 10:43
[2021-04-20 11:26] VITALS: BP 109/71
[2021-04-20] MEDS: LORazepam 0.5 MG (ATIVAN) TABLET PO PRN (11:56)
[2021-04-20 14:20] VITALS: BP 109/71
== END 2021-04-20 10:40 | disposition home health service (06) ==
LOC: EDUNIT# 12:49 → ER 12:50 → 4TH 16:08 → UNDOADMOB 16:08 → 4TH 16:56 → UNDODISOB 04-20 13:09
PROVIDERS: ADMIT Family Medicine; ATTEND Internal Medicine
DX: I95.1 Orthostatic hypotension (principal); E86.0 Dehydration; K21.00 Gastro-esophageal reflux disease with esophagitis, without bleeding; K29.70 Gastritis, unspecified, without bleeding; G24.01 Drug induced subacute dyskinesia; T42.8X5A Adverse effect of antiparkinsonism drugs and other central muscle-tone depressants, initial encounter; B37.3 Candidiasis of vulva and vagina; G20 Parkinson's disease; N39.0 Urinary tract infection, site not specified; M19.90 Unspecified osteoarthritis, unspecified site; E03.9 Hypothyroidism, unspecified; F32.9 Major depressive disorder, single episode, unspecified; F41.9 Anxiety disorder, unspecified; E66.01 Morbid (severe) obesity due to excess calories; G47.33 Obstructive sleep apnea (adult) (pediatric); Z98.84 Bariatric surgery status; Z90.49 Acquired absence of other specified parts of digestive tract; Z79.2 Long term (current) use of antibiotics; Z79.891 Long term (current) use of opiate analgesic; Z79.1 Long term (current) use of non-steroidal anti-inflammatories (NSAID); Z79.890 Hormone replacement therapy; Z79.899 Other long term (current) drug therapy; Z87.891 Personal history of nicotine dependence; Z78.0 Asymptomatic menopausal state
CPT/HCPCS: 36410; 51701; 76937; 80048 ×13; 80053 ×2; 80185; 81000; 83735 ×13; 85025 ×3; 86141; 87088; 93005; 96374; 97110 ×3; 97116; 97162; 97167; 97530 ×9; 97535 ×3; 99284; C1751; G0378; 36415

== ENCOUNTER 2022-11-15 19:11 | Emergency (ER) | payer MEDICARE, MEDICAID ==
[~2022-11-15] VITALS: Ht 165 cm; Wt 95.0 kg
[~2022-11-15 19:11] MED LIST changes: -AMAN100C18 PO; +AMAN100C20 PO; +LEVE500T6 PO; +LORA-404 PO; +LORA10TA72 PO; +PANT40SU PO; +POTA-51 PO
[2022-11-15 19:21] VITALS: BP 115/76
--- NOTE | 2022-11-15 19:53 | ED Neck-Back Pain/Injury ---
General Chief Complaint: Head/Cervical Problems Stated Complaint: NECK/UPPER BACK/LEFT SHOULDER PAIN Nursing Triage Note: PT TO ED W/ C/O NECK PAIN ONSET AFTER HAVING COVID X1 MONTH AGO. REPORTS PAIN GOING DOWN LT ARM FROM NECK. History of Present Illness Date Seen by Provider: Nov 15, 2022 Time Seen by Provider: 19:30 Initial Comments 57 year old female presents with left neck pain for 1 month, since having COVID. Has Parkinsons and marked akathisia which further irritates her neck. She had teeth extracted and took Hydrocodone, which did not improve the neck pain. Location: C-Spine Timing/Duration: Intermittent Severity: Moderate Pain/Injury Location: Neck Method of Injury: Unknown Associated Symptoms: muscle spasms Allergies and Home Medications Allergies Coded Allergies: No Known Drug Allergies (Unverified , 06/26/17) Patient Home Medication List Home Medication List Reviewed: Yes Amitriptyline HCl (Amitriptyline HCl) 100 Mg Tablet, 100 MG PO HS, (Reported) Entered as Reported by: ELIZABETH LUNDBERG on 06/26/17 1003 Carbidopa/Levodopa (Rytary ER 48.75 mg-195 mg Cap) 1 Each Capsule.er, 1 EACH PO QID, (Reported) Entered as Reported by: BRIAN HERNANDEZ on 02/19/211526 Cyanocobalamin (Vitamin B-12) (Vitamin B-12) 500 Mcg Tablet, 500 MCG PO DAILY, (Reported) Entered as Reported by: BRIAN HERNANDEZ on 02/19/211526 Cyclobenzaprine HCl (Cyclobenzaprine HCl) 10 Mg Tablet, 10 MG PO Q8H PRN for SPASMS Prescribed by: ELAN BENSON on 11/15/222014 Gabapentin (Neurontin) 300 Mg Capsule, 300 MG PO BID, (Reported) Entered as Reported by: BRIAN HERNANDEZ on 02/19/211526 Gabapentin (Neurontin) 300 Mg Capsule, 600 MG PO HS, (Reported) Entered as Reported by: BRIAN HERNANDEZ on 02/19/211526 Ibuprofen (Ibuprofen) 200 Mg Tablet, 600 MG PO Q6H PRN for PAIN-MILD (1-4), (Reported) Entered as Reported by: BRIAN HERNANDEZ on 02/19/211526 Levetiracetam (Levetiracetam) 500 Mg Tablet, 500 MG PO BID Prescribed by: LISETTE LUDWIG on 04/20/21 0956 Levothyroxine Sodium (Levothyroxine Sodium) 75 Mcg Tablet, 75 MCG PO DAILY, (Reported) Entered as Reported by: BRIAN HERNANDEZ on 02/19/21 152 Loratadine (Claritin) 10 Mg Tab.rapdis, 10 MG PO DAILY, (Reported) Entered as Reported by: STUART MAYA on 04/06/211824 Lorazepam (Ativan) 0.5 Mg Tablet, 0.5 MG PO HS, (Reported) Entered as Reported by: STUART MAYA on 04/06/211824 Lorazepam (Ativan) 0.5 Mg Tablet, 0.5 MG PO BID PRN for ANXIETY, (Reported) Entered as Reported by: STUART MAYA on 04/06/211824 Ondansetron HCl (Ondansetron HCl) 4 Mg Tablet, 4 MG PO Q4H PRN for NAUSEA/VOMITING-1ST LINE, (Reported) Entered as Reported by: BRIAN HERNANDEZ on 02/19/211526 Pantoprazole Sodium (Protonix) 40 Mg Granpkt.dr, 40 MG PO DAILY, (Reported) Entered as Reported by: STUART MAYA on 04/06/211824 Potassium Chloride (Potassium Chloride) 20 Meq Tablet.er, 20 MEQ PO BID, (Reported) Entered as Reported by: STUART MAYA on 04/06/211824 Sertraline HCl (Sertraline HCl) 50 Mg Tablet, 50 MG PO HS, (Reported) Entered as Reported by: BRIAN HERNANDEZ on 02/19/211526 Sucralfate (Carafate) 1 Gm Tablet, 1 GM PO BID, (Reported) Entered as Reported by: STUART MAYA on 04/06/211824 Review of Systems Constitutional: no symptoms reported, see HPI Musculoskeletal: see HPI, muscle pain, muscle twitching, neck pain All Other Systems Reviewed Negative Unless Noted: Yes Past Hkbcnbo-Ozogha-Gchwtb Hx Patient Social History Tobacco Use?: No Use of E-Cig and/or Vaping dev: No Substance use?: No Alcohol Use?: No Pt feels they are or have been: No Immunizations Up To Date Tetanus Booster (TDap): Unknown Seasonal Allergies Seasonal Allergies: Yes Past Medical History Surgery/Hospitalization HX: [facility] Surgeries: Yes (D&C, GASTRIC SLEEVE) Abdominal Respiratory: No Cardiac: No Neurological: Yes Headaches /Migraines, Parkinson's Disease 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 Disorders: No Female 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 Disorders: Denies RESEARCH TECH History: Menopausal Sexually Transmitted Disease: No HIV/AIDS: No Genitourinary: Yes UTI-Chronic Gastrointestinal: Yes (GASTRIC SLEEVE SURGERY; GASTRITIS) Gastroesophageal Reflux, Gall Bladder Disease Musculoskeletal: Yes (CHRONIC KNEE PAIN ) Arthritis Endocrine: Yes (MORBID OBESITY) Hypothyroidsim HEENT: Yes (GLASSES) Loss of Vision: Bilateral Hearing Impairment: Denies Cancer: No Psychosocial: Yes Anxiety, Depression Integumentary: No Blood Disorders: No Adverse Reaction/Blood Tranf: No (N/A) Family Medical History Reviewed Nursing Family Hx Cardiovascular disease 19 MOTHER Diabetes mellitus G8 BROTHER FH: prostate cancer PAST SURGICAL HISTORY: -LAPAROSCOPIC CHOLECYSTECTOMY 02/20/[address] MANCILLA -EGD 02/20/[address] MANCILLA--REFLUX ESOPHAGITIS AND GASTRITIS -GASTRIC SLEEVE 07/03/[address] MANCILLA Family history: non contributory Physical Exam Vital Signs Vital Signs - First Documented 11/15/22 19:21 Temp 36.4 Pulse 85 Resp 20 B/P (MAP) 115/76 (89) Pulse Ox 99 O2 Delivery Room Air Capillary Refill : Less Than 3 Seconds Height, Weight, BMI Height: 5'6.00" Weight: 272lbs. 0.0oz. 123.841850kt; 34.00 BMI Method:Stated General Appearance: No Apparent Distress, WD/WN Neck: Full Range of Motion, Normal Inspection, Supple; No Limited Range of Motion; Tender Lateral (left), Other (no weakness left UE. ) Cardiovascular: Regular Rate, Rhythm, No Edema, No Murmur, Normal Peripheral Pulses Respiratory: Chest Non Tender, Lungs Clear, Normal Breath Sounds Gastrointestinal: Normal Bowel Sounds, Non Tender, Soft Extremity: Normal Capillary Refill, Normal Inspection, No Pedal Edema, Other (continous spastic movement to neck and extremeties secondary to Parkinsons. ) Neurologic/Psychiatric: Alert, Oriented x3, No Motor/Sensory Deficits, Normal Mood/Affect Skin: Normal Color, Warm/Dry Progress/Results/Core Measures Results/Orders My Orders Orders - ELAN BENSON Cyclobenzaprine Tablet (Flexeril Tablet) (11/15/22 19:55) Rx-Cyclobenzaprine Tablet (Rx-Flexeril T (11/15/22 20:18) Vital Signs/I&O 11/15/22 19:21 Temp 36.4 Pulse 85 Resp 20 B/P (MAP) 115/76 (89) Pulse Ox 99 O2 Delivery Room Air Blood Pressure Mean: 89 Departure Impression Primary Impression: Cervical muscle strain Qualified Codes: S16.1XXA - Strain of muscle, fascia and tendon at neck level, initial encounter Additional Impression: Parkinson disease Disposition: HOME, SELF-CARE Condition: Stable Departure-Patient Inst. Decision time for Depature: 20:05 Referrals: MIKY RICHEY MD (PCP/Family) Primary Care Physician Patient Instructions: Cervical Muscle Strain (DC) Add. Discharge Instructions: Alternate warm moist compressions and ice to neck. Use Flexeril every 8 hours for muscle pain. Follow up with Primary care, if not improving. Return to Emergency Dept for new, urgent health care needs. All discharge instructions reviewed with patient and/or family. Voiced understanding. Scripts Cyclobenzaprine HCl (Cyclobenzaprine HCl) 10 Mg Tablet 10 MG PO Q8H PRN for SPASMS, #20 TAB 0 Refills Prov: ELAN BENSON 11/15/22 ELAN BENSON Nov 15, 2022 19:53
[2022-11-15] MEDS ORDERED: CYCLOBENZAPRINE 10 MG (FLEXERIL) TAB PO STA (19:55)
[2022-11-15] MEDS ORDERED: CYCL10TA25 PO (20:15)
[2022-11-15] MEDS ORDERED: RX-CYCLOBENZAPRINE 10 MG (FLEXERIL) TAB PPK#3 PO STA (20:18)
== END 2022-11-15 20:29 | disposition home or self-care (01) ==
LOC: EDUNIT# 19:11 → ER 19:13
DX: S16.1XXA Strain of muscle, fascia and tendon at neck level, initial encounter (principal); G20 Parkinson's disease; E66.01 Morbid (severe) obesity due to excess calories; Z68.34 Body mass index [BMI] 34.0-34.9, adult; Z86.16 Personal history of COVID-19; X58.XXXA Exposure to other specified factors, initial encounter
CPT/HCPCS: 99283

== ENCOUNTER 2022-12-07 21:12 | Inpatient (IN) | payer MEDICARE, MEDICAID ==
[~2022-12-07] VITALS: Ht 165.1 cm; Wt 94.3 kg
[~2022-12-07 21:12] MED LIST changes: +CYCL10TA25 PO
[2022-12-07] MEDS ORDERED: LORazepam INJ 2 MG/ML (ATIVAN) VIAL IVP ONE (22:00)
[2022-12-07] MEDS ORDERED: LACTATED RINGERS 1,000 ML IV ONE (22:00)
[2022-12-07 22:14] LABS: BASOPHILS % (AUTO) 0 % (0-10); EOSINOPHILS % (AUTO) 0 % (0-10); HEMATOCRIT 46 % (35-52); LYMPHOCYTES # (AUTO) 0.4 10^3/uL (1.0-4.0); LYMPHOCYTES % (AUTO) 5 % (12-44); MEAN CORPUSCULAR HEMOGLOBIN 30 pg (25-34); MEAN CORPUSCULAR HGB CONC 33 g/dL (32-36); MEAN CORPUSCULAR VOLUME 90 fL (80-99); MEAN PLATELET VOLUME 10.5 fL (9.0-12.2); MONOCYTES # (AUTO) 0.2 10^3/uL (0.0-1.0); MONOCYTES % (AUTO) 2 % (0-12); NEUTROPHILS # (AUTO) 8.3 10^3/uL (1.8-7.8); NEUTROPHILS % (AUTO) 93 % (42-75); PLATELET COUNT 329 10^3/uL (130-400)
[2022-12-07 22:30] LABS: CLARITY,URINE SL CLOUDY; COLOR,URINE AMBER; GLUCOSE, URINE (UA) NEGATIVE (NEGATIVE); KETONES,URINE 1+ (NEGATIVE); LEUKOCYTE ESTERASE ,URINE NEGATIVE (NEGATIVE); NITRITE,URINE NEGATIVE (NEGATIVE); PROTEIN,URINE 1+ (NEGATIVE)
[2022-12-07] MEDS ORDERED: ACETAMINOPHEN 500 MG TAB (TYLENOL) PO ONE (22:30)
[2022-12-07 22:33] LABS: ALBUMIN 3.8 GM/DL (3.2-4.5); POTASSIUM 3.5 MMOL/L (3.6-5.0)
[2022-12-07 22:34] LABS: CALCIUM 11.2 MG/DL (8.5-10.1)
[2022-12-07 22:35] LABS: TOTAL PROTEIN 7.1 GM/DL (6.4-8.2)
[2022-12-07 22:37] LABS: BILIRUBIN,TOTAL 0.8 MG/DL (0.1-1.0)
[2022-12-07 22:39] LABS: CREATININE SERUM 1.02 MG/DL (0.60-1.30)
[2022-12-07 22:42] LABS: MAGNESIUM 1.3 MG/DL (1.6-2.4)
[2022-12-07 22:44] LABS: CALCIUM OXALATE CRYSTALS,UR RARE /LPF
[2022-12-07 22:46] LABS: BACTERIA,URINE MODERATE /HPF; SQUAMOUS EPITHELIAL CELL,UR 0-2 /HPF; WBC,URINE 0-2 /HPF
[2022-12-07 22:48] LABS: BILIRUBIN,URINE 2+ (NEGATIVE)
[2022-12-07 22:58] LABS: INR 1.2 (0.8-1.4); PROTHROMBIN TIME PATIENT 15.6 SEC (12.2-14.7)
[2022-12-07 23:04] LABS: FREE T4 (FREE THYROXINE) 1.21 NG/DL (0.70-1.48)
--- NOTE | 2022-12-07 23:14 | ED General ---
General Chief Complaint: General Problems/Pain Stated Complaint: POSS FALL Nursing Triage Note: PT TO RM 5 VIA [facility] FROM [facility]. EMS REPORTS STAFF FOUND PT ON FLOOR NEAR COUCH, PT DID NOT RECALL HOW SHE GOT TO FLOOR WHEN INITIALLY QUESTIONED. STAFF ALSO REPORTED TO EMS THAT PT WAS LETHARGIC, CONFUSED, AND DIAPHORETIC - RECENT ABD SURGERY AT . PT ALERT, ABLE TO ANSWER ORIENTATION QUESTIONS. CONSTANT ATAXIA NOTED DURING TRIAGE. Source of Information: Patient, Caregiver, EMS, Family, Snf Records Exam Limitations: Other (patient confused) History of Present Illness Date Seen by Provider: Dec 07, 2022 Time Seen by Provider: 21:13 Initial Comments This 57-year-old woman presents to the emergency room via EMS from the assisted living facility where she was found on the floor. According to staff and her brother, she is more confused than normal. She is normally more brisk in her conversation and is normally able to ambulate with a walker. She is mildly confused at this time, inserting some nonsensical statements into her conversation. She was dismissed from [facility] on December 05 after having a gastric port placed for a DUOPA pump (infusion pump for levodopa infusion into the small bowel). She has severe Parkinson's disease and has severe dystonic movements on evaluation. Patient was not initially febrile but was noted during work-up to have temperature of 100.8. She also developed hypoxia during her work-up. Historians include patient, review of records from [facility] and her group home chart, brother, medical practice administrator at the group home, and health care facility administrator at the group home. Allergies and Home Medications Allergies Coded Allergies: No Known Drug Allergies (Unverified , 06/26/17) Patient Home Medication List Home Medication List Reviewed: Yes Amitriptyline HCl (Amitriptyline HCl) 100 Mg Tablet, 100 MG PO HS, (Reported) Entered as Reported by: ELIZABETH LUNDBERG on 06/26/17 1003 Carbidopa/Levodopa (Rytary ER 48.75 mg-195 mg Cap) 1 Each Capsule.er, 1 EACH PO QID, (Reported) Entered as Reported by: BRIAN HERNANDEZ on 02/19/21 1527 Cyanocobalamin (Vitamin B-12) (Vitamin B-12) 500 Mcg Tablet, 500 MCG PO DAILY, (Reported) Entered as Reported by: BRIAN HERNANDEZ on 02/19/211526 Cyclobenzaprine HCl (Cyclobenzaprine HCl) 10 Mg Tablet, 10 MG PO Q8H PRN for SPASMS Prescribed by: ELAN BENSON on 11/15/222014 Gabapentin (Neurontin) 300 Mg Capsule, 300 MG PO BID, (Reported) Entered as Reported by: BRIAN HERNANDEZ on 02/19/211526 Gabapentin (Neurontin) 300 Mg Capsule, 600 MG PO HS, (Reported) Entered as Reported by: BRIAN HERNANDEZ on 02/19/211526 Ibuprofen (Ibuprofen) 200 Mg Tablet, 600 MG PO Q6H PRN for PAIN-MILD (1-4), (Reported) Entered as Reported by: BRIAN HERNANDEZ on 02/19/211526 Levetiracetam (Levetiracetam) 500 Mg Tablet, 500 MG PO BID Prescribed by: LISETTE LUDWIG on 04/20/21 0956 Levothyroxine Sodium (Levothyroxine Sodium) 75 Mcg Tablet, 75 MCG PO DAILY, (Reported) Entered as Reported by: BRIAN HERNANDEZ on 02/19/211526 Loratadine (Claritin) 10 Mg Tab.rapdis, 10 MG PO DAILY, (Reported) Entered as Reported by: STUART MAYA on 04/06/211824 Lorazepam (Ativan) 0.5 Mg Tablet, 0.5 MG PO HS, (Reported) Entered as Reported by: STUART MAYA on 04/06/211824 Lorazepam (Ativan) 0.5 Mg Tablet, 0.5 MG PO BID PRN for ANXIETY, (Reported) Entered as Reported by: STUART MAYA on 04/06/211824 Ondansetron HCl (Ondansetron HCl) 4 Mg Tablet, 4 MG PO Q4H PRN for NAUSEA/VOMITING-1ST LINE, (Reported) Entered as Reported by: BRIAN HERNANDEZ on 02/19/211526 Pantoprazole Sodium (Protonix) 40 Mg Granpkt.dr, 40 MG PO DAILY, (Reported) Entered as Reported by: STUART MAYA on 04/06/211824 Potassium Chloride (Potassium Chloride) 20 Meq Tablet.er, 20 MEQ PO BID, (Reported) Entered as Reported by: STUART MAYA on 04/06/211824 Sertraline HCl (Sertraline HCl) 50 Mg Tablet, 50 MG PO HS, (Reported) Entered as Reported by: BRIAN HERNANDEZ on 02/19/21 152 Sucralfate (Carafate) 1 Gm Tablet, 1 GM PO BID, (Reported) Entered as Reported by: STUART MAYA on 04/06/21 182 Review of Systems Review of Systems Constitutional: see HPI EENTM: other (Dry oropharynx) Respiratory: see HPI Cardiovascular: no symptoms reported Gastrointestinal: see HPI Genitourinary: no symptoms reported Musculoskeletal: no symptoms reported Skin: no symptoms reported Psychiatric/Neurological: See HPI Hematologic/Lymphatic: No Symptoms Reported Immunological/Allergic: no symptoms reported Past Toyjfoi-Tzxbii-Rjvszx Hx Patient Social History Tobacco Use?: No Use of E-Cig and/or Vaping dev: No Substance use?: No Alcohol Use?: Yes Alcohol Frequency: Once in a while Immunizations Up To Date Tetanus Booster (TDap): Unknown Influenza Vaccine Up-to-Date: Yes; Up-to-Date First/Initial COVID19 Vaccinat: 2020 Second COVID19 Vaccination Anant: 2020 Third COVID19 Vaccination Date: NONE COVID19 Vaccine Press Tender Star Signal: MODERNA X2 Seasonal Allergies Seasonal Allergies: Yes Past Medical History Surgery/Hospitalization HX: [facility] Surgeries: Yes (D&C, GASTRIC SLEEVE, DUOPA pump) Abdominal Respiratory: No Cardiac: No Neurological: Yes Headaches /Migraines, Parkinson's Disease (Severe disease) 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 Disorders: No Female 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 Disorders: Denies CREDIT 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 History: Menopausal Sexually Transmitted Disease: No HIV/AIDS: No Genitourinary: Yes UTI-Chronic Gastrointestinal: Yes (GASTRIC SLEEVE SURGERY; GASTRITIS) Gastroesophageal Reflux, Gall Bladder Disease Musculoskeletal: Yes (CHRONIC KNEE PAIN ) Arthritis Endocrine: Yes (MORBID OBESITY) Hypothyroidsim HEENT: Yes (GLASSES) Loss of Vision: Bilateral Hearing Impairment: Denies Cancer: No Psychosocial: Yes Anxiety, Depression Integumentary: No Blood Disorders: No Adverse Reaction/Blood Tranf: No (N/A) Family Medical History Cardiovascular disease 19 MOTHER Diabetes mellitus G8 BROTHER FH: prostate cancer PAST SURGICAL HISTORY: -LAPAROSCOPIC CHOLECYSTECTOMY 02/20/[address] MANCILLA -EGD 02/20/[address] MANCILLA--REFLUX ESOPHAGITIS AND GASTRITIS -GASTRIC SLEEVE 07/03/[address] MANCILLA Family history: non contributory Physical Exam-Suspected Sepsis Physical Exam Vital Signs Vital Signs - First Documented 12/07/22 21:12 Temp 38.2 Pulse 118 Resp 22 B/P (MAP) 104/53 (70) Pulse Ox 92 O2 Delivery Nasal Cannula O2 Flow Rate 4.00 Capillary Refill : Less Than 3 Seconds Blood Pressure Mean: 70 Height, Weight, BMI Height: 5'6.00" Weight: 272lbs. 0.0oz. 123.204220yd; 33.00 BMI Method:Stated General Appearance: WD/WN, Other (Discomfort with large amplitude dystonic movements) HEENT: PERRL/EOMI, Normal ENT Inspection, Other (Dry oropharynx) Neck: Normal Inspection, Tender Midline (Mild posterior tenderness stated is unchanged from chronic) Respiratory: Lungs Clear, Normal Breath Sounds, No Accessory Muscle Use, No Respiratory Distress Cardiovascular: Regular Rate, Rhythm, No Edema, No Murmur Gastrointestinal: Non Tender, Soft; No Distended; Other (Duopa tube intact, surgical incision and nidhi intact, no purulent drainage or signs of inflammation) Extremity: Normal Inspection, No Pedal Edema Neurologic/Psychiatric: Alert, Oriented x3, No Motor/Sensory Deficits, Normal Mood/Affect, nozzle worker II-XII Norm as Tested Skin: normal color, warm/dry Focused Exam Sepsis Stage: Severe Sepsis Possible Source: Pulmonary Lactate Level 12/07/22 22:35: Lactic Acid Level 2.36*H 12/08/22 02:48: Lactic Acid Level 1.44 Time of Focused Exam: 01:20 Respiratory: Lungs Clear, Decreased Breath Sounds Cardiovascular: Regular Rate, Rhythm, No Edema, No Murmur Capillary Refill: Less Than 3 Seconds Peripheral Pulses: 1+ Radial Pulses (L) Skin: normal color, warm/dry Lactic Acid Level Laboratory Tests Test 12/08/22 02:48 Lactic Acid Level 1.44 MMOL/L (0.50-2.00) Within 3hrs of presentation: Admin fluids, Admin ABX, Blood cultures prior to ABX's, Focus exam, Lactate level Progress/Results/Core Measures Suspected Sepsis SIRS Temperature: Pulse: 118 Respiratory Rate: 22 Laboratory Tests 12/07/22 22:08: White Blood Count 9.0 Blood Pressure 104 /53 Mean: 70 12/07/22 22:35: Lactic Acid Level 2.36*H 12/08/22 02:48: Lactic Acid Level 1.44 Laboratory Tests 12/07/22 22:08: Creatinine 1.02, INR Comment 1.2, Platelet Count 329, Total Bilirubin 0.8 Results/Orders Lab Results Laboratory Tests Test 12/07/22 22:08 12/07/22 22:20 12/07/22 22:35 12/08/22 02:48 Range/Units White Blood Count 9.0 4.3-11.0 10^3/uL Red Blood Count 5.09 3.80-5.11 10^6/uL Hemoglobin 15.0 11.5-16.0 g/dL Hematocrit 46 35-52 % Mean Corpuscular Volume 90 80-99 fL Mean Corpuscular Hemoglobin 30 25-34 pg Mean Corpuscular Hemoglobin Concent 33 32-36 g/dL Red Cell Distribution Width 13.6 10.0-14.5 % Platelet Count 329 130-400 10^3/uL Mean Platelet Volume 10.5 9.0-12.2 fL Immature Granulocyte % (Auto) 0 % Neutrophils (%) (Auto) 93 H 42-75 % Lymphocytes (%) (Auto) 5 L 12-44 % Monocytes (%) (Auto) 2 0-12 % Eosinophils (%) (Auto) 0 0-10 % Basophils (%) (Auto) 0 0-10 % Neutrophils # (Auto) 8.3 H 1.8-7.8 10^3/uL Lymphocytes # (Auto) 0.4 L 1.0-4.0 10^3/uL Monocytes # (Auto) 0.2 0.0-1.0 10^3/uL Eosinophils # (Auto) 0.0 0.0-0.3 10^3/uL Basophils # (Auto) 0.0 0.0-0.1 10^3/uL Immature Granulocyte # (Auto) 0.0 0.0-0.1 10^3/uL Neutrophils % (Manual) 59 % Lymphocytes % (Manual) 6 % Monocytes % (Manual) 4 % Metamyelocytes % 6 % Band Neutrophils 25 % Toxic Granulation 1+ Platelet Estimate NORMAL Blood Morphology Comment NORMAL Prothrombin Time 15.6 H 12.2-14.7 SEC INR Comment 1.2 0.8-1.4 Activated Partial Thromboplast Time 36 H 24-35 SEC Sodium Level 136 135-145 MMOL/L Potassium Level 3.5 L 3.6-5.0 MMOL/L Chloride Level 106 98-107 MMOL/L Carbon Dioxide Level 17 L 21-32 MMOL/L Anion Gap 13 5-14 MMOL/L Blood Urea Nitrogen 18 7-18 MG/DL Creatinine 1.02 0.60-1.30 MG/DL Estimat Glomerular Filtration Rate 64 BUN/Creatinine Ratio 18 Glucose Level 116 H 70-105 MG/DL Calcium Level 11.2 H 8.5-10.1 MG/DL Corrected Calcium 11.4 H 8.5-10.1 MG/DL Magnesium Level 1.3 L 1.6-2.4 MG/DL Total Bilirubin 0.8 0.1-1.0 MG/DL Aspartate Amino Transf (AST/SGOT) 48 H 5-34 U/L Alanine Aminotransferase (ALT/SGPT) 11 0-55 U/L Alkaline Phosphatase 183 H 40-136 U/L C-Reactive Protein High Sensitivity 24.43 H 0.00-0.50 MG/DL Total Protein 7.1 6.4-8.2 GM/DL Albumin 3.8 3.2-4.5 GM/DL Procalcitonin 5.27 H <0.10 NG/ML Thyroid Stimulating Hormone (TSH) 0.18 L 0.35-4.94 UIU/ML Free Thyroxine 1.21 0.70-1.48 NG/DL Urine Color ANGEL H Urine Clarity SL CLOUDY Urine pH 6.0 5-9 Urine Specific Loda >=1.030 1.016-1.022 Urine Protein 1+ H NEGATIVE Urine Glucose (UA) NEGATIVE NEGATIVE Urine Ketones 1+ H NEGATIVE Urine Nitrite NEGATIVE NEGATIVE Urine Bilirubin 2+ H NEGATIVE Urine Urobilinogen 1.0 < = 1.0 MG/DL Urine Leukocyte Esterase NEGATIVE NEGATIVE Urine RBC (Auto) NEGATIVE NEGATIVE Urine RBC 2-5 H /HPF Urine WBC 0-2 /HPF Urine Squamous Epithelial Cells 0-2 /HPF Urine Crystals PRESENT H /LPF Urine Calcium Oxalate Crystals RARE H /LPF Urine Bacteria MODERATE H /HPF Urine Casts PRESENT /LPF Urine Hyaline Casts 2-5 H /LPF Urine Mucus LARGE H /LPF Urine Culture Indicated YES Lactic Acid Level 2.36 *H 1.44 0.50-2.00 MMOL/L Influenza Type A (RT-PCR) Not Detected Not Detecte Influenza Type B (RT-PCR) Not Detected Not Detecte SARS-CoV-2 RNA (RT-PCR) Negative Not Detecte My Orders Orders - RAUL TRISTAN MD Cbc With Automated Diff (12/07/22 21:20) Comprehensive Metabolic Panel (12/07/22 21:20) Magnesium (12/07/22 21:20) Thyroid Stimulating Hormone (12/07/22 21:20) Ua Culture If Indicated (12/07/22 21:20) Free T4 (Free Thyroxine) (12/07/22 21:20) Amaya Cath (12/07/22 21:21) Hs C Reactive Protein (12/07/22 21:29) Ed Iv/Invasive Line Start (12/07/22 21:52) Lactated Ringers (Lr 1000 Ml Iv Solution (12/07/22 22:00) Lorazepam Injection (Ativan Injection) (12/07/22 22:00) Chest 1 View, Ap/Pa Only (12/07/22 21:52) Pelvis 1 To 2 Views (12/07/22 21:52) Ct Head/Cervical Spine Wo (12/07/22 21:52) Manual Differential (12/07/22 22:08) Acetaminophen Tablet (Tylenol Tablet) (12/07/22 22:30) Covid 19 Inhouse Test (12/07/22 22:31) Influenza A And B By Pcr (12/07/22 22:31) Blood Culture (12/07/22 22:31) Sputum Culture (12/07/22 22:31) Protime With Inr (12/07/22 22:31) Partial Thromboplastin Time (12/07/22 22:31) Ed Iv/Invasive Line Start (12/07/22 22:31) Vital Signs Adult Sepsis Patie Q15M (12/07/22 22:31) O2 (12/07/22 22:31) Remove Rings In Anticipation O (12/07/22 22:31) Lactic Acid Analyzer (12/07/22 22:31) Procalcitonin (Pct) (12/07/22 22:31) Urine Culture (12/07/22 22:20) Cefepime Injection (Maxipime Injection) (12/07/22 23:45) Lactated Ringers (Lr 1000 Ml Iv Solution (12/08/22 01:30) Medications Given in ED Current Medications Medications Dose Ordered Sig/Chris Route Start Time Stop Time Status Last Admin Dose Admin Acetaminophen 1,000 mg ONCE ONCE PO 12/07/22 22:30 12/07/22 22:31 DC 12/07/22 22:45 1,000 MG Cefepime HCl 2000 mg/Sodium Chloride 50 ml @ 100 mls/hr ONCE ONCE IV 12/07/22 23:45 12/08/22 00:15 DC 12/07/22 23:48 100 MLS/HR Lactated Ringer's 1,000 ml @ 0 mls/hr Q0M ONCE IV 12/07/22 22:00 12/07/22 22:01 DC 12/07/22 22:13 0 MLS/HR Lactated Ringer's 1,000 ml @ 0 mls/hr Q0M ONCE IV 12/08/22 01:30 12/08/22 01:31 DC 12/08/22 01:34 999 MLS/HR Lorazepam 0.5 mg ONCE ONCE IVP 12/07/22 22:00 12/07/22 22:01 DC 12/07/22 22:13 0.5 MG Vital Signs/I&O 12/07/22 12/07/22 12/07/22 12/08/22 21:12 21:30 22:45 00:41 Temp 38.2 38.2 36.9 Pulse 118 103 Resp 22 22 B/P (MAP) 104/53 (70) 117/71 (86) Pulse Ox 92 92 94 O2 Delivery Nasal Cannula Nasal Cannula Nasal Cannula O2 Flow Rate 4.00 4.00 2.00 12/08/22 12/08/22 12/08/22 12/08/22 02:10 02:15 02:29 02:36 Temp 36.9 36.9 Pulse 102 90 89 Resp 18 14 B/P (MAP) 111/68 81/58 (66) 86/64 (71) Pulse Ox 95 92 O2 Delivery Nasal Cannula Nasal Cannula O2 Flow Rate 2.00 2.00 2.00 12/08/22 12/08/22 12/08/22 12/08/22 02:45 03:00 04:00 04:50 Temp 36.6 Pulse 86 80 80 Resp 14 13 13 B/P (MAP) 79/64 (69) 79/63 (68) 99/72 (81) Pulse Ox 93 95 96 O2 Delivery Nasal Cannula Nasal Cannula Nasal Cannula Nasal Cannula O2 Flow Rate 2.00 2.00 2.00 2.00 12/08/22 05:00 Pulse 83 Resp 15 B/P (MAP) 102/74 (83) Pulse Ox 95 O2 Delivery Nasal Cannula O2 Flow Rate 2.00 12/08/22 00:00 Intake Total 1000 ml Balance 1000 ml Capillary Refill : Less Than 3 Seconds Blood Pressure Mean: 70 Progress Note #1: Time: 22:30 Progress Note Patient is now febrile and sepsis is suspected. Septic work-up protocol is being added to the orders. Progress Note #2: Time: :41 Progress Note Work-up is consistent with pneumonia with sepsis. All labs within this document were reviewed. Due to elevated lactic acid and procalcitonin as well as hypoxia, patient would be considered to have severe sepsis. She received Ativan for her Parkinson's tremors. This did calm her tremors and she fell asleep. Vital signs have remained stable. She received cefepime for initial antibiotic therapy. Antibiotic therapy with cefepime and vancomycin will be ordered for continuation in ICU. Due to her altered mental status, severe Parkinson's, and severe sepsis, she should be admitted in the ICU. Patient has a documented full code on her group home papers. Case was discussed with Dr. Hutson who accepts admission. Report will be given to the eICU. Diagnostic Imaging Diagonstic Imaging: Xray Plain Films/CT/US/NM/MRI: chest Comments Chest x-ray was reviewed by me. Report from radiologist not yet available. There appears to be infiltrate and consolidation in the left upper and mid lung consistent with pneumonia. Departure Communication (Admissions) Time/Spoke to Admitting Phy: 01:30 Dr. Hutson Impression Primary Impression: Severe sepsis Additional Impressions: Pneumonia Qualified Codes: J18.9 - Pneumonia, unspecified organism Parkinsons Altered mental status Qualified Codes: R41.82 - Altered mental status, unspecified Disposition: ADMITTED INPATIENT Condition: Stable Admissions Decision to Admit Reason: Admit from ER (General) Decision to Admit/Date: Dec 08, 2022 Time/Decision to Admit Time: 01:30 Departure-Patient Inst. Referrals: MIKY RICHEY MD (PCP/Family) Primary Care Physician Copy Copies To 1: MIKY RICHEY MD, JOSHUA T MD Dec 07, 2022 23:14
[2022-12-07 23:22] LABS: BAND NEUTROPHILS 25 %; LYMPHOCYTES % (MANUAL) 6 %; METAMYELOCYTES % 6 %; MONOCYTES % (MANUAL) 4 %; NEUTROPHILS % (MANUAL) 59 %; PLATELET ESTIMATE NORMAL; RBC MORPH NORMAL; TOXIC GRANULATION/VACUOLAZATIO 1+
[2022-12-07] MEDS ORDERED: CEFEPIME INJECTION 2,000 MG in NS (IVPB) 50 ML IV ONE (23:45)
[2022-12-08] MEDS ORDERED: LACTATED RINGERS 1,000 ML IV ONE (01:30)
[2022-12-08] MEDS ORDERED: NS IV 500 ML 500 ML IV PRN (02:30)
[2022-12-08] MEDS ORDERED: LACTATED RINGERS 1,000 ML IV SCH ×2 (02:30→06:45)
[2022-12-08] MEDS ORDERED: ONDANSETRON 4 MG/2 ML (SDV) Z0FRAN IV PRN (02:30)
[2022-12-08] MEDS ORDERED: EPINEPHrine 1 MG INJECTION 4 MG in NS (IVPB) 248 ML IV SCH (02:30)
[2022-12-08] MEDS ORDERED: ACETAMINOPHEN 500 MG TAB (TYLENOL) PO PRN (02:30)
[2022-12-08 02:36] VITALS: BP 86/64
[2022-12-08] MEDS: LACTATED RINGERS 1,000 ML IV SCH ×4 (03:00→21:22)
[2022-12-08] MEDS: VANCOMYCIN 1 GM/NS 250 ML IVPB IV SCH ×6 (03:05→17:21)
[2022-12-08] MEDS: POTASSIUM CL 10MEQ/50ML IVPB 50 ML IV SCH (05:06)
[2022-12-08] MEDS: VASOPRESSIN INJECTION 20 UNIT in NS (IVPB) 100 ML IV SCH ×2 (05:06→10:49)
[2022-12-08] MEDS: NOREPINEPHRINE 8 MG/250 ML 250 ML IV SCH ×2 (05:06→17:22)
[2022-12-08] MEDS: MAGNESIUM 1 GM/100 ML IVPB 100 ML IV SCH (05:07)
[2022-12-08] MEDS: KCL 20 MEQ TAB (K-DUR) PO SCH ×2 (05:07→20:22)
[2022-12-08] MEDS: CEFEPIME INJECTION 1,000 MG in NS (IVPB) 50 ML IV SCH ×3 (06:25→17:21)
--- NOTE | 2022-12-08 06:37 | Diagnostic Imaging Report ---
INDICATION: Fall. FINDINGS: Heart size is normal. There is some venous congestion. There is no pleural effusion or pneumothorax. The mediastinum is unremarkable. Left subclavian central venous catheter has its tip at the cavoatrial junction. IMPRESSION: Moderate central pulmonary venous congestion. Dictated by: Dictated on workstation # [id number]
--- NOTE | 2022-12-08 07:22 | Diagnostic Imaging Report ---
EXAMINATION: CT head and CT cervical spine without contrast. TECHNIQUE: Multiple contiguous axial images were obtained through the brain and cervical spine without the use of intravenous contrast. Sagittal and coronal reformations through the cervical spine were then performed. All CT scans use one or more of the following dose optimizing techniques: automated exposure control, MA and/or KvP adjustment based on patient size and exam type or iterative reconstruction. HISTORY: Head and neck pain after injury COMPARISON: 03/17/2021 FINDINGS: HEAD: The ventricles and sulci are normal. No abnormal attenuation of brain parenchyma is present. No acute intracranial hemorrhage or abnormal extra-axial fluid collections are present. No hyperdense vessel. The calvarium is intact. The mastoid air cells are clear. The visualized paranasal sinuses are clear. The orbits are normal. C-SPINE: Limited evaluation secondary to patient motion. Alignment is difficult to assess. Vertebral body heights appear maintained. No obvious fractures identified. No obvious perched facets. The paraspinous soft tissues are normal. The visualized thyroid gland is normal. No atelectasis or consolidation within the lung apices. IMPRESSION: 1. No acute intracranial abnormality. 2. No obvious cervical fracture. Evaluation is significantly limited secondary to patient motion throughout the exam. 3. Agree with preliminary interpretation. Dictated by: Dictated on workstation # [id number]
--- NOTE | 2022-12-08 07:57 | Tele-ICU Consult ---
Progress Note video rounds completed 57 y/o female with ahx of severe Parkonsonism who recently had an intraabdominal carboxydopa port placed for continuous intragastric infusion. Presents from assisted living facility after being found down on floor and confused. In ED Temp was 100 Pulse 118 BP: 104/53Pulse Ox: 92% on 4 Liters NC Lactate initially 2.35, repeat after fluid bolus was 1.4 Procalcitonin was 5.27 WBC: 9,000 CXR interpreted by ED as MARVIN PNA Abdominal exam was reported as benign IMP: sepsis secondary to PNA PLAN: received IV fluid bous in ED Cultures taken Cefipime started IV TO ICU for moniroring Cuurently resting comfortabley Pulse 80 NSR BP: 113/74 Will continue antibiotics DVT px with heparin Focused Exam Lactate Level 12/07/22 22:35: Lactic Acid Level 2.36*H 12/08/22 02:48: Lactic Acid Level 1.44 Height, Weight, BMI Height: 5'6.00" Weight: 272lbs. 0.0oz. 123.389700ot; 33.00 BMI Method:Stated Time of Focused Exam: 01:20 Labs Laboratory Tests 12/07/22 22:08 Results Results/Procedures Labs Laboratory Tests 12/07/22 22:08 Patient resulted labs reviewed. Results Labs Labs Laboratory Tests 12/07/22 22:08: White Blood Count 9.0, Red Blood Count 5.09, Hemoglobin 15.0, Hematocrit 46, Mean Corpuscular Volume 90, Mean Corpuscular Hemoglobin 30, Mean Corpuscular Hemoglobin Concent 33, Red Cell Distribution Width 13.6, Platelet Count 329, Mean Platelet Volume 10.5, Immature Granulocyte % (Auto) 0, Neutrophils (%) ( Auto) 93H, Lymphocytes (%) (Auto) 5L, Monocytes (%) (Auto) 2, Eosinophils (%) (Auto) 0, Basophils (%) (Auto) 0, Neutrophils # (Auto) 8.3H, Lymphocytes # (Auto) 0.4L, Monocytes # (Auto) 0.2, Eosinophils # (Auto) 0.0, Basophils # (Auto) 0.0, Immature Granulocyte # (Auto) 0.0, Neutrophils % (Manual) 59, Lymphocytes % (Manual) 6, Monocytes % (Manual) 4, Metamyelocytes % 6, Band Neutrophils 25, Toxic Granulation 1+, Platelet Estimate NORMAL, Blood Morphology Comment NORMAL, Prothrombin Time 15.6H, INR Comment 1.2, Activated Partial Thromboplast Time 36H, Sodium Level 136, Potassium Level 3.5L, Chloride Level 106, Carbon Dioxide Level 17L, Anion Gap 13, Blood Urea Nitrogen 18, Creatinine 1.02, Estimat Glomerular Filtration Rate 64, BUN/Creatinine Ratio 18, Glucose Level 116H, Calcium Level 11.2H, Corrected Calcium 11.4H, Magnesium Level 1.3L, Total Bilirubin 0.8, Aspartate Amino Transf (AST/SGOT) 48H, Alanine Aminotransferase (ALT/SGPT) 11, Alkaline Phosphatase 183H, C-Reactive Protein High Sensitivity 24.43H, Total Protein 7.1, Albumin 3.8, Procalcitonin 5.27H, Thyroid Stimulating Hormone (TSH) 0.18L, Free Thyroxine 1.21 12/07/22 22:20: Urine Color AMBERH, Urine Clarity SL CLOUDY, Urine pH 6.0, Urine Specific [place] >=1.030, Urine Protein 1+H, Urine Glucose (UA) NEGATIVE, Urine Ketones 1+H, Urine Nitrite NEGATIVE, Urine Bilirubin 2+H, Urine Urobilinogen 1.0, Urine Leukocyte Esterase NEGATIVE, Urine RBC (Auto) NEGATIVE, Urine RBC 2-5H, Urine WBC 0-2, Urine Squamous Epithelial Cells 0-2, Urine Crystals PRESENTH, Urine Calcium Oxalate Crystals RAREH, Urine Bacteria MODERATEH, Urine Casts PRESENT, Urine Hyaline Casts 2-5H, Urine Mucus LARGEH, Urine Culture Indicated YES 12/07/22 22:35: Lactic Acid Level 2.36*H, Influenza Type A (RT-PCR) Not Detected, Influenza Type B (RT-PCR) Not Detected, SARS-CoV-2 RNA (RT-PCR) Negative 12/08/22 02:48: Lactic Acid Level 1.44 ALONDRA PRITCHETT MD Dec 08, 2022 07:57
--- NOTE | 2022-12-08 08:01 | Diagnostic Imaging Report ---
EXAMINATION: Pelvis 1 or 2 views HISTORY: Pelvic injury COMPARISON: None available. FINDINGS: There is mild bilateral hip joint osteoarthritis. No fracture. No dislocation. IMPRESSION: 1. No fracture in the pelvis. Dictated by: Dictated on workstation # [id number]
--- NOTE | 2022-12-08 08:04 | History & Physical-Hospitalist ---
History of Present Illness HPI/Chief Complaint Chief complaint: Severe sepsis HPI: This is a 57-year-old female clinic patient of [facility] who has a history of severe Parkinson's and just recently had a procedure on from day surgery at which entailed a gastric port placed for a DUOPA pump (infusion pump for levodopa infusion into the small bowel) which was uncomplicated. She was returned back to [facility] assisted living and was walking around on but through the night she was found beside the couch and she was confused and unable to tell any details about how she got to the couch. She was found to be febrile and have pneumonia and hypotension with hypoxia and confusion and was classified as severe sepsis so she was placed in the ICU for protocol. She is maintained on cefepime and vancomycin due to facility acquired infection suspected. Her DPOA and caretakers are at the bedside. 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 Source: patient, family, RN/MD, old records Exam Limitations: no limitations Date Seen 12/08/22 Time Seen by a Provider: 11:00 Attending Physician Forrest Yu MD PCP Admitting Physician: Tiera Hutson DO Attending Physician: Tiera Hutson DO Referring Physician Date of Admission Dec 08, 2022 at 01:44 Home Medications & Allergies Home Medications Reviewed patient Home Medication Reconciliation performed by pharmacy medication reconciliations collection technician and/or nursing. Patients Allergies have been reviewed. Allergies Allergies Coded Allergies No Known Drug Allergies (Unverified06/26/17) Past Jqgfccj-Rqcknj-Hozmmy Hx Patient Social History Marrital Status: Employed/Student: retired Tobacco Use?: No Smoking Status: Former Smoker Use of E-Cig and/or Vaping dev: No Substance use?: No Alcohol Use?: Yes Alcohol Frequency: Once in a while Immunizations Up To Date Date of Influenza Vaccine: Aug 26, 2016 First/Initial COVID19 Vaccinat: 2020 Second COVID19 Vaccination Anant: 2020 Seasonal Allergies Seasonal Allergies: Yes Current Status Advance Directives: Unable to obtain Communicates: Verbally Primary Language: Icelandic Preferred Spoken Language: Icelandic Is interpretation needed?: No Past Medical History Surgeries: Abdominal Headaches /Migraines, Parkinson's Disease (Severe disease) 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 MANCILLA -EGD 02/20/[address] MANCILLA--REFLUX ESOPHAGITIS AND GASTRITIS -GASTRIC SLEEVE 07/03/[address] MANCILLA Family history: non contributory Review of Systems Constitutional: see HPI, dizziness, fever, malaise, weakness EENTM: no symptoms reported Respiratory: cough Cardiovascular: no symptoms reported Gastrointestinal: abdominal pain, loss of appetite, nausea Genitourinary: no symptoms reported Musculoskeletal: no symptoms reported Skin: no symptoms reported Psychiatric/Neurological: Anxiety, Depressed, Tremors, Weakness All Other Systems Reviewed Negative Unless Noted: Yes Physical Exam Physical Exam Vital Signs Vital Signs - First Documented 12/07/22 21:12 Temp 38.2 Pulse 118 Resp 22 B/P (MAP) 104/53 (70) Pulse Ox 92 O2 Delivery Nasal Cannula O2 Flow Rate 4.00 Capillary Refill : Less Than 3 Seconds Height, Weight, BMI Height: 5'6.00" Weight: 272lbs. 0.0oz. 123.637363yz; 33.00 BMI Method:Stated General Appearance: No Apparent Distress, Anxious, Chronically ill Eyes: Right Eye Normal Inspection, Right Eye PERRL HEENT: PERRL/EOMI, Normal ENT Inspection, Pharynx Normal, Moist Mucous Membranes Neck: Full Range of Motion, Normal Inspection, Non Tender Respiratory: Chest Non Tender, Lungs Clear, Normal Breath Sounds, No Accessory Muscle Use, No Respiratory Distress Cardiovascular: Regular Rate, Rhythm, No Edema, No Gallop, No JVD, No Murmur, Normal Peripheral Pulses Gastrointestinal: Normal Bowel Sounds, No Organomegaly, No Pulsatile Mass, Non Tender, Soft Back: Normal Inspection, No CVA Tenderness, No Vertebral Tenderness Extremity: Normal Capillary Refill, Normal Inspection, Normal Range of Motion, Non Tender, No Calf Tenderness, No Pedal Edema Neurologic/Psychiatric: Alert, Oriented x3, 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 Assessment/Plan Admission Diagnosis Assessment: Severe sepsis Pneumonia facility acquired type Status post gastric port placed for a DUOPA pump (infusion pump for levodopa infusion into the small bowel) on , 12/05/2022 at Severe Parkinson's Severe debility requiring assisted living placement Hypothyroidism Plan: Vancomycin and cefepime empiric coverage IV fluids Advance diet Lovenox Monitor closely Admission Status: Inpatient Order (span 2 midnights) Reason for Inpatient Admission: Severe sepsis Diagnosis/Problems Diagnosis/Problems (1) Severe sepsis Status: Acute (2) Pneumonia Status: Acute Qualifiers: Pneumonia type: due to unspecified organism Laterality: left Lung location: upper lobe of lung Qualified Codes: J18.9 - Pneumonia, unspecified organism (3) Altered mental status Status: Acute Qualifiers: Altered mental status type: unspecified Qualified Codes: R41.82 - Altered mental status, unspecified (4) Parkinsons Status: Acute (5) Debility Status: Acute TIERA HUTSON DO Dec 08, 2022 08:04
[2022-12-08] MEDS: ENOXAPARIN 40 MG/0.4 ML (LOVENOX) SYR SC SCH (10:09)
[2022-12-08] MEDS: HYDROcodone/APAP 5 MG/325 MG (LORTAB) TAB PO PRN ×3 (10:31→19:35)
[2022-12-08] MEDS ORDERED: CALCIUM CARBONATE 500 MG (TUMS) TAB.CHEW PO PRN (10:45)
[2022-12-08] MEDS ORDERED: MELATONIN 3 MG TABLET PO PRN (10:45)
[2022-12-08] MEDS ORDERED: MENTHOL/ZINC OXIDE (CALMOSEPTINE) 113 GM TUBE TP PRN (10:45)
[2022-12-08] MEDS ORDERED: LOPERAMIDE 2 MG (IMODIUM) TABLET PO PRN (10:45)
[2022-12-08] MEDS ORDERED: BISACODYL 10 MG SUPP (DULCOLAX) PR PRN (10:45)
[2022-12-08] MEDS ORDERED: ALPRAZolam 0.25 MG (XANAX) TAB PO PRN (10:45)
[2022-12-08] MEDS ORDERED: ONDANSETRON 4 MG (ZOFRAN) ORAL DISSOLVE TAB PO PRN ×2 (10:45→16:15)
[2022-12-08] MEDS ORDERED: DOCUSATE SODIUM 100 MG (COLACE) CAP PO PRN (10:45)
[2022-12-08] MEDS ORDERED: diphenhydrAMINE 25 MG TAB (BENADRYL) PO PRN (10:45)
[2022-12-08] MEDS ORDERED: ONDANSETRON 4 MG/2 ML (SDV) Z0FRAN IVP PRN (10:45)
--- NOTE | 2022-12-08 10:53 | Diagnostic Imaging Report ---
EXAMINATION: Chest 1 view HISTORY: Pneumonia COMPARISON: 12/07/2022 FINDINGS: Left subclavian port tip is in the superior vena cava. Lung volumes are small. There is mild edema, improved from prior exam. There is a small left effusion. No pneumothorax. Heart size is normal. IMPRESSION: 1. Mild edema, slightly improved from prior exam. Dictated by: Dictated on workstation # [id number]
[2022-12-08 11:04] LABS: BASOPHILS % (AUTO) 0 % (0-10); EOSINOPHILS % (AUTO) 0 % (0-10); HEMATOCRIT 41 % (35-52); HEMOGLOBIN 13.2 g/dL (11.5-16.0); LYMPHOCYTES # (AUTO) 1.3 10^3/uL (1.0-4.0); LYMPHOCYTES % (AUTO) 10 % (12-44); MEAN CORPUSCULAR HEMOGLOBIN 29 pg (25-34); MEAN CORPUSCULAR HGB CONC 32 g/dL (32-36); MEAN CORPUSCULAR VOLUME 90 fL (80-99); MEAN PLATELET VOLUME 10.5 fL (9.0-12.2); MONOCYTES # (AUTO) 1.2 10^3/uL (0.0-1.0); MONOCYTES % (AUTO) 9 % (0-12); NEUTROPHILS # (AUTO) 10.9 10^3/uL (1.8-7.8); NEUTROPHILS % (AUTO) 81 % (42-75); PLATELET COUNT 275 10^3/uL (130-400); WHITE BLOOD COUNT 13.4 10^3/uL (4.3-11.0)
[2022-12-08 11:19] LABS: ALBUMIN 3.1 GM/DL (3.2-4.5); POTASSIUM 4.1 MMOL/L (3.6-5.0)
[2022-12-08 11:21] LABS: CALCIUM 10.6 MG/DL (8.5-10.1)
[2022-12-08 11:22] LABS: TOTAL PROTEIN 5.9 GM/DL (6.4-8.2)
[2022-12-08 11:24] LABS: BILIRUBIN,TOTAL 0.8 MG/DL (0.1-1.0)
[2022-12-08 11:25] LABS: CREATININE SERUM 0.65 MG/DL (0.60-1.30)
[2022-12-08] MEDS ORDERED: BIOT5CAP9 PO (13:26)
[2022-12-08] MEDS ORDERED: CELE200C PO (13:26)
[2022-12-08] MEDS ORDERED: MENT118G TP (13:26)
[2022-12-08] MEDS ORDERED: LORA-404 PO ×2 (13:26)
[2022-12-08] MEDS ORDERED: NFCHLORHGL MM (13:26)
[2022-12-08] MEDS ORDERED: MAG CARB/AL HYDROX EXTRA STRENGTH TAB (GAVISCON ES) PO PRN (14:15)
[2022-12-08] MEDS ORDERED: MIDO10TA PO (15:12)
[2022-12-08] MEDS ORDERED: OXYC5TAB PO (15:12)
[2022-12-08] MEDS ORDERED: CARB1CAP3 PO (15:12)
[2022-12-08] MEDS ORDERED: CARB1CAP5 PO (15:12)
[2022-12-08] MEDS ORDERED: PIMA34CA PO (15:12)
[2022-12-08] MEDS ORDERED: ACHD5005 PO (15:12)
[2022-12-08] MEDS ORDERED: ACET325C7 PO (15:12)
[2022-12-08] MEDS ORDERED: MULT-974 PO (15:12)
[2022-12-08] MEDS ORDERED: IBUPROFEN TABLET 200 MG TAB PO PRN (16:00)
[2022-12-08] MEDS ORDERED: MENTHOL TP PRN (16:00)
[2022-12-08] MEDS ORDERED: LORazepam 0.5 MG (ATIVAN) TABLET PO PRN ×3 (16:00)
[2022-12-08] MEDS ORDERED: [UNRECOGNIZED DRUG - OTHER] PO SCH ×2 (16:00→17:00)
[2022-12-08] MEDS ORDERED: LEVODOPA PO SCH ×2 (16:00→17:00)
[2022-12-08] MEDS ORDERED: PATIENT MAY USE OWN MEDS, ALL MC SCH (16:00)
[2022-12-08] MEDS ORDERED: CARBIDOPA PO SCH ×2 (16:00→17:00)
[2022-12-08] MEDS: RYTARY PO SCH ×2 (16:33→20:20)
[2022-12-08] MEDS ORDERED: RYTARY PO PRN (16:45)
[2022-12-08] MEDS: CHLORHEXIDINE 0.12% SOLN 15 ML (PERIDEX) UDC MM SCH (20:20)
[2022-12-08] MEDS: polyethylene glycoL POWDER 17 GM (MIRALAX) PACK PO SCH (20:21)
[2022-12-08] MEDS: AMITRIPTYLINE 25 MG (ELAVIL) TAB PO SCH (20:21)
[2022-12-08] MEDS: SERTRALINE 50 MG (ZOLOFT) TABLET PO SCH (20:22)
[2022-12-08] MEDS: GABAPENTIN 300 MG (NEURONTIN) CAP PO SCH (20:22)
[2022-12-08] MEDS: SUCRALFATE 1 GM (CARAFATE) TAB PO SCH (20:22)
[2022-12-08] MEDS: MIDODRINE 10 MG (PROAMATINE) TAB PO SCH (20:23)
[2022-12-08] MEDS: SENNA W/DOCUSATE (SENOKOT S) TABLET PO SCH (20:23)
[2022-12-08] MEDS ORDERED: LORazepam 0.5 MG (ATIVAN) TABLET PO SCH (21:00)
[2022-12-08] MEDS ORDERED: BIOTIN 5 MG PO SCH (21:00)
[2022-12-09] MEDS: CEFEPIME INJECTION 1,000 MG in NS (IVPB) 50 ML IV SCH ×5 (00:35→23:08)
[2022-12-09] MEDS: VASOPRESSIN INJECTION 20 UNIT in NS (IVPB) 100 ML IV SCH (00:48)
[2022-12-09] MEDS: HYDROcodone/APAP 5 MG/325 MG (LORTAB) TAB PO PRN ×3 (01:42→20:44)
[2022-12-09 04:18] LABS: BASOPHILS % (AUTO) 0 % (0-10); EOSINOPHILS # (AUTO) 0.2 10^3/uL (0.0-0.3); EOSINOPHILS % (AUTO) 2 % (0-10); HEMATOCRIT 38 % (35-52); HEMOGLOBIN 12.3 g/dL (11.5-16.0); LYMPHOCYTES # (AUTO) 1.1 10^3/uL (1.0-4.0); LYMPHOCYTES % (AUTO) 9 % (12-44); MEAN CORPUSCULAR HEMOGLOBIN 29 pg (25-34); MEAN CORPUSCULAR HGB CONC 32 g/dL (32-36); MEAN CORPUSCULAR VOLUME 90 fL (80-99); MEAN PLATELET VOLUME 10.4 fL (9.0-12.2); MONOCYTES # (AUTO) 0.8 10^3/uL (0.0-1.0); MONOCYTES % (AUTO) 7 % (0-12); NEUTROPHILS # (AUTO) 9.9 10^3/uL (1.8-7.8); NEUTROPHILS % (AUTO) 82 % (42-75); PLATELET COUNT 241 10^3/uL (130-400); WHITE BLOOD COUNT 12.1 10^3/uL (4.3-11.0)
[2022-12-09 04:40] LABS: ALBUMIN 2.8 GM/DL (3.2-4.5); BILIRUBIN,TOTAL 0.6 MG/DL (0.1-1.0); CALCIUM 11.2 MG/DL (8.5-10.1); CREATININE SERUM 0.51 MG/DL (0.60-1.30); MAGNESIUM 1.7 MG/DL (1.6-2.4); PHOSPHORUS 2.1 MG/DL (2.3-4.7); POTASSIUM 3.6 MMOL/L (3.6-5.0); TOTAL PROTEIN 5.6 GM/DL (6.4-8.2)
[2022-12-09] MEDS: LACTATED RINGERS 1,000 ML IV SCH (05:27)
[2022-12-09] MEDS: LEVOTHYROXINE 75 MCG (LEVOTHROID) TABLET PO SCH (05:30)
[2022-12-09] MEDS: MAGNESIUM 1 GM/100 ML IVPB 100 ML IV SCH ×2 (05:31→05:32)
[2022-12-09] MEDS: POTASSIUM CL 10MEQ/50ML IVPB 50 ML IV SCH ×2 (05:31→05:32)
[2022-12-09] MEDS: KCL 20 MEQ TAB (K-DUR) PO SCH ×3 (05:32→19:33)
[2022-12-09] MEDS: VANCOMYCIN 1 GM/NS 250 ML IVPB IV SCH ×2 (05:32)
[2022-12-09] MEDS: LORATADINE (CLARITIN) 10 MG TAB PO SCH (07:51)
[2022-12-09] MEDS: MULTIVIT W/MINERALS TAB (THERAGRAN M) PO SCH (07:51)
[2022-12-09] MEDS: CYANOCOBALAMIN 1,000 MCG (VITAMIN B-12) TABLET PO SCH (07:52)
[2022-12-09] MEDS: GABAPENTIN 300 MG (NEURONTIN) CAP PO SCH ×3 (07:52→19:33)
[2022-12-09] MEDS: PANTOPRAZOLE 40 MG (PROTONIX) TAB PO SCH (07:52)
[2022-12-09] MEDS: SUCRALFATE 1 GM (CARAFATE) TAB PO SCH (07:52)
[2022-12-09] MEDS: MIDODRINE 10 MG (PROAMATINE) TAB PO SCH ×2 (07:52→12:30)
[2022-12-09] MEDS: ENOXAPARIN 40 MG/0.4 ML (LOVENOX) SYR SC SCH (07:53)
[2022-12-09] MEDS: SENNA W/DOCUSATE (SENOKOT S) TABLET PO SCH ×2 (07:53→19:33)
[2022-12-09] MEDS: CHLORHEXIDINE 0.12% SOLN 15 ML (PERIDEX) UDC MM SCH ×2 (07:53→19:33)
[2022-12-09] MEDS: polyethylene glycoL POWDER 17 GM (MIRALAX) PACK PO SCH ×2 (07:54→19:33)
[2022-12-09] MEDS: RYTARY PO SCH ×5 (08:14→19:35)
[2022-12-09] MEDS: CELECOXIB 100 MG (CeleBREX) CAP PO SCH (08:14)
[2022-12-09] MEDS: NOREPINEPHRINE 8 MG/250 ML 250 ML IV SCH (08:18)
[2022-12-09] MEDS ORDERED: NON-FORMULARY MEDICATION 1 EA EA (Pimavanserin Tartrate (Nuplazid) 34 MG) PO SCH (09:00)
[2022-12-09] MEDS ORDERED: PANT40TA52 PO (10:22)
[2022-12-09] MEDS ORDERED: GABA300C PO (10:22)
[2022-12-09] MEDS ORDERED: CYCL10TA25 PO (10:22)
[2022-12-09] MEDS ORDERED: LORA10TA7 PO (10:22)
[2022-12-09] MEDS ORDERED: RYTARY PO PRN (11:30)
--- NOTE | 2022-12-09 11:31 | Progress Note - Hospitalist ---
CAROL MARSHALL I 12/09/22 1131: Subjective HPI/CC On Admission Date Seen by Provider: Dec 09, 2022 Time Seen by Provider: 10:00 Chief complaint: Severe sepsis HPI: This is a 57-year-old female clinic patient of [facility] who has a history of severe Parkinson's and just recently had a procedure on (12/05) from day surgery at which entailed a gastric port placed for a DUOPA pump (infusion pump for levodopa infusion into the small bowel) which was uncomplicated. She was returned back to [facility] living and was walking around on Friday but through the night she was found beside the couch and she was confused and unable to tell any details about how she got to the couch. She was found to be febrile and have pneumonia and hypotension with hypoxia and confusion and was classified as severe sepsis so she was placed in the ICU for protocol. She is maintained on cefepime and vancomycin due to facility acquired infection suspected. Her DPOA and caretakers are at the bedside. 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 Subjective/Events-last exam Emigdio Simmons is a 57 year old female with PMH of severe Parkinson's disease admitted to ICU for sepsis secondary to pneumonia. Doing better today. Oxygen down to 3L at time of visiting. Able to converse without having to stop for breath. Tolerating antibiotics well. Passing gas, but not stool. Focused Exam Lactate Level 12/07/22 22:35: Lactic Acid Level 2.36*H 12/08/22 02:48: Lactic Acid Level 1.44 Time of Focused Exam: 01:20 Objective Exam Vital Signs Vital Signs Date Time Temp Pulse Resp B/P (MAP) Pulse Ox O2 Delivery O2 Flow Rate FiO2 12/09/22 15:52 37.3 88 20 110/70 (83) 96 Nasal Cannula 3.00 Capillary Refill : Less Than 3 Seconds General Appearance: No Apparent Distress HEENT: PERRL/EOMI Neck: Full Range of Motion, Normal Inspection, Non Tender, Supple, Carotid Bruit Respiratory: Chest Non Tender, Lungs Clear (No crackles appreciated on my exam. Had just deeply coughed prior), Normal Breath Sounds, No Respiratory Distress Cardiovascular: Regular Rate, Rhythm, No Edema, No Gallop, Normal Peripheral Pulses Gastrointestinal: Normal Bowel Sounds, Non Tender, Soft Back: Normal Inspection, No CVA Tenderness, No Vertebral Tenderness Extremity: Normal Capillary Refill, Non Tender, No Pedal Edema Neurologic/Psychiatric: Alert, Oriented x3, Other (Parkinsonian tremor in B UE. Able to sit up unassissted) Skin: Normal Color, Warm/Dry Results/Procedures Lab Laboratory Tests 12/09/22 04:05 Patient resulted labs reviewed. Imaging: Reviewed Imaging Films, Reviewed Imaging Report Assessment/Plan Assessment and Plan Assess & Plan/Chief Complaint Sepsis secondary to Pneumonia (improving) - Lactate trending down 2.36 -> 1.44 - procal 5.27 on admission - BP lowest recorded 79/63 - CXR with venous congestion vs edema - Temp 38.2 on admission, resolved - Blood cultures taken prior to antibiotics given - Trend CBC. BMP - Wean oxygen as tolerated Parkinsonian Dyskinesia - Parkinsons diagnosed 5 yrs ago, - Continuous dopamine infusion (DUOPA) placed 12/05 by [facility] - Continue to monitor wound site - Follow up with neurologist Debility - due to age and condition - PT/OT eval - consider for Acute rehab TIERA TANNER DO 12/10/22 0509: Supervisory-Addendum Brief Verification & Attestation Participated in pt care: history, MDM, physical Personally performed: exam, history, MDM, supervision of care Care discussed with: Medical Student Procedures: n/a Results interpretation: Verified all documentation Verification and Attestation of Medical Student E/M Service A medical student performed and documented this service in my presence. I reviewed and verified all information documented by the medical student and made modifications to such information, when appropriate. I personally performed the physical exam and medical decision making. Tiera Tanner, Dec 10, 2022,05:08 CAROL MARSHALL I Dec 09, 2022 11:31 TIERA TANNER DO Dec 10, 2022 05:09
--- NOTE | 2022-12-09 11:36 | Physical Therapy Evaluation ---
PT Evaluation-General Medical Diagnosis Admission Date Dec 08, 2022 at 01:44 Medical Diagnosis: severe sepsis pneumonia Onset Date: Dec 08, 2022 Therapy Diagnosis Therapy Diagnosis: debility/weakness Height/Weight Height (Feet): 5 Height (Inches): 6.00 Weight (Pounds): 272 Weight (Ounces): 0.0 Precautions Precautions/Isolations: Fall Prevention, Standard Precautions Referral Physician: Haresh Reason for Referral: Evaluation/Treatment Medical History Pertinent Medical History: Hypothroidism, Neuropathy, Parkinson's Additional Medical History s/p DUOPA pump at for Parkinson's meds Current History EMS secondary patient found on [place] at [place] lethargic and confused Reviewed History: Yes Social History Home: Assisted Living Prior Prior Level of Function SCALE: Activities may be completed with or without assistive devices. 6-Oyqfhydpam-keikuoc completes the activity by him/herself with no assistance from a helper. 5-Set-up or Clean-up Assistance-helper sets up or cleans up; patient completes activity. [place] assists only prior to or following the activity. 4-Supervision or Touching Assistance-helper provides verbal cues and/or touching/steadying and/or contact guard assistance as patient completes activity. Assistance may be provided throughout the activity or intermittently. 3-Partial/Moderate Assistance-helper does LESS THAN HALF the effort. [place] lifts, holds or supports trunk or limbs, but provides less than half the effort. 2-Substantial/Maximal Assistance-helper does MORE THAN HALF the effort. [place] lifts or holds trunk or limbs and provides more than half the effort. 1-Pyzxejsem-bfsuba does ALL the effort. Patient does none of the effort to complete the activity. Or, the assistance of 2 or more helpers is required for the patient to complete the activity. If activity was not attempted, code reason: 7-Patient Refused. 9-Not Applicable-not attempted and the patient did not perform the activity before the current illness, exacerbation or injury. 10-Not Attempted due to Environmental Limitations-(lack of equipment, weather restraints, etc.). 88-Not Attempted due to Medical Conditions or Safety Concerns. Bed Mobility: 3 Transfers (B,C,W/C): 3 Gait: 3 Stairs: 9 Wheelchair Mobility: 4 Indoor Mobility (Ambulation): Needed Some Help Stairs: Not Applicalbe Prior Devices Use: Manual wheelchair, Walker (4WW) PT Evaluation-Current Subjective Patient very well known to this PT. Agrees to PT. Objective Patient Orientation: Normal For Age Attachments: Central Line, Oxygen, Amaya Catheter ROM/Strength ROM Lower Extremities bilateral LE WFL Strength Lower Extremities 3/5 grossly bilateral LE all planes Integumentary/Posture Bladder Incontinence: Amaya Cath Posture WFL Neuromuscular (Tone, Coordination, Reflexes) Parkinson's tremors Sensory Vision: Wears Glasses Hearing: Functional Transfers Lying to Sitting/Side of Bed(Q: 3 Sit to Stand (QC): 3 Chair/Aax-wt-Nzbxe Xfer(QC): 3 Gait Mode of Locomotion: Both Anticipated Mode of Locomotion: Both Walk 10 feet (QC): 3 (mod assist for safety) Walk 50 ft with 2 Turns(QC): 88 Walk 150 ft (QC): 88 Distance: 10' x 2 Gait Assistive Device: FWW Comments/Gait Description PT assist for FWW placement due to patient's tone and extended UE's with FWW use Balance Sitting Static: Fair Sitting Dynamic: Poor Standing Static: Poor Standing Dynamic: Poor Assessment/Needs Patient will benefit from skilled PT to address functional strength and mobility to improve current LOF. Patient is highly motivated to participate with PT. Rehab Potential: Guarded PT Shower Doors And Panels Fabricator Goals Nursing Home Goals PT Shower Doors And Panels Fabricator Goals Time Frame: Dec 28, 2022 Roll Left & Right (QC): 4 Sit to Lying (QC): 4 Lying-Sitting on Side/Bed(QC): 4 Sit to Stand (QC): 4 Chair/Vsa-zq-Owdtw Xfer(QC): 4 Toilet Transfer (QC): 4 Walk 10 feet (QC): 4 Walk 50ft with 2 Turns (QC): 4 Walk 150 ft (QC): 4 PT Plan Problem List Problem List: Activity Tolerance, Functional Strength, Safety, Balance, Gait, Transfer, Bed Mobility Treatment/Plan Treatment Plan: Continue Plan of Care Treatment Plan: Bed Mobility, Education, Functional Activity Judy, Functional Strength, Gait, Safety, Therapeutic Exercise, Transfers Treatment Duration: Dec 28, 2022 Frequency: 6 times per week Estimated Hrs Per Day: .25 hour per day Patient and/or Family Agrees t: Yes Time Time In: 1055 Time Out: 1110 DATE: Dec 09, 2022 Total Billed Treatment Time: 15 [facility]KATHY PT Dec 09, 2022 11:36
--- NOTE | 2022-12-09 15:02 | Occupational Therapy Eval ---
OT Evaluation-General/PLF Medical Diagnosis Admission Date Dec 08, 2022 at 01:44 Medical Diagnosis: severe sepsis pneumonia Onset Date: Dec 08, 2022 Therapy Diagnosis Therapy Diagnosis: debility, weakness PD tremors, unsteady balance Height/Weight Height (Feet): 5 Height (Inches): 6.00 Weight (Pounds): 272 Weight (Ounces): 0.0 Precautions Precautions/Isolations: Fall Prevention, Standard Precautions Comments intraabdominal port Weight Bear Status Weight Bearing Restriction: Weight Bearing/Tolerated Referral Physician: Haresh Referral Reason: Evaluation/Treatment (s/p DUOPA pump, completion projected Dec 20 at [facility]) Medical History Pertinent Medical History: Hypothroidism, Neuropathy, Parkinson's Social History Home: Assisted Living Current Living Status: Alone ADL-Prior Level of Function SCALE: Activities may be completed with or without assistive devices. 0-Ayrhpibpqq-hfuimnf completes the activity by him/herself with no assistance from a helper. 5-Set-up or Clean-up Assistance-helper sets up or cleans up; patient completes activity. [place] assists only prior to or following the activity. 4-Supervision or Touching Assistance-helper provides verbal cues and/or touching/steadying and/or contact guard assistance as patient completes activity. Assistance may be provided throughout the activity or intermittently. 3-Partial/Moderate Assistance-helper does LESS THAN HALF the effort. [place] lifts, holds or supports trunk or limbs, but provides less than half the effort. 2-Substantial/Maximal Assistance-helper does MORE THAN HALF the effort. [place] lifts or holds trunk or limbs and provides more than half the effort. 5-Jeonnyuav-oaslms does ALL the effort. Patient does none of the effort to complete the activity. Or, the assistance of 2 or more helpers is required for the patient to complete the activity. If activity was not attempted, code reason: 7-Patient Refused. 9-Not Applicable-not attempted and the patient did not perform the activity before the current illness, exacerbation or injury. 10-Not Attempted due to Environmental Limitations-(lack of equipment, weather restraints, etc.). 88-Not Attempted due to Medical Conditions or Safety Concerns. ADL PLOF Comments Toileting w/ transfer from recliner w/ FWW and gait belt Self Care: Needed Some Help Functional Cognition: Independent DME/Equipment: Bath Bench, Grab Bars, Reachers, Shower Hose Harvest Worker Field Crop, Toilet/Riser Drive Self: No OT Current Status Mental Status/Objective Patient Orientation: Person, Place, Time, Situation Attachments: Amaya Catheter Current Glasses/Contacts: Yes Upper Extremity ROM BUE WFLS Upper Extremity Coordination PD tremors Upper Extremity Strength BUE -4/5 ADL-Treatment ADL-Current toileting, LB garment management Eating (QC): 6 (drinks water from handled mug) Lower Body Dressing (QC): 4 On/Off Footwear (QC): 4 Toileting Hygiene (QC): 4 Patient remained on commode with family present, call cord in reach and RN Ivy notified Education OT Patient Education: Disease process, Modified ADL techniques, Progress toward Goal/Update tx plan, Purpose of tx/functional activities, Reviewed precautions, Rehab process, Safety issues, Transfer techniques, Use of adapted equipment Teaching Recipient: Patient Teaching Methods: Demonstration, Discussion Response to Teaching: Verbalize Understanding, Return Demonstration, Reinforcement Needed OT Customer Development Representative Goals Shelter Goals Eating (QC): 6 Oral Hygiene (QC): 6 Toileting Hygiene (QC): 4 Shower/Bathe Self (QC): 4 Upper Body Dressing (QC): 6 Lower Body Dressing (QC): 4 On/Off Footwear (QC): 6 Additional Goals: 1-Demonstrate ADL Tasks 1=Demonstrate adherence to instructed precautions during ADL tasks. 2=Patient will verbalize/demonstrate understanding of assistive devices/modifications for ADL. 3=Patient will improve strength/tolerance for activity to enable patient to perform ADL's. OT Education/Plan Problem List/Assessment Assessment: Impaired Bed Mobility, Impaired Coordination, Impaired Funct Balance, Impaired Self-Care Skills Discharge Recommendations Plan/Recommendations: Continue POC Therapy Discharge Recommendati: Assisted Living Treatment Plan/Plan of Care Treatment,Training & Education: Yes Patient would benefit from OT for education, treatment and training to promote independence in ADL's, mobility, safety and/or upper extremity function for ADL's. Plan of Care: ADL Retraining, Functional Mobility, Group Exercise/Act as Ind, UE Funct Exercise/Act Treatment Duration: Dec 09, 2022 Frequency: 3 times per week (3-5 times/week) Estimated Hrs Per Day: .25 hour per day Agreement: Yes Rehab Potential: Good Time Start Time: 14:20 Stop Time: 14:48 DATE: Dec 09, 2022 Total Time Billed (hr/min): 28 Billed Treatment Time EVL 15m 1 ADL 13m NATALI OTERO OT Dec 09, 2022 15:02
[2022-12-09 15:52] VITALS: BP 110/70
[2022-12-09] MEDS: LORazepam 0.5 MG (ATIVAN) TABLET PO SCH ×2 (16:27→19:33)
[2022-12-09] MEDS ORDERED: TROUGH ORDER-PHARMACY XX ONE ×2 (17:00)
[2022-12-09] MEDS: VANCOMYCIN 1500 MG/NS 500 ML IVPB IV SCH ×2 (19:32)
[2022-12-09] MEDS: AMITRIPTYLINE 25 MG (ELAVIL) TAB PO SCH (19:32)
[2022-12-09] MEDS: SERTRALINE 50 MG (ZOLOFT) TABLET PO SCH (19:33)
[2022-12-09 19:52] VITALS: BP 100/70
[2022-12-09 23:03] VITALS: BP 100/68
[2022-12-09] MEDS: CYCLOBENZAPRINE 10 MG (FLEXERIL) TAB PO PRN (23:12)
[2022-12-10 04:03] VITALS: BP 114/76
[2022-12-10] MEDS: VANCOMYCIN 1500 MG/NS 500 ML IVPB IV SCH ×4 (05:48→17:28)
[2022-12-10] MEDS: CEFEPIME INJECTION 1,000 MG in NS (IVPB) 50 ML IV SCH ×4 (05:48→23:34)
[2022-12-10] MEDS: LEVOTHYROXINE 75 MCG (LEVOTHROID) TABLET PO SCH (05:48)
[2022-12-10] MEDS: CYANOCOBALAMIN 1,000 MCG (VITAMIN B-12) TABLET PO SCH (05:48)
[2022-12-10] MEDS: HYDROcodone/APAP 5 MG/325 MG (LORTAB) TAB PO PRN ×2 (05:53→17:29)
[2022-12-10 06:17] LABS: BASOPHILS % (AUTO) 0 % (0-10); EOSINOPHILS # (AUTO) 0.6 10^3/uL (0.0-0.3); EOSINOPHILS % (AUTO) 5 % (0-10); HEMATOCRIT 36 % (35-52); HEMOGLOBIN 11.6 g/dL (11.5-16.0); LYMPHOCYTES # (AUTO) 1.3 10^3/uL (1.0-4.0); LYMPHOCYTES % (AUTO) 11 % (12-44); MEAN CORPUSCULAR HEMOGLOBIN 29 pg (25-34); MEAN CORPUSCULAR HGB CONC 32 g/dL (32-36); MEAN CORPUSCULAR VOLUME 91 fL (80-99); MEAN PLATELET VOLUME 10.7 fL (9.0-12.2); MONOCYTES # (AUTO) 0.8 10^3/uL (0.0-1.0); MONOCYTES % (AUTO) 7 % (0-12); NEUTROPHILS # (AUTO) 9.3 10^3/uL (1.8-7.8); NEUTROPHILS % (AUTO) 77 % (42-75); PLATELET COUNT 238 10^3/uL (130-400); WHITE BLOOD COUNT 12.1 10^3/uL (4.3-11.0)
[2022-12-10 06:33] LABS: ALBUMIN 2.7 GM/DL (3.2-4.5); BILIRUBIN,TOTAL 0.5 MG/DL (0.1-1.0); CALCIUM 10.3 MG/DL (8.5-10.1); CREATININE SERUM 0.47 MG/DL (0.60-1.30); MAGNESIUM 1.6 MG/DL (1.6-2.4); PHOSPHORUS 2.4 MG/DL (2.3-4.7); POTASSIUM 3.7 MMOL/L (3.6-5.0); TOTAL PROTEIN 5.5 GM/DL (6.4-8.2)
[2022-12-10] MEDS: RYTARY PO SCH ×5 (06:39→20:25)
[2022-12-10 07:55] VITALS: BP 136/83
[2022-12-10] MEDS: ENOXAPARIN 40 MG/0.4 ML (LOVENOX) SYR SC SCH (08:54)
[2022-12-10] MEDS: CELECOXIB 100 MG (CeleBREX) CAP PO SCH (08:55)
[2022-12-10] MEDS: PANTOPRAZOLE 40 MG (PROTONIX) TAB PO SCH (08:55)
[2022-12-10] MEDS: MULTIVIT W/MINERALS TAB (THERAGRAN M) PO SCH (08:55)
[2022-12-10] MEDS: GABAPENTIN 300 MG (NEURONTIN) CAP PO SCH ×3 (08:55→20:22)
[2022-12-10] MEDS: LORATADINE (CLARITIN) 10 MG TAB PO SCH (08:55)
[2022-12-10] MEDS: MIDODRINE 10 MG (PROAMATINE) TAB PO SCH ×2 (09:04→12:03)
[2022-12-10] MEDS: SENNA W/DOCUSATE (SENOKOT S) TABLET PO SCH ×2 (09:05→20:22)
[2022-12-10] MEDS: polyethylene glycoL POWDER 17 GM (MIRALAX) PACK PO SCH ×2 (09:05→20:24)
[2022-12-10] MEDS: KCL 20 MEQ TAB (K-DUR) PO SCH ×2 (09:05→20:22)
[2022-12-10] MEDS: CHLORHEXIDINE 0.12% SOLN 15 ML (PERIDEX) UDC MM SCH ×2 (09:06→20:22)
--- NOTE | 2022-12-10 11:04 | Physical Therapy Daily Note ---
PT Daily Note-Current Subjective Patient agrees to PT. Pain Section J - Health Conditions 1. Rarely or not at all 2. Occasionally 3. Frequently 4. Almost constantly 8. Unable to answer Pain Effect on Sleep: 2 Pain Interference with Therapy: 2 Pain Interference w/Day-to-Day: 2 Mental Status Patient Orientation: Normal For Age Attachments: Oxygen Transfers SCALE: Activities may be completed with or without assistive devices. 9-Jxnocsitfh-pfjkjxq completes the activity by him/herself with no assistance from a helper. 5-Set-up or Clean-up Assistance-helper sets up or cleans up; patient completes activity. [place] assists only prior to or following the activity. 4-Supervision or Touching Assistance-helper provides verbal cues and/or touching/steadying and/or contact guard assistance as patient completes activity. Assistance may be provided throughout the activity or intermittently. 3-Partial/Moderate Assistance-helper does LESS THAN HALF the effort. [place] lifts, holds or supports trunk or limbs, but provides less than half the effort. 2-Substantial/Maximal Assistance-helper does MORE THAN HALF the effort. [place] lifts or holds trunk or limbs and provides more than half the effort. 6-Rpmzbqppf-chfncq does ALL the effort. Patient does none of the effort to complete the activity. Or, the assistance of 2 or more helpers is required for the patient to complete the activity. If activity was not attempted, code reason: 7-Patient Refused. 9-Not Applicable-not attempted and the patient did not perform the activity before the current illness, exacerbation or injury. 10-Not Attempted due to Environmental Limitations-(lack of equipment, weather restraints, etc.). 88-Not Attempted due to Medical Conditions or Safety Concerns. Lying to Sitting/Side of Bed(Q: 6 Sit to Stand (QC): 4 Chair/Hbh-mu-Fmgee Xfer(QC): 4 CGA for safety Gait Training Distance: >400' Walk 10 feet (QC): 4 Walk 50 ft with 2 Turns(QC): 4 Walk 150 ft (QC): 4 Gait Assistive Device: Walker 4 Wheeled CGA for safety/VC's for body placement in walker with noted extended UE's with use Exercises Seated Therapy Exercises: Ankle pumps, Long arc quads Seated Reps: 15 Assessment Patient up in recliner with needs met. Noted improvement in distance with gait with 4WW. PT to continue to increase activity as tolerated by patient. PT Care Home Goals Regulator Pin Inserter Goals PT Regulator Pin Inserter Goals Time Frame: Dec 28, 2022 Roll Left & Right (QC): 4 Sit to Lying (QC): 4 Lying-Sitting on Side/Bed(QC): 4 Sit to Stand (QC): 4 Chair/Wba-zs-Sesoo Xfer(QC): 4 Toilet Transfer (QC): 4 Walk 10 feet (QC): 4 Walk 50ft with 2 Turns (QC): 4 Walk 150 ft (QC): 4 PT Plan Treatment/Plan Treatment Plan: Continue Plan of Care Treatment Plan: Bed Mobility, Education, Functional Activity Judy, Functional Strength, Gait, Safety, Therapeutic Exercise, Transfers Treatment Duration: Dec 28, 2022 Frequency: 6 times per week Estimated Hrs Per Day: .25 hour per day Patient and/or Family Agrees t: Yes Time Time In: 1030 Time Out: 1054 DATE: Dec 10, 2022 Total Billed Treatment Time: 24 Total Billed Treatment 1 visit GT x 2 24 min KATHY FAROOQ PT Dec 10, 2022 11:04
--- NOTE | 2022-12-10 11:06 | Progress Note - Hospitalist ---
CAROL MARSHALL Stella 12/10/22 1106: Subjective HPI/CC On Admission Chief complaint: Severe sepsis HPI: This is a 57-year-old female clinic patient of [facility] who has a history of severe Parkinson's and just recently had a procedure on (12/05) from day surgery at which entailed a gastric port placed for a DUOPA pump (infusion pump for levodopa infusion into the small bowel) which was uncomplicated. She was returned back to [place] assisted living and was walking around on Friday but through the night she was found beside the couch and she was confused and unable to tell any details about how she got to the couch. She was found to be febrile and have pneumonia and hypotension with hypoxia and confusion and was classified as severe sepsis so she was placed in the ICU for protocol. She is maintained on cefepime and vancomycin due to facility acquired infection suspected. Her DPOA and caretakers are at the bedside. 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 She is more tired than yesterday. Eating well, on and off 3L NC. Comments she has an appointment with for followup on her Duopa placement procedure on 12/20. Denies chest pain, joint pain. Focused Exam Lactate Level 12/07/22 22:35: Lactic Acid Level 2.36*H 12/08/22 02:48: Lactic Acid Level 1.44 Time of Focused Exam: 01:20 Objective Exam Vital Signs Vital Signs Date Time Temp Pulse Resp B/P (MAP) Pulse Ox O2 Delivery O2 Flow Rate FiO2 12/10/22 09:00 Nasal Cannula 3.00 12/10/22 07:55 37.2 88 18 136/83 (100) 95 Capillary Refill : Less Than 3 Seconds General Appearance: No Apparent Distress, WD/WN HEENT: PERRL/EOMI Neck: Full Range of Motion, Normal Inspection, Non Tender, Supple, Carotid Bruit Respiratory: Lungs Clear, Normal Breath Sounds Cardiovascular: Regular Rate, Rhythm, No Edema, No Gallop, No Murmur Gastrointestinal: Normal Bowel Sounds, Non Tender, Soft Neurologic/Psychiatric: Alert, Oriented x3, No Motor/Sensory Deficits, Normal Mood/Affect, Other (Dyskinesia improved from yesterday) Results/Procedures Lab Laboratory Tests 12/10/22 06:00 Patient resulted labs reviewed. Imaging: Reviewed Imaging Films, Reviewed Imaging Report Assessment/Plan Assessment and Plan Assess & Plan/Chief Complaint Parkinsonian Dyskinesia - Parkinsons diagnosed 5 yrs ago, - Continuous dopamine infusion (DUOPA) placed 12/05 by [facility] - Continue to monitor wound site - Follow up with neurologist Debility - due to age and condition - PT/OT eval - consider for Acute rehab Mild hypercalcemia - with low phosphorous, possible hyperparathyroidism - TSH low at initital eval however patient was septic - PTH level pending. If elevated consider urine calcium measurement - alk phos WNL Sepsis secondary to Pneumonia (resolved) - Lactate trended down - procal 5.27 on admission, - BP lowest recorded 79/63 -> normotensive today - CXR with venous congestion vs edema - Temp 38.2 on admission, resolved - Blood cultures taken prior to antibiotics given, no growth after 4 days. - Trend CBC. BMP - Wean oxygen as tolerated TIERA TANNER DO 12/11/22 0609: Supervisory-Addendum Brief Verification & Attestation Participated in pt care: history, MDM, physical Personally performed: exam, history, MDM, supervision of care Care discussed with: Medical Student Procedures: n/a Results interpretation: Verified all documentation Verification and Attestation of Medical Student E/M Service A medical student performed and documented this service in my presence. I reviewed and verified all information documented by the medical student and made modifications to such information, when appropriate. I personally performed the physical exam and medical decision making. Tiera Tanner, Dec 11, 2022,06:09 CAROL MARSHALL I Dec 10, 2022 11:06 TIERA TANNER DO Dec 11, 2022 06:09
[2022-12-10 12:00] VITALS: BP 115/78
[2022-12-10 16:06] VITALS: BP 120/83
[2022-12-10] MEDS: LORazepam 0.5 MG (ATIVAN) TABLET PO SCH ×2 (16:45→20:22)
[2022-12-10 19:41] VITALS: BP 115/69
[2022-12-10] MEDS: AMITRIPTYLINE 25 MG (ELAVIL) TAB PO SCH (20:22)
[2022-12-10] MEDS: SERTRALINE 50 MG (ZOLOFT) TABLET PO SCH (20:22)
[2022-12-10] MEDS: ACETAMINOPHEN 325 MG TABLET PO PRN (23:34)
[2022-12-10 23:36] VITALS: BP 133/77
[2022-12-11 03:28] VITALS: BP 120/77
[2022-12-11 05:21] LABS: BASOPHILS % (AUTO) 0 % (0-10); EOSINOPHILS # (AUTO) 0.6 10^3/uL (0.0-0.3); EOSINOPHILS % (AUTO) 5 % (0-10); HEMATOCRIT 35 % (35-52); HEMOGLOBIN 11.3 g/dL (11.5-16.0); LYMPHOCYTES # (AUTO) 1.4 10^3/uL (1.0-4.0); LYMPHOCYTES % (AUTO) 13 % (12-44); MEAN CORPUSCULAR HEMOGLOBIN 29 pg (25-34); MEAN CORPUSCULAR HGB CONC 33 g/dL (32-36); MEAN CORPUSCULAR VOLUME 90 fL (80-99); MEAN PLATELET VOLUME 10.4 fL (9.0-12.2); MONOCYTES % (AUTO) 9 % (0-12); NEUTROPHILS # (AUTO) 8.2 10^3/uL (1.8-7.8); NEUTROPHILS % (AUTO) 72 % (42-75); PLATELET COUNT 239 10^3/uL (130-400); WHITE BLOOD COUNT 11.3 10^3/uL (4.3-11.0)
[2022-12-11] MEDS ORDERED: TROUGH ORDER-PHARMACY XX NR (05:30)
[2022-12-11 05:39] LABS: ALBUMIN 2.6 GM/DL (3.2-4.5); BILIRUBIN,TOTAL 0.4 MG/DL (0.1-1.0); CREATININE SERUM 0.45 MG/DL (0.60-1.30); MAGNESIUM 1.6 MG/DL (1.6-2.4); PHOSPHORUS 2.2 MG/DL (2.3-4.7); POTASSIUM 3.4 MMOL/L (3.6-5.0); TOTAL PROTEIN 5.3 GM/DL (6.4-8.2)
[2022-12-11 05:45] LABS: VANCOMYCIN,TROUGH 10.5 UG/ML (10.0-20.0)
[2022-12-11] MEDS: LEVOTHYROXINE 75 MCG (LEVOTHROID) TABLET PO SCH (05:55)
[2022-12-11] MEDS: CEFEPIME INJECTION 1,000 MG in NS (IVPB) 50 ML IV SCH ×3 (05:55→17:47)
[2022-12-11] MEDS: CYANOCOBALAMIN 1,000 MCG (VITAMIN B-12) TABLET PO SCH (05:55)
[2022-12-11] MEDS: HYDROcodone/APAP 5 MG/325 MG (LORTAB) TAB PO PRN ×2 (05:55→20:52)
[2022-12-11] MEDS: VANCOMYCIN 1500 MG/NS 500 ML IVPB IV SCH ×4 (05:57→17:48)
[2022-12-11 07:36] VITALS: BP 137/89
[2022-12-11] MEDS: MULTIVIT W/MINERALS TAB (THERAGRAN M) PO SCH (08:49)
[2022-12-11] MEDS: PANTOPRAZOLE 40 MG (PROTONIX) TAB PO SCH (08:50)
[2022-12-11] MEDS: MIDODRINE 10 MG (PROAMATINE) TAB PO SCH ×2 (08:50→11:20)
[2022-12-11] MEDS: GABAPENTIN 300 MG (NEURONTIN) CAP PO SCH ×3 (08:50→20:47)
[2022-12-11] MEDS: SENNA W/DOCUSATE (SENOKOT S) TABLET PO SCH ×2 (08:51→21:01)
[2022-12-11] MEDS: KCL 20 MEQ TAB (K-DUR) PO SCH ×3 (08:51→21:14)
[2022-12-11] MEDS: CELECOXIB 100 MG (CeleBREX) CAP PO SCH (08:51)
[2022-12-11] MEDS: polyethylene glycoL POWDER 17 GM (MIRALAX) PACK PO SCH ×2 (08:51→20:54)
[2022-12-11] MEDS: LORATADINE (CLARITIN) 10 MG TAB PO SCH (08:51)
[2022-12-11] MEDS: ENOXAPARIN 40 MG/0.4 ML (LOVENOX) SYR SC SCH (08:54)
[2022-12-11] MEDS: CHLORHEXIDINE 0.12% SOLN 15 ML (PERIDEX) UDC MM SCH ×2 (08:59→21:08)
[2022-12-11] MEDS: RYTARY PO SCH ×5 (09:03→20:55)
--- NOTE | 2022-12-11 10:43 | Physical Therapy Daily Note ---
PT Daily Note-Current Subjective Patient in recliner pre tx, agrees to PT, has no complaints of pain. Pain Section J - Health Conditions 1. Rarely or not at all 2. Occasionally 3. Frequently 4. Almost constantly 8. Unable to answer Pain Effect on Sleep: 2 Pain Interference with Therapy: 2 Pain Interference w/Day-to-Day: 2 Appearance Patient in recliner post tx with nurse call, phone, tray, all needs met. Mental Status Patient Orientation: Person, Place, Situation Transfers SCALE: Activities may be completed with or without assistive devices. 2-Hpniqtkqqm-eunohvv completes the activity by him/herself with no assistance from a helper. 5-Set-up or Clean-up Assistance-helper sets up or cleans up; patient completes activity. [place] assists only prior to or following the activity. 4-Supervision or Touching Assistance-helper provides verbal cues and/or touching/steadying and/or contact guard assistance as patient completes activ ity. Assistance may be provided throughout the activity or intermittently. 3-Partial/Moderate Assistance-helper does LESS THAN HALF the effort. [place] lifts, holds or supports trunk or limbs, but provides less than half the effort. 2-Substantial/Maximal Assistance-helper does MORE THAN HALF the effort. [place] lifts or holds trunk or limbs and provides more than half the effort. 6-Zahwjqogq-qbgvzu does ALL the effort. Patient does none of the effort to complete the activity. Or, the assistance of 2 or more helpers is required for the patient to complete the activity. If activity was not attempted, code reason: 7-Patient Refused. 9-Not Applicable-not attempted and the patient did not perform the activity before the current illness, exacerbation or injury. 10-Not Attempted due to Environmental Limitations-(lack of equipment, weather restraints, etc.). 88-Not Attempted due to Medical Conditions or Safety Concerns. Sit to Stand (QC): 4 CGA Gait Training Distance: 200' Walk 10 feet (QC): 4 Walk 50 ft with 2 Turns(QC): 4 Walk 150 ft (QC): 4 Gait Persons Needed: 1 Gait Assistive Device: FWW CGA, slow but steady ambulation Exercises Seated Therapy Exercises: Ankle pumps, Long arc quads Seated Reps: 20 Treatments transfers, ambulation, LE ROM Assessment Current Status: Fair Progress good participation, patient states she is tired PT Collar Turner Operator Goals Jail Goals PT Jail Goals Time Frame: Dec 28, 2022 Roll Left & Right (QC): 4 Sit to Lying (QC): 4 Lying-Sitting on Side/Bed(QC): 4 Sit to Stand (QC): 4 Chair/Cdj-mk-Ydxxw Xfer(QC): 4 Toilet Transfer (QC): 4 Walk 10 feet (QC): 4 Walk 50ft with 2 Turns (QC): 4 Walk 150 ft (QC): 4 PT Plan Problem List Problem List: Activity Tolerance, Functional Strength, Safety, Balance, Gait, Transfer, Bed Mobility, ROM Treatment/Plan Treatment Plan: Continue Plan of Care Treatment Plan: Bed Mobility, Education, Functional Activity Judy, Functional Strength, Gait, Safety, Therapeutic Exercise, Transfers Treatment Duration: Dec 28, 2022 Frequency: 6 times per week Estimated Hrs Per Day: .25 hour per day Patient and/or Family Agrees t: Yes Safety Risks/Education Patient Education: Gait Training, Transfer Techniques, Correct Positioning, Safety Issues Teaching Recipient: Patient Teaching Methods: Demonstration, Discussion Response to Teaching: Reinforcement Needed Time Time In: 1019 Time Out: 1030 DATE: Dec 11, 2022 Total Billed Treatment Time: 11 Total Billed Treatment 1 visit FA 11' JEROD DALY PT Dec 11, 2022 10:43
[2022-12-11 12:00] VITALS: BP 139/83
[2022-12-11 16:20] VITALS: BP 132/88
[2022-12-11] MEDS: LORazepam 0.5 MG (ATIVAN) TABLET PO SCH ×2 (16:33→20:50)
--- NOTE | 2022-12-11 18:32 | Progress Note ---
LUDIN BESS 12/11/221831: Subjective Date Seen by a Provider: Dec 11, 2022 Subjective/Events-last exam Emigdio Simmons is a 57 yo F with history significant for Parkinson's with sinemet induced dyskinesia, debility requiring assisted living placement, hypothyroidism, anxiety, depression and recent gastric port placement for a DUOPA pump (12/05). On 12/07, her caretakers found her on a assistant basketball coach after ambulating unable to relay how she'd arrived to the couch. She was brought to the ER by EMS, where she was found to be mildly confused and having severe dsytonic movements. Ativan was provided. CXR findings were consistent with left lobe pneumonia, and labwork notably revealed elevated lactic acid and procalciton. During evaluation, she developed a fever of 100.8 and hypoxia; per her laboratory results and hypoxia, she was considered to have severe sepsis. Emperic antibiotics were started and she was admitted to the ICU for continued management. Focused Exam Time of Focused Exam: 01:20 Objective Exam Last Set of Vital Signs Vital Signs Date Time Temp Pulse Resp B/P (MAP) Pulse Ox O2 Delivery O2 Flow Rate FiO2 12/11/22 16:20 37.2 87 16 132/88 (103) 92 Room Air 12/11/22 09:00 3.00 Capillary Refill : Less Than 3 Seconds I&O Intake and Output 12/10/22 23:59 Intake Total 1480 ml Output Total 775 ml Balance 705 ml Intake Oral 1480 ml Output Urine Total 775 ml General: Alert, Oriented X3, No Acute Distress Lungs: Clear to Auscultation Heart: Regular Rate Abdomen: Normal Bowel Sounds Psych/Mental Status: Mental Status NL Results Lab Laboratory Tests 12/11/22 05:10: White Blood Count 11.3H, Red Blood Count 3.85, Hemoglobin 11.3L, Hematocrit 35, Mean Corpuscular Volume 90, Mean Corpuscular Hemoglobin 29, Mean Corpuscular Hemoglobin Concent 33, Red Cell Distribution Width 14.2, Platelet Count 239, Mean Platelet Volume 10.4, Immature Granulocyte % (Auto) 1, Neutrophils (%) (Auto) 72, Lymphocytes (%) (Auto) 13, Monocytes (%) (Auto) 9, Eosinophils (%) (Auto) 5, Basophils (%) (Auto) 0, Neutrophils # (Auto) 8.2H, Lymphocytes # (Auto) 1.4, Monocytes # (Auto) 1.0, Eosinophils # (Auto) 0.6H, Basophils # (Auto) 0.0, Immature Granulocyte # (Auto) 0.1, Sodium Level 139, Potassium Level 3.4L, Chloride Level 109H, Carbon Dioxide Level 21, Anion Gap 9, Blood Urea Nitrogen 10, Creatinine 0.45L, Estimat Glomerular Filtration Rate 111, BUN/Creatinine Ratio 22, Glucose Level 89, Calcium Level 10.0, Corrected Calcium 11.1H, Phosphorus Level 2.2L, Magnesium Level 1.6, Total Bilirubin 0.4, Aspartate Amino Transf (AST/SGOT) 19, Alanine Aminotransferase (ALT/SGPT) 11, Alkaline Phosphatase 101, Total Protein 5.3L, Albumin 2.6L, Vancomycin Level Trough 10.5 Microbiology 12/08/22 MRSA Screen - Final, Complete 12/07/22 Blood Culture - Preliminary, Resulted No growth 12/07/22 Urine Culture - Final, Complete NO GROWTH Assessment/Plan Assessment/Plan Assess & Plan/Chief Complaint Parkinsonian Dyskinesia - Parkinsons diagnosed 5 yrs ago - Continuous dopamine infusion (DUOPA) placed 12/05 by [facility] - Continue to monitor wound site - Follow up with neurologist Hyperparathyroidism (new onset) - patient made aware of diagnosis and education on condition Debility - due to age and condition - PT/OT eval - consider for Acute rehab Sepsis secondary to Pneumonia (resolved) - procal 5.27 on admission - CXR 12/07 showed pulmonary venous congestion - cultures obtained 12/07 (no growth to date) - Lactate acid 2.6 on 12/07; since resolved - BP lowest recorded 79/63 -> normotensive today - Temp 38.2 on admission -> resolved - Vancomycin and Cefepime maintained - Continue to wean oxygen as tolerated TIERA TANNER DO 12/12/22 0602: Subjective Time Seen by a Provider: 10:00 Supervisory-Addendum Brief Verification & Attestation Participated in pt care: history, MDM, physical Personally performed: exam, history, MDM, supervision of care Care discussed with: Medical Student Procedures: n/a Results interpretation: Verified all documentation Verification and Attestation of Medical Student E/M Service A medical student performed and documented this service in my presence. I reviewed and verified all information documented by the medical student and made modifications to such information, when appropriate. I personally performed the physical exam and medical decision making. Tiera Tanner, Dec 12, 2022,06:02 LUDIN BESS Dec 11, 2022 18:32 TIERA TANNER DO Dec 12, 2022 06:02
[2022-12-11 19:57] VITALS: BP 137/78
[2022-12-11] MEDS: SERTRALINE 50 MG (ZOLOFT) TABLET PO SCH (20:52)
[2022-12-11] MEDS: CYCLOBENZAPRINE 10 MG (FLEXERIL) TAB PO PRN (20:53)
[2022-12-11] MEDS: AMITRIPTYLINE 25 MG (ELAVIL) TAB PO SCH (21:02)
[2022-12-11 23:33] VITALS: BP 102/61
[2022-12-12 03:32] VITALS: BP 146/86
--- NOTE | 2022-12-12 06:04 | Progress Note - Hospitalist ---
Subjective HPI/CC On Admission Date Seen by Provider: Dec 12, 2022 Time Seen by Provider: 10:00 Chief complaint: Severe sepsis HPI: This is a 57-year-old female clinic patient of [facility] who has a history of severe Parkinson's and just recently had a procedure on (12/05) from day surgery at which entailed a gastric port placed for a DUOPA pump (infusion pump for levodopa infusion into the small bowel) which was uncomplicated. She was returned back to [place] assisted living and was walking around on ay but through the night she was found beside the couch and she was confused and unable to tell any details about how she got to the couch. She was found to be febrile and have pneumonia and hypotension with hypoxia and confusion and was classified as severe sepsis so she was placed in the ICU for protocol. She is maintained on cefepime and vancomycin due to facility acquired infection suspected. Her DPOA and caretakers are at the bedside. 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 No major events Lungs are clear Done with abx Drainage from J-tube so consulting Dr South Awaiting insurance approval for [facility] Review of Systems General: Fatigue, Malaise Focused Exam Time of Focused Exam: 01:20 Objective Exam Vital Signs Vital Signs Date Time Temp Pulse Resp B/P (MAP) Pulse Ox O2 Delivery O2 Flow Rate FiO2 12/13/22 03:16 37.1 78 20 125/85 (98) 93 Room Air 0.00 0.00 Capillary Refill : Less Than 3 Seconds General Appearance: No Apparent Distress, WD/WN, Chronically ill Respiratory: Lungs Clear, Normal Breath Sounds Cardiovascular: Regular Rate, Rhythm Neurologic/Psychiatric: Alert, Oriented x3, No Motor/Sensory Deficits, Normal Mood/Affect Results/Procedures Lab Laboratory Tests 12/12/22 13:39 Patient resulted labs reviewed. Imaging: Reviewed Imaging Films, Reviewed Imaging Report Assessment/Plan Assessment and Plan Assess & Plan/Chief Complaint Assessment: s/p severe sepsis s/p PNA Severe PD Hyperparathyroidism will need management outpatient J-tube drainage consulting Dr South Plan: Await [facility] DC abx Diagnosis/Problems Diagnosis/Problems (1) Severe sepsis Status: Acute (2) Pneumonia Status: Acute Qualifiers: Pneumonia type: due to unspecified organism Laterality: left Lung location: upper lobe of lung Qualified Codes: J18.9 - Pneumonia, unspecified organism (3) Altered mental status Status: Acute Qualifiers: Altered mental status type: unspecified Qualified Codes: R41.82 - Altered mental status, unspecified (4) Parkinsons Status: Acute (5) Debility Status: Acute WESLY TANNER DO Dec 12, 2022 06:04
[2022-12-12] MEDS: VANCOMYCIN 1500 MG/NS 500 ML IVPB IV SCH ×2 (06:49)
[2022-12-12] MEDS: CEFEPIME INJECTION 1,000 MG in NS (IVPB) 50 ML IV SCH ×3 (06:49)
[2022-12-12] MEDS: LEVOTHYROXINE 75 MCG (LEVOTHROID) TABLET PO SCH (06:53)
[2022-12-12 08:55] VITALS: BP 138/87
[2022-12-12] MEDS: CHLORHEXIDINE 0.12% SOLN 15 ML (PERIDEX) UDC MM SCH ×2 (09:20→19:49)
[2022-12-12] MEDS: ENOXAPARIN 40 MG/0.4 ML (LOVENOX) SYR SC SCH (09:21)
[2022-12-12] MEDS: MIDODRINE 10 MG (PROAMATINE) TAB PO SCH ×2 (09:21→11:50)
[2022-12-12] MEDS: CELECOXIB 100 MG (CeleBREX) CAP PO SCH (09:21)
[2022-12-12] MEDS: MULTIVIT W/MINERALS TAB (THERAGRAN M) PO SCH (09:21)
[2022-12-12] MEDS: CYANOCOBALAMIN 1,000 MCG (VITAMIN B-12) TABLET PO SCH (09:21)
[2022-12-12] MEDS: KCL 20 MEQ TAB (K-DUR) PO SCH ×2 (09:21→19:48)
[2022-12-12] MEDS: GABAPENTIN 300 MG (NEURONTIN) CAP PO SCH ×3 (09:22→19:48)
[2022-12-12] MEDS: HYDROcodone/APAP 5 MG/325 MG (LORTAB) TAB PO PRN ×2 (09:22→21:42)
[2022-12-12] MEDS: RYTARY PO SCH ×5 (09:22→19:50)
[2022-12-12] MEDS: PANTOPRAZOLE 40 MG (PROTONIX) TAB PO SCH (09:22)
[2022-12-12] MEDS: LORATADINE (CLARITIN) 10 MG TAB PO SCH (09:22)
[2022-12-12] MEDS: SENNA W/DOCUSATE (SENOKOT S) TABLET PO SCH ×2 (09:24→19:51)
[2022-12-12] MEDS: polyethylene glycoL POWDER 17 GM (MIRALAX) PACK PO SCH ×2 (09:24→19:51)
--- NOTE | 2022-12-12 11:02 | Physical Therapy Daily Note ---
PT Daily Note-Current Subjective Patient agrees to PT. Pain Section J - Health Conditions 1. Rarely or not at all 2. Occasionally 3. Frequently 4. Almost constantly 8. Unable to answer Pain Effect on Sleep: 2 Pain Interference with Therapy: 2 Pain Interference w/Day-to-Day: 2 Mental Status Patient Orientation: Normal For Age Transfers SCALE: Activities may be completed with or without assistive devices. 3-Ydckkhsrlu-rupciux completes the activity by him/herself with no assistance from a helper. 5-Set-up or Clean-up Assistance-helper sets up or cleans up; patient completes activity. Mora assists only prior to or following the activity. 4-Supervision or Touching Assistance-helper provides verbal cues and/or touching/steadying and/or contact guard assistance as patient completes activity. Assistance may be provided throughout the activity or intermittently. 3-Partial/Moderate Assistance-helper does LESS THAN HALF the effort. Mora lifts, holds or supports trunk or limbs, but provides less than half the effort. 2-Substantial/Maximal Assistance-helper does MORE THAN HALF the effort. Mora lifts or holds trunk or limbs and provides more than half the effort. 0-Szteetvfn-gokuan does ALL the effort. Patient does none of the effort to complete the activity. Or, the assistance of 2 or more helpers is required for the patient to complete the activity. If activity was not attempted, code reason: 7-Patient Refused. 9-Not Applicable-not attempted and the patient did not perform the activity before the current illness, exacerbation or injury. 10-Not Attempted due to Environmental Limitations-(lack of equipment, weather restraints, etc.). 88-Not Attempted due to Medical Conditions or Safety Concerns. Sit to Lying (QC): 3 Sit to Stand (QC): 4 Chair/Nrt-hu-Zycxm Xfer(QC): 4 Toilet Transfer (QC): 4 (patient incontinent urine requiring dependent assist to cleanse and change brief) Gait Training Distance: 300' Walk 10 feet (QC): 4 Walk 50 ft with 2 Turns(QC): 4 Walk 150 ft (QC): 4 Gait Assistive Device: Walker 4 Wheeled extended UE's with 4WW use with noted increase SOA requiring 1 seated recovery period due to fatigue Assessment Patient requires time to complete all functional tasks. PT to continue to increase activity as tolerated by patient. 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 Copying Machine Repairer Goals PT Mcfp Goals Time Frame: Dec 28, 2022 Roll Left & Right (QC): 4 Sit to Lying (QC): 4 Lying-Sitting on Side/Bed(QC): 4 Sit to Stand (QC): 4 Chair/Qao-tw-Bgtro Xfer(QC): 4 Toilet Transfer (QC): 4 Walk 10 feet (QC): 4 Walk 50ft with 2 Turns (QC): 4 Walk 150 ft (QC): 4 PT Plan Treatment/Plan Treatment Plan: Continue Plan of Care Treatment Plan: Bed Mobility, Education, Functional Activity Judy, Functional Strength, Gait, Safety, Therapeutic Exercise, Transfers Treatment Duration: Dec 28, 2022 Frequency: 6 times per week Estimated Hrs Per Day: .25 hour per day Patient and/or Family Agrees t: Yes Time Time In: 1020 Time Out: 1045 DATE: Dec 12, 2022 Total Billed Treatment Time: 25 Total Billed Treatment 1 visit FA 10 min GT 15 min KATHY FAROOQ PT Dec 12, 2022 11:02
[2022-12-12 11:45] VITALS: BP 105/64
[2022-12-12 13:48] LABS: BASOPHILS # (AUTO) 0.1 10^3/uL (0.0-0.1); BASOPHILS % (AUTO) 1 % (0-10); EOSINOPHILS # (AUTO) 0.5 10^3/uL (0.0-0.3); EOSINOPHILS % (AUTO) 4 % (0-10); HEMATOCRIT 39 % (35-52); HEMOGLOBIN 12.4 g/dL (11.5-16.0); LYMPHOCYTES # (AUTO) 1.4 10^3/uL (1.0-4.0); LYMPHOCYTES % (AUTO) 11 % (12-44); MEAN CORPUSCULAR HEMOGLOBIN 29 pg (25-34); MEAN CORPUSCULAR HGB CONC 32 g/dL (32-36); MEAN CORPUSCULAR VOLUME 90 fL (80-99); MEAN PLATELET VOLUME 9.9 fL (9.0-12.2); MONOCYTES # (AUTO) 1.1 10^3/uL (0.0-1.0); MONOCYTES % (AUTO) 9 % (0-12); NEUTROPHILS # (AUTO) 9.1 10^3/uL (1.8-7.8); NEUTROPHILS % (AUTO) 73 % (42-75); PLATELET COUNT 303 10^3/uL (130-400); WHITE BLOOD COUNT 12.4 10^3/uL (4.3-11.0)
[2022-12-12 14:09] LABS: ALBUMIN 2.9 GM/DL (3.2-4.5); BILIRUBIN,TOTAL 0.4 MG/DL (0.1-1.0); CALCIUM 10.4 MG/DL (8.5-10.1); CREATININE SERUM 0.5 MG/DL (0.60-1.30); MAGNESIUM 1.7 MG/DL (1.6-2.4); POTASSIUM 3.6 MMOL/L (3.6-5.0)
[2022-12-12] MEDS: LORazepam 0.5 MG (ATIVAN) TABLET PO SCH ×2 (16:33→19:48)
--- NOTE | 2022-12-12 16:46 | Consultation - Surgery ---
FEROZKENDRA Milana 12/12/22 1646: History of Present Illness History of Present Illness Patient Consulted On(valentine/time) 12/12/22 16:41 Date Seen by Provider: Dec 12, 2022 Time Seen by Provider: 16:41 Reason for Visit: Leaking abdominal pump History of Present Illness Ms. Simmons is a very pleasant 57-year-old female with a past medical history significant for Parkinson Disease with significant dyskinesia. On DEC 09 she had a DUOPA pump placed at by Dr. Miguel Yu. the pump is a continuous infusio n for carbidopa-levodopa for Parkinson patients. She was being seen at [facility] for pneumonia with sepsis which has since resolved. General surgery was consulted for leakage of the newly placed pump. Patient reports that the leaking start 2 nights ago and it was leaking on and off. The leaking was spontaneous but while she was on the commode and when she coughed she noticed it would spray out more. She described the leakage as a straw color that was sometimes a darker chambers or brown. Nursing described it as the material that is expressed when a pimple is popped. She denies abdominal pain and just endorses slight post-operative tenderness consistent with her procedure. She said the area around the drain felt slightly irritated from moisture but otherwise had no complaints. Nursing reports she soaked through several pieces of gauze and 3 hospital gowns. They estimated about 75-100 mL of total drainage. She reports the drain feels a bit loose but says that has not changed since it was placed. It is flushed regularly with saline. She has a follow-up appointment with Dr. Miguel Yu at on JAN 09. Allergies and Home Medications Allergies Coded Allergies: No Known Drug Allergies (Unverified , 06/26/17) Patient Home Medication List Acetaminophen (Tylenol) 325 Mg Capsule, 650 MG PO Q4H PRN for PAIN-MILD (1-4), (Reported) Entered as Reported by: MEAGAN KOHLER on 12/08/22 1512 Last Action: Reviewed Amitriptyline HCl (Amitriptyline HCl) 100 Mg Tablet, 50 MG PO HS, (Reported) Entered as Reported by: ELIZABETH LUNDBERG on 06/26/17 1003 Last Action: Reviewed Biotin (Biotin) 5 Mg Capsule, 5 MG PO BID, (Reported) Entered as Reported by: MEAGAN KOHLER on 12/08/221325 Last Action: Reviewed Carbidopa/Levodopa (Rytary ER 36.25 mg-145 mg Cap) 36.25 Mg-145 Mg Capsule.er, 2 EACH PO 0800,1100,1400,1700,2100, (Reported) Entered as Reported by: MEAGAN KOHLER on 12/08/221511 Last Action: Reviewed Carbidopa/Levodopa (Rytary ER 48.75 mg-195 mg Cap) 48.75 Mg-195 Mg Capsule.er, 1 EACH PO Q6H PRN for PARKINSONS SYMPTOMS, (Reported) Entered as Reported by: MEAGAN KOHLER on 12/08/221511 Last Action: Reviewed Celecoxib (Celebrex) 200 Mg Capsule, 200 MG PO DAILY, (Reported) Entered as Reported by: MEAGAN KOHLER on 12/08/221325 Last Action: Reviewed Chlorhexidine Gluconate (Chlorhexidine Gluconate) 0.12 % Mouthwash, 15 ML MM BID, (Reported) Entered as Reported by: MEAGAN KOHLER on 12/08/221325 Last Action: Reviewed Cyanocobalamin (Vitamin B-12) (Vitamin B-12) 500 Mcg Tablet, 500 MCG PO DAILY, (Reported) Entered as Reported by: BRIAN HERNANDEZ on 02/19/211526 Last Action: Reviewed Cyclobenzaprine HCl (Cyclobenzaprine HCl) 10 Mg Tablet, 10 MG PO Q8H PRN for MUSCLE SPASMS, (Reported) Entered as Reported by: DAVE DOSHI on 12/09/22 102 Last Action: Reviewed Gabapentin (Neurontin) 300 Mg Capsule, 300 MG PO DAILY, (Reported) Entered as Reported by: BRIAN HERNANDEZ on 02/19/211526 Last Action: Reviewed Gabapentin (Neurontin) 300 Mg Capsule, 600 MG PO HS, (Reported) Entered as Reported by: BRIAN HERNANDEZ on 02/19/211526 Last Action: Reviewed Gabapentin (Neurontin) 300 Mg Capsule, 900 MG PO 1200, (Reported) Entered as Reported by: DAVE DOSHI on 12/09/221021 Last Action: Continued Hydrocodone/Acetaminophen (Hydrocodone-Acetamin 5-325 mg) 5 Mg-325 Mg Tablet, 1 TAB PO Q6H PRN for PAIN-MODERATE (5-7), (Reported) Entered as Reported by: MEAGAN KOHLER on 12/08/221511 Last Action: Reviewed Levothyroxine Sodium (Levothyroxine Sodium) 75 Mcg Tablet, 75 MCG PO DAILY, (Reported) Entered as Reported by: BRIAN HERNANDEZ on 02/19/211526 Last Action: Reviewed Loratadine (Loratadine) 10 Mg Tablet, 10 MG PO DAILY, (Reported) Entered as Reported by: DAVE DOSHI on 12/09/22 102 Last Action: Reviewed Lorazepam (Ativan) 0.5 Mg Tablet, 0.5 MG PO DAILY PRN for ANXIETY, (Reported) Entered as Reported by: STUART MAYA on 04/06/21 182 Last Action: Reviewed Lorazepam (Ativan) 0.5 Mg Tablet, 0.5 MG PO 1599,1999, (Reported) Entered as Reported by: MEAGAN KOHLER on 12/08/22 132 Last Action: Reviewed Menthol (Biofreeze) 4 % Gel..ml., 1 APPLIC TP Q4H PRN for PAIN-BREAKTHROUGH, (Reported) Entered as Reported by: MEAGAN KOHLER on 12/08/221325 Last Action: Reviewed Midodrine HCl (Midodrine HCl) 10 Mg Tablet, 10 MG PO 0800,1200, (Reported) Entered as Reported by: MEAGAN KOHLER on 12/08/221511 Last Action: Reviewed Multivitamin (Multi-Vitamin Daily) 1 Each Tablet, 1 EACH PO DAILY, (Reported) Entered as Reported by: MEAGAN KOHLER on 12/08/221511 Last Action: Reviewed Ondansetron HCl (Ondansetron HCl) 4 Mg Tablet, 4 MG PO Q6H PRN for NAUSEA/ VOMITING-1ST LINE, (Reported) Entered as Reported by: BRIAN HERNANDEZ on 02/19/211526 Last Action: Reviewed Oxycodone HCl (Oxycodone HCl) 5 Mg Tablet, 5 MG PO Q6H PRN for PAIN-SEVERE (8- 10), (Reported) Entered as Reported by: MEAGAN KOHLER on 12/08/221511 Last Action: Reviewed Pantoprazole Sodium (Pantoprazole Sodium) 40 Mg Tablet.dr, 40 MG PO DAILY, (Reported) Entered as Reported by: DAVE DOSHI on 12/09/22 102 Last Action: Reviewed Pimavanserin Tartrate (Nuplazid) 34 Mg Capsule, 34 MG PO DAILY, (Reported) Entered as Reported by: MEAGAN KOHLER on 12/08/22 151 Last Action: Reviewed Potassium Chloride (Potassium Chloride) 20 Meq Tablet.er, 20 MEQ PO BID, (Reported) Entered as Reported by: STUART MAYA on 04/06/211824 Last Action: Reviewed Sertraline HCl (Sertraline HCl) 50 Mg Tablet, 50 MG PO HS, (Reported) Entered as Reported by: BRIAN HERNANDEZ on 02/19/211526 Last Action: Reviewed Discontinued Medications Carbidopa/Levodopa (Rytary ER 48.75 mg-195 mg Cap) 1 Each Capsule.er, 1 EACH PO QID, (Reported) Discontinued Reason: No Longer Taking Entered as Reported by: BRIAN HERNANDEZ on 02/19/211526 Last Action: Discontinued Cyclobenzaprine HCl (Cyclobenzaprine HCl) 10 Mg Tablet, 10 MG PO Q8H PRN for SPASMS Discontinued Reason: Duplicate Order Prescribed by: ELAN BENSON on 11/15/222014 Last Action: Discontinued Ibuprofen (Ibuprofen) 200 Mg Tablet, 600 MG PO Q6H PRN for PAIN-MILD (1-4), (Reported) Discontinued Reason: Duplicate Order Entered as Reported by: BRIAN HERNANDEZ on 02/19/211526 Last Action: Discontinued Levetiracetam (Levetiracetam) 500 Mg Tablet, 500 MG PO BID Discontinued Reason: No Longer Taking Prescribed by: LISETTE LUDWIG on 04/20/21 0956 Last Action: Discontinued Lorazepam (Ativan) 0.5 Mg Tablet, 0.5 MG PO BID PRN for ANXIETY, (Reported) Discontinued Reason: No Longer Taking Entered as Reported by: STUART MAYA on 04/06/211824 Last Action: Discontinued Lorazepam (Ativan) 0.5 Mg Tablet, 0.5 MG PO DAILY PRN for ANXIETY, (Reported) Discontinued Reason: No Longer Taking Entered as Reported by: MEAGAN KOHLER on 12/08/22 1326 Last Action: Discontinued Pantoprazole Sodium (Protonix) 40 Mg Granpkt.dr, 40 MG PO DAILY, (Reported) Discontinued Reason: Duplicate Order Entered as Reported by: STUART MAYA on 04/06/211824 Last Action: Discontinued Sucralfate (Carafate) 1 Gm Tablet, 1 GM PO BID, (Reported) Discontinued Reason: No Longer Taking Entered as Reported by: STUART MAYA on 04/06/211824 Last Action: Discontinued Past Yoqlvrr-Qmbrzn-Pmnfjf Hx Patient Social History Drug of Choice: DENIES Smoking Status: Former Smoker (Quit 6 years ago. Smoked about 2 cig/day for 30 years) Former Smoker, Quit: May 26, 2017 Type Used: Cigarettes 2nd Hand Smoke Exposure: No Recent Hopitalizations: No Alcohol Use?: No Have you traveled recently?: No Immunizations Up To Date Tetanus Booster (TDap): Unknown Date of Influenza Vaccine: Aug 26, 2016 Seasonal Allergies Seasonal Allergies: Yes Surgeries History of Surgeries: Yes (D&C, GASTRIC SLEEVE, DUOPA pump) Surgeries: Abdominal, Gallbladder (Dr. Cha) Respiratory History of Respiratory Disorde: No Cardiovascular History of Cardiac Disorders: No Neurological History of Neurological Disord: Yes Neurological Disorders: Headaches /Migraines, Parkinson's Disease (Severe disease), Seizure Disorder (D/t amantadine) 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 System Hx 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 Disorders: No Sexually Transmitted Disease: No HIV/AIDS: No Female 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 Disorders: Denies [employer] History: Menopausal Genitourinary History of Genitourinary Disor: Yes Genitourinary Disorders: UTI-Chronic Gastrointestinal History of Gastrointestinal Di: Yes (GASTRIC SLEEVE SURGERY; GASTRITIS) Gastrointestinal Disorders: Gastroesophageal Reflux, Gall Bladder Disease Musculoskeletal History of Musculoskeletal Dis: Yes (CHRONIC KNEE PAIN ) Musculoskeletal Disorders: Arthritis Endocrine History of Endocrine Disorders: Yes Endocrine Disorders: Hypothyroidsim HEENT History of HEENT Disorders: No Loss of Vision: Bilateral Hearing Impairment: Denies Cancer History of Cancer: No Psychosocial History of Psychiatric Problem: Yes Behavioral Health Disorders: Anxiety, Depression Integumentary History of Skin or Integumenta: No Blood Transfusions History of Blood Disorders: No Adverse Reaction to a Blood Tr: No (N/A) Family Medical History Significant Family History: Cancer (Prostate in father), Diabetes (Brother), Other Conditions/Hx (Mother with thyroid and HLD) Family Medial History: Cardiovascular disease 19 MOTHER Diabetes mellitus G8 BROTHER FH: prostate cancer Review of Systems-General Constitutional: No chills, No fever EENTM: No blurred vision, No double vision Respiratory: No cough, No dyspnea on exertion Cardiovascular: No chest pain, No palpitations Gastrointestinal: No abdominal pain, No constipation, No nausea, No vomiting Psychiatric/Neurological: Anxiety, Other (Dyskinesia) Physical Exam-General Problems Physical Exam Vital Signs Vital Signs - First Documented 12/07/22 21:12 Temp 38.2 Pulse 118 Resp 22 B/P (MAP) 104/53 (70) Pulse Ox 92 O2 Delivery Nasal Cannula O2 Flow Rate 4.00 Capillary Refill : Less Than 3 Seconds General Appearance: WD/WN, no apparent distress, other (Patient with severe Parkinsonian Dyskinesia) HEENT: PERRL/EOMI; No pale conjunctivae (R), No pale conjunctivae (L) Neck: non-tender, supple Respiratory: chest non-tender, lungs clear, normal breath sounds (Anterior posts), no respiratory distress, no accessory muscle use Cardiovascular: normal peripheral pulses, regular rate, rhythm, no edema, no murmur Peripheral Pulses: 2+ Radial Pulses (R), 2+ Radial Pulses (L) Gastrointestinal: non tender, soft; No distended, No guarding; other (Midline incision healing well without erythema or drainage. DUOPA pump placed left of midline in LUQ into jejunum (per patient). Mild erythema around skin without maceration or drainage at time of exam. No tendnerss to palpation around drain site.) Extremities: non-tender, no pedal edema, no calf tenderness Neurologic/Psychiatric: alert, normal mood/affect, oriented x 3, other (Dyskinesia) Skin: normal color, warm/dry Lymphatic: no adenopathy (Head and neck) Data Review Labs Laboratory Tests 12/12/22 13:39: White Blood Count 12.4H, Red Blood Count 4.31, Hemoglobin 12.4, Hematocrit 39, Mean Corpuscular Volume 90, Mean Corpuscular Hemoglobin 29, Mean Corpuscular Hemoglobin Concent 32, Red Cell Distribution Width 14.2, Platelet Count 303, Mean Platelet Volume 9.9, Immature Granulocyte % (Auto) 3, Neutrophils (%) ( Auto) 73, Lymphocytes (%) (Auto) 11L, Monocytes (%) (Auto) 9, Eosinophils (%) (Auto) 4, Basophils (%) (Auto) 1, Neutrophils # (Auto) 9.1H, Lymphocytes # (Auto) 1.4, Monocytes # (Auto) 1.1H, Eosinophils # (Auto) 0.5H, Basophils # (Auto) 0.1, Immature Granulocyte # (Auto) 0.3H, Sodium Level 137, Potassium Level 3.6, Chloride Level 107, Carbon Dioxide Level 22, Anion Gap 8, Blood Urea Nitrogen 9, Creatinine 0.50L, Estimat Glomerular Filtration Rate 109, BUN/Creatinine Ratio 18, Glucose Level 102, Calcium Level 10.4H, Corrected Calcium 11.3H, Phosphorus Level 3.0, Magnesium Level 1.7, Total Bilirubin 0.4, Aspartate Amino Transf (AST/SGOT) 31, Alanine Aminotransferase (ALT/SGPT) 6, Alkaline Phosphatase 117, Total Protein 6.0L, Albumin 2.9L Microbiology 12/08/22 MRSA Screen - Final, Complete 12/07/22 Blood Culture - Preliminary, Resulted No growth 12/07/22 Urine Culture - Final, Complete NO GROWTH Assessment/Plan Assessment/Plan Assessment/Plan s/p DUOPA pump placement with leakage Placed DEC [address] Miguel Yu at Drainage started 2 days ago Parkinson Disease Diagnosed 5 years ago Parkinsonion Dyskinesia Severe Follows with Dr. Perez, neurologist at Hyperparathyroidism With hypercalcemia New onset Pneumonia with sepsis Resolved Patient recently had DUOPA pump placed at with follow-up appointment scheduled for JAN 09 At the time of my exam there was no drainage. I saw a saturated 4x4 gauze with dark chambers fluid on it. No acute surgical indication or needs at this time. Keep site clean and dry, changing dressing PRN as saturated to ensure there is no skin breakdown Would plan to keep appointment with physician at JACQUES REYES DO 12/12/22 1725: History of Present Illness History of Present Illness Time Seen by Provider: 17:02 History of Present Illness Surgery asked to consult regarding leaking around J-tube. HPI per ED: This 57-year-old woman presents to the emergency room via EMS from the assisted living facility where she was found on the floor. According to staff and her brother, she is more confused than normal. She is normally more brisk in her conversation and is normally able to ambulate with a walker. She is mildly confused at this time, inserting some nonsensical statements into her conversation. She was dismissed from [facility] on December 05 after having a gastric port placed for a DUOPA pump (infusion pump for levodopa infusion into the small bowel). She has severe Parkinson's disease and has severe dystonic movements on evaluation. Patient was not initially febrile but was noted during work-up to have temperature of 100.8. She also developed hypoxia during her work-up. 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 When I spoke to pt tonight she denied any abdominal pain, was just concerned about the fluid draining around tube. The nurse was concerned because when the pt attempts to use it her Parkinson's tremors cause her to yank on the tube. Nurse thinks she "pulls it out quite a way". Pt states the J-tube was placed last and she has an appointment to see surgeon next week. Allergies and Home Medications Allergies Coded Allergies: No Known Drug Allergies (Unverified , 06/26/17) Patient Home Medication List Home Medication List Reviewed: Yes Acetaminophen (Tylenol) 325 Mg Capsule, 650 MG PO Q4H PRN for PAIN-MILD (1-4), (Reported) Entered as Reported by: MEAGAN KOHLER on 12/08/221511 Last Action: Reviewed Amitriptyline HCl (Amitriptyline HCl) 100 Mg Tablet, 50 MG PO HS, (Reported) Entered as Reported by: ELIZABETH LUNDBERG on 06/26/17 1003 Last Action: Reviewed Biotin (Biotin) 5 Mg Capsule, 5 MG PO BID, (Reported) Entered as Reported by: MEAGAN KOHLER on 12/08/221325 Last Action: Reviewed Carbidopa/Levodopa (Rytary ER 36.25 mg-145 mg Cap) 36.25 Mg-145 Mg Capsule.er, 2 EACH PO 0800,1100,1400,1700,2100, (Reported) Entered as Reported by: MEAGAN KOHLER on 12/08/221511 Last Action: Reviewed Carbidopa/Levodopa (Rytary ER 48.75 mg-195 mg Cap) 48.75 Mg-195 Mg Capsule.er, 1 EACH PO Q6H PRN for PARKINSONS SYMPTOMS, (Reported) Entered as Reported by: MEAGAN KOHLER on 12/08/221511 Last Action: Reviewed Celecoxib (Celebrex) 200 Mg Capsule, 200 MG PO DAILY, (Reported) Entered as Reported by: MEAGAN KOHLER on 12/08/221325 Last Action: Reviewed Chlorhexidine Gluconate (Chlorhexidine Gluconate) 0.12 % Mouthwash, 15 ML MM BID, (Reported) Entered as Reported by: MEAGAN KOHLER on 12/08/22 132 Last Action: Reviewed Cyanocobalamin (Vitamin B-12) (Vitamin B-12) 500 Mcg Tablet, 500 MCG PO DAILY, (Reported) Entered as Reported by: BRIAN HERNANDEZ on 02/19/21 152 Last Action: Reviewed Cyclobenzaprine HCl (Cyclobenzaprine HCl) 10 Mg Tablet, 10 MG PO Q8H PRN for MUSCLE SPASMS, (Reported) Entered as Reported by: DAVE DOSHI on 12/09/22 102 Last Action: Reviewed Gabapentin (Neurontin) 300 Mg Capsule, 300 MG PO DAILY, (Reported) Entered as Reported by: BRIAN HERNANDEZ on 02/19/211526 Last Action: Reviewed Gabapentin (Neurontin) 300 Mg Capsule, 600 MG PO HS, (Reported) Entered as Reported by: BRIAN HERNANDEZ on 02/19/211526 Last Action: Reviewed Gabapentin (Neurontin) 300 Mg Capsule, 900 MG PO 1200, (Reported) Entered as Reported by: DAVE DOSHI on 12/09/22 102 Last Action: Continued Hydrocodone/Acetaminophen (Hydrocodone-Acetamin 5-325 mg) 5 Mg-325 Mg Tablet, 1 TAB PO Q6H PRN for PAIN-MODERATE (5-7), (Reported) Entered as Reported by: MEAGAN KOHLER on 12/08/22 151 Last Action: Reviewed Levothyroxine Sodium (Levothyroxine Sodium) 75 Mcg Tablet, 75 MCG PO DAILY, (Reported) Entered as Reported by: BRIAN HERNANDEZ on 02/19/21 152 Last Action: Reviewed Loratadine (Loratadine) 10 Mg Tablet, 10 MG PO DAILY, (Reported) Entered as Reported by: DAVE DOSHI on 12/09/22 102 Last Action: Reviewed Lorazepam (Ativan) 0.5 Mg Tablet, 0.5 MG PO DAILY PRN for ANXIETY, (Reported) Entered as Reported by: STUART MAYA on 04/06/21 1825 Last Action: Reviewed Lorazepam (Ativan) 0.5 Mg Tablet, 0.5 MG PO 1600,1999, (Reported) Entered as Reported by: MEAGAN KOHLER on 12/08/22 1326 Last Action: Reviewed Menthol (Biofreeze) 4 % Gel..ml., 1 APPLIC TP Q4H PRN for PAIN-BREAKTHROUGH, (Reported) Entered as Reported by: MEAGAN KOHLER on 12/08/221325 Last Action: Reviewed Midodrine HCl (Midodrine HCl) 10 Mg Tablet, 10 MG PO 0800,1200, (Reported) Entered as Reported by: MEAGAN KOHLER on 12/08/221511 Last Action: Reviewed Multivitamin (Multi-Vitamin Daily) 1 Each Tablet, 1 EACH PO DAILY, (Reported) Entered as Reported by: MEAGAN KOHLER on 12/08/221511 Last Action: Reviewed Ondansetron HCl (Ondansetron HCl) 4 Mg Tablet, 4 MG PO Q6H PRN for NAUSEA/VOMITING-1ST LINE, (Reported) Entered as Reported by: BRIAN HERNANDEZ on 02/19/211526 Last Action: Reviewed Oxycodone HCl (Oxycodone HCl) 5 Mg Tablet, 5 MG PO Q6H PRN for PAIN-SEVERE (8- 10), (Reported) Entered as Reported by: MEAGAN KOHLER on 12/08/221511 Last Action: Reviewed Pantoprazole Sodium (Pantoprazole Sodium) 40 Mg Tablet.dr, 40 MG PO DAILY, (Reported) Entered as Reported by: DAVE DOSHI on 12/09/22 102 Last Action: Reviewed Pimavanserin Tartrate (Nuplazid) 34 Mg Capsule, 34 MG PO DAILY, (Reported) Entered as Reported by: MEAGAN KOHLER on 12/08/221511 Last Action: Reviewed Potassium Chloride (Potassium Chloride) 20 Meq Tablet.er, 20 MEQ PO BID, (Reported) Entered as Reported by: STUART MAYA on 04/06/21 2115 Last Action: Reviewed Sertraline HCl (Sertraline HCl) 50 Mg Tablet, 50 MG PO HS, (Reported) Entered as Reported by: BRIAN HERNANDEZ on 02/19/211526 Last Action: Reviewed Discontinued Medications Carbidopa/Levodopa (Rytary ER 48.75 mg-195 mg Cap) 1 Each Capsule.er, 1 EACH PO QID, (Reported) Discontinued Reason: No Longer Taking Entered as Reported by: BRIAN HERNANDEZ on 02/19/211526 Last Action: Discontinued Cyclobenzaprine HCl (Cyclobenzaprine HCl) 10 Mg Tablet, 10 MG PO Q8H PRN for SPASMS Discontinued Reason: Duplicate Order Prescribed by: ELAN BENSON on 11/15/222014 Last Action: Discontinued Ibuprofen (Ibuprofen) 200 Mg Tablet, 600 MG PO Q6H PRN for PAIN-MILD (1-4), (Reported) Discontinued Reason: Duplicate Order Entered as Reported by: BRIAN HERNANDEZ on 02/19/21 1527 Last Action: Discontinued Levetiracetam (Levetiracetam) 500 Mg Tablet, 500 MG PO BID Discontinued Reason: No Longer Taking Prescribed by: LISETTE LUDWIG on 04/20/21 0956 Last Action: Discontinued Lorazepam (Ativan) 0.5 Mg Tablet, 0.5 MG PO BID PRN for ANXIETY, (Reported) Discontinued Reason: No Longer Taking Entered as Reported by: STUART MAYA on 04/06/211824 Last Action: Discontinued Lorazepam (Ativan) 0.5 Mg Tablet, 0.5 MG PO DAILY PRN for ANXIETY, (Reported) Discontinued Reason: No Longer Taking Entered as Reported by: MEAGAN KOHLER on 12/08/22 1326 Last Action: Discontinued Pantoprazole Sodium (Protonix) 40 Mg Granpkt.dr, 40 MG PO DAILY, (Reported) Discontinued Reason: Duplicate Order Entered as Reported by: STUART MAYA on 04/06/211824 Last Action: Discontinued Sucralfate (Carafate) 1 Gm Tablet, 1 GM PO BID, (Reported) Discontinued Reason: No Longer Taking Entered as Reported by: STUART MAYA on 04/06/211824 Last Action: Discontinued Past Rtxgvfp-Wfgzpn-Qauoqt Hx Patient Social History Smoking Status: Former Smoker (Quit 6 years ago. Smoked about 2 cig/day for 30 years) Alcohol Use?: No Surgeries History of Surgeries: Yes Surgeries: Abdominal, Gallbladder (Dr. Cha) Respiratory History of Respiratory Disorde: No Cardiovascular History of Cardiac Disorders: No Neurological History of Neurological Disord: Yes Neurological Disorders: Headaches /Migraines, Parkinson's Disease (Severe disease), Seizure Disorder (D/t amantadine) Genitourinary History of Genitourinary Disor: Yes Genitourinary Disorders: UTI-Chronic Gastrointestinal History of Gastrointestinal Di: Yes Gastrointestinal Disorders: Gastroesophageal Reflux, Gall Bladder Disease Musculoskeletal History of Musculoskeletal Dis: Yes Musculoskeletal Disorders: Arthritis Endocrine History of Endocrine Disorders: Yes Endocrine Disorders: Hypothyroidsim HEENT History of HEENT Disorders: No Cancer History of Cancer: No Psychosocial History of Psychiatric Problem: Yes Behavioral Health Disorders: Anxiety Integumentary History of Skin or Integumenta: No Family Medical History Significant Family History: Cancer (Prostate in father), Diabetes (Brother), Other Conditions/Hx (Mother with thyroid and HLD) Family Medial History: Cardiovascular disease 19 MOTHER Diabetes mellitus G8 BROTHER FH: prostate cancer Review of Systems-General Constitutional: No chills, No fever EENTM: No blurred vision, No double vision, No mouth swelling, No epistaxis Respiratory: No cough, No dyspnea on exertion Cardiovascular: No chest pain, No palpitations Gastrointestinal: No abdominal pain, No constipation, No nausea, No vomiting Genitourinary: No dysuria, No frequency, No hematuria Musculoskeletal: joint pain, joint swelling Psychiatric/Neurological: Anxiety, Tremors, Other (Dyskinesia) Physical Exam-General Problems Physical Exam General Appearance: no apparent distress, obese, other (Patient with severe Parkinsonian Dyskinesia) Eyes: Bilateral Eye PERRL, Bilateral Eye EOMI HEENT: PERRL/EOMI; No pale conjunctivae (R), No pale conjunctivae (L); other (lesion on lower lip right side) Neck: non-tender, supple Respiratory: lungs clear, normal breath sounds (Anterior posts), no respiratory distress, no accessory muscle use Cardiovascular: regular rate, rhythm, no edema, no murmur Gastrointestinal: non tender, soft; No distended, No guarding; other (Midline incision healing well without erythema or drainage. DUOPA pump placed left of midline in LUQ into jejunum (per patient). Mild erythema around skin without maceration or drainage at time of exam. No tenderness to palpation around drain site.) Extremities: non-tender, no pedal edema, no calf tenderness Neurologic/Psychiatric: alert, normal mood/affect, oriented x 3, other (Dyskinesia) Skin: normal color, warm/dry Lymphatic: no adenopathy (Head and neck) Assessment/Plan Assessment/Plan Assessment/Plan s/p DUOPA pump placement with leakage Placed DEC [address] Miguel Yu at Drainage started 2 days ago Parkinson Disease Diagnosed 5 years ago Parkinsonion Dyskinesia Severe Follows with Dr. Perez, neurologist at Hyperparathyroidism With hypercalcemia New onset Pneumonia with sepsis Resolved Patient recently had DUOPA pump placed at with follow-up appointment scheduled for JAN 09 At the time of my exam there was no drainage. I saw a saturated 4x4 gauze with dark chambers fluid on it. No acute surgical indication or needs at this time. Keep site clean and dry, changing dressing PRN as saturated to ensure there is no skin breakdown Would plan to keep appointment with physician at Supervisory-Addendum Brief Verification & Attestation Participated in pt care: history, MDM, physical Personally performed: exam, history, MDM, supervision of care Care discussed with: Medical Student Procedures: n/a Verification and Attestation of Medical Student E/M Service A medical student performed and documented this service. I then reviewed and verified all information documented by the medical student and made modifications to such information, when appropriate. I personally performed a physical exam, medical decision making and then discussed any differences between the notes and made revisions as necessary to create one note. Jacques Reyes , 12/12/22 , 17:30 KENDRA REDMAN Dec 12, 2022 16:46 JACQUES REYES DO Dec 12, 2022 17:25
--- NOTE | 2022-12-12 16:49 | Physician Query Clarification ---
Physician Query-General Query to Physician: The medical record reflects the following clinical evidence: Clinical Indicators: Need for supplemental oxygen since admission at 2L and increased no up to 5 L, lowest O2 sat recorded 86% on 5 L (P/F=128), RR 22 on admission has been as high as 25 but mostly 13-23, starting on the 23 Nursing frequently documenting "SOA at rest" Risk Factor(s): Severe Sepsis, Pneumonia, no documentation of Home O2, Treatment: Supplemental 02 up to 5L, Respiratory monitoring, Chest Xrays, IV ABX, 1. Acute respiratory failure with hypoxia, present on admission 2. Other explanation of clinical findings 3. Unable to determine (no explanation for clinical findings) Please clarify and document your clinical opinion in the progress notes and discharge summary including the definitive and/or presumptive diagnosis, (suspected or probable), related to the above clinical findings. Please include clinical findings supporting your diagnosis. Pao Machado RN, MSN Clinical Vocational Instructor [phone] [email or web address] PHYSICIAN RESPONSE: Based on the clinical findings in the record, please respond to the query above on this document as an addendum. Physician Response: Physician Response 1 If you have questions please contact: Director Digital Analytics: Ext: Thank you for your time and cooperation. Clinical Vocational Instructor/Director Digital Analytics This is a permanent part of the medical record PAO MACHADO Dec 12, 2022 16:49 WESLY TANNER DO Dec 12, 2022 20:31
--- NOTE | 2022-12-12 17:00 | Physician Query Clarification ---
Physician Query-General Query to Physician: The medical record reflects the following clinical evidence: Clinical Indicators: CT head with "No acute intracranial abnormality", "Confused" NETTING INSPECTOR, Nursing documenting GCS of 12 on admission that has improved to 15 after treatment, "Corrected" Ca of 12.2 on admission, Risk Factor(s): Sepsis, Pneumonia, Hx of Parkinsons Treatment: Neuromonitoring, CT Head, IV Fluids and IV ABX 1. Metabolic encephalopathy, present on admission resolving 2. Other explanation of clinical findings 3. Unable to determine (no explanation for clinical findings) Please clarify and document your clinical opinion in the progress notes and discharge summary including the definitive and/or presumptive diagnosis, (suspected or probable), related to the above clinical findings. Please include clinical findings supporting your diagnosis. Pao Machado RN, MSN Clinical Energy Professional [phone] [email or web address] PHYSICIAN RESPONSE: Based on the clinical findings in the record, please respond to the query above on this document as an addendum. Physician Response: Physician Response 1 If you have questions please contact: Incident Response Analyst: Ext: Thank you for your time and cooperation. Clinical Energy Professional/Incident Response Analyst This is a permanent part of the medical record PAO MACHADO Dec 12, 2022 17:00 WESLY TANNER DO Dec 12, 2022 20:32
[2022-12-12] MEDS: SERTRALINE 50 MG (ZOLOFT) TABLET PO SCH (19:48)
[2022-12-12] MEDS: AMITRIPTYLINE 25 MG (ELAVIL) TAB PO SCH (19:48)
[2022-12-12 20:03] VITALS: BP 159/78
[2022-12-12 23:21] VITALS: BP 127/93
[2022-12-13] VITALS (7 sets, daily range): BP systolic 114–150; BP diastolic 53–93
[2022-12-13 05:16] LABS: BASOPHILS % (AUTO) 0 % (0-10); EOSINOPHILS # (AUTO) 0.5 10^3/uL (0.0-0.3); EOSINOPHILS % (AUTO) 5 % (0-10); HEMATOCRIT 35 % (35-52); HEMOGLOBIN 11.4 g/dL (11.5-16.0); LYMPHOCYTES # (AUTO) 1.3 10^3/uL (1.0-4.0); LYMPHOCYTES % (AUTO) 12 % (12-44); MEAN CORPUSCULAR HEMOGLOBIN 29 pg (25-34); MEAN CORPUSCULAR HGB CONC 33 g/dL (32-36); MEAN CORPUSCULAR VOLUME 90 fL (80-99); MEAN PLATELET VOLUME 9.6 fL (9.0-12.2); MONOCYTES # (AUTO) 1.1 10^3/uL (0.0-1.0); MONOCYTES % (AUTO) 10 % (0-12); NEUTROPHILS # (AUTO) 7.3 10^3/uL (1.8-7.8); NEUTROPHILS % (AUTO) 68 % (42-75); PLATELET COUNT 268 10^3/uL (130-400); WHITE BLOOD COUNT 10.7 10^3/uL (4.3-11.0)
[2022-12-13] MEDS: LEVOTHYROXINE 75 MCG (LEVOTHROID) TABLET PO SCH (05:28)
[2022-12-13] MEDS: CYANOCOBALAMIN 1,000 MCG (VITAMIN B-12) TABLET PO SCH (05:28)
[2022-12-13 05:36] LABS: ALBUMIN 2.6 GM/DL (3.2-4.5); POTASSIUM 3.6 MMOL/L (3.6-5.0)
[2022-12-13 05:37] LABS: CALCIUM 9.6 MG/DL (8.5-10.1)
[2022-12-13 05:39] LABS: TOTAL PROTEIN 5.1 GM/DL (6.4-8.2)
[2022-12-13 05:40] LABS: BILIRUBIN,TOTAL 0.2 MG/DL (0.1-1.0)
[2022-12-13 05:42] LABS: CREATININE SERUM 0.44 MG/DL (0.60-1.30); PHOSPHORUS 2.6 MG/DL (2.3-4.7)
[2022-12-13 05:45] LABS: MAGNESIUM 1.6 MG/DL (1.6-2.4)
--- NOTE | 2022-12-13 06:11 | Progress Note - Hospitalist ---
Subjective HPI/CC On Admission Date Seen by Provider: Dec 13, 2022 Time Seen by Provider: 11:00 Chief complaint: Severe sepsis HPI: This is a 57-year-old female clinic patient of [facility] who has a history of severe Parkinson's and just recently had a procedure on (12/05) from day surgery at which entailed a gastric port placed for a DUOPA pump (infusion pump for levodopa infusion into the small bowel) which was uncomplicated. She was returned back to [facility] assisted living and was walking around on but through the night she was found beside the couch and she was confused and unable to tell any details about how she got to the couch. She was found to be febrile and have pneumonia and hypotension with hypoxia and confusion and was classified as severe sepsis so she was placed in the ICU for protocol. She is maintained on cefepime and vancomycin due to facility acquired infection suspected. Her DPOA and caretakers are at the bedside. 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 Imaging: Reviewed Imaging Films, Reviewed Imaging Report Assessment/Plan Assessment and Plan Assess & Plan/Chief Complaint Assessment: s/p severe sepsis s/p PNA Severe PD Hyperparathyroidism will need management outpatient J-tube drainage consulting Dr Cha Plan: Await GAP DC abx Diagnosis/Problems Diagnosis/Problems (1) Severe sepsis Status: Acute (2) Pneumonia Status: Acute Qualifiers: Pneumonia type: due to unspecified organism Laterality: left Lung location: upper lobe of lung Qualified Codes: J18.9 - Pneumonia, unspecified organism (3) Altered mental status Status: Acute Qualifiers: Altered mental status type: unspecified Qualified Codes: R41.82 - Altered mental status, unspecified (4) Parkinsons Status: Acute (5) Debility Status: Acute WESLY TANNER DO Dec 13, 2022 06:11
[2022-12-13] MEDS: RYTARY PO SCH ×5 (08:03→22:01)
[2022-12-13] MEDS: SENNA W/DOCUSATE (SENOKOT S) TABLET PO SCH ×2 (08:04→19:55)
[2022-12-13] MEDS: CHLORHEXIDINE 0.12% SOLN 15 ML (PERIDEX) UDC MM SCH ×2 (08:04→19:49)
[2022-12-13] MEDS: MULTIVIT W/MINERALS TAB (THERAGRAN M) PO SCH (08:04)
[2022-12-13] MEDS: MIDODRINE 10 MG (PROAMATINE) TAB PO SCH ×2 (08:04→12:01)
[2022-12-13] MEDS: LORATADINE (CLARITIN) 10 MG TAB PO SCH (08:05)
[2022-12-13] MEDS: GABAPENTIN 300 MG (NEURONTIN) CAP PO SCH ×3 (08:05→19:49)
[2022-12-13] MEDS: KCL 20 MEQ TAB (K-DUR) PO SCH ×2 (08:05→19:49)
[2022-12-13] MEDS: PANTOPRAZOLE 40 MG (PROTONIX) TAB PO SCH (08:05)
[2022-12-13] MEDS: ENOXAPARIN 40 MG/0.4 ML (LOVENOX) SYR SC SCH (08:06)
[2022-12-13] MEDS: HYDROcodone/APAP 5 MG/325 MG (LORTAB) TAB PO PRN ×3 (08:10→22:48)
[2022-12-13] MEDS: CELECOXIB 100 MG (CeleBREX) CAP PO SCH (08:11)
[2022-12-13] MEDS: polyethylene glycoL POWDER 17 GM (MIRALAX) PACK PO SCH ×2 (08:14→19:54)
--- NOTE | 2022-12-13 10:17 | Physical Therapy Progress Note ---
Therapy Progress Note Patient declined PT on this date due to not feeling well and feeling anxious. Patient is usually very compliant with participating with PT. PT respects patient request. RN notified. 1 ref KATHY FAROOQ PT Dec 13, 2022 10:17
--- NOTE | 2022-12-13 12:29 | CONSULTATION REPORT ---
DATE OF SERVICE: 12/13/2022 ATTENDING PRIMARY CARE PHYSICIAN: Dr. Forrest Yu. ADMITTING PHYSICIAN: Dr. Hutson. HISTORY OF PRESENT ILLNESS: The patient is a 57-year-old female known to us. We had done a previous laparoscopic cholecystectomy as well as a gastric sleeve resection in the past as well as endoscopies. She was brought by EMS from her assisted living facility when found on the floor and confusion. The patient does have a history of Parkinson's disease and this has been progressive and does have a significant dystonic movements. The patient was found to be febrile and x-rays were consistent with pneumonia. She was admitted, started on IV antibiotics and over time has improved. She is also status post open jejunostomy tube placement with today being postoperative day #7. We were consulted for drainage around the tube. The incision is clean, dry, and intact with no surrounding redness or erythema. The jejunostomy tube is intact with no surrounding redness or erythema. There is some succuss entericus drainage around the tube. There is no fluctuance to indicate any abscess, no tenderness as well. The jejunostomy tube is functional and she is still taking oral by mouth and having normal bowel movements with no signs of any distal obstructions. PAST MEDICAL HISTORY: Parkinson's disease, migraine headaches, chronic urinary tract infection, hypothyroid, anxiety, depression, morbid obesity and gastroesophageal reflux disease. PAST SURGICAL HISTORY: Laparoscopic cholecystectomy 02/2021, laparoscopic gastric sleeve resection 06/2017. ALLERGIES: No known drug allergies. MEDICATIONS: Amitriptyline, carbidopa/levodopa, cyclobenzaprine, gabapentin, levetiracetam, levothyroxine, loratadine, lorazepam, Zofran, Protonix, potassium, sertraline, Carafate. SOCIAL HISTORY: Negative smoking, negative alcohol. FAMILY HISTORY: Noncontributory. VITAL SIGNS: Temperature 36.5, blood pressure 150/93, pulse 86, respirations 19, pulse ox 93% on room air. REVIEW OF SYSTEMS: This is a well-nourished female, currently in no acute distress. She is awake and alert and answers all questions appropriately. She states that she is not experiencing any nausea nor vomiting and is having normal bowel movements. She states there has been drainage coming from around the gastrostomy tube site with no redness, erythema as well as no fluctuance to indicate any abscess. She initially was admitted with shortness of breath and fevers; however, this has improved. She does not report any recent inadvertent weight loss. PHYSICAL EXAMINATION: LUNGS: Few scattered rales bilaterally. HEART: Regular. No murmurs. EXTREMITIES: No lower extremity edema. Negative Homans sign. HEENT: No scleral icterus. No cervical lymphadenopathy. ABDOMEN: Soft, nondistended. There is a previous midline mini laparotomy incision, which is clean, dry, and intact with no redness or erythema. To the left lateral abdomen is a jejunostomy tube exit site with some succuss entericus drainage. There is no redness, erythema as well as no fluctuance to indicate any abscess. The jejunostomy tube is functional and she is having normal bowel movements. SKIN: Warm, dry. ASSESSMENT AND PLAN: A 57-year-old female with drainage around a newly placed jejunostomy tube by open technique. At this time, this type of drainage is normal. Due to the high volume of liquids through the jejunum and the tract forming and fistulizing and allowing excess amount of fluid to drain around the tube. Over time with further epithelialization and scarring, this should form of hydrocele around the jejunostomy tube and there should be much less drainage. For now, we will recommend placement of significant 4 x 4 absorbent gauze on at least b.i.d. as well as p.r.n. basis to keep the area as clean and dry as possible and to prevent any superficial infections. She is also tolerating a regular diet and having normal bowel functions, which would not indicate any distal obstructions. Over time, again, this should correct on its own. Job ID: [id number] DocumentID: [id number] Dictated Date: 12/13/2022 11:38:31 Route Carrier Date: 12/13/2022 12:27:00 Dictated By: JESUS MANCILLA MD
[2022-12-13] MEDS: LORazepam 0.5 MG (ATIVAN) TABLET PO SCH ×2 (15:09→19:49)
[2022-12-13] MEDS: SERTRALINE 50 MG (ZOLOFT) TABLET PO SCH (19:49)
[2022-12-13] MEDS: ACETAMINOPHEN 325 MG TABLET PO PRN (19:49)
[2022-12-13] MEDS: AMITRIPTYLINE 25 MG (ELAVIL) TAB PO SCH (19:49)
[2022-12-14] MEDS: ACETAMINOPHEN 325 MG TABLET PO PRN (00:32)
[2022-12-14 03:02] VITALS: BP 108/52
[2022-12-14] MEDS: CYANOCOBALAMIN 1,000 MCG (VITAMIN B-12) TABLET PO SCH (05:02)
[2022-12-14] MEDS: LEVOTHYROXINE 75 MCG (LEVOTHROID) TABLET PO SCH (05:02)
[2022-12-14] MEDS: CYCLOBENZAPRINE 10 MG (FLEXERIL) TAB PO PRN ×2 (05:23→20:49)
[2022-12-14] MEDS: HYDROcodone/APAP 5 MG/325 MG (LORTAB) TAB PO PRN ×2 (05:24→17:53)
[2022-12-14 06:09] LABS: BASOPHILS # (AUTO) 0.1 10^3/uL (0.0-0.1); BASOPHILS % (AUTO) 1 % (0-10); EOSINOPHILS # (AUTO) 0.6 10^3/uL (0.0-0.3); EOSINOPHILS % (AUTO) 5 % (0-10); HEMATOCRIT 38 % (35-52); HEMOGLOBIN 12.2 g/dL (11.5-16.0); LYMPHOCYTES # (AUTO) 1.8 10^3/uL (1.0-4.0); LYMPHOCYTES % (AUTO) 14 % (12-44); MEAN CORPUSCULAR HEMOGLOBIN 29 pg (25-34); MEAN CORPUSCULAR HGB CONC 33 g/dL (32-36); MEAN CORPUSCULAR VOLUME 90 fL (80-99); MEAN PLATELET VOLUME 9.7 fL (9.0-12.2); MONOCYTES % (AUTO) 8 % (0-12); NEUTROPHILS # (AUTO) 9.3 10^3/uL (1.8-7.8); NEUTROPHILS % (AUTO) 70 % (42-75); PLATELET COUNT 338 10^3/uL (130-400); WHITE BLOOD COUNT 13.3 10^3/uL (4.3-11.0)
[2022-12-14 06:22] LABS: CALCIUM 10.2 MG/DL (8.5-10.1)
[2022-12-14 06:24] LABS: TOTAL PROTEIN 5.9 GM/DL (6.4-8.2)
[2022-12-14 06:25] LABS: BILIRUBIN,TOTAL 0.2 MG/DL (0.1-1.0)
[2022-12-14 06:27] LABS: CREATININE SERUM 0.5 MG/DL (0.60-1.30); PHOSPHORUS 2.8 MG/DL (2.3-4.7)
[2022-12-14 06:30] LABS: MAGNESIUM 1.8 MG/DL (1.6-2.4)
--- NOTE | 2022-12-14 06:38 | Progress Note - Hospitalist ---
Subjective HPI/CC On Admission Date Seen by Provider: Dec 14, 2022 Time Seen by Provider: 11:00 Chief complaint: Severe sepsis HPI: This is a 57-year-old female clinic patient of [facility] who has a history of severe Parkinson's and just recently had a procedure on (12/05) from day surgery at which entailed a gastric port placed for a DUOPA pump (infusion pump for levodopa infusion into the small bowel) which was uncomplicated. She was returned back to [facility] assisted living and was walking around on but through the night she was found beside the couch and she was confused and unable to tell any details about how she got to the couch. She was found to be febrile and have pneumonia and hypotension with hypoxia and confusion and was classified as severe sepsis so she was placed in the ICU for protocol. She is maintained on cefepime and vancomycin due to facility acquired infection suspected. Her DPOA and caretakers are at the bedside. 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 Patient doing about the same No major concerns Very debilitated Drainage from J-tube noted Review of Systems General: Fatigue, Malaise Focused Exam Time of Focused Exam: 01:20 Objective Exam Vital Signs Vital Signs Date Time Temp Pulse Resp B/P (MAP) Pulse Ox O2 Delivery O2 Flow Rate FiO2 12/14/22 11:42 36.7 83 18 117/82 (94) 93 Nasal Cannula 4.00 Capillary Refill : Less Than 3 Seconds General Appearance: No Apparent Distress, WD/WN, Chronically ill Respiratory: Lungs Clear, Normal Breath Sounds Cardiovascular: Regular Rate, Rhythm Neurologic/Psychiatric: Alert, Oriented x3, No Motor/Sensory Deficits, Normal Mood/Affect Results/Procedures Lab Laboratory Tests 12/14/22 05:35 Patient resulted labs reviewed. Imaging: Reviewed Imaging Films, Reviewed Imaging Report Assessment/Plan Assessment and Plan Assess & Plan/Chief Complaint Assessment: s/p severe sepsis s/p PNA Severe PD Hyperparathyroidism will need management outpatient J-tube drainage consulting Dr Cha Plan: Await WIP DC abx Diagnosis/Problems Diagnosis/Problems (1) Severe sepsis Status: Acute (2) Pneumonia Status: Acute Qualifiers: Pneumonia type: due to unspecified organism Laterality: left Lung location: upper lobe of lung Qualified Codes: J18.9 - Pneumonia, unspecified organism (3) Altered mental status Status: Acute Qualifiers: Altered mental status type: unspecified Qualified Codes: R41.82 - Altered mental status, unspecified (4) Parkinsons Status: Acute (5) Debility Status: Acute WESLY TANNER DO Dec 14, 2022 06:38
[2022-12-14 07:57] VITALS: BP 106/72
[2022-12-14] MEDS: RYTARY PO SCH ×5 (08:00→19:29)
[2022-12-14] MEDS: KCL 20 MEQ TAB (K-DUR) PO SCH ×2 (08:12→19:24)
[2022-12-14] MEDS: MULTIVIT W/MINERALS TAB (THERAGRAN M) PO SCH (08:12)
[2022-12-14] MEDS: PANTOPRAZOLE 40 MG (PROTONIX) TAB PO SCH (08:12)
[2022-12-14] MEDS: LORazepam 0.5 MG (ATIVAN) TABLET PO SCH ×3 (08:13→22:22)
[2022-12-14] MEDS: MIDODRINE 10 MG (PROAMATINE) TAB PO SCH ×2 (08:13→12:12)
[2022-12-14] MEDS: LORazepam 0.5 MG (ATIVAN) TABLET PO PRN (08:13)
[2022-12-14] MEDS: LORATADINE (CLARITIN) 10 MG TAB PO SCH (08:13)
[2022-12-14] MEDS: CELECOXIB 100 MG (CeleBREX) CAP PO SCH (08:13)
[2022-12-14] MEDS: GABAPENTIN 300 MG (NEURONTIN) CAP PO SCH ×3 (08:13→19:24)
[2022-12-14] MEDS: SENNA W/DOCUSATE (SENOKOT S) TABLET PO SCH ×2 (08:13→19:24)
[2022-12-14] MEDS: CHLORHEXIDINE 0.12% SOLN 15 ML (PERIDEX) UDC MM SCH ×2 (08:14→19:24)
[2022-12-14] MEDS: ENOXAPARIN 40 MG/0.4 ML (LOVENOX) SYR SC SCH (08:14)
[2022-12-14] MEDS: polyethylene glycoL POWDER 17 GM (MIRALAX) PACK PO SCH ×2 (08:14→19:25)
--- NOTE | 2022-12-14 10:54 | Physical Therapy Progress Note ---
Therapy Progress Note Patient lying supine in bed upon PT arrival. Patient refuses treatment at this time stating increased difficulty breathing and reports "The nurse just gave me an Ativan and hydrocodone, I don't feel like I can do anything right now." Will attempt treatment again next available therapy session. LESLIE BAH PT Dec 14, 2022 10:54
[2022-12-14 11:42] VITALS: BP 117/82
[2022-12-14 15:23] VITALS: BP 94/68
[2022-12-14] MEDS: AMITRIPTYLINE 25 MG (ELAVIL) TAB PO SCH (19:24)
[2022-12-14] MEDS: SERTRALINE 50 MG (ZOLOFT) TABLET PO SCH (19:24)
[2022-12-14 20:48] VITALS: BP 101/69
[2022-12-14 23:37] VITALS: BP 123/75
[2022-12-15 03:26] VITALS: BP 116/74
[2022-12-15 05:11] LABS: BASOPHILS # (AUTO) 0.1 10^3/uL (0.0-0.1); BASOPHILS % (AUTO) 0 % (0-10); EOSINOPHILS # (AUTO) 0.6 10^3/uL (0.0-0.3); EOSINOPHILS % (AUTO) 4 % (0-10); HEMATOCRIT 35 % (35-52); HEMOGLOBIN 11.5 g/dL (11.5-16.0); LYMPHOCYTES # (AUTO) 1.7 10^3/uL (1.0-4.0); LYMPHOCYTES % (AUTO) 13 % (12-44); MEAN CORPUSCULAR HEMOGLOBIN 29 pg (25-34); MEAN CORPUSCULAR HGB CONC 33 g/dL (32-36); MEAN CORPUSCULAR VOLUME 90 fL (80-99); MEAN PLATELET VOLUME 9.2 fL (9.0-12.2); MONOCYTES # (AUTO) 0.7 10^3/uL (0.0-1.0); MONOCYTES % (AUTO) 6 % (0-12); NEUTROPHILS # (AUTO) 9.6 10^3/uL (1.8-7.8); NEUTROPHILS % (AUTO) 75 % (42-75); PLATELET COUNT 338 10^3/uL (130-400); WHITE BLOOD COUNT 12.9 10^3/uL (4.3-11.0)
[2022-12-15 05:19] LABS: ALBUMIN 2.8 GM/DL (3.2-4.5)
[2022-12-15 05:20] LABS: POTASSIUM 3.8 MMOL/L (3.6-5.0)
[2022-12-15 05:22] LABS: TOTAL PROTEIN 5.7 GM/DL (6.4-8.2)
[2022-12-15 05:24] LABS: BILIRUBIN,TOTAL 0.3 MG/DL (0.1-1.0)
[2022-12-15 05:25] LABS: PHOSPHORUS 2.8 MG/DL (2.3-4.7)
[2022-12-15 05:26] LABS: CREATININE SERUM 0.48 MG/DL (0.60-1.30)
[2022-12-15] MEDS: LEVOTHYROXINE 75 MCG (LEVOTHROID) TABLET PO SCH (05:27)
[2022-12-15] MEDS: CYANOCOBALAMIN 1,000 MCG (VITAMIN B-12) TABLET PO SCH (05:27)
[2022-12-15 05:28] LABS: MAGNESIUM 1.8 MG/DL (1.6-2.4)
[2022-12-15] MEDS: HYDROcodone/APAP 5 MG/325 MG (LORTAB) TAB PO PRN ×2 (05:28→21:12)
[2022-12-15 07:08] VITALS: BP 118/69
--- NOTE | 2022-12-15 07:59 | Progress Note - Hospitalist ---
Subjective HPI/CC On Admission Date Seen by Provider: Dec 15, 2022 Time Seen by Provider: 11:00 Chief complaint: Severe sepsis HPI: This is a 57-year-old female clinic patient of [facility] who has a history of severe Parkinson's and just recently had a procedure on (12/05) from day surgery at which entailed a gastric port placed for a DUOPA pump (infusion pump for levodopa infusion into the small bowel) which was uncomplicated. She was returned back to [facility] assisted living and was walking around on but through the night she was found beside the couch and she was confused and unable to tell any details about how she got to the couch. She was found to be febrile and have pneumonia and hypotension with hypoxia and confusion and was classified as severe sepsis so she was placed in the ICU for protocol. She is maintained on cefepime and vancomycin due to facility acquired infection suspected. Her DPOA and caretakers are at the bedside. 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 MANCILLA for J-tube Review of Systems General: Fatigue Focused Exam Time of Focused Exam: 01:20 Objective Exam Vital Signs Vital Signs Date Time Temp Pulse Resp B/P (MAP) Pulse Ox O2 Delivery O2 Flow Rate FiO2 12/15/22 11:22 37.0 79 20 117/76 (90) 92 Room Air 12/14/22 11:42 4.00 Capillary Refill : Less Than 3 Seconds General Appearance: No Apparent Distress, WD/WN, Chronically ill Respiratory: Lungs Clear, Normal Breath Sounds Cardiovascular: Regular Rate, Rhythm Neurologic/Psychiatric: Alert, Oriented x3, No Motor/Sensory Deficits, Normal Mood/Affect Results/Procedures Lab Laboratory Tests 12/15/22 05:00 Patient resulted labs reviewed. Imaging: Reviewed Imaging Films, Reviewed Imaging Report Assessment/Plan Assessment and Plan Assess & Plan/Chief Complaint Assessment: s/p severe sepsis s/p PNA Severe PD Hyperparathyroidism will need management outpatient J-tube drainage consulting Dr Mancilla Plan: Await PAP DC abx Diagnosis/Problems Diagnosis/Problems (1) Severe sepsis Status: Acute (2) Pneumonia Status: Acute Qualifiers: Pneumonia type: due to unspecified organism Laterality: left Lung location: upper lobe of lung Qualified Codes: J18.9 - Pneumonia, unspecified organism (3) Altered mental status Status: Acute Qualifiers: Altered mental status type: unspecified Qualified Codes: R41.82 - Altered mental status, unspecified (4) Parkinsons Status: Acute (5) Debility Status: Acute WESLY TANNER DO Dec 15, 2022 07:59
[2022-12-15] MEDS: RYTARY PO SCH ×5 (08:06→20:07)
[2022-12-15] MEDS: MULTIVIT W/MINERALS TAB (THERAGRAN M) PO SCH (08:07)
[2022-12-15] MEDS: PANTOPRAZOLE 40 MG (PROTONIX) TAB PO SCH (08:07)
[2022-12-15] MEDS: KCL 20 MEQ TAB (K-DUR) PO SCH ×2 (08:07→20:03)
[2022-12-15] MEDS: GABAPENTIN 300 MG (NEURONTIN) CAP PO SCH ×3 (08:08→20:03)
[2022-12-15] MEDS: CELECOXIB 100 MG (CeleBREX) CAP PO SCH (08:08)
[2022-12-15] MEDS: MIDODRINE 10 MG (PROAMATINE) TAB PO SCH ×2 (08:08→12:36)
[2022-12-15] MEDS: SENNA W/DOCUSATE (SENOKOT S) TABLET PO SCH ×2 (08:08→20:03)
[2022-12-15] MEDS: LORATADINE (CLARITIN) 10 MG TAB PO SCH (08:09)
[2022-12-15] MEDS: polyethylene glycoL POWDER 17 GM (MIRALAX) PACK PO SCH ×2 (08:09→20:03)
[2022-12-15] MEDS: CHLORHEXIDINE 0.12% SOLN 15 ML (PERIDEX) UDC MM SCH ×2 (08:09→20:03)
[2022-12-15] MEDS: ENOXAPARIN 40 MG/0.4 ML (LOVENOX) SYR SC SCH (08:09)
--- NOTE | 2022-12-15 10:03 | Progress Note ---
Subjective Date Seen by a Provider: Dec 15, 2022 Time Seen by a Provider: 09:20 Subjective/Events-last exam Patient seen and she reports that she is doing well. She denies any abdominal pain as well as no nausea or vomiting. Tolerating diet. Does report some shortness or breathe. She reports some drain from around j-tube. Focused Exam Time of Focused Exam: 01:20 Objective Exam Vital Signs Date Time Temp Pulse Resp B/P (MAP) Pulse Ox O2 Delivery O2 Flow Rate FiO2 12/15/22 07:24 Room Air 12/15/22 07:08 37.0 83 20 118/69 (85) 90 Room Air 12/15/22 03:26 37.2 77 16 116/74 (88) 91 Room Air 12/14/22 23:37 37.0 83 16 123/75 (91) 91 Room Air 12/14/22 20:48 36.7 75 20 101/69 (80) 95 Room Air 12/14/22 20:03 Room Air 12/14/22 19:44 Room Air 12/14/22 15:23 36.9 78 18 94/68 (77) 92 Room Air 12/14/22 11:42 36.7 83 18 117/82 (94) 93 Nasal Cannula 4.00 I & O 12/15/22 07:00 Intake Total 1350 ml Balance 1350 ml Capillary Refill : Less Than 3 Seconds General Appearance: No Apparent Distress, WD/WN Neck: Normal Inspection, Supple Respiratory: No Accessory Muscle Use, No Respiratory Distress Gastrointestinal: non tender, soft Extremity: Normal Inspection, Normal Range of Motion Neurologic/Psychiatric: Alert, Oriented x3 Skin: Normal Color, Warm/Dry, Other (jejunostomy tube exit site with some succuss entericus drainage, no signs of infection) Results Lab Laboratory Tests 12/15/22 05:00: White Blood Count 12.9H, Red Blood Count 3.94, Hemoglobin 11.5, Hematocrit 35, Mean Corpuscular Volume 90, Mean Corpuscular Hemoglobin 29, Mean Corpuscular Hemoglobin Concent 33, Red Cell Distribution Width 14.3, Platelet Count 338, Mean Platelet Volume 9.2, Immature Granulocyte % (Auto) 2, Neutrophils (%) (Auto) 75, Lymphocytes (%) (Auto) 13, Monocytes (%) (Auto) 6, Eosinophils (%) (Auto) 4, Basophils (%) (Auto) 0, Neutrophils # (Auto) 9.6H, Lymphocytes # (Auto) 1.7, Monocytes # (Auto) 0.7, Eosinophils # (Auto) 0.6H, Basophils # (Auto) 0.1, Immature Granulocyte # (Auto) 0.2H, Sodium Level 138, Potassium Level 3.8, Chloride Level 107, Carbon Dioxide Level 21, Anion Gap 10, Blood Urea Nitrogen 11, Creatinine 0.48L, Estimat Glomerular Filtration Rate 110, BUN/Creatinine Ratio 23, Glucose Level 87, Calcium Level 10.0, Corrected Calcium 11.0H, Phosphorus Level 2.8, Magnesium Level 1.8, Total Bilirubin 0.3, Aspartate Amino Transf (AST/SGOT) 71H, Alanine Aminotransferase (ALT/SGPT) 12, Alkaline Phosphatase 265H, Total Protein 5.7L, Albumin 2.8L Microbiology 12/08/22 MRSA Screen - Final, Complete 12/07/22 Blood Culture - Final, Complete No growth 12/07/22 Urine Culture - Final, Complete NO GROWTH Assessment/Plan Assessment/Plan Assess & Plan/Chief Complaint A 57 year old female with newly placed jejunostomy tube by open technique, sepsis, pneumonia VSS WBC 12.9 This type of drainage is normal. Due to the high volume of liquids through the jejunum and the tract forming and fistulizing and allowing excess amount of fluid to drain around the tube. Over time with further epithelialization and scarring, this should form of hydrocele around the jejunostomy tube and there should be much less drainage. Continue with gauze dressing changes around j-tube BID and PRN Continue with medical management for pneumonia GEOVANI HUNTER LEGAL CASHIER Dec 15, 2022 10:03
[2022-12-15 11:22] VITALS: BP 117/76
[2022-12-15] MEDS ORDERED: IBUPROFEN 600 MG (MOTRIN) TAB PO PRN (13:15)
[2022-12-15 15:18] VITALS: BP 129/76
[2022-12-15] MEDS: LORazepam 0.5 MG (ATIVAN) TABLET PO SCH ×2 (16:17→20:03)
[2022-12-15] MEDS: SERTRALINE 50 MG (ZOLOFT) TABLET PO SCH (20:03)
[2022-12-15] MEDS: AMITRIPTYLINE 25 MG (ELAVIL) TAB PO SCH (20:03)
[2022-12-15 20:39] VITALS: BP 99/72
[2022-12-15] MEDS: ACETAMINOPHEN 325 MG TABLET PO PRN (21:12)
[2022-12-15 23:29] VITALS: BP 98/70
[2022-12-16 03:36] VITALS: BP 114/71
[2022-12-16 05:07] LABS: BASOPHILS # (AUTO) 0.1 10^3/uL (0.0-0.1); BASOPHILS % (AUTO) 0 % (0-10); EOSINOPHILS # (AUTO) 0.6 10^3/uL (0.0-0.3); EOSINOPHILS % (AUTO) 4 % (0-10); HEMATOCRIT 34 % (35-52); HEMOGLOBIN 11.1 g/dL (11.5-16.0); LYMPHOCYTES # (AUTO) 1.9 10^3/uL (1.0-4.0); LYMPHOCYTES % (AUTO) 12 % (12-44); MEAN CORPUSCULAR HEMOGLOBIN 29 pg (25-34); MEAN CORPUSCULAR HGB CONC 33 g/dL (32-36); MEAN CORPUSCULAR VOLUME 90 fL (80-99); MEAN PLATELET VOLUME 9.1 fL (9.0-12.2); MONOCYTES # (AUTO) 0.7 10^3/uL (0.0-1.0); MONOCYTES % (AUTO) 5 % (0-12); NEUTROPHILS # (AUTO) 11.9 10^3/uL (1.8-7.8); NEUTROPHILS % (AUTO) 78 % (42-75); PLATELET COUNT 361 10^3/uL (130-400); WHITE BLOOD COUNT 15.4 10^3/uL (4.3-11.0)
[2022-12-16 05:13] LABS: ALBUMIN 2.7 GM/DL (3.2-4.5); POTASSIUM 3.6 MMOL/L (3.6-5.0)
[2022-12-16 05:14] LABS: CALCIUM 9.8 MG/DL (8.5-10.1)
[2022-12-16 05:16] LABS: TOTAL PROTEIN 5.8 GM/DL (6.4-8.2)
[2022-12-16 05:17] LABS: BILIRUBIN,TOTAL 0.3 MG/DL (0.1-1.0)
[2022-12-16 05:19] LABS: CREATININE SERUM 0.5 MG/DL (0.60-1.30); PHOSPHORUS 2.9 MG/DL (2.3-4.7)
[2022-12-16 05:22] LABS: MAGNESIUM 1.9 MG/DL (1.6-2.4)
[2022-12-16 05:33] LABS: BAND NEUTROPHILS 1 %; EOSINOPHILS % (MANUAL) 2 %; LYMPHOCYTES % (MANUAL) 12 %; MONOCYTES % (MANUAL) 4 %; NEUTROPHILS % (MANUAL) 81 %; TOXIC GRANULATION/VACUOLAZATIO 1+
[2022-12-16] MEDS: LEVOTHYROXINE 75 MCG (LEVOTHROID) TABLET PO SCH (06:07)
[2022-12-16] MEDS: HYDROcodone/APAP 5 MG/325 MG (LORTAB) TAB PO PRN ×2 (06:07→19:55)
[2022-12-16] MEDS: CYANOCOBALAMIN 1,000 MCG (VITAMIN B-12) TABLET PO SCH (06:08)
[2022-12-16 08:00] VITALS: BP 111/53
[2022-12-16] MEDS: KCL 20 MEQ TAB (K-DUR) PO SCH ×2 (08:23→19:56)
[2022-12-16] MEDS: SENNA W/DOCUSATE (SENOKOT S) TABLET PO SCH ×3 (08:23→21:40)
[2022-12-16] MEDS: GABAPENTIN 300 MG (NEURONTIN) CAP PO SCH ×3 (08:23→19:56)
[2022-12-16] MEDS: LORATADINE (CLARITIN) 10 MG TAB PO SCH (08:23)
[2022-12-16] MEDS: CELECOXIB 100 MG (CeleBREX) CAP PO SCH (08:23)
[2022-12-16] MEDS: MULTIVIT W/MINERALS TAB (THERAGRAN M) PO SCH (08:23)
[2022-12-16] MEDS: MIDODRINE 10 MG (PROAMATINE) TAB PO SCH ×2 (08:23→11:41)
[2022-12-16] MEDS: PANTOPRAZOLE 40 MG (PROTONIX) TAB PO SCH (08:23)
[2022-12-16] MEDS: CHLORHEXIDINE 0.12% SOLN 15 ML (PERIDEX) UDC MM SCH ×3 (08:24→19:56)
[2022-12-16] MEDS: ENOXAPARIN 40 MG/0.4 ML (LOVENOX) SYR SC SCH (08:24)
[2022-12-16] MEDS: polyethylene glycoL POWDER 17 GM (MIRALAX) PACK PO SCH ×3 (08:24→21:40)
[2022-12-16] MEDS: RYTARY PO SCH ×5 (08:25→19:57)
--- NOTE | 2022-12-16 09:27 | Physical Therapy Daily Note ---
PT Daily Note-Current Subjective Patient agrees to PT. No c/o at this time. Pain Section J - Health Conditions 1. Rarely or not at all 2. Occasionally 3. Frequently 4. Almost constantly 8. Unable to answer Pain Effect on Sleep: 2 Pain Interference with Therapy: 2 Pain Interference w/Day-to-Day: 2 Mental Status Patient Orientation: Normal For Age Transfers SCALE: Activities may be completed with or without assistive devices. 4-Leidfkbegm-artprzq completes the activity by him/herself with no assistance from a helper. 5-Set-up or Clean-up Assistance-helper sets up or cleans up; patient completes activity. [place] assists only prior to or following the activity. 4-Supervision or Touching Assistance-helper provides verbal cues and/or touching/steadying and/or contact guard assistance as patient completes activity. Assistance may be provided throughout the activity or intermittently. 3-Partial/Moderate Assistance-helper does LESS THAN HALF the effort. [place] lifts, holds or supports trunk or limbs, but provides less than half the effort. 2-Substantial/Maximal Assistance-helper does MORE THAN HALF the effort. [place] lifts or holds trunk or limbs and provides more than half the effort. 4-Ylhczqerg-tjeehh does ALL the effort. Patient does none of the effort to complete the activity. Or, the assistance of 2 or more helpers is required for the patient to complete the activity. If activity was not attempted, code reason: 7-Patient Refused. 9-Not Applicable-not attempted and the patient did not perform the activity before the current illness, exacerbation or injury. 10-Not Attempted due to Environmental Limitations-(lack of equipment, weather restraints, etc.). 88-Not Attempted due to Medical Conditions or Safety Concerns. Sit to Lying (QC): 6 Sit to Stand (QC): 4 Gait Training Distance: 200' Walk 10 feet (QC): 4 Walk 50 ft with 2 Turns(QC): 4 Walk 150 ft (QC): 4 Gait Assistive Device: Walker 4 Wheeled slow, steady gait sequence Exercises Seated Therapy Exercises: Ankle pumps, Long arc quads, Hip flexion Seated Reps: 15 Assessment Patient returned to bed with request of all 4 rails up for comfort and safety due to dystonia. Plan dismissal to SNF this week per report. PT [facility] Goals Diamond Die Driller Goals PT Diamond Die Driller Goals Time Frame: Dec 28, 2022 Roll Left & Right (QC): 4 Sit to Lying (QC): 4 Lying-Sitting on Side/Bed(QC): 4 Sit to Stand (QC): 4 Chair/Tsf-wl[place] Xfer(QC): 4 Toilet Transfer (QC): 4 Walk 10 feet (QC): 4 Walk 50ft with 2 Turns (QC): 4 Walk 150 ft (QC): 4 PT Plan Treatment/Plan Treatment Plan: Continue Plan of Care Treatment Plan: Bed Mobility, Education, Functional Activity Judy, Functional Strength, Gait, Safety, Therapeutic Exercise, Transfers Treatment Duration: Dec 28, 2022 Frequency: 6 times per week Estimated Hrs Per Day: .25 hour per day Patient and/or Family Agrees t: Yes Time Time In: 901 Time Out: 913 DATE: Dec 16, 2022 Total Billed Treatment Time: 12 Total Billed Treatment 1 visit FA 12 min KATHY FAROOQ PT Dec 16, 2022 09:27
--- NOTE | 2022-12-16 09:34 | Diagnostic Imaging Report ---
INDICATION: Sepsis. Pneumonia. COMPARISON: 12/08/2022. FINDINGS: Frontal and lateral radiographic views of the chest were obtained and show persistent pulmonary vascular congestion and interstitial pulmonary edema. There has been interval progression of mild to moderate left basilar effusion. There is no large effusion on the right. No pneumothorax is seen on either side. Note is made of air under the right hemidiaphragm. IMPRESSION: 1. Persistent vascular congestion and probable interstitial pulmonary edema. 2. Interval progression of mild to moderate left-sided pleural effusion. 3. Collection of air under the right hemidiaphragm. This may represent air contained within a loop of colon although pneumoperitoneum cannot be excluded. Correlation with a left lateral decubitus KUB versus CT of the abdomen is advised. 4. The report was called to the patient's nurse Velma by lydia@9:34 AM. Dictated by: Dictated on workstation # [id number]
--- NOTE | 2022-12-16 10:57 | Diagnostic Imaging Report ---
ABDOMEN, FLAT UPRIGHT/DECUB INDICATION: Pneumoperitoneum on chest radiograph. COMPARISON: Chest radiography from earlier same day at 9:05 AM TECHNIQUE: Upright and supine AP view of the abdomen. FINDINGS: Upright imaging confirms the presence of free intraperitoneal air under the right hemidiaphragm. Percutaneous gastrostomy tube is likely in place. Nonobstructive bowel gas pattern. Left pleural effusion is again noted. IMPRESSION: 1. Free intraperitoneal air is present in the right hemidiaphragm. This could be within expected limits of patient had percutaneous gastrostomy tube recently placed. 2. If recent abdominal surgery/procedure was not performed, then imaging findings are concerning for hollow viscus perforation. Dictated by: Dictated on workstation # [id number]
[2022-12-16 12:16] VITALS: BP 129/56
--- NOTE | 2022-12-16 14:28 | Progress Note ---
Subjective Subjective/Events-last exam Pt states she is feeling okay, but not quite as well as yesterday. She is still anxious to get out of the hospital as soon as possible. She denies abdominal pain, but she is concerned about her tube site which has some redness around it and feels hot to her. It continues to have drainage around it, that is yell owish, and she says it has not changed. Focused Exam Lactate Level 12/16/22 08:30: Lactic Acid Level 0.98 Time of Focused Exam: 01:20 Objective Exam Last Set of Vital Signs Vital Signs Date Time Temp Pulse Resp B/P (MAP) Pulse Ox O2 Delivery O2 Flow Rate FiO2 12/16/22 12:16 36.6 85 19 129/56 (80) 94 Room Air 12/14/22 11:42 4.00 Capillary Refill : Less Than 3 Seconds I&O Intake and Output 12/16/22 00:00 Intake Total 1612 ml Balance 1612 ml Intake Oral 1612 ml # Voids 6 # Bowel Movements 1 General: Alert, No Acute Distress Lungs: Normal Air Movement Heart: Regular Rate Abdomen: Normal Bowel Sounds, Soft, Other (minimal ttp, mild erythema about 1 cm surrounding J tube, incision c/d/i, yellowish drainage on bandage around tube) Extremities: No Edema, Other (bilateral hand contractures) Neuro: Other (dyskinetic movements) Results/Procedures Lab Laboratory Tests 12/16/22 04:57: White Blood Count 15.4H, Red Blood Count 3.80, Hemoglobin 11.1L, Hematocrit 34L, Mean Corpuscular Volume 90, Mean Corpuscular Hemoglobin 29, Mean Corpuscular Hemoglobin Concent 33, Red Cell Distribution Width 14.2, Platelet Count 361, Mean Platelet Volume 9.1, Immature Granulocyte % (Auto) 1, Neutrophils (%) (Auto) 78H, Lymphocytes (%) (Auto) 12, Monocytes (%) (Auto) 5, Eosinophils (%) (Auto) 4, Basophils (%) (Auto) 0, Neutrophils # (Auto) 11.9H, Lymphocytes # (Auto) 1.9, Monocytes # (Auto) 0.7, Eosinophils # (Auto) 0.6H, Basophils # (Auto) 0.1, Immature Granulocyte # (Auto) 0.2H, Neutrophils % (Manual) 81, Lymphocytes % (Manual) 12, Monocytes % (Manual) 4, Eosinophils % (Manual) 2, Band Neutrophils 1, Toxic Granulation 1+, Sodium Level 138, Potassium Level 3.6, Chloride Level 107, Carbon Dioxide Level 21, Anion Gap 10, Blood Urea Nitrogen 12, Creatinine 0.50L, Estimat Glomerular Filtration Rate 109, BUN/Creatinine Ratio 24, Glucose Level 89, Calcium Level 9.8, Corrected Calcium 10.8H, Phosphorus Level 2.9, Magnesium Level 1.9, Total Bilirubin 0.3, Aspartate Amino Transf (AST/SGOT) 34, Alanine Aminotransferase (ALT/SGPT) 13, Alkaline Phosphatase 210H, Total Protein 5.8L, Albumin 2.7L 12/16/22 08:30: Lactic Acid Level 0.98 Microbiology 12/08/22 MRSA Screen - Final, Complete 12/07/22 Blood Culture - Final, Complete No growth 12/07/22 Urine Culture - Final, Complete NO GROWTH Assessment/Plan Assessment/Plan (1) Severe sepsis Status: Resolved Assessment & Plan: Suspected to be secondary to pneumonia. (2) Pneumonia Status: Acute Assessment & Plan: s/p cefepime and vancomycin course. Had Tmax 38.1 overnight, repeat CXR shows increased left basilar effusion, uncertain if persistent underlying pneumonia. Lactic acid normal today although WBC increased slightly. Repeat UA pending. Will monitor closely and consider restart antibiotics. Qualifiers: Qualified Codes: J18.9 - Pneumonia, unspecified organism (3) Altered mental status Status: Resolved Assessment & Plan: Secondary to sepsis. Qualifiers: Qualified Codes: R41.82 - Altered mental status, unspecified (4) Gastrojejunostomy tube status Status: Chronic Assessment & Plan: Placed 12/05/22, having some drainage around tube, appreciate Surgery recommendations- were not concerned (5) Parkinson disease Status: Chronic Assessment & Plan: With recent gastrojejeunostomy tube placement to start DUOPA. Continue home oral meds. (6) Debility Status: Acute Assessment & Plan: Plan to d/c to SNF when medically stable. (7) DVT prophylaxis Status: Acute Assessment & Plan: Enoxaparin SU RUSH MD Dec 16, 2022 14:28
[2022-12-16] MEDS ORDERED: CYCLOBENZAPRINE 10 MG (FLEXERIL) TAB PO PRN (15:00)
[2022-12-16 16:10] VITALS: BP 95/58
[2022-12-16] MEDS: LORazepam 0.5 MG (ATIVAN) TABLET PO SCH ×2 (16:33→19:56)
[2022-12-16 19:00] VITALS: BP 177/72
[2022-12-16] MEDS: AMITRIPTYLINE 25 MG (ELAVIL) TAB PO SCH (19:55)
[2022-12-16] MEDS: SERTRALINE 50 MG (ZOLOFT) TABLET PO SCH (19:56)
[2022-12-16] MEDS: CYCLOBENZAPRINE 10 MG (FLEXERIL) TAB PO PRN (21:44)
[2022-12-16 23:17] VITALS: BP 121/66
[2022-12-17 03:42] VITALS: BP 131/76
[2022-12-17 05:35] LABS: BASOPHILS % (AUTO) 0 % (0-10); EOSINOPHILS # (AUTO) 0.5 10^3/uL (0.0-0.3); EOSINOPHILS % (AUTO) 3 % (0-10); HEMATOCRIT 34 % (35-52); HEMOGLOBIN 10.7 g/dL (11.5-16.0); LYMPHOCYTES # (AUTO) 1.7 10^3/uL (1.0-4.0); LYMPHOCYTES % (AUTO) 12 % (12-44); MEAN CORPUSCULAR HEMOGLOBIN 29 pg (25-34); MEAN CORPUSCULAR HGB CONC 32 g/dL (32-36); MEAN CORPUSCULAR VOLUME 90 fL (80-99); MEAN PLATELET VOLUME 9.1 fL (9.0-12.2); MONOCYTES # (AUTO) 0.7 10^3/uL (0.0-1.0); MONOCYTES % (AUTO) 5 % (0-12); NEUTROPHILS # (AUTO) 11.2 10^3/uL (1.8-7.8); NEUTROPHILS % (AUTO) 79 % (42-75); PLATELET COUNT 413 10^3/uL (130-400); WHITE BLOOD COUNT 14.2 10^3/uL (4.3-11.0)
[2022-12-17 05:53] LABS: ALBUMIN 2.6 GM/DL (3.2-4.5); POTASSIUM 3.7 MMOL/L (3.6-5.0)
[2022-12-17 05:54] LABS: CALCIUM 9.5 MG/DL (8.5-10.1)
[2022-12-17 05:56] LABS: TOTAL PROTEIN 5.7 GM/DL (6.4-8.2)
[2022-12-17 05:57] LABS: BILIRUBIN,TOTAL 0.3 MG/DL (0.1-1.0)
[2022-12-17 05:59] LABS: CREATININE SERUM 0.51 MG/DL (0.60-1.30); PHOSPHORUS 3.1 MG/DL (2.3-4.7)
[2022-12-17] MEDS: CYANOCOBALAMIN 1,000 MCG (VITAMIN B-12) TABLET PO SCH (05:59)
[2022-12-17] MEDS: HYDROcodone/APAP 5 MG/325 MG (LORTAB) TAB PO PRN (05:59)
[2022-12-17] MEDS: LEVOTHYROXINE 75 MCG (LEVOTHROID) TABLET PO SCH (06:00)
[2022-12-17 06:02] LABS: MAGNESIUM 1.9 MG/DL (1.6-2.4)
[2022-12-17 08:02] VITALS: BP 133/78
[2022-12-17] MEDS: RYTARY PO SCH ×3 (08:10→14:14)
[2022-12-17] MEDS: LORATADINE (CLARITIN) 10 MG TAB PO SCH (08:31)
[2022-12-17] MEDS: GABAPENTIN 300 MG (NEURONTIN) CAP PO SCH ×2 (08:32→11:27)
[2022-12-17] MEDS: MIDODRINE 10 MG (PROAMATINE) TAB PO SCH ×2 (08:32→11:26)
[2022-12-17] MEDS: CELECOXIB 100 MG (CeleBREX) CAP PO SCH (08:32)
[2022-12-17] MEDS: KCL 20 MEQ TAB (K-DUR) PO SCH (08:32)
[2022-12-17] MEDS: MULTIVIT W/MINERALS TAB (THERAGRAN M) PO SCH (08:32)
[2022-12-17] MEDS: polyethylene glycoL POWDER 17 GM (MIRALAX) PACK PO SCH (08:33)
[2022-12-17] MEDS: ENOXAPARIN 40 MG/0.4 ML (LOVENOX) SYR SC SCH (08:33)
[2022-12-17] MEDS: SENNA W/DOCUSATE (SENOKOT S) TABLET PO SCH (08:33)
[2022-12-17] MEDS: CHLORHEXIDINE 0.12% SOLN 15 ML (PERIDEX) UDC MM SCH (08:34)
[2022-12-17] MEDS ORDERED: PANTOPRAZOLE 40 MG (PROTONIX) TAB PO SCH (09:00)
[2022-12-17] MEDS: LORazepam 0.5 MG (ATIVAN) TABLET PO PRN (11:27)
--- NOTE | 2022-12-17 12:17 | Progress Note - Surgery ---
Subjective Time Seen by a Provider: 11:44 Subjective/Events-last exam Pt seen and examined, states she feels ok but is still worried about "pus coming out around tube". She denies significant pain and states she has appt for Friday with surgeon who placed J-tube Review of Systems General: No Chills, No Night Sweats Pulmonary: No Dyspnea, No Cough Cardiovascular: No: Chest Pain, Palpitations Gastrointestinal: Abdominal Pain (very minimal); No: Nausea, Vomiting Focused Exam Lactate Level 12/16/22 08:30: Lactic Acid Level 0.98 Time of Focused Exam: 01:20 Objective Exam Vital Signs Date Time Temp Pulse Resp B/P (MAP) Pulse Ox O2 Delivery O2 Flow Rate FiO2 12/17/22 08:02 36.7 78 18 133/78 (96) 93 Room Air 12/17/22 03:42 36.5 77 18 131/76 (94) 92 Room Air 12/16/22 23:17 36.8 79 18 121/66 (84) 90 Room Air 12/16/22 21:00 Room Air 12/16/22 19:00 37.2 93 20 177/72 (107) 93 Room Air 12/16/22 16:10 37.0 76 18 95/58 (70) 94 Room Air 12/16/22 12:16 36.6 85 19 129/56 (80) 94 Room Air I & O 12/17/22 07:00 Intake Total 1360 ml Balance 1360 ml Capillary Refill : Less Than 3 Seconds General Appearance: No Apparent Distress, Chronically ill HEENT: PERRL/EOMI Respiratory: Lungs Clear, Normal Breath Sounds Cardiovascular: Regular Rate, Rhythm Peripheral Pulses: 2+ Radial Pulses (R), 2+ Radial Pulses (L) Gastrointestinal: non tender, soft, other (no signs of infection around tube, mild erythema and some drainage) Neurologic/Psychiatric: Alert, Oriented x3 Results Lab Laboratory Tests 12/17/22 05:11: White Blood Count 14.2H, Red Blood Count 3.72L, Hemoglobin 10.7L, Hematocrit 34L , Mean Corpuscular Volume 90, Mean Corpuscular Hemoglobin 29, Mean Corpuscular Hemoglobin Concent 32, Red Cell Distribution Width 14.3, Platelet Count 413H, Mean Platelet Volume 9.1, Immature Granulocyte % (Auto) 1, Neutrophils (%) (Auto) 79H, Lymphocytes (%) (Auto) 12, Monocytes (%) (Auto) 5, Eosinophils (%) (Auto) 3, Basophils (%) (Auto) 0, Neutrophils # (Auto) 11.2H, Lymphocytes # (Auto) 1.7, Monocytes # (Auto) 0.7, Eosinophils # (Auto) 0.5H, Basophils # (Auto) 0.0, Immature Granulocyte # (Auto) 0.1, Sodium Level 139, Potassium Level 3.7, Chloride Level 108H, Carbon Dioxide Level 21, Anion Gap 10, Blood Urea Nitrogen 10, Creatinine 0.51L, Estimat Glomerular Filtration Rate 108, BUN/Creatinine Ratio 20, Glucose Level 91, Calcium Level 9.5, Corrected Calcium 10.6H, Phosphorus Level 3.1, Magnesium Level 1.9, Total Bilirubin 0.3, Aspartate Amino Transf (AST/SGOT) 25, Alanine Aminotransferase (ALT/SGPT) 13, Alkaline Phosphatase 179H, Total Protein 5.7L, Albumin 2.6L Microbiology 12/08/22 MRSA Screen - Final, Complete 12/07/22 Blood Culture - Final, Complete No growth 12/07/22 Urine Culture - Final, Complete NO GROWTH Assessment/Plan Assessment/Plan Assessment/Plan J-tube Status Pneumonia Parkinsons J-tube appears normal, probably needs to be pulled tight to stop backflow of fluid. I don't think it is infected, but if we did I would order CT. However, she does not look ill. Improved from pneumonia and Parkinsons does not appear to be that bad today. Ok to go home from surgery standpoint. JACQUES REYES DO Dec 17, 2022 12:17
[2022-12-17] MEDS ORDERED: SENN1TAB76 PO (12:29)
[2022-12-17] MEDS ORDERED: NFCHLORHGL MM (12:29)
[2022-12-17] MEDS ORDERED: ONDA-105 PO (12:29)
[2022-12-17] MEDS ORDERED: MENT118G TP (12:29)
[2022-12-17] MEDS ORDERED: CELE200C PO (12:29)
[2022-12-17] MEDS ORDERED: CYCL10TA25 PO (12:29)
[2022-12-17] MEDS ORDERED: SERT-413 PO (12:29)
[2022-12-17] MEDS ORDERED: BIOT5CAP9 PO (12:29)
[2022-12-17] MEDS ORDERED: AMIT100T2 PO (12:29)
[2022-12-17] MEDS ORDERED: OXYC5TAB PO (12:29)
[2022-12-17] MEDS ORDERED: LORA10TA7 PO (12:29)
[2022-12-17] MEDS ORDERED: MIDO10TA PO (12:29)
[2022-12-17] MEDS ORDERED: ACET325C7 PO (12:29)
[2022-12-17] MEDS ORDERED: POTA-51 PO (12:29)
[2022-12-17] MEDS ORDERED: MULT-974 PO (12:29)
[2022-12-17] MEDS ORDERED: PIMA34CA PO (12:29)
[2022-12-17] MEDS ORDERED: ACHD5005 PO (12:29)
[2022-12-17] MEDS ORDERED: PANT40TA52 PO (12:29)
[2022-12-17] MEDS ORDERED: ENOX40DI8 SC (12:29)
[2022-12-17] MEDS ORDERED: GABA300C PO ×3 (12:29)
[2022-12-17] MEDS ORDERED: LEVO75TA6 PO (12:29)
[2022-12-17] MEDS ORDERED: CARB1CAP3 PO (12:29)
[2022-12-17] MEDS ORDERED: CARB1CAP5 PO (12:29)
[2022-12-17] MEDS ORDERED: LORA-404 PO ×2 (12:29)
[2022-12-17] MEDS ORDERED: CYAN500T8 PO (12:29)
--- NOTE | 2022-12-17 12:32 | Discharge Summary ---
Discharge Summary Hospital Course Was the Problem List Reviewed?: Yes Problems/Dx: (1) Severe sepsis Status: Resolved (2) Pneumonia Status: Acute Qualifiers: Qualified Codes: J18.9 - Pneumonia, unspecified organism (3) Altered mental status Status: Resolved Qualifiers: Qualified Codes: R41.82 - Altered mental status, unspecified (4) Debility Status: Acute Hospital Course Date of Admission: Dec 08, 2022 at 01:44 Admission Diagnosis : Family Physician/Provider: Forrest Yu MD Date of Discharge: 12/17/22 Discharge Diagnosis: [ ] Hospital Course: Lengthy course after admitted to ICU for severe sepsis from PNA facility acquired since she had just had a J-tube placed at on for future continuous infusion of Carbodopa due to severe Parkinson's. PNA was fully treated with IV abx and completed after 5 full days. PT OT ordered. [facility] was unable to meet her needs to she was awaiting approval from insurance to move to [facility]. J-tube drainage was evaluated by general surgery to not have any infection appearance so dressing changes were recommended at CT. All meds [place]. Labs and Pending Lab Test: Laboratory Tests 12/17/22 05:11: White Blood Count 14.2H, Red Blood Count 3.72L, Hemoglobin 10.7L, Hematocrit 34L , Mean Corpuscular Volume 90, Mean Corpuscular Hemoglobin 29, Mean Corpuscular Hemoglobin Concent 32, Red Cell Distribution Width 14.3, Platelet Count 413H, Mean Platelet Volume 9.1, Immature Granulocyte % (Auto) 1, Neutrophils (%) (Auto) 79H, Lymphocytes (%) (Auto) 12, Monocytes (%) (Auto) 5, Eosinophils (%) (Auto) 3, Basophils (%) (Auto) 0, Neutrophils # (Auto) 11.2H, Lymphocytes # (Auto) 1.7, Monocytes # (Auto) 0.7, Eosinophils # (Auto) 0.5H, Basophils # (Auto) 0.0, Immature Granulocyte # (Auto) 0.1, Sodium Level 139, Potassium Level 3.7, Chloride Level 108H, Carbon Dioxide Level 21, Anion Gap 10, Blood Urea Nitrogen 10, Creatinine 0.51L, Estimat Glomerular Filtration Rate 108, BUN/Creatinine Ratio 20, Glucose Level 91, Calcium Level 9.5, Corrected Calcium 10.6H, Phosphorus Level 3.1, Magnesium Level 1.9, Total Bilirubin 0.3, Aspartate Amino Transf (AST/SGOT) 25, Alanine Aminotransferase (ALT/SGPT) 13, Alkaline Phosphatase 179H, Total Protein 5.7L, Albumin 2.6L Microbiology 12/08/22 MRSA Screen - Final, Complete 12/07/22 Blood Culture - Final, Complete No growth 12/07/22 Urine Culture - Final, Complete NO GROWTH Home Meds Active Stool Softener-Laxative Tablet (Sennosides/Docusate Sodium) 8.6 Mg-50 Mg Tablet 2 Ea PO BID Enoxaparin Sodium 40 Mg/0.4 Ml Syringe 40 Mg SC Q24H Cyclobenzaprine HCl 10 Mg Tablet 10 Mg PO Q8H PRN Pantoprazole Sodium 40 Mg Tablet.dr 40 Mg PO DAILY Neurontin (Gabapentin) 300 Mg Capsule 900 Mg PO 1200 TAKES 3 (300MG) CAPS Loratadine 10 Mg Tablet 10 Mg PO DAILY Tylenol (Acetaminophen) 325 Mg Capsule 650 Mg PO Q4H PRN Rytary ER 48.75 mg-195 mg Cap (Carbidopa/Levodopa) 48.75 Mg-195 Mg Capsule.er 1 Each PO Q6H PRN Rytary ER 36.25 mg-145 mg Cap (Carbidopa/Levodopa) 36.25 Mg-145 Mg Capsule.er 2 Each PO 0800,1100,1400,1700,2100 Oxycodone HCl 5 Mg Tablet 5 Mg PO Q6H PRN Nuplazid (Pimavanserin Tartrate) 34 Mg Capsule 34 Mg PO DAILY Multi-Vitamin Daily (Multivitamin) 1 Each Tablet 1 Each PO DAILY Midodrine HCl 10 Mg Tablet 10 Mg PO 0800,1200 Hydrocodone-Acetamin 5-325 mg (Hydrocodone/Acetaminophen) 5 Mg-325 Mg Tablet 1 Tab PO Q6H PRN Chlorhexidine Gluconate 0.12 % Mouthwash 15 Ml MM BID Celebrex (Celecoxib) 200 Mg Capsule 200 Mg PO DAILY Biotin 5 Mg Capsule 5 Mg PO BID Biofreeze (Menthol) 4 % Gel..ml. 1 Applic TP Q4H PRN Ativan (Lorazepam) 0.5 Mg Tablet 0.5 Mg PO 1600,2000 Ativan (Lorazepam) 0.5 Mg Tablet 0.5 Mg PO DAILY PRN Potassium Chloride 20 Meq Tablet.er 20 Meq PO BID Vitamin B-12 (Cyanocobalamin (Vitamin B-12)) 500 Mcg Tablet 500 Mcg PO DAILY Levothyroxine Sodium 75 Mcg Tablet 75 Mcg PO DAILY Neurontin (Gabapentin) 300 Mg Capsule 600 Mg PO HS TAKES 2 (300MG) CAPSULES Neurontin (Gabapentin) 300 Mg Capsule 300 Mg PO DAILY Sertraline HCl 50 Mg Tablet 50 Mg PO HS Ondansetron HCl 4 Mg Tablet 4 Mg PO Q6H PRN Amitriptyline HCl 100 Mg Tablet 50 Mg PO HS Assessment/Pt Instructions PCP 1 week surgeon on Friday as scheduled Discharge Planning: <30 minutes discharge planning Discharge Instructions Discharge Diet: No Restrictions Discharge Physical Examination Vital Signs Vital Signs Date Time Temp Pulse Resp B/P (MAP) Pulse Ox O2 Delivery O2 Flow Rate FiO2 12/17/22 08:02 36.7 78 18 133/78 (96) 93 Room Air 12/14/22 11:42 4.00 General Appearance: No Apparent Distress, WD/WN Allergies: Coded Allergies: No Known Drug Allergies (Unverified , 06/26/17) Discharge Summary Date of Admission Dec 08, 2022 at 01:44 Date of Discharge Discharge Date: Dec 17, 2022 Admission Diagnosis Assessment: Severe sepsis Pneumonia facility acquired type Status post gastric port placed for a DUOPA pump (infusion pump for levodopa infusion into the small bowel) on , 12/05/2022 at Severe Parkinson's Severe debility requiring assisted living placement Hypothyroidism Plan: Vancomycin and cefepime empiric coverage IV fluids Advance diet Lovenox Monitor closely Discharge Diagnosis Assessment: s/p severe sepsis s/p PNA Severe PD Hyperparathyroidism will need management outpatient J-tube drainage consulting Dr Cha Plan: Await INP DC abx (1) Severe sepsis Status: Resolved (2) Pneumonia Status: Acute Qualifiers: Qualified Codes: J18.9 - Pneumonia, unspecified organism (3) Altered mental status Status: Resolved Qualifiers: Qualified Codes: R41.82 - Altered mental status, unspecified (4) Debility Status: Acute WESLY TANNER DO Dec 17, 2022 12:32
--- NOTE | 2022-12-17 12:32 | Discharge Inst-Skilled Nursing ---
Discharge Inst-Skilled NF Reconcile Patient Problems Problems Reviewed?: Yes Chief Complaint Chief complaint: Severe sepsis HPI: This is a 57-year-old female clinic patient of [facility] who has a history of severe Parkinson's and just recently had a procedure on (12/05) from day surgery at which entailed a gastric port placed for a DUOPA pump (infusion pump for levodopa infusion into the small bowel) which was uncomplicated. She was returned back to [facility] living and was walking around on Friday but through the night she was found beside the couch and she was confused and unable to tell any details about how she got to the couch. She was found to be febrile and have pneumonia and hypotension with hypoxia and confusion and was classified as severe sepsis so she was placed in the ICU for protocol. She is maintained on cefepime and vancomycin due to facility acquired infection suspected. Her DPOA and caretakers are at the bedside. 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 Patient Instructions Patient Problems: Parkinson's Goal: [place] Consult/Follow Up/Orders Skilled NF Admit to: [facility] Certification ([facility]) I certify that SNF services are required to be given on an inpatient basis be cause of the above named patient's need for nursing home care on a continuing basis for the conditions(s) for which he/she was receiving inpatient hospital services prior to his/her transfer to the SNF. [facility] Facility Order: Nursing Services, [employer] Helper-Evaluate & Treat, Physical Therapy-Evaluate & Treat Oxygen Delivery Method: Room Air Discharge Diet: No Restrictions Daily Activity as Tolerated: Yes Resuscitation Status: Full Code New & Resume Previous Orders New Medications: Enoxaparin Sodium (Enoxaparin Sodium) 40 Mg/0.4 Ml Syringe 40 MG SC Q24H, #14 SYRINGE Sennosides/Docusate Sodium (Stool Softener-Laxative Tablet) 8.6 Mg-50 Mg Tablet 2 EA PO BID, #60 TAB Continued Medications: Acetaminophen (Tylenol) 325 Mg Capsule 650 MG PO Q4H PRN for PAIN-MILD (1-4), #30 CAP (This prescription has been renewed) Amitriptyline HCl (Amitriptyline HCl) 100 Mg Tablet 50 MG PO HS, #30 TAB (This prescription has been renewed) Biotin (Biotin) 5 Mg Capsule 5 MG PO BID, #60 CAP (This prescription has been renewed) Carbidopa/Levodopa (Rytary ER 36.25 mg-145 mg Cap) 36.25 Mg-145 Mg Capsule.er 2 EACH PO 0800,1100,1400,1700,2100, #300 CAP (This prescription has been renewed) Carbidopa/Levodopa (Rytary ER 48.75 mg-195 mg Cap) 48.75 Mg-195 Mg Capsule.er 1 EACH PO Q6H PRN for PARKINSONS SYMPTOMS, #30 CAP (This prescription has been renewed) Celecoxib (Celebrex) 200 Mg Capsule 200 MG PO DAILY, #30 CAP (This prescription has been renewed) Chlorhexidine Gluconate (Chlorhexidine Gluconate) 0.12 % Mouthwash 15 ML MM BID, #1 EA (This prescription has been renewed) Cyanocobalamin (Vitamin B-12) (Vitamin B-12) 500 Mcg Tablet 500 MCG PO DAILY, #30 TAB (This prescription has been renewed) Cyclobenzaprine HCl (Cyclobenzaprine HCl) 10 Mg Tablet 10 MG PO Q8H PRN for MUSCLE SPASMS, #60 TAB (This prescription has been renewed) Gabapentin (Neurontin) 300 Mg Capsule 300 MG PO DAILY, #30 TAB (This prescription has been renewed) Gabapentin (Neurontin) 300 Mg Capsule 600 MG PO HS, #60 CAP (This prescription has been renewed) TAKES 2 (300MG) CAPSULES Gabapentin (Neurontin) 300 Mg Capsule 900 MG PO 1200, #90 CAP (This prescription has been renewed) TAKES 3 (300MG) CAPS Hydrocodone/Acetaminophen (Hydrocodone-Acetamin 5-325 mg) 5 Mg-325 Mg Tablet 1 TAB PO Q6H PRN for PAIN-MODERATE (5-7), #20 TAB (This prescription has been renewed) Levothyroxine Sodium (Levothyroxine Sodium) 75 Mcg Tablet 75 MCG PO DAILY, #30 TAB (This prescription has been renewed) Loratadine (Loratadine) 10 Mg Tablet 10 MG PO DAILY, #30 TAB (This prescription has been renewed) Lorazepam (Ativan) 0.5 Mg Tablet 0.5 MG PO DAILY PRN for ANXIETY, #20 TAB (This prescription has been renewed) Lorazepam (Ativan) 0.5 Mg Tablet 0.5 MG PO 1600,2000, #60 TAB (This prescription has been renewed) Menthol (Biofreeze) 4 % Gel..ml. 1 APPLIC TP Q4H PRN for PAIN-BREAKTHROUGH, #1 EA (This prescription has been renewed) Midodrine HCl (Midodrine HCl) 10 Mg Tablet 10 MG PO 0800,1200, #60 TAB (This prescription has been renewed) Multivitamin (Multi-Vitamin Daily) 1 Each Tablet 1 EACH PO DAILY, #30 TAB (This prescription has been renewed) Ondansetron HCl (Ondansetron HCl) 4 Mg Tablet 4 MG PO Q6H PRN for NAUSEA/VOMITING-1ST LINE, #10 TAB (This prescription has been renewed) Oxycodone HCl (Oxycodone HCl) 5 Mg Tablet 5 MG PO Q6H PRN for PAIN-SEVERE (8-10), #10 TAB (This prescription has been renewed) Pantoprazole Sodium (Pantoprazole Sodium) 40 Mg Tablet.dr 40 MG PO DAILY, #30 TAB (This prescription has been renewed) Pimavanserin Tartrate (Nuplazid) 34 Mg Capsule 34 MG PO DAILY, #30 CAP (This prescription has been renewed) Potassium Chloride (Potassium Chloride) 20 Meq Tablet.er 20 MEQ PO BID, #60 TAB (This prescription has been renewed) Sertraline HCl (Sertraline HCl) 50 Mg Tablet 50 MG PO HS, #30 TAB (This prescription has been renewed) Tiera Hutson Dec 17, 2022 12:31 TIERA HUTSON DO Dec 17, 2022 12:32
[2022-12-17 12:55] VITALS: BP 115/66
[2022-12-17 13:39] LABS: BILIRUBIN,URINE NEGATIVE (NEGATIVE); CLARITY,URINE CLEAR; COLOR,URINE YELLOW; GLUCOSE, URINE (UA) NEGATIVE (NEGATIVE); KETONES,URINE TRACE (NEGATIVE); LEUKOCYTE ESTERASE ,URINE TRACE (NEGATIVE); NITRITE,URINE NEGATIVE (NEGATIVE); PH,URINE 7.5 (5-9); PROTEIN,URINE NEGATIVE (NEGATIVE)
[2022-12-17 13:47] LABS: RBC,URINE RARE /HPF
[2022-12-17 13:48] LABS: BACTERIA,URINE TRACE /HPF; SQUAMOUS EPITHELIAL CELL,UR 0-2 /HPF
[2022-12-17] MEDS: LORazepam 0.5 MG (ATIVAN) TABLET PO SCH (15:30)
[2022-12-17 15:47] VITALS: BP 115/66
== END 2022-12-17 15:45 | DRG 871 ==
LOC: EDUNIT# 21:12 → ER 21:13 → ICU 12-08 01:44 → 4TH 12-09 14:04
PROVIDERS: ADMIT Internal Medicine; ATTEND Family Medicine
DX: A41.9 Sepsis, unspecified organism (principal); G93.41 Metabolic encephalopathy; J18.9 Pneumonia, unspecified organism; J96.01 Acute respiratory failure with hypoxia; R65.20 Severe sepsis without septic shock; G20 Parkinson's disease; G24.01 Drug induced subacute dyskinesia; T42.8X5A Adverse effect of antiparkinsonism drugs and other central muscle-tone depressants, initial encounter; E66.01 Morbid (severe) obesity due to excess calories; Z20.822 Contact with and (suspected) exposure to COVID-19; K21.9 Gastro-esophageal reflux disease without esophagitis; E03.9 Hypothyroidism, unspecified; H54.3 Unqualified visual loss, both eyes; M24.542 Contracture, left hand; M24.541 Contracture, right hand; F41.9 Anxiety disorder, unspecified; F32.A Depression, unspecified; E21.3 Hyperparathyroidism, unspecified; M19.91 Primary osteoarthritis, unspecified site; Z68.34 Body mass index [BMI] 34.0-34.9, adult; Z98.84 Bariatric surgery status; Z93.4 Other artificial openings of gastrointestinal tract status; Z87.891 Personal history of nicotine dependence
CPT/HCPCS: 36415; 51702; 70450; 71045; 71046; 72125; 72170; 74019; 80053; 80202; 81000; 83605; 83735; 83970; 84100; 84145; 84439; 84443; 85007; 85025; 85027; 85610; 85730; 86141; 87040; 87081; 87088; 87636; 96361; 96365; 96375

== ENCOUNTER 2023-01-21 15:05 | Emergency (ER) | payer MEDICARE, MEDICAID ==
[~2023-01-21] VITALS: Ht 165 cm; Wt 80.0 kg
[~2023-01-21 15:05] MED LIST changes: +ACET325C7 PO; +ACHD5005 PO; +BIOT5CAP9 PO; +CARB1CAP3 PO; +CELE200C PO; +ENOX40DI8 SC; +LORA10TA7 PO; +MENT118G TP; +MIDO10TA PO; +MULT-974 PO; +NFCHLORHGL MM; +OXYC5TAB PO; +PIMA34CA PO; +SENN1TAB76 PO
[2023-01-21] MEDS ORDERED: NS IV 1000 ML 1,000 ML IV STA (15:18)
--- NOTE | 2023-01-21 15:21 | ED General ---
General Chief Complaint: Trauma-Non Activation Stated Complaint: FALL Nursing Triage Note: ARRIVED VIA EMS FROM [facility]. LOST HER BALLANCE AT THE [facility] AND FELL. DENIES INJURY FROM THE FALL. PT SWEATING. STATES SHE IS ON KEFLEX FOR HER JTUBE. 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 Source of Information: Patient, EMS Exam Limitations: No Limitations History of Present Illness Date Seen by Provider: Jan 21, 2023 Time Seen by Provider: 15:05 Initial Comments Patient is a 58-year-old female with a history of Parkinson's disease who presents from local [facility] after she had a mechanical trip and fall while walking at the fdc. Patient states that she lost her balance. She denies any injury. Staff reported to EMS that the patient seemed a little confused after she fell. She is denying any symptoms of confusion on arrival. She is perfectly alert and oriented. She states she did feel a little confused after she fell but that is resolved. 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 Patient has been recently struggling with a potential infection at her J-tube insertion site. The J-tube is malfunctioning and not currently being used as the tubing needs to be replaced. She is awaiting repair scheduled for at . She states she feels bad currently. She feels flushed like she has a fever. Tympanic temp 100.2. She states that because her J-tube is not working they had to change her Parkinson's medication back to oral and it does not work as good as the medication per her J-tube. She is moving quite a lot with choreoathetotic movement. She feels exhausted. No URI symptoms. No nausea. No diarrhea. Apparently has a history of frequent urinary tract infections. Complains of mild tenderness at the J-tube insertion site. EMS reports that she is acting like when she had sepsis in the past as her Par kinson's tends to flare when she has an infection. Vaccinated for COVID x3. Timing/Duration: 1 Hour Severity: Mild Associated Systoms: Other ("I feel like shit") Allergies and Home Medications Allergies Coded Allergies: No Known Drug Allergies (Unverified , 06/26/17) Patient Home Medication List Home Medication List Reviewed: Yes Acetaminophen (Tylenol) 325 Mg Capsule, 650 MG PO Q4H PRN for PAIN-MILD (1-4) Prescribed by: WESLY TANNER on 12/17/22 1229 Amitriptyline HCl (Amitriptyline HCl) 100 Mg Tablet, 50 MG PO HS Prescribed by: WESLY TANNER on 12/17/22 1229 Biotin (Biotin) 5 Mg Capsule, 5 MG PO BID Prescribed by: WESYL TANNER on 12/17/22 1229 Carbidopa/Levodopa (Rytary ER 36.25 mg-145 mg Cap) 36.25 Mg-145 Mg Capsule.er, 2 EACH PO 0800,1100,1400,1700,2100 Prescribed by: WESLY TANNER on 12/17/22 1229 Carbidopa/Levodopa (Rytary ER 48.75 mg-195 mg Cap) 48.75 Mg-195 Mg Capsule.er, 1 EACH PO Q6H PRN for PARKINSONS SYMPTOMS Prescribed by: WESLY TANNER on 12/17/22 1229 Celecoxib (Celebrex) 200 Mg Capsule, 200 MG PO DAILY Prescribed by: WESLY TANNER on 12/17/22 1229 Chlorhexidine Gluconate (Chlorhexidine Gluconate) 0.12 % Mouthwash, 15 ML MM BID Prescribed by: WESLY TANNER on 12/17/22 1229 Cyanocobalamin (Vitamin B-12) (Vitamin B-12) 500 Mcg Tablet, 500 MCG PO DAILY Prescribed by: WESLY TANNER on 12/17/22 122 Cyclobenzaprine HCl (Cyclobenzaprine HCl) 10 Mg Tablet, 10 MG PO Q8H PRN for MUSCLE SPASMS Prescribed by: WESLY TANNER on 12/17/22 1229 Enoxaparin Sodium (Enoxaparin Sodium) 40 Mg/0.4 Ml Syringe, 40 MG SC Q24H Prescribed by: WESLY TANNER on 12/17/22 1229 Gabapentin (Neurontin) 300 Mg Capsule, 300 MG PO DAILY Prescribed by: WESLY TANNER on 12/17/22 1229 Gabapentin (Neurontin) 300 Mg Capsule, 600 MG PO HS Prescribed by: WESLY TANNER on 12/17/22 1229 Gabapentin (Neurontin) 300 Mg Capsule, 900 MG PO 1200 Prescribed by: WESLY TANNER on 12/17/22 1229 Hydrocodone/Acetaminophen (Hydrocodone-Acetamin 5-325 mg) 5 Mg-325 Mg Tablet, 1 TAB PO Q6H PRN for PAIN-MODERATE (5-7) Prescribed by: WESLY TANNER on 12/17/22 1230 Levothyroxine Sodium (Levothyroxine Sodium) 75 Mcg Tablet, 75 MCG PO DAILY Prescribed by: WESLY TANNER on 12/17/22 1229 Loratadine (Loratadine) 10 Mg Tablet, 10 MG PO DAILY Prescribed by: WESLY TANNER on 12/17/22 1229 Lorazepam (Ativan) 0.5 Mg Tablet, 0.5 MG PO DAILY PRN for ANXIETY Prescribed by: WESLY TANNER on 12/17/22 1230 Lorazepam (Ativan) 0.5 Mg Tablet, 0.5 MG PO 1600,2000 Prescribed by: WESLY TANNER on 12/17/22 1230 Menthol (Biofreeze) 4 % Gel..ml., 1 APPLIC TP Q4H PRN for PAIN-BREAKTHROUGH Prescribed by: WESLY TANNER on 12/17/22 1229 Midodrine HCl (Midodrine HCl) 10 Mg Tablet, 10 MG PO 0800,1200 Prescribed by: WESLY TANNER on 12/17/22 1229 Multivitamin (Multi-Vitamin Daily) 1 Each Tablet, 1 EACH PO DAILY Prescribed by: WESLY TANNER on 12/17/22 1229 Ondansetron HCl (Ondansetron HCl) 4 Mg Tablet, 4 MG PO Q6H PRN for NAUSEA/VOMITING-1ST LINE Prescribed by: WESLY TANNER on 12/17/22 1229 Oxycodone HCl (Oxycodone HCl) 5 Mg Tablet, 5 MG PO Q6H PRN for PAIN-SEVERE (8- 10) Prescribed by: WESLY TANNER on 12/17/22 1230 Pantoprazole Sodium (Pantoprazole Sodium) 40 Mg Tablet.dr, 40 MG PO DAILY Prescribed by: WESLY TANNER on 12/17/22 1229 Pimavanserin Tartrate (Nuplazid) 34 Mg Capsule, 34 MG PO DAILY Prescribed by: WESLY TANNER on 12/17/22 1229 Potassium Chloride (Potassium Chloride) 20 Meq Tablet.er, 20 MEQ PO BID Prescribed by: WESLY TANNER on 12/17/22 1229 Sennosides/Docusate Sodium (Stool Softener-Laxative Tablet) 8.6 Mg-50 Mg Tablet, 2 EA PO BID Prescribed by: WESLY TANNER on 12/17/22 1229 Sertraline HCl (Sertraline HCl) 50 Mg Tablet, 50 MG PO HS Prescribed by: WESLY TANNER on 12/17/22 1229 Review of Systems Review of Systems Constitutional: see HPI EENTM: no symptoms reported Respiratory: no symptoms reported Cardiovascular: no symptoms reported Gastrointestinal: other (tenderness left abdomen at J tube insertion site) Genitourinary: no symptoms reported Musculoskeletal: muscle twitching Skin: other (feels flushed) All Other Systems Reviewed Negative Unless Noted: Yes Past Shksant-Ydamxm-Paywab Hx Patient Social History Tobacco Use?: No Substance use?: No Alcohol Use?: No Immunizations Up To Date Tetanus Booster (TDap): Unknown First/Initial COVID19 Vaccinat: 2020 Second COVID19 Vaccination Anant: 2020 Third COVID19 Vaccination Date: UNKNOWN 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 Seasonal Allergies Seasonal Allergies: Yes Past Medical History Surgery/Hospitalization HX: PARKINSON'S Surgeries: Yes Abdominal, Gallbladder Respiratory: No Cardiac: No Neurological: Yes Headaches /Migraines, Parkinson's Disease, Seizure Disorder 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 Disorders: No Female 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 Disorders: Denies 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 MANCILLA -EGD 02/20/[address] MANCILLA--REFLUX ESOPHAGITIS AND GASTRITIS -GASTRIC SLEEVE 07/03/[address] MANCILLA Family history: non contributory Physical Exam Vital Signs Vital Signs - First Documented 01/21/23 15:11 Temp 37.9 Pulse 99 Resp 16 B/P (MAP) 150/116 (127) Pulse Ox 93 O2 Delivery Room Air Capillary Refill : Less Than 3 Seconds Height, Weight, BMI Height: 5'6.00" Weight: 272lbs. 0.0oz. 123.300273fr; 29.00 BMI Method:Stated General Appearance: WD/WN, Mild Distress Eyes: Bilateral Eye Normal Inspection, Bilateral Eye PERRL, Bilateral Eye EOMI HEENT: PERRL/EOMI, Other (lips are dry) Neck: Normal Inspection Respiratory: Lungs Clear, Normal Breath Sounds, No Accessory Muscle Use, No Respiratory Distress Cardiovascular: Regular Rate, Rhythm, Normal Peripheral Pulses Gastrointestinal: Soft, Abnormal Bowel Sounds (hypoactive BS), Tenderness (mild tenderness around Peg Tube site; no erythema) Extremity: Normal Inspection Neurologic/Psychiatric: Alert, Oriented x3, No Motor/Sensory Deficits, Normal Mood/Affect Skin: Normal Color, Other (flushed in the face; clammy) Focused Exam Lactate Level 01/21/23 15:18: Lactic Acid Level 1.80 Lactic Acid Level Laboratory Tests Test 01/21/23 15:18 Lactic Acid Level 1.80 MMOL/L (0.50-2.00) Progress/Results/Core Measures Suspected Sepsis SIRS Temperature: Pulse: 99 Respiratory Rate: 16 Laboratory Tests 01/21/23 15:18: White Blood Count 15.7H Blood Pressure 150 /116 Mean: 127 01/21/23 15:18: Lactic Acid Level 1.80 Laboratory Tests 01/21/23 15:18: Creatinine 0.68, INR Comment 1.1, Platelet Count 404H, Total Bilirubin 0.4 Results/Orders Lab Results Laboratory Tests Test 01/21/23 15:18 01/21/23 15:30 Range/Units White Blood Count 15.7 H 4.3-11.0 10^3/uL Red Blood Count 4.14 3.80-5.11 10^6/uL Hemoglobin 11.6 11.5-16.0 g/dL Hematocrit 37 35-52 % Mean Corpuscular Volume 88 80-99 fL Mean Corpuscular Hemoglobin 28 25-34 pg Mean Corpuscular Hemoglobin Concent 32 32-36 g/dL Red Cell Distribution Width 14.3 10.0-14.5 % Platelet Count 404 H 130-400 10^3/uL Mean Platelet Volume 9.9 9.0-12.2 fL Immature Granulocyte % (Auto) 0 % Neutrophils (%) (Auto) 83 H 42-75 % Lymphocytes (%) (Auto) 6 L 12-44 % Monocytes (%) (Auto) 10 0-12 % Eosinophils (%) (Auto) 1 0-10 % Basophils (%) (Auto) 0 0-10 % Neutrophils # (Auto) 13.1 H 1.8-7.8 X 10^3 Lymphocytes # (Auto) 0.9 L 1.0-4.0 X 10^3 Monocytes # (Auto) 1.6 H 0.0-1.0 X 10^3 Eosinophils # (Auto) 0.1 0.0-0.3 10^3/uL Basophils # (Auto) 0.0 0.0-0.1 10^3/uL Immature Granulocyte # (Auto) 0.0 0.0-0.1 10^3/uL Neutrophils % (Manual) 80 % Lymphocytes % (Manual) 10 % Monocytes % (Manual) 10 % Platelet Estimate ADEQUATE Blood Morphology Comment NORMAL Prothrombin Time 15.0 H 12.2-14.7 SEC INR Comment 1.1 0.8-1.4 Activated Partial Thromboplast Time 34 24-35 SEC Sodium Level 136 135-145 MMOL/L Potassium Level 4.4 3.6-5.0 MMOL/L Chloride Level 104 98-107 MMOL/L Carbon Dioxide Level 22 21-32 MMOL/L Anion Gap 10 5-14 MMOL/L Blood Urea Nitrogen 18 7-18 MG/DL Creatinine 0.68 0.60-1.30 MG/DL Estimat Glomerular Filtration Rate 100 BUN/Creatinine Ratio 26 Glucose Level 76 70-105 MG/DL Lactic Acid Level 1.80 0.50-2.00 MMOL/L Calcium Level 10.7 H 8.5-10.1 MG/DL Corrected Calcium 11.4 H 8.5-10.1 MG/DL Total Bilirubin 0.4 0.1-1.0 MG/DL Aspartate Amino Transf (AST/SGOT) 50 H 5-34 U/L Alanine Aminotransferase (ALT/SGPT) 7 0-55 U/L Alkaline Phosphatase 124 40-136 U/L Total Protein 6.8 6.4-8.2 GM/DL Albumin 3.1 L 3.2-4.5 GM/DL Urine Color DARK YELLOW Urine Clarity SL CLOUDY Urine pH 5.5 5-9 Urine Specific [place] 1.025 H 1.016-1.022 Urine Protein TRACE H NEGATIVE Urine Glucose (UA) NEGATIVE NEGATIVE Urine Ketones 1+ H NEGATIVE Urine Nitrite POSITIVE H NEGATIVE Urine Bilirubin NEGATIVE NEGATIVE Urine Urobilinogen 1.0 < = 1.0 MG/DL Urine Leukocyte Esterase NEGATIVE NEGATIVE Urine RBC (Auto) NEGATIVE NEGATIVE Urine RBC 0-2 /HPF Urine WBC NONE /HPF Urine Crystals NONE /LPF Urine Bacteria NEGATIVE /HPF Urine Casts PRESENT /LPF Urine Hyaline Casts 0-2 H /LPF Urine Mucus SMALL H /LPF Urine Culture Indicated NO My Orders Orders - AVIVA WOOD MD Cbc With Automated Diff (01/21/23 15:17) Comprehensive Metabolic Panel (01/21/23 15:17) Blood Culture (01/21/23 15:17) Sputum Culture (01/21/23 15:17) Urinalysis (01/21/23 15:17) Urine Culture (01/21/23 15:17) Protime With Inr (01/21/23 15:17) Partial Thromboplastin Time (01/21/23 15:17) Chest 1 View, Ap/Pa Only (01/21/23 15:17) Ed Iv/Invasive Line Start (01/21/23 15:17) Ed Iv/Invasive Line Start (01/21/23 15:17) Vital Signs Adult Sepsis Patie Q15M (01/21/23 15:17) O2 (01/21/23 15:17) Remove Rings In Anticipation O (01/21/23 15:17) Lactic Acid Analyzer (01/21/23 15:17) Lorazepam Injection (Ativan Injection) (01/21/23 15:30) Ns Iv 1000 Ml (Sodium Chloride 0.9%) (01/21/23 15:18) Acetaminophen Tablet (Tylenol Tablet) (01/21/23 15:30) Manual Differential (01/21/23 15:18) Ct Abdomen/Pelvis W (01/21/23 16:17) Iohexol Injection (Omnipaque 350 Mg/Ml 1 (01/21/23 16:30) Received Contrast (Hold Metformin- Contr (01/21/23 16:30) Ns (Ivpb) (Sodium Chloride 0.9% Ivpb Bag (01/21/23 16:30) Piperacillin Sodium/Tazobactam (Zosyn Vi (01/21/23 17:15) Vancomycin Injection (Vancomycin Injecti (01/21/23 18:00) Medications Given in ED Current Medications Medications Dose Ordered Sig/Chris Route Start Time Stop Time Status Last Admin Dose Admin Acetaminophen 1,000 mg ONCE ONCE PO 01/21/23 15:30 01/21/23 15:31 DC 01/21/23 15:41 1,000 MG Iohexol 100 ml ONCE ONCE IV 01/21/23 16:30 01/21/23 16:31 DC 01/21/23 16:55 80 ML Lorazepam 2 mg ONCE ONCE IVP 01/21/23 15:30 01/21/23 15:31 DC 01/21/23 15:42 2 MG Piperacillin Sod/ Tazobactam Sod 4.5 gm/Sodium Chloride 100 ml @ 200 mls/hr ONCE ONCE IV 01/21/23 17:15 01/21/23 17:44 DC 01/21/23 17:34 200 MLS/HR Sodium Chloride 100 ml ONCE ONCE IV 01/21/23 16:30 01/21/23 16:31 DC 01/21/23 16:55 80 ML Vancomycin HCl 1000 mg/Sodium Chloride 250 ml @ 250 mls/hr ONCE ONCE IV 01/21/23 18:00 01/21/23 18:59 01/21/23 18:11 250 MLS/HR Vital Signs/I&O 01/21/23 15:11 Temp 37.9 Pulse 99 Resp 16 B/P (MAP) 150/116 (127) Pulse Ox 93 O2 Delivery Room Air Capillary Refill : Less Than 3 Seconds Progress Note #1: Time: 16:21 Progress Note Patient seen and evaluated by me, evaluation today includes physical exam, "sepsis work-up" to include CBC, Chem-12, coags, UA, chest x-ray, blood cultures, lactic acid. Pertinent physical exam slightly tachycardic, flushed, clammy skin. Soft abdomen nondistended positive bowel sounds minimally tender around the J-tube insertion site. Dry lips. Heart is regular lungs are clear. TMs are clear. No rashes to the skin. Significant parkinsonian movement noted. She did receive half milligram of Ativan prior to arrival and will be given 2 mg here. Differential diagnosis concern for sepsis due to J-tube malfunction, bacteremia, pneumonia, urinary tract infection. Labs reviewed, CBC shows leukocytosis. Chemistry basically normal. Lactic acid less than 2. Urinalysis is nitrite positive without leukocyte esterase or white blood cells. Chest x-ray shows fracture of the left Port-A-Cath line with a fragment residing in the apex of the right ventricle. I was called by the radiologist to read this x-ray. Patient is given a liter of IV fluids, 1 g of Tylenol. She responded well to the Ativan. Because she is tender in her abdomen I am going to go ahead and do a CAT scan. Will discuss with . The patient prefers as that is where her neurologist who treats her Parkinson's is located. She is also scheduled to have her J-tube fixed on at . Progress Note #2: Time: 17:48 Progress Note Please initially discussed wit Dr. MANCILLA, the patient's local surgeon here, he was comfortable with being of consult on the intraperitoneal abscesses. I then discussed the case with Dr. Tanner and was going to follow that up with a call to Dr. Jara. When I talked to Dr. Jara he was not comfortable with attempting to retrieve the catheter tip from the right ventricle. He recommended either [facility] or [facility] in [place]. Call made to [facility], they do have medical beds. I discussed the case with Dr. Goetz, he is comfortable with being occult recruitment consultant on this case. Hospitalist on-call Dr. Kaylee Garcia. Will speak with her regarding the patient. Mal is currently home, culture of the J-tube obtained from the skin insertion site. Will add Vanco. Progress Note #3: Time: 18:12 Progress Note Patient care discussed with Dr Jara due to the broken Port a cath catheter tip in the right ventricle. He was not comfortable with the fb in the right ventricle and believed thepatient would be best served at a facility with CTS. I will let Dr. MANCILLA and Dr. Tanner know of his apprehension regarding the retrieval of the foreign body. I asked the patient where she would like to be transferred as Dr. Jara suggested either [facility] in [place] or [facility]. Her DPOA is at the bedside and states she has connections at [facility] so I called [facility] and I spoke initially with Dr. Goetz on for cardiology who is comfortable with attempting retrieval. I then spoke with Dr. Kaylee Garcia the hospitalist on-call. She accepts the patient for transfer but will requested that I speak with general surgery regarding the abnormal findings in the abdomen. I spoke with Dr. Serafin Navarro on for general surgery who was comfortable but did asked that I speak with cardiothoracic surgery as she has intrathoracic fluid/abscess in the foreign body in the ventricle. I spoke to Dr. Betancourt on for CTS who is comfortable with consultation as well. Patient's vital signs reviewed. She is currently stable. Will add some normal saline to run at 100 cc an hour. 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 Diagnostic Imaging Diagonstic Imaging: Xray Plain Films/CT/US/NM/MRI: chest Comments [facility] [address], [facility]. [place], [place] NAME: JA DE LEON [facility] REC#: [id number] PT STATUS: REG ER : 1965 PHYSICIAN: AVIVA WOOD MD ADMIT DATE: 01/21/23/ER Draft Date of Exam:01/21/23 CHEST 1 VIEW, AP/PA ONLY INDICATION: Fever, history of Parkinson's disease. PA chest obtained at 3:39 p.m. and compared to 12/16/2022. FINDINGS: Heart is normal in size. There is some mild linear atelectatic change in the left base versus scarring. There is no pneumothorax or pleural fluid or focal infiltrate. Compared to the prior study, the Port-A-Cath catheter has detached from the hub, retained catheter fragment is seen from the left innominate vein to the RV apex. Port-A-Cath hub remains over the left chest wall. IMPRESSION: Mild linear atelectatic change in the left lung base. No pneumothorax or pleural fluid. Compared to the prior study, the Port-A-Cath catheter appears to have fragmented, with free fragment from the left innominate vein to the RV apex. Dictated on workstation # [id number] Dict: 01/21/23 1539 Trans: 01/21/23 1554 [id number] Interpreted by: ALYSON KOVACS MD Electronically signed by: Diagonstic Imaging: CT Comments [facility]. [place], [place] NAME: JA DE LEON [facility] REC#: [id number] PT STATUS: REG ER : 1965 PHYSICIAN: AVIVA WOOD MD ADMIT DATE: 01/21/23/ER Draft Date of Exam:01/21/23 CT ABDOMEN/PELVIS W INDICATION: Abdominal pain on left side, fever. TECHNIQUE: Multiple contiguous axial images were obtained through the abdomen and pelvis after administration of intravenous contrast. Auto Exposure Controls were utilized during the CT exam to meet ALARA standards for radiation dose reduction. All CT scans use one or more of the following dose optimizing techniques: Automated exposure control, MA and/or KvP adjustment based on patient size and exam type or iterative reconstruction. Comparison made to 02/18/2021. FINDINGS: The visualized portions of the lung bases show a small left pleural effusion. There appears to be some infiltrate in the left lung base posteriorly. There is a fluid collection seen near the left hemidiaphragm; there appear to be components of the fluid collection in the pleural space just above the hemidiaphragm and a small amount of fluid below the left hemidiaphragm. The component below the hemidiaphragm measured about 3.5 cm in greatest diameter. The portion which appears to be above the hemidiaphragm measured about 4.6 cm. The liver shows no focal lesion. Gallbladder is surgically absent. Spleen shows no intrinsic lesion, the above-mentioned fluid collection below the left hemidiaphragm appears to partially displace the top of the spleen. The pancreas, adrenals, and kidneys are unremarkable. There is a gastrostomy tube in place with tip in the stomach. There is some edema about the gastrostomy tube site compatible with cellulitis. There is no sign of bowel obstruction. There is no pelvic mass or free fluid. Amaya catheter is seen in the bladder. As described in the chest x-ray report, the Port-A-Cath catheter fragment has its tip over the RV apex. IMPRESSION: There appears to be a small left pleural effusion. There are ill-defined fluid collections apparently just above and below the left hemidiaphragm compatible with abscesses. There is some left basilar infiltrate. There is some fat stranding about the patient's gastrostomy tube course compatible with cellulitis. There are postoperative findings as above. As noted previously, Port-A-Cath catheter fragment has its tip overlying the RV apex. Dictated on workstation # [id number] Dict: 01/21/23 1655 Trans: 01/21/23 1707 [id number] Interpreted by: ALYSON KOVACS MD Electronically signed by: Departure Impression Primary Impression: Sepsis Qualified Codes: A41.9 - Sepsis, unspecified organism Additional Impressions: Intraperitoneal abscess intrathoracic abscess Right ventricular outflow tract obstruction due to foreign body UTI (urinary tract infection) Qualified Codes: N30.00 - Acute cystitis without hematuria Parkinson disease Disposition: XF SHT-TRM HOSP Condition: Stable Admissions Decision to Admit/Date: Jan 21, 2023 Time/Decision to Admit Time: 17:52 Transfer Transfer Reason: Exceeds level of care Transfer Facility: [facility] Method of Transfer: EMS Departure-Patient Inst. Referrals: MIKY RICHEY MD (PCP/Family) Primary Care Physician AVIVA WOOD MD Jan 21, 2023 15:21
[2023-01-21] MEDS ORDERED: LORazepam INJ 2 MG/ML (ATIVAN) VIAL IVP ONE (15:30)
[2023-01-21] MEDS ORDERED: ACETAMINOPHEN 500 MG TAB (TYLENOL) PO ONE (15:30)
[2023-01-21 15:33] LABS: BASOPHILS % (AUTO) 0 % (0-10); EOSINOPHILS # (AUTO) 0.1 10^3/uL (0.0-0.3); EOSINOPHILS % (AUTO) 1 % (0-10); HEMATOCRIT 37 % (35-52); HEMOGLOBIN 11.6 g/dL (11.5-16.0); LYMPHOCYTES # (AUTO) 0.9 X 10^3 (1.0-4.0); LYMPHOCYTES % (AUTO) 6 % (12-44); MEAN CORPUSCULAR HEMOGLOBIN 28 pg (25-34); MEAN CORPUSCULAR HGB CONC 32 g/dL (32-36); MEAN CORPUSCULAR VOLUME 88 fL (80-99); MEAN PLATELET VOLUME 9.9 fL (9.0-12.2); MONOCYTES # (AUTO) 1.6 X 10^3 (0.0-1.0); MONOCYTES % (AUTO) 10 % (0-12); NEUTROPHILS # (AUTO) 13.1 X 10^3 (1.8-7.8); NEUTROPHILS % (AUTO) 83 % (42-75); PLATELET COUNT 404 10^3/uL (130-400); WHITE BLOOD COUNT 15.7 10^3/uL (4.3-11.0)
[2023-01-21 15:39] LABS: BILIRUBIN,URINE NEGATIVE (NEGATIVE); CLARITY,URINE SL CLOUDY; COLOR,URINE DARK YELLOW; GLUCOSE, URINE (UA) NEGATIVE (NEGATIVE); KETONES,URINE 1+ (NEGATIVE); LEUKOCYTE ESTERASE ,URINE NEGATIVE (NEGATIVE); NITRITE,URINE POSITIVE (NEGATIVE); PH,URINE 5.5 (5-9); PROTEIN,URINE TRACE (NEGATIVE)
[2023-01-21 15:47] LABS: ALBUMIN 3.1 GM/DL (3.2-4.5)
[2023-01-21 15:48] LABS: POTASSIUM 4.4 MMOL/L (3.6-5.0)
[2023-01-21 15:49] LABS: CALCIUM 10.7 MG/DL (8.5-10.1)
[2023-01-21 15:50] LABS: RBC,URINE 0-2 /HPF
[2023-01-21 15:50] LABS: INR 1.1 (0.8-1.4); TOTAL PROTEIN 6.8 GM/DL (6.4-8.2)
[2023-01-21 15:51] LABS: BACTERIA,URINE NEGATIVE /HPF; HYALINE CASTS, URINE 0-2 /LPF
[2023-01-21 15:52] LABS: BILIRUBIN,TOTAL 0.4 MG/DL (0.1-1.0)
[2023-01-21 15:54] LABS: CREATININE SERUM 0.68 MG/DL (0.60-1.30)
--- NOTE | 2023-01-21 15:54 | Diagnostic Imaging Report ---
INDICATION: Fever, history of Parkinson's disease. PA chest obtained at 3:39 p.m. and compared to 12/16/2022. FINDINGS: Heart is normal in size. There is some mild linear atelectatic change in the left base versus scarring. There is no pneumothorax or pleural fluid or focal infiltrate. Compared to the prior study, the Port-A-Cath catheter has detached from the hub, retained catheter fragment is seen from the left innominate vein to the RV apex. Port-A-Cath hub remains over the left chest wall. IMPRESSION: Mild linear atelectatic change in the left lung base. No pneumothorax or pleural fluid. Compared to the prior study, the Port-A-Cath catheter appears to have fragmented, with free fragment from the left innominate vein to the RV apex. Dictated by: Dictated on workstation # [id number]
[2023-01-21 16:14] LABS: LYMPHOCYTES % (MANUAL) 10 %; MONOCYTES % (MANUAL) 10 %; NEUTROPHILS % (MANUAL) 80 %; PLATELET ESTIMATE ADEQUATE; RBC MORPH NORMAL
[2023-01-21] MEDS ORDERED: IOHEXOL 350 MG/ML 100 ML (OMNIPAQUE 350) VIAL IV ONE (16:30)
[2023-01-21] MEDS ORDERED: HOLD METFORMIN - RECEIVED CONTRAST 20 ML VIAL IV SCH (16:30)
[2023-01-21] MEDS ORDERED: NS 100 ML (IVPB) BAG IV ONE (16:30)
--- NOTE | 2023-01-21 17:08 | Diagnostic Imaging Report ---
INDICATION: Abdominal pain on left side, fever. TECHNIQUE: Multiple contiguous axial images were obtained through the abdomen and pelvis after administration of intravenous contrast. Auto Exposure Controls were utilized during the CT exam to meet ALARA standards for radiation dose reduction. All CT scans use one or more of the following dose optimizing techniques: Automated exposure control, MA and/or KvP adjustment based on patient size and exam type or iterative reconstruction. Comparison made to 02/18/2021. FINDINGS: The visualized portions of the lung bases show a small left pleural effusion. There appears to be some infiltrate in the left lung base posteriorly. There is a fluid collection seen near the left hemidiaphragm; there appear to be components of the fluid collection in the pleural space just above the hemidiaphragm and a small amount of fluid below the left hemidiaphragm. The component below the hemidiaphragm measured about 3.5 cm in greatest diameter. The portion which appears to be above the hemidiaphragm measured about 4.6 cm. The liver shows no focal lesion. Gallbladder is surgically absent. Spleen shows no intrinsic lesion, the above-mentioned fluid collection below the left hemidiaphragm appears to partially displace the top of the spleen. The pancreas, adrenals, and kidneys are unremarkable. There is a gastrostomy tube in place with tip in the stomach. There is some edema about the gastrostomy tube site compatible with cellulitis. There is no sign of bowel obstruction. There is no pelvic mass or free fluid. Amaya catheter is seen in the bladder. As described in the chest x-ray report, the Port-A-Cath catheter fragment has its tip over the RV apex. IMPRESSION: There appears to be a small left pleural effusion. There are ill-defined fluid collections apparently just above and below the left hemidiaphragm compatible with abscesses. There is some left basilar infiltrate. There is some fat stranding about the patient's gastrostomy tube course compatible with cellulitis. There are postoperative findings as above. As noted previously, Port-A-Cath catheter fragment has its tip overlying the RV apex. Dictated by: Dictated on workstation # [id number]
[2023-01-21] MEDS ORDERED: PIPERACILLIN SODIUM/TAZOBACTAM 4.5 GM in NS (IVPB) 100 ML IV ONE (17:15)
[2023-01-21] MEDS ORDERED: VANCOMYCIN INJECTION 1,000 MG in NS (IVPB) 250 ML IV ONE (18:00)
[2023-01-21] MEDS ORDERED: NS IV 1000 ML 1,000 ML IV SCH (18:45)
[2023-01-21 22:22] VITALS: BP 129/100
== END 2023-01-21 22:22 | disposition short-term general hospital (02) ==
LOC: EDUNIT# 15:05 → ER 15:06
DX: A41.9 Sepsis, unspecified organism (principal); K65.1 Peritoneal abscess; N39.0 Urinary tract infection, site not specified; G20 Parkinson's disease; Q21.3 Tetralogy of Fallot; J85.2 Abscess of lung without pneumonia; D72.829 Elevated white blood cell count, unspecified
CPT/HCPCS: 36415; 51702; 71045; 74177; 80053; 81000; 83605; 85007; 85027; 85610; 85730; 87040; 87070; 87077; 87088; 87205

== ENCOUNTER 2023-02-13 22:12 | Emergency (ER) | payer MEDICARE, MEDICAID ==
[2023-02-13 22:20] VITALS: BP 107/63
--- NOTE | 2023-02-13 22:36 | ED General ---
General Chief Complaint: Fever-Adult/Adol Stated Complaint: FEVER/FALL/WEAKNESS Source of Information: Patient Exam Limitations: No Limitations History of Present Illness Date Seen by Provider: Feb 13, 2023 Time Seen by Provider: 22:24 Initial Comments Emigdio is a 58yo female with a history of Parkinson's disease - fairly severe, lives at a local prison. Has a J tube and recent hospitalization for abscesses in her stomach around the j tube. She is scheduled in the next week to have it changed out at . Her neurologist is in . Recent hospitalization at [facility] in [place] for these abscesses and her infusaport tubing migrating into her right ventricle. SHe stated tonight to staff that she wasn't feeling well (like she had felt with prior episodes of sepsis). SHe was found to have a fever of 101. SHe denies cough, congestion, runny nose. No shortness of breath or cough. Denies abdominal pain. no nausea, vomiting, diarrhea or urinary complaints. NO rashes, joint pains or swelling. No pain around the j tube site. 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 Timing/Duration: 1 Hour Modifying Factors: improves with Medication Associated Systoms: Denies Symptoms Allergies and Home Medications Allergies Coded Allergies: No Known Drug Allergies (Unverified , 06/26/17) Patient Home Medication List Home Medication List Reviewed: Yes Acetaminophen (Tylenol) 325 Mg Capsule, 650 MG PO Q4H PRN for PAIN-MILD (1-4) Prescribed by: WESLY TANNER on 12/17/22 1229 Amitriptyline HCl (Amitriptyline HCl) 100 Mg Tablet, 50 MG PO HS Prescribed by: WESLY TANNER on 12/17/22 1229 Biotin (Biotin) 5 Mg Capsule, 5 MG PO BID Prescribed by: WESLY TANNER on 12/17/22 1229 Carbidopa/Levodopa (Rytary ER 36.25 mg-145 mg Cap) 36.25 Mg-145 Mg Capsule.er, 2 EACH PO 0800,1100,1400,1700,2100 Prescribed by: WESLY TANNER on 12/17/22 1229 Carbidopa/Levodopa (Rytary ER 48.75 mg-195 mg Cap) 48.75 Mg-195 Mg Capsule.er, 1 EACH PO Q6H PRN for PARKINSONS SYMPTOMS Prescribed by: EWSLY TANNER on 12/17/22 1229 Celecoxib (Celebrex) 200 Mg Capsule, 200 MG PO DAILY Prescribed by: WESLY ATNNER on 12/17/22 1229 Chlorhexidine Gluconate (Chlorhexidine Gluconate) 0.12 % Mouthwash, 15 ML MM BID Prescribed by: WESLY TANNER on 12/17/22 1229 Cyanocobalamin (Vitamin B-12) (Vitamin B-12) 500 Mcg Tablet, 500 MCG PO DAILY Prescribed by: WESLY TANNER on 12/17/22 1229 Cyclobenzaprine HCl (Cyclobenzaprine HCl) 10 Mg Tablet, 10 MG PO Q8H PRN for MUSCLE SPASMS Prescribed by: WESLY TANNER on 12/17/22 1229 Enoxaparin Sodium (Enoxaparin Sodium) 40 Mg/0.4 Ml Syringe, 40 MG SC Q24H Prescribed by: WESLY TANNER on 12/17/22 1229 Gabapentin (Neurontin) 300 Mg Capsule, 300 MG PO DAILY Prescribed by: WESLY TANNER on 12/17/22 1229 Gabapentin (Neurontin) 300 Mg Capsule, 600 MG PO HS Prescribed by: WESYL TANNER on 12/17/22 1229 Gabapentin (Neurontin) 300 Mg Capsule, 900 MG PO 1200 Prescribed by: WESLY TANNER on 12/17/22 1229 Hydrocodone/Acetaminophen (Hydrocodone-Acetamin 5-325 mg) 5 Mg-325 Mg Tablet, 1 TAB PO Q6H PRN for PAIN-MODERATE (5-7) Prescribed by: WESLY TANNER on 12/17/22 1230 Levothyroxine Sodium (Levothyroxine Sodium) 75 Mcg Tablet, 75 MCG PO DAILY Prescribed by: WESLY TANNER on 12/17/22 1229 Loratadine (Loratadine) 10 Mg Tablet, 10 MG PO DAILY Prescribed by: WESLY TANNER on 12/17/22 1229 Lorazepam (Ativan) 0.5 Mg Tablet, 0.5 MG PO DAILY PRN for ANXIETY Prescribed by: WESLY TANNER on 12/17/22 1230 Lorazepam (Ativan) 0.5 Mg Tablet, 0.5 MG PO 1600,2000 Prescribed by: WESLY TANNER on 12/17/22 1230 Menthol (Biofreeze) 4 % Gel..ml., 1 APPLIC TP Q4H PRN for PAIN-BREAKTHROUGH Prescribed by: WESLY TANNER on 12/17/22 1229 Midodrine HCl (Midodrine HCl) 10 Mg Tablet, 10 MG PO 0800,1200 Prescribed by: WESLY TANNER on 12/17/22 1229 Multivitamin (Multi-Vitamin Daily) 1 Each Tablet, 1 EACH PO DAILY Prescribed by: WESLY TANNER on 12/17/22 1229 Ondansetron HCl (Ondansetron HCl) 4 Mg Tablet, 4 MG PO Q6H PRN for NAUSEA/VOMITING-1ST LINE Prescribed by: WESLY TANNER on 12/17/22 1229 Oxycodone HCl (Oxycodone HCl) 5 Mg Tablet, 5 MG PO Q6H PRN for PAIN-SEVERE (8- 10) Prescribed by: WESLY TANNER on 12/17/22 1230 Pantoprazole Sodium (Pantoprazole Sodium) 40 Mg Tablet.dr, 40 MG PO DAILY Prescribed by: WESLY TANNER on 12/17/22 1229 Pimavanserin Tartrate (Nuplazid) 34 Mg Capsule, 34 MG PO DAILY Prescribed by: WESLY TANNER on 12/17/22 1229 Potassium Chloride (Potassium Chloride) 20 Meq Tablet.er, 20 MEQ PO BID Prescribed by: WESLY TANNER on 12/17/22 122 Sennosides/Docusate Sodium (Stool Softener-Laxative Tablet) 8.6 Mg-50 Mg Tablet, 2 EA PO BID Prescribed by: WESLY TANNER on 12/17/22 1229 Sertraline HCl (Sertraline HCl) 50 Mg Tablet, 50 MG PO HS Prescribed by: WESLY TANNER on 12/17/22 1229 Review of Systems Review of Systems Constitutional: see HPI EENTM: no symptoms reported Respiratory: no symptoms reported Cardiovascular: no symptoms reported Gastrointestinal: no symptoms reported Genitourinary: no symptoms reported Musculoskeletal: no symptoms reported Skin: no symptoms reported Psychiatric/Neurological: No Symptoms Reported All Other Systems Reviewed Negative Unless Noted: Yes Past Syzzfqx-Xtskbn-Urtlor Hx Immunizations Up To Date Tetanus Booster (TDap): Unknown First/Initial COVID19 Vaccinat: 2020 Second COVID19 Vaccination Anant: 2020 Third COVID19 Vaccination Date: UNKNOWN Seasonal Allergies Seasonal Allergies: Yes Past Medical History Surgery/Hospitalization HX: PARKINSON'S Surgeries: Yes Abdominal, Gallbladder Respiratory: No Cardiac: No Neurological: Yes Headaches /Migraines, Parkinson's Disease, Seizure Disorder 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 Disorders: No Female 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 Disorders: Denies 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 MANCILLA -EGD 02/20/[address] MANCILLA--REFLUX ESOPHAGITIS AND GASTRITIS -GASTRIC SLEEVE 07/03/[address] MANCILLA Family history: non contributory Physical Exam Vital Signs Vital Signs - First Documented 02/13/23 22:20 Temp 37.5 Pulse 81 Resp 20 B/P (MAP) 107/63 (78) Pulse Ox 98 O2 Delivery Room Air Capillary Refill : Height, Weight, BMI Height: 5'6.00" Weight: 272lbs. 0.0oz. 123.062469rw; 29.00 BMI Method:Stated General Appearance: No Apparent Distress, WD/WN, Other (diffuse movement/chorea due to Parkinson's Disease) Eyes: Bilateral Eye Normal Inspection, Bilateral Eye PERRL, Bilateral Eye EOMI HEENT: PERRL/EOMI Neck: Normal Inspection Respiratory: Lungs Clear, Normal Breath Sounds, No Accessory Muscle Use, No Respiratory Distress Cardiovascular: Regular Rate, Rhythm Gastrointestinal: Normal Bowel Sounds, Soft, Other (J tube in the left upper abdomen, a little yellow discharge around the insertion site) Extremity: Normal Inspection Neurologic/Psychiatric: Alert, Oriented x3, No Motor/Sensory Deficits Skin: Normal Color, Warm/Dry Progress/Results/Core Measures Suspected Sepsis SIRS Temperature: Pulse: Respiratory Rate: Laboratory Tests 02/13/23 22:40: White Blood Count 10.6 Blood Pressure / Mean: Laboratory Tests 02/13/23 22:40: Creatinine 0.60, Platelet Count 308 Results/Orders Lab Results Laboratory Tests Test 02/13/23 22:40 02/13/23 23:00 Range/Units White Blood Count 10.6 4.3-11.0 10^3/uL Red Blood Count 4.06 3.80-5.11 10^6/uL Hemoglobin 11.6 11.5-16.0 g/dL Hematocrit 37 35-52 % Mean Corpuscular Volume 90 80-99 fL Mean Corpuscular Hemoglobin 29 25-34 pg Mean Corpuscular Hemoglobin Concent 32 32-36 g/dL Red Cell Distribution Width 16.7 H 10.0-14.5 % Platelet Count 308 130-400 10^3/uL Mean Platelet Volume 9.9 9.0-12.2 fL Immature Granulocyte % (Auto) 0 % Neutrophils (%) (Auto) 67 42-75 % Lymphocytes (%) (Auto) 20 12-44 % Monocytes (%) (Auto) 8 0-12 % Eosinophils (%) (Auto) 4 0-10 % Basophils (%) (Auto) 1 0-10 % Neutrophils # (Auto) 7.1 1.8-7.8 10^3/uL Lymphocytes # (Auto) 2.1 1.0-4.0 10^3/uL Monocytes # (Auto) 0.9 0.0-1.0 10^3/uL Eosinophils # (Auto) 0.5 H 0.0-0.3 10^3/uL Basophils # (Auto) 0.1 0.0-0.1 10^3/uL Immature Granulocyte # (Auto) 0.0 0.0-0.1 10^3/uL Sodium Level 139 135-145 MMOL/L Potassium Level 3.7 3.6-5.0 MMOL/L Chloride Level 109 H 98-107 MMOL/L Carbon Dioxide Level 19 L 21-32 MMOL/L Anion Gap 11 5-14 MMOL/L Blood Urea Nitrogen 17 7-18 MG/DL Creatinine 0.60 0.60-1.30 MG/DL Estimat Glomerular Filtration Rate 103 BUN/Creatinine Ratio 28 Glucose Level 108 H 70-105 MG/DL Calcium Level 9.9 8.5-10.1 MG/DL Urine Color ORANGE Urine Clarity SL CLOUDY Urine pH 5.5 5-9 Urine Specific [place] >=1.030 1.016-1.022 Urine Protein TRACE H NEGATIVE Urine Glucose (UA) TRACE H NEGATIVE Urine Ketones 1+ H NEGATIVE Urine Nitrite POSITIVE H NEGATIVE Urine Bilirubin 2+ H NEGATIVE Urine Urobilinogen 0.2 < = 1.0 MG/DL Urine Leukocyte Esterase NEGATIVE NEGATIVE Urine RBC (Auto) NEGATIVE NEGATIVE Urine RBC NONE /HPF Urine WBC NONE /HPF Urine Crystals PRESENT H /LPF Urine Calcium Oxalate Crystals MODERATE H /LPF Urine Bacteria NEGATIVE /HPF Urine Casts PRESENT /LPF Urine Hyaline Casts RARE /LPF Urine Mucus LARGE H /LPF Urine Culture Indicated YES My Orders Orders - AVIVA WOOD MD Ed Iv/Invasive Line Start (02/13/23 22:33) Cbc With Automated Diff (02/13/23 22:33) Basic Metabolic Panel (02/13/23 22:33) Ua Culture If Indicated (02/13/23 22:33) Urine Culture (02/13/23 23:00) Ns Iv 1000 Ml (Sodium Chloride 0.9%) (02/13/23 23:55) Vital Signs/I&O 02/13/23 22:20 Temp 37.5 Pulse 81 Resp 20 B/P (MAP) 107/63 (78) Pulse Ox 98 O2 Delivery Room Air Capillary Refill : Progress Note : Time: 23:59 Progress Note Patient seen and evaluated by me. Evaluation today includes physical exam, CBC, basic metabolic panel and urinalysis. Physical exam pertinent for well- developed well-nourished 58-year-old female, no acute distress. Alert and oriented, pleasant and in no acute distress. Heart is regular, not tachycardic, lungs are clear. Abdomen is soft. J-tube noted in the left upper quadrant with a little bit of yellow discharge at the entry site of the tube. Bowel sounds are present. Nontender. Moves all extremities equally. Neurologically patient has significant movement consistent with Parkinson's disorder. No focal neurologic deficits. Differential diagnosis based on history and physical exam, sepsis, urinary tract infection/pyelonephritis. Sepsis protocol considered however history and physical exam do not support the need at this time. No indications for chest x- ray, lactic acid or blood cultures. Labs independently reviewed by me. CBC is normal, no elevated white blood cell count or abnormal differential. Basic metabolic panel shows a slightly decreased CO2. Urinalysis is nitrite positive with no red blood cells or white blood cells noted. No bacteria identified. Patient is currently on cefdinir until the fifth. I reviewed her urinalysis from January 21, she grew out Pseudomonas. This bacteria is not sensitive to cefdinir. She is given a liter of fluids secondary to mild dehydration as well as Cipro [address] will [address] her on antibiotics for the next 7 days. She does not have any clinical findings consistent with sepsis. She is not tachycardic, she is not febrile here in the department. She is not hypotensive. Labs are reassuring. Patient remains alert and oriented although sleepy as it is midnight currently. Patient will be [facility] the [facility], return precautions provided to the prison staff who are present with the patient at the bedside. They verbalized understanding of the plan of care. All questions are sought and answered Departure Impression Primary Impression: UTI (urinary tract infection) Qualified Codes: N39.0 - Urinary tract infection, site not specified Disposition: 01 HOME, SELF-CARE Condition: Improved Departure-Patient Inst. Decision time for Depature: 23:57 Referrals: MIKY RICHEY MD (PCP/Family) Primary Care Physician Patient Instructions: Urinary Tract Infections in Adults Add. Discharge Instructions: Drink plenty of fluids to stay well hydrated. Antibiotics for urinary tract infection, Cipro 500mg twice a day for 7 days. Next dose tomorrow morning. Monitor temperature and symptoms for the next 24-48 hours, if any worsening, please return to the Emergency Department for re-evaluation. Keep your scheduled follow up with your [facility] doctor. Scripts Ciprofloxacin HCl (Ciprofloxacin HCl) 500 Mg Tablet 500 MG PO BID, #13 TAB Prov: AVIVA WOOD MD 02/13/23 Copy Copies To 1: MIKY RICHEY MD, KATHRYN M MD Feb 13, 2023 22:36
[2023-02-13 22:56] LABS: BASOPHILS # (AUTO) 0.1 10^3/uL (0.0-0.1); BASOPHILS % (AUTO) 1 % (0-10); EOSINOPHILS # (AUTO) 0.5 10^3/uL (0.0-0.3); EOSINOPHILS % (AUTO) 4 % (0-10); HEMATOCRIT 37 % (35-52); HEMOGLOBIN 11.6 g/dL (11.5-16.0); LYMPHOCYTES # (AUTO) 2.1 10^3/uL (1.0-4.0); LYMPHOCYTES % (AUTO) 20 % (12-44); MEAN CORPUSCULAR HEMOGLOBIN 29 pg (25-34); MEAN CORPUSCULAR HGB CONC 32 g/dL (32-36); MEAN CORPUSCULAR VOLUME 90 fL (80-99); MEAN PLATELET VOLUME 9.9 fL (9.0-12.2); MONOCYTES # (AUTO) 0.9 10^3/uL (0.0-1.0); MONOCYTES % (AUTO) 8 % (0-12); NEUTROPHILS # (AUTO) 7.1 10^3/uL (1.8-7.8); NEUTROPHILS % (AUTO) 67 % (42-75); PLATELET COUNT 308 10^3/uL (130-400); WHITE BLOOD COUNT 10.6 10^3/uL (4.3-11.0)
[2023-02-13 23:08] LABS: POTASSIUM 3.7 MMOL/L (3.6-5.0)
[2023-02-13 23:09] LABS: CALCIUM 9.9 MG/DL (8.5-10.1)
[2023-02-13 23:13] LABS: CREATININE SERUM 0.6 MG/DL (0.60-1.30)
[2023-02-13 23:14] LABS: CLARITY,URINE SL CLOUDY; COLOR,URINE ORANGE; GLUCOSE, URINE (UA) TRACE (NEGATIVE); KETONES,URINE 1+ (NEGATIVE); LEUKOCYTE ESTERASE ,URINE NEGATIVE (NEGATIVE); NITRITE,URINE POSITIVE (NEGATIVE); PH,URINE 5.5 (5-9); PROTEIN,URINE TRACE (NEGATIVE)
[2023-02-13 23:42] LABS: BACTERIA,URINE NEGATIVE /HPF; BILIRUBIN,URINE 2+ (NEGATIVE); CALCIUM OXALATE CRYSTALS,UR MODERATE /LPF; HYALINE CASTS, URINE RARE /LPF
[2023-02-13] MEDS ORDERED: NS IV 1000 ML 1,000 ML IV STA (23:55)
[2023-02-13] MEDS ORDERED: CIPROFLOXACIN 500 MG (CIPRO) TABLET PO STA (23:56)
[2023-02-13] MEDS ORDERED: CIPR500T5 PO (23:59)
== END 2023-02-14 00:57 | disposition home or self-care (01) ==
LOC: EDUNIT# 22:12 → ER 22:14
DX: N39.0 Urinary tract infection, site not specified (principal); E86.0 Dehydration
CPT/HCPCS: 36415; 51702; 80048; 81000; 85025; 87088

== ENCOUNTER → 2023-03-20 | Outpatient (CLI) | payer MEDICARE, MEDICAID ==
[~2023-03-20] MED LIST changes: +CIPR500T5 PO; +SENN-271 PO; -SENN1TAB76 PO
--- NOTE | 2023-03-20 12:37 | Diagnostic Imaging Report ---
EXAMINATION: CT chest without contrast. TECHNIQUE: Multiple contiguous axial images were obtained through the chest without the use of intravenous contrast. All CT scans use one or more of the following dose optimizing techniques: automated exposure control, MA and/or KvP adjustment based on patient size and exam type or iterative reconstruction. HISTORY: Pneumonia and sepsis. COMPARISON: None available. FINDINGS: Thyroid: The thyroid is normal. Mediastinum: Heart size is normal without significant pericardial effusion. Calcifications of the aorta and coronary vessels. Thoracic aorta is normal in caliber. No suspicious lymphadenopathy. Lungs and airways: There are patchy groundglass opacities seen primarily within the right lower lobe and left lower lobe. No pleural effusion or pneumothorax. The airways are normal. Upper abdomen: The subphrenic structures are normal. Musculoskeletal: Degenerative changes of the spine without suspicious osseous lesion or compression fracture. IMPRESSION: 1. Patchy groundglass opacities seen throughout the lower lungs bilaterally, left greater than right. Findings are concerning for atypical or multifocal pneumonia. Dictated by: Dictated on workstation # [id number]
== END ==
LOC: RAD 09:52
PROVIDERS: ATTEND Nurse Practitioner
DX: J86.9 Pyothorax without fistula (principal); R91.8 Other nonspecific abnormal finding of lung field
CPT/HCPCS: 71250

== ENCOUNTER 2023-04-07 12:46 | Emergency (ER) | payer MEDICARE, MEDICAID ==
--- NOTE | 2023-04-07 12:57 | ED General ---
General Chief Complaint: Cardiac/General Problems Stated Complaint: HYPERTENSION Nursing Triage Note: PT TO [facility] WITH C/O HTN THIS MORNING AT HOME. PT RECENTLY ADMITTED FOR SEPSIS Source of Information: Patient, EMS Exam Limitations: No Limitations History of Present Illness Date Seen by Provider: April 07, 2023 Time Seen by Provider: 12:45 Initial Comments 58-year-old female with advanced Parkinson's disease presents to the emergency department today for diaphoresis and generally feeling unwell. She states this is typically how she feels when she is septic. She was admitted to our hospital in November of this year for pneumonia and sepsis related to that. In January she was admitted to [facility] for issues related to her J-tube. She did not really have fevers or coughing at that time per her report. She is not really short of breath and not having any fevers. No chest pain or abdominal pain. No changes in bowel or bladder habits. All other systems reviewed and negative except documented per HPI. Voice recognition software was used to help create this chart Allergies and Home Medications Allergies Coded Allergies: No Known Drug Allergies (Unverified , 06/26/17) Patient Home Medication List Home Medication List Reviewed: Yes Acetaminophen (Tylenol) 325 Mg Capsule, 650 MG PO Q4H PRN for PAIN-MILD (1-4) Prescribed by: WESLY TANNER on 12/17/22 1229 Amitriptyline HCl (Amitriptyline HCl) 100 Mg Tablet, 50 MG PO HS Prescribed by: WESLY TANNER on 12/17/22 1229 Biotin (Biotin) 5 Mg Capsule, 5 MG PO BID Prescribed by: WESLY TANNER on 12/17/22 1229 Carbidopa/Levodopa (Rytary ER 36.25 mg-145 mg Cap) 36.25 Mg-145 Mg Capsule.er, 2 EACH PO 0800,1100,1400,1700,2100 Prescribed by: WESLY TANNER on 12/17/22 1229 Carbidopa/Levodopa (Rytary ER 48.75 mg-195 mg Cap) 48.75 Mg-195 Mg Capsule.er, 1 EACH PO Q6H PRN for PARKINSONS SYMPTOMS Prescribed by: WESLY TANNER on 12/17/22 1229 Celecoxib (Celebrex) 200 Mg Capsule, 200 MG PO DAILY Prescribed by: WESLY TANNER on 12/17/22 1229 Chlorhexidine Gluconate (Chlorhexidine Gluconate) 0.12 % Mouthwash, 15 ML MM BID Prescribed by: WESLY TANNER on 12/17/22 1229 Ciprofloxacin HCl (Ciprofloxacin HCl) 500 Mg Tablet, 500 MG PO BID Prescribed by: AVIVA WOOD on 02/13/23 2359 Cyanocobalamin (Vitamin B-12) (Vitamin B-12) 500 Mcg Tablet, 500 MCG PO DAILY Prescribed by: WESLY TANNER on 12/17/22 1229 Cyclobenzaprine HCl (Cyclobenzaprine HCl) 10 Mg Tablet, 10 MG PO Q8H PRN for MUSCLE SPASMS Prescribed by: WESLY TANNER on 12/17/22 1229 Enoxaparin Sodium (Enoxaparin Sodium) 40 Mg/0.4 Ml Syringe, 40 MG SC Q24H Prescribed by: WESLY TANNER on 12/17/22 1229 Gabapentin (Neurontin) 300 Mg Capsule, 300 MG PO DAILY Prescribed by: WESLY TANNER on 12/17/22 1229 Gabapentin (Neurontin) 300 Mg Capsule, 600 MG PO HS Prescribed by: WESLY TANNER on 12/17/22 1229 Gabapentin (Neurontin) 300 Mg Capsule, 900 MG PO 1200 Prescribed by: WESLY TANNER on 12/17/22 1229 Hydrocodone/Acetaminophen (Hydrocodone-Acetamin 5-325 mg) 5 Mg-325 Mg Tablet, 1 TAB PO Q6H PRN for PAIN-MODERATE (5-7) Prescribed by: WESLY TANNER on 12/17/22 1230 Levothyroxine Sodium (Levothyroxine Sodium) 75 Mcg Tablet, 75 MCG PO DAILY Prescribed by: WESLY TANNER on 12/17/22 1229 Loratadine (Loratadine) 10 Mg Tablet, 10 MG PO DAILY Prescribed by: WESLY TANNER on 12/17/22 1229 Lorazepam (Ativan) 0.5 Mg Tablet, 0.5 MG PO DAILY PRN for ANXIETY Prescribed by: WESLY TANNER on 12/17/22 1230 Lorazepam (Ativan) 0.5 Mg Tablet, 0.5 MG PO 1600,2000 Prescribed by: WESLY TANNER on 12/17/22 1230 Menthol (Biofreeze) 4 % Gel..ml., 1 APPLIC TP Q4H PRN for PAIN-BREAKTHROUGH Prescribed by: WESLY TANNER on 12/17/22 1229 Midodrine HCl (Midodrine HCl) 10 Mg Tablet, 10 MG PO 0800,1200 Prescribed by: WESLY TANNER on 12/17/22 1229 Multivitamin (Multi-Vitamin Daily) 1 Each Tablet, 1 EACH PO DAILY Prescribed by: WESLY TANNER on 12/17/22 1229 Ondansetron HCl (Ondansetron HCl) 4 Mg Tablet, 4 MG PO Q6H PRN for NAUSEA/VOMITING-1ST LINE Prescribed by: WESLY TANNER on 12/17/22 1229 Oxycodone HCl (Oxycodone HCl) 5 Mg Tablet, 5 MG PO Q6H PRN for PAIN-SEVERE (8- 10) Prescribed by: WESLY TANNER on 12/17/22 1230 Pantoprazole Sodium (Pantoprazole Sodium) 40 Mg Tablet.dr, 40 MG PO DAILY Prescribed by: WESLY TANNER on 12/17/22 122 Pimavanserin Tartrate (Nuplazid) 34 Mg Capsule, 34 MG PO DAILY Prescribed by: WESLY TANNER on 12/17/22 1229 Potassium Chloride (Potassium Chloride) 20 Meq Tablet.er, 20 MEQ PO BID Prescribed by: WESLY TANNER on 12/17/22 122 Sennosides/Docusate Sodium (Stool Softener-Laxative Tablet) 8.6 Mg-50 Mg Tablet, 2 EA PO BID Prescribed by: WESLY TANNER on 12/17/22 122 Sertraline HCl (Sertraline HCl) 50 Mg Tablet, 50 MG PO HS Prescribed by: WESLY TANNER on 12/17/22 122 Review of Systems Review of Systems Constitutional: see HPI Past [id number]-[id number]-Vbympm Hx Patient Social History Tobacco Use?: No Substance use?: No Alcohol Use?: No Pt feels they are or have been: No Immunizations Up To Date Tetanus Booster (TDap): Unknown First/Initial COVID19 Vaccinat: YES Second COVID19 Vaccination Anant: YES Third COVID19 Vaccination Date: UNKNOWN Seasonal Allergies Seasonal Allergies: Yes Past Medical History Surgery/Hospitalization HX: PARKINSON'S Surgeries: Yes Abdominal, Gallbladder Respiratory: No Cardiac: No Neurological: Yes Headaches /Migraines, Parkinson's Disease, Seizure Disorder 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 Disorders: No Female 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 Disorders: Denies [employer] History: Menopausal Sexually Transmitted Disease: No HIV/AIDS: No Genitourinary: Yes UTI-Chronic Gastrointestinal: Yes Gastroesophageal Reflux, Gall Bladder Disease Musculoskeletal: Yes Arthritis Endocrine: Yes Hypothyroidsim HEENT: No Loss of Vision: Bilateral Hearing Impairment: Denies Cancer: No Psychosocial: Yes Anxiety Integumentary: No Blood Disorders: No Adverse Reaction/Blood Tranf: No (N/A) Family Medical History Cardiovascular disease 19 MOTHER Diabetes mellitus G8 BROTHER FH: prostate cancer Cancer, Diabetes, Other Conditions/Hx PAST SURGICAL HISTORY: -LAPAROSCOPIC CHOLECYSTECTOMY 02/20/[address] MANCILLA -EGD 02/20/[address] MANCILLA--REFLUX ESOPHAGITIS AND GASTRITIS -GASTRIC SLEEVE 07/03/[address] MANCILLA Family history: non contributory Physical Exam Vital Signs Vital Signs - First Documented 04/07/23 12:49 Temp 36.8 Pulse 94 Resp 18 B/P (MAP) 138/96 (110) Pulse Ox 96 Capillary Refill : Height, Weight, BMI Height: 5'6.00" Weight: 272lbs. 0.0oz. 123.754915gc; 29.00 BMI Method:Stated General Appearance: No Apparent Distress, WD/WN HEENT: TMs Normal, Normal ENT Inspection, Pharynx Normal Neck: Normal Inspection, Supple Respiratory: Chest Non Tender, Lungs Clear, Normal Breath Sounds, No Accessory Muscle Use, No Respiratory Distress Cardiovascular: Regular Rate, Rhythm, Normal Peripheral Pulses Gastrointestinal: Normal Bowel Sounds, No Organomegaly, No Pulsatile Mass, Non Tender, Soft Extremity: Normal Capillary Refill, Normal Inspection, Normal Range of Motion, Non Tender, No Calf Tenderness Neurologic/Psychiatric: Alert, Oriented x3, Other (Bilateral hand tremor) Skin: Normal Color, Warm/Dry Focused Exam Lactate Level 04/07/23 12:55: Lactic Acid Level 1.58 Lactic Acid Level Laboratory Tests Test 04/07/23 12:55 Lactic Acid Level 1.58 MMOL/L (0.50-2.00) Progress/Results/Core Measures Suspected Sepsis SIRS Temperature: Pulse: 94 Respiratory Rate: 18 Laboratory Tests 04/07/23 12:55: White Blood Count 8.8 Blood Pressure 138 /96 Mean: 110 04/07/23 12:55: Lactic Acid Level 1.58 Laboratory Tests 04/07/23 12:55: Creatinine 0.58L, Platelet Count 327, Total Bilirubin 0.2 Results/Orders Lab Results Laboratory Tests Test 04/07/23 12:55 04/07/23 13:21 Range/Units White Blood Count 8.8 4.3-11.0 10^3/uL Red Blood Count 5.19 H 3.80-5.11 10^6/uL Hemoglobin 14.3 11.5-16.0 g/dL Hematocrit 44 35-52 % Mean Corpuscular Volume 85 80-99 fL Mean Corpuscular Hemoglobin 28 25-34 pg Mean Corpuscular Hemoglobin Concent 32 32-36 g/dL Red Cell Distribution Width 14.5 10.0-14.5 % Platelet Count 327 130-400 10^3/uL Mean Platelet Volume 9.8 9.0-12.2 fL Immature Granulocyte % (Auto) 0 % Neutrophils (%) (Auto) 65 42-75 % Lymphocytes (%) (Auto) 25 12-44 % Monocytes (%) (Auto) 7 0-12 % Eosinophils (%) (Auto) 2 0-10 % Basophils (%) (Auto) 0 0-10 % Neutrophils # (Auto) 5.7 1.8-7.8 10^3/uL Lymphocytes # (Auto) 2.2 1.0-4.0 10^3/uL Monocytes # (Auto) 0.6 0.0-1.0 10^3/uL Eosinophils # (Auto) 0.2 0.0-0.3 10^3/uL Basophils # (Auto) 0.0 0.0-0.1 10^3/uL Immature Granulocyte # (Auto) 0.0 0.0-0.1 10^3/uL Sodium Level 139 135-145 MMOL/L Potassium Level 4.1 3.6-5.0 MMOL/L Chloride Level 105 98-107 MMOL/L Carbon Dioxide Level 23 21-32 MMOL/L Anion Gap 11 5-14 MMOL/L Blood Urea Nitrogen 17 7-18 MG/DL Creatinine 0.58 L 0.60-1.30 MG/DL Estimat Glomerular Filtration Rate 104 BUN/Creatinine Ratio 29 Glucose Level 88 70-105 MG/DL Lactic Acid Level 1.58 0.50-2.00 MMOL/L Calcium Level 10.6 H 8.5-10.1 MG/DL Corrected Calcium 10.7 H 8.5-10.1 MG/DL Total Bilirubin 0.2 0.1-1.0 MG/DL Aspartate Amino Transf (AST/SGOT) 10 5-34 U/L Alanine Aminotransferase (ALT/SGPT) < 6 0-55 U/L Alkaline Phosphatase 141 H 40-136 U/L Total Protein 7.1 6.4-8.2 GM/DL Albumin 3.9 3.2-4.5 GM/DL SARS-CoV-2 RNA (RT-PCR) Not Detected Not Detecte My Orders Orders - KIMBERLEE MICHELLE DO Cbc With Automated Diff (04/07/23 12:53) Comprehensive Metabolic Panel (04/07/23 12:53) Blood Culture (04/07/23 12:53) Chest 1 View, Ap/Pa Only (04/07/23 12:53) Ed Iv/Invasive Line Start (04/07/23 12:53) Vital Signs Adult Sepsis Patie Q15M (04/07/23 12:53) Lactic Acid Analyzer (04/07/23 12:53) Covid 19 Inhouse Test (04/07/23 12:53) Vital Signs/I&O 04/07/23 04/07/23 12:49 14:11 Temp 36.8 36.8 Pulse 94 81 Resp 18 18 B/P (MAP) 138/96 (110) 122/94 Pulse Ox 96 96 Capillary Refill : Blood Pressure Mean: 110 Departure Communication (Admissions) Patient is hemodynamically stable. She has no evidence for septic type or other infection based on vital signs, physical exam and screening labs. Chest x-ray reviewed by myself is negative for any cardiopulmonary abnormality, bony abnormality. She is discharged back to the nursing facility in otherwise stable condition. Impression Primary Impression: Diaphoresis Disposition: 01 HOME, SELF-CARE Condition: Stable Departure-Patient Inst. Referrals: MIKY RICHEY MD (PCP/Family) Primary Care Physician Add. Discharge Instructions: No evidence for septic or other type of infection at this time. Your chest x- ray is clear. Your labs are otherwise unremarkable outside of some mild high calcium levels. Have this rechecked with your primary doctor. Return to the emergency department for any severe concerns. All discharge instructions reviewed with patient and/or family. Voiced understanding. KIMBERLEE MICHELLE DO April 07, 2023 12:57
[2023-04-07 13:04] LABS: BASOPHILS % (AUTO) 0 % (0-10); EOSINOPHILS # (AUTO) 0.2 10^3/uL (0.0-0.3); EOSINOPHILS % (AUTO) 2 % (0-10); HEMATOCRIT 44 % (35-52); HEMOGLOBIN 14.3 g/dL (11.5-16.0); LYMPHOCYTES # (AUTO) 2.2 10^3/uL (1.0-4.0); LYMPHOCYTES % (AUTO) 25 % (12-44); MEAN CORPUSCULAR HEMOGLOBIN 28 pg (25-34); MEAN CORPUSCULAR HGB CONC 32 g/dL (32-36); MEAN CORPUSCULAR VOLUME 85 fL (80-99); MEAN PLATELET VOLUME 9.8 fL (9.0-12.2); MONOCYTES # (AUTO) 0.6 10^3/uL (0.0-1.0); MONOCYTES % (AUTO) 7 % (0-12); NEUTROPHILS # (AUTO) 5.7 10^3/uL (1.8-7.8); NEUTROPHILS % (AUTO) 65 % (42-75); PLATELET COUNT 327 10^3/uL (130-400); WHITE BLOOD COUNT 8.8 10^3/uL (4.3-11.0)
[2023-04-07 13:15] LABS: ALBUMIN 3.9 GM/DL (3.2-4.5); CHLORIDE 105 MMOL/L (98-107); POTASSIUM 4.1 MMOL/L (3.6-5.0); SODIUM 139 MMOL/L (135-145)
[2023-04-07 13:16] LABS: CALCIUM 10.6 MG/DL (8.5-10.1)
[2023-04-07 13:17] LABS: GLUCOSE 88 MG/DL (70-105)
[2023-04-07 13:18] LABS: TOTAL PROTEIN 7.1 GM/DL (6.4-8.2)
[2023-04-07 13:19] LABS: BILIRUBIN,TOTAL 0.2 MG/DL (0.1-1.0); CARBON DIOXIDE 23 MMOL/L (21-32)
[2023-04-07 13:21] LABS: ALKALINE PHOSPHATASE 141 U/L (40-136); CREATININE SERUM 0.58 MG/DL (0.60-1.30); GFR ESTIMATED 104
[2023-04-07 13:22] LABS: BUN/CREATININE RATIO 29
[2023-04-07 13:24] LABS: ALANINE AMINOTRANSFERASE < 6 U/L (0-55)
--- NOTE | 2023-04-07 13:26 | Diagnostic Imaging Report ---
INDICATION: Weakness, pneumonia COMPARISON: 01/21/2023 FINDINGS: There is a fractured catheter fragment as its distal portion left of midline beyond or near the expected level of intraventricular septum with its proximal portion projecting over the mid SVC level showing mild interval distal mild interval inferior migration. No focal consolidation. No effusion or pneumothorax. IMPRESSION: Catheter fragment showed mild further advancement into the heart. Clear lungs. No effusion. No pneumothorax. Dictated by: Dictated on workstation # [id number]
[2023-04-07 14:11] VITALS: BP 122/94
== END 2023-04-07 14:19 | disposition home or self-care (01) ==
LOC: EDUNIT# 12:46 → ER 12:47
DX: R61 Generalized hyperhidrosis (principal); Z20.822 Contact with and (suspected) exposure to COVID-19
CPT/HCPCS: 36415; 71045; 80053; 83605; 85025; 87040; 87636

== ENCOUNTER 2023-07-25 09:25 | Emergency (ER) | payer MEDICARE, MEDICAID ==
[~2023-07-25 09:25] MED LIST changes: +POTA-330 PO; -POTA-51 PO
--- NOTE | 2023-07-25 10:05 | ED General ---
General Chief Complaint: Post OP Complications/Pain Stated Complaint: ABCESS Source of Information: Patient Exam Limitations: No Limitations History of Present Illness Date Seen by Provider: Jul 25, 2023 Time Seen by Provider: 09:45 Initial Comments Here with report of recent jejunal tube placement at and now is having postop drainage. She was apparently seen there and they were not too concerned. She had ultrasound done yesterday at outpatient clinic which did note 6 cm x 2 cm by almost 4 cm fluid collection concerning for abscess possibility. She has had a fair amount of drainage since that and states that she had a puffy area before that seems to have resolved. She has been on oral antibiotics and is on Bactrim currently. She was unsure if she had a fever but thought she might have had. The J-tube was placed due to need to provide Parkinson's medication directly into the intestines and she is on a pump for that. That continues and she sta artis that that is actually working very well. She is at a nursing care facility. They are able to change her dressings daily. The drainage is not foul-smelling and looks to be more serous and pink. She is not significantly tender around the area. Denies nausea or vomiting. She thinks that she might have a urinary tract infection. Denies chest pain or breathing problems. Timing/Duration: 1 Week, Changing Over Time Severity: Moderate Associated Systoms: Fever/Chills; No Nausea/Vomiting, No Shortness of Air, No Weakness Allergies and Home Medications Allergies Coded Allergies: No Known Drug Allergies (Unverified , 06/26/17) Patient Home Medication List Home Medication List Reviewed: Yes Acetaminophen (Tylenol) 325 Mg Capsule, 650 MG PO Q4H PRN for PAIN-MILD (1-4) Prescribed by: WESLY TANNER on 12/17/22 1229 Amitriptyline HCl (Amitriptyline HCl) 100 Mg Tablet, 50 MG PO HS Prescribed by: WESLY TANNER on 12/17/22 1229 Biotin (Biotin) 5 Mg Capsule, 5 MG PO BID Prescribed by: WESLY TANNER on 12/17/22 1229 Carbidopa/Levodopa (Rytary ER 36.25 mg-145 mg Cap) 36.25 Mg-145 Mg Capsule.er, 2 EACH PO 0800,1100,1400,1700,2100 Prescribed by: WESLY TANNER on 12/17/22 1229 Carbidopa/Levodopa (Rytary ER 48.75 mg-195 mg Cap) 48.75 Mg-195 Mg Capsule.er, 1 EACH PO Q6H PRN for PARKINSONS SYMPTOMS Prescribed by: WESLY TANNER on 12/17/22 1229 Celecoxib (Celebrex) 200 Mg Capsule, 200 MG PO DAILY Prescribed by: WESLY TANNER on 12/17/22 1229 Chlorhexidine Gluconate (Chlorhexidine Gluconate) 0.12 % Mouthwash, 15 ML MM BID Prescribed by: WESLY TANNER on 12/17/22 1229 Ciprofloxacin HCl (Ciprofloxacin HCl) 500 Mg Tablet, 500 MG PO BID Prescribed by: AVIVA WOOD on 02/13/23 235 Cyanocobalamin (Vitamin B-12) (Vitamin B-12) 500 Mcg Tablet, 500 MCG PO DAILY Prescribed by: WESLY TANNER on 12/17/22 1229 Cyclobenzaprine HCl (Cyclobenzaprine HCl) 10 Mg Tablet, 10 MG PO Q8H PRN for MUSCLE SPASMS Prescribed by: WESLY TANNER on 12/17/22 1229 Enoxaparin Sodium (Enoxaparin Sodium) 40 Mg/0.4 Ml Syringe, 40 MG SC Q24H Prescribed by: WESLY TANNER on 12/17/22 1229 Gabapentin (Neurontin) 300 Mg Capsule, 300 MG PO DAILY Prescribed by: WESLY TANNER on 12/17/22 1229 Gabapentin (Neurontin) 300 Mg Capsule, 600 MG PO HS Prescribed by: WESLY TANNER on 12/17/22 1229 Gabapentin (Neurontin) 300 Mg Capsule, 900 MG PO 1200 Prescribed by: WESLY TANNER on 12/17/22 1229 Hydrocodone/Acetaminophen (Hydrocodone-Acetamin 5-325 mg) 5 Mg-325 Mg Tablet, 1 TAB PO Q6H PRN for PAIN-MODERATE (5-7) Prescribed by: WESLY TANNER on 12/17/22 1230 Levothyroxine Sodium (Levothyroxine Sodium) 75 Mcg Tablet, 75 MCG PO DAILY Prescribed by: WESLY TANNER on 12/17/22 1229 Loratadine (Loratadine) 10 Mg Tablet, 10 MG PO DAILY Prescribed by: WESLY TANNER on 12/17/22 1229 Lorazepam (Ativan) 0.5 Mg Tablet, 0.5 MG PO DAILY PRN for ANXIETY Prescribed by: WESLY TANNER on 12/17/22 1230 Lorazepam (Ativan) 0.5 Mg Tablet, 0.5 MG PO 1600,2000 Prescribed by: WESLY TANNER on 12/17/22 1230 Menthol (Biofreeze) 4 % Gel..ml., 1 APPLIC TP Q4H PRN for PAIN-BREAKTHROUGH Prescribed by: WESLY TANNER on 12/17/22 1229 Midodrine HCl (Midodrine HCl) 10 Mg Tablet, 10 MG PO 0800,1200 Prescribed by: WESLY TANNER on 12/17/22 1229 Multivitamin (Multi-Vitamin Daily) 1 Each Tablet, 1 EACH PO DAILY Prescribed by: WESLY TANNER on 12/17/22 122 Ondansetron HCl (Ondansetron HCl) 4 Mg Tablet, 4 MG PO Q6H PRN for NAUSEA/VOMITING-1ST LINE Prescribed by: WESLY TANNER on 12/17/22 1229 Oxycodone HCl (Oxycodone HCl) 5 Mg Tablet, 5 MG PO Q6H PRN for PAIN-SEVERE (8- 10) Prescribed by: WESLY TANNER on 12/17/22 1230 Pantoprazole Sodium (Pantoprazole Sodium) 40 Mg Tablet.dr, 40 MG PO DAILY Prescribed by: WESLY TANNER on 12/17/22 122 Pimavanserin Tartrate (Nuplazid) 34 Mg Capsule, 34 MG PO DAILY Prescribed by: WESLY TANNER on 12/17/22 122 Potassium Chloride (Potassium Chloride) 20 Meq Tablet.er, 20 MEQ PO BID Prescribed by: WESLY TANNER on 12/17/22 122 Sennosides/Docusate Sodium (Stool Softener-Laxative Tablet) 8.6 Mg-50 Mg Tablet, 2 EA PO BID Prescribed by: WESLY TANNER on 12/17/22 122 Sertraline HCl (Sertraline HCl) 50 Mg Tablet, 50 MG PO HS Prescribed by: WESLY TANNER on 12/17/22 122 Review of Systems Review of Systems Constitutional: see HPI EENTM: No nose congestion, No throat pain Respiratory: No cough, No short of breath Cardiovascular: No chest pain, No edema Gastrointestinal: No nausea, No vomiting; other (Abdominal wound approximately 6 inches long that is stapled and leaking serous fluid.) Genitourinary: no symptoms reported Musculoskeletal: no symptoms reported Skin: see HPI, change in color, lesions Past Ginbbkd-Sbaval-Ccvmjz Hx Patient Social History Tobacco Use?: No Use of E-Cig and/or Vaping dev: No Substance use?: No Alcohol Use?: No Pt feels they are or have been: No Immunizations Up To Date Tetanus Booster (TDap): Unknown First/Initial COVID19 Vaccinat: YES Second COVID19 Vaccination Anant: YES Third COVID19 Vaccination Date: YES Seasonal Allergies Seasonal Allergies: Yes Past Medical History Surgery/Hospitalization HX: PARKINSON'S, ANXIETY, HYPOTHYROID, GERD, J-TUBE Surgeries: Yes Abdominal, Gallbladder Respiratory: No Cardiac: No Neurological: Yes Headaches /Migraines, Parkinson's Disease, Seizure Disorder 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 Disorders: No Female 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 Disorders: Denies 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 Sexually Transmitted Disease: No HIV/AIDS: No Genitourinary: Yes UTI-Chronic Gastrointestinal: Yes Gastroesophageal Reflux, Gall Bladder Disease Musculoskeletal: Yes Arthritis Endocrine: Yes Hypothyroidsim HEENT: No Loss of Vision: Bilateral Hearing Impairment: Denies Cancer: No Psychosocial: Yes Anxiety Integumentary: No Blood Disorders: No Adverse Reaction/Blood Tranf: No (N/A) Family Medical History Reviewed Nursing Family Hx Cardiovascular disease 19 MOTHER Diabetes mellitus G8 BROTHER FH: prostate cancer Cancer, Diabetes, Other Conditions/Hx PAST SURGICAL HISTORY: -LAPAROSCOPIC CHOLECYSTECTOMY 02/20/[address] MANCILLA -EGD 02/20/[address] MANCILLA--REFLUX ESOPHAGITIS AND GASTRITIS -GASTRIC SLEEVE 07/03/[address] MANCILLA Family history: non contributory Physical Exam-Suspected Sepsis Physical Exam Vital Signs Vital Signs - First Documented 07/25/23 09:35 Temp 37.2 Pulse 89 Resp 18 Pulse Ox 94 O2 Delivery Room Air Capillary Refill : Height, Weight, BMI Height: 5'6.00" Weight: 272lbs. 0.0oz. [id number]; 29.00 BMI Method:Stated General Appearance: No Apparent Distress, WD/WN HEENT: PERRL/EOMI, Pharynx Normal Neck: Non Tender, Supple Respiratory: Lungs Clear, Normal Breath Sounds Cardiovascular: Regular Rate, Rhythm, No Murmur Gastrointestinal: Soft, Other (Except as long 6 midline incision that is stapled closed with 1 small area of dehiscence were stable at loose in the middle aspect. There is some drainage of serous/yellow fluid that is not foul- smelling. There is some surrounding redness around wound. She is not signifi cantly tender in the area. I do not feel areas of fluctuance.) Extremity: Normal Range of Motion, Non Tender Neurologic/Psychiatric: Alert, Oriented x3 Skin: warm/dry, other (Findings as above.) Focused Exam Lactate Level 07/25/23 10:08: Lactic Acid Level 1.03 Lactic Acid Level Laboratory Tests Test 07/25/23 10:08 Lactic Acid Level 1.03 MMOL/L (0.50-2.00) Progress/Results/Core Measures Suspected Sepsis SIRS Temperature: Pulse: Respiratory Rate: Laboratory Tests 07/25/23 10:08: White Blood Count 9.8 Blood Pressure / Mean: 07/25/23 10:08: Lactic Acid Level 1.03 Laboratory Tests 07/25/23 10:08: Creatinine 0.61, Platelet Count 427H, Total Bilirubin 0.3 Results/Orders Lab Results Laboratory Tests Test 07/25/23 10:08 07/25/23 10:21 Range/Units White Blood Count 9.8 4.3-11.0 10^3/uL Red Blood Count 4.43 3.80-5.11 10^6/uL Hemoglobin 12.3 11.5-16.0 g/dL Hematocrit 38 35-52 % Mean Corpuscular Volume 86 80-99 fL Mean Corpuscular Hemoglobin 28 25-34 pg Mean Corpuscular Hemoglobin Concent 32 32-36 g/dL Red Cell Distribution Width 16.3 H 10.0-14.5 % Platelet Count 427 H 130-400 10^3/uL Mean Platelet Volume 9.0 9.0-12.2 fL Immature Granulocyte % (Auto) 1 % Neutrophils (%) (Auto) 70 42-75 % Lymphocytes (%) (Auto) 17 12-44 % Monocytes (%) (Auto) 8 0-12 % Eosinophils (%) (Auto) 4 0-10 % Basophils (%) (Auto) 1 0-10 % Neutrophils # (Auto) 6.8 1.8-7.8 10^3/uL Lymphocytes # (Auto) 1.7 1.0-4.0 10^3/uL Monocytes # (Auto) 0.8 0.0-1.0 10^3/uL Eosinophils # (Auto) 0.3 0.0-0.3 10^3/uL Basophils # (Auto) 0.1 0.0-0.1 10^3/uL Immature Granulocyte # (Auto) 0.1 0.0-0.1 10^3/uL Sodium Level 135 135-145 MMOL/L Potassium Level 4.2 3.6-5.0 MMOL/L Chloride Level 105 98-107 MMOL/L Carbon Dioxide Level 20 L 21-32 MMOL/L Anion Gap 10 5-14 MMOL/L Blood Urea Nitrogen 15 7-18 MG/DL Creatinine 0.61 0.60-1.30 MG/DL Estimat Glomerular Filtration Rate 103 BUN/Creatinine Ratio 25 Glucose Level 79 70-105 MG/DL Lactic Acid Level 1.03 0.50-2.00 MMOL/L Calcium Level 10.1 8.5-10.1 MG/DL Corrected Calcium 10.6 H 8.5-10.1 MG/DL Total Bilirubin 0.3 0.1-1.0 MG/DL Aspartate Amino Transf (AST/SGOT) 23 5-34 U/L Alanine Aminotransferase (ALT/SGPT) < 6 0-55 U/L Alkaline Phosphatase 136 40-136 U/L C-Reactive Protein High Sensitivity 21.63 H 0.00-0.50 MG/DL Total Protein 6.3 L 6.4-8.2 GM/DL Albumin 3.4 3.2-4.5 GM/DL Urine Color YELLOW Urine Clarity CLOUDY Urine pH 7.5 5-9 Urine Specific [place] 1.025 H 1.016-1.022 Urine Protein 2+ H NEGATIVE Urine Glucose (UA) NEGATIVE NEGATIVE Urine Ketones 1+ H NEGATIVE Urine Nitrite NEGATIVE NEGATIVE Urine Bilirubin 1+ H NEGATIVE Urine Urobilinogen 0.2 < = 1.0 MG/DL Urine Leukocyte Esterase 2+ H NEGATIVE Urine RBC (Auto) NEGATIVE NEGATIVE Urine RBC NONE /HPF Urine WBC 25-50 H /HPF Urine Squamous Epithelial Cells 2-5 /HPF Urine Renal Epithelial Cells 0-2 /HPF Urine Crystals PRESENT H /LPF Urine Calcium Oxalate Crystals RARE H /LPF Urine Bacteria LARGE H /HPF Urine Casts NONE /LPF Urine Mucus NEGATIVE /LPF Urine Culture Indicated YES My Orders Orders - JAVIER COVARRUBIAS MD Cbc With Automated Diff (07/25/23 09:59) Comprehensive Metabolic Panel (07/25/23 09:59) Blood Culture (07/25/23 09:59) Sputum Culture (07/25/23 09:59) Urinalysis (07/25/23 09:59) Urine Culture (07/25/23 09:59) Ed Iv/Invasive Line Start (07/25/23 09:59) Vital Signs Adult Sepsis Patie Q15M (07/25/23 09:59) O2 (07/25/23 09:59) Remove Rings In Anticipation O (07/25/23 09:59) Lactic Acid Analyzer (07/25/23 09:59) Hs C Reactive Protein (07/25/23 09:59) Ct Abdomen/Pelvis W (07/25/23 10:58) Ns Iv 500 Ml (Ns Iv 500 Ml) (07/25/23 11:00) Iohexol Injection (Omnipaque 350 Mg/Ml 1 (07/25/23 11:15) Received Contrast (Hold Metformin- Contr (07/25/23 11:15) Ns (Ivpb) 100 Ml (Sodium Chloride 0.9% 1 (07/25/23 11:15) Wound Culture (07/25/23 12:24) Medications Given in ED Current Medications Medications Dose Ordered Sig/Chris Route Start Time Stop Time Status Last Admin Dose Admin Iohexol 100 ml ONCE ONCE IV 07/25/23 11:15 07/25/23 11:16 DC 07/25/23 11:21 80 ML Sodium Chloride 100 ml ONCE ONCE IV 07/25/23 11:15 07/25/23 11:16 DC 07/25/23 11:21 80 ML Sodium Chloride 500 ml @ 0 mls/hr Q0M ONCE IV 07/25/23 11:00 07/25/23 11:01 DC 07/25/23 11:22 1,000 MLS/HR Vital Signs/I&O 07/25/23 09:35 Temp 37.2 Pulse 89 Resp 18 B/P (MAP) Pulse Ox 94 O2 Delivery Room Air Capillary Refill : Progress Note : Progress Note Seen and evaluated. IV, labs including CBC, CMP, CRP, blood cultures and lactic acid ordered. Wound evaluated by me and cleaned and dressing replaced with ABD pad. We did do wound culture of central aspect of wound that had some drainage. See what labs show and then consider CT abdomen and pelvis to evaluate for further abscess. We have asked for results from ultrasound from yesterday and those were received and show fluid collection as noted above. This was in the epigastric region as noted on the ultrasound results. Monitor patient. Differential diagnosis includes sepsis, postop wound infection, abscess, UTI 1058: Normal saline 500 mL bolus ordered. We will get CT abdomen and pelvis to evaluate further for abscess. CBC is grossly normal and CMP is grossly normal but CRP is grossly elevated. UA does show some whites and bacteria on straight cath UA but no nitrites. She does have history of UTI but is on Bactrim now. Monitor patient. 1210: CT abdomen pelvis reviewed by me and does show postoperative changes centrally but I do not see a large abscess. Radiology report reviewed and this was reviewed with the patient. Patient's surgeon was Dr. George and I have initiated all due to recent surgery to to discuss with surgeon or surgeon on-call. No indication for admission at this point but we will see what their recommendations are. Discussed with the patient who agreed. Monitor patient. 313: I did discuss the case with Dr. George, patient's surgeon. We reviewed current findings and situation. He is overall reassured by CT findings and we both agree that this was likely seroma that has drained. I will go ahead and give her a dose of Rocephin IV given the question of the urinary tract infection and we will keep her on the Bactrim which she is in agreement with. I did discuss this with the patient and she is in full agreement with that. Discharged home with return precautions. Patient verbalized understanding of instructions and agreement with plan. Diagnostic Imaging Diagonstic Imaging: CT Plain Films/CT/US/NM/MRI: abdomen, pelvis Comments [facility] [place], [place] NAME: JA DE LEON [facility] REC#: [id number] PT STATUS: REG ER : 1965 PHYSICIAN: JAIVER COVARRUBIAS MD ADMIT DATE: 07/25/23/ER Draft Date of Exam:07/25/23 CT ABDOMEN/PELVIS W PROCEDURE: CT abdomen and pelvis with contrast. TECHNIQUE: Multiple contiguous axial images were obtained through the abdomen and pelvis after administration of intravenous contrast. Auto Exposure Controls were utilized during the CT exam to meet ALARA standards for radiation dose reduction. All CT scans use one or more of the following dose optimizing techniques: automated exposure control, MA and/or KvP adjustment based on patient size and exam type or iterative reconstruction. INDICATION: Recent surgery and abdominal infection. Study is performed to evaluate for abscess. COMPARISON: 01/21/2023 There is mild low-density in the liver with occasional granulomas. No focal hepatic abnormality is identified. There appears to be dystrophic calcification or surgical change in the medial spleen. This is stable. Anterior abdominal wall incision site is present with percutaneous gastrostomy tube in place. Surgical findings are seen along the stomach. There is gas and edema within the anterior abdominal wall with mild edema and fluid just deep to the anterior abdominal wall. There is mild ill-definition to the body of the pancreas with loss of fat plane between the stomach and pancreas. There is no evidence of organized fluid collection to indicate pancreatic pseudocyst or abscess. Mesenteric edema and/or inflammation is noted however there is no evidence of organized fluid collection. There is mild pelvic free fluid. Unopacified bladder is unremarkable. No adrenal gland, renal or urinary bladder abnormality is seen. IMPRESSION: Postoperative findings with edema, inflammation and fluid from the anterior abdominal wall and into the retroperitoneum at the level of the stomach and pancreas. There is mild pelvic free fluid however no organized fluid collection is seen to indicate abscess. Dictated on workstation # [id number] Dict: 07/25/23 1126 Trans: 07/25/23 1151 [facility] [id number] Interpreted by: TULIO KELLEY MD Electronically signed by: Reviewed: Reviewed by Me Departure Impression Primary Impression: Postoperative complication of skin involving drainage from surgical wound Disposition: 01 HOME, SELF-CARE Condition: Improved Departure-Patient Inst. Decision time for Depature: 13:25 Referrals: MIKY RICHEY MD (PCP/Family) Primary Care Physician Patient Instructions: Wound Care Add. Discharge Instructions: You might benefit from dressing changes twice daily given your drainage. Continue antibiotics as previously prescribed. There is a culture on your urine that is pending and if it is a urinary tract infection that is not covered by Bactrim, you will be called and antibiotic initiated. Continue follow-up with your primary care doctor and surgeon as required. Return for worse pain, fever, vomiting, weakness, breathing problems, foul-smelling drainage, increasing redness around wound or other concerns as needed. Copy Copies To 1: LUZ MATUTE TIMOTHY D MD Jul 25, 2023 10:05
[2023-07-25 10:20] LABS: BASOPHILS # (AUTO) 0.1 10^3/uL (0.0-0.1); BASOPHILS % (AUTO) 1 % (0-10); EOSINOPHILS # (AUTO) 0.3 10^3/uL (0.0-0.3); EOSINOPHILS % (AUTO) 4 % (0-10); HEMATOCRIT 38 % (35-52); HEMOGLOBIN 12.3 g/dL (11.5-16.0); LYMPHOCYTES # (AUTO) 1.7 10^3/uL (1.0-4.0); LYMPHOCYTES % (AUTO) 17 % (12-44); MEAN CORPUSCULAR HEMOGLOBIN 28 pg (25-34); MEAN CORPUSCULAR HGB CONC 32 g/dL (32-36); MEAN CORPUSCULAR VOLUME 86 fL (80-99); MONOCYTES # (AUTO) 0.8 10^3/uL (0.0-1.0); MONOCYTES % (AUTO) 8 % (0-12); NEUTROPHILS # (AUTO) 6.8 10^3/uL (1.8-7.8); NEUTROPHILS % (AUTO) 70 % (42-75); PLATELET COUNT 427 10^3/uL (130-400); WHITE BLOOD COUNT 9.8 10^3/uL (4.3-11.0)
[2023-07-25 10:31] LABS: ALBUMIN 3.4 GM/DL (3.2-4.5); CHLORIDE 105 MMOL/L (98-107); POTASSIUM 4.2 MMOL/L (3.6-5.0); SODIUM 135 MMOL/L (135-145)
[2023-07-25 10:32] LABS: CALCIUM 10.1 MG/DL (8.5-10.1)
[2023-07-25 10:33] LABS: GLUCOSE 79 MG/DL (70-105); TOTAL PROTEIN 6.3 GM/DL (6.4-8.2)
[2023-07-25 10:35] LABS: BILIRUBIN,TOTAL 0.3 MG/DL (0.1-1.0); CARBON DIOXIDE 20 MMOL/L (21-32)
[2023-07-25 10:37] LABS: ALKALINE PHOSPHATASE 136 U/L (40-136); CREATININE SERUM 0.61 MG/DL (0.60-1.30); GFR ESTIMATED 103
[2023-07-25 10:38] LABS: BUN/CREATININE RATIO 25
[2023-07-25 10:40] LABS: ALANINE AMINOTRANSFERASE < 6 U/L (0-55)
[2023-07-25 10:50] LABS: CLARITY,URINE CLOUDY; COLOR,URINE YELLOW
[2023-07-25 10:51] LABS: BACTERIA,URINE LARGE /HPF; BILIRUBIN,URINE 1+ (NEGATIVE); GLUCOSE, URINE (UA) NEGATIVE (NEGATIVE); KETONES,URINE 1+ (NEGATIVE); LEUKOCYTE ESTERASE ,URINE 2+ (NEGATIVE); NITRITE,URINE NEGATIVE (NEGATIVE); PH,URINE 7.5 (5-9); PROTEIN,URINE 2+ (NEGATIVE); WBC,URINE 25-50 /HPF
[2023-07-25 10:52] LABS: CALCIUM OXALATE CRYSTALS,UR RARE /LPF; RENAL EPITHELIAL CELLS,URINE 0-2 /HPF
[2023-07-25] MEDS ORDERED: NS IV 500 ML 500 ML IV ONE (11:00)
[2023-07-25] MEDS ORDERED: NS 100 ML (IVPB) BAG IV ONE (11:15)
[2023-07-25] MEDS ORDERED: HOLD METFORMIN - RECEIVED CONTRAST 20 ML VIAL IV SCH (11:15)
[2023-07-25] MEDS ORDERED: IOHEXOL 350 MG/ML 100 ML (OMNIPAQUE 350) VIAL IV ONE (11:15)
--- NOTE | 2023-07-25 11:52 | Diagnostic Imaging Report ---
PROCEDURE: CT abdomen and pelvis with contrast. TECHNIQUE: Multiple contiguous axial images were obtained through the abdomen and pelvis after administration of intravenous contrast. Auto Exposure Controls were utilized during the CT exam to meet ALARA standards for radiation dose reduction. All CT scans use one or more of the following dose optimizing techniques: automated exposure control, MA and/or KvP adjustment based on patient size and exam type or iterative reconstruction. INDICATION: Recent surgery and abdominal infection. Study is performed to evaluate for abscess. COMPARISON: 01/21/2023 There is mild low-density in the liver with occasional granulomas. No focal hepatic abnormality is identified. There appears to be dystrophic calcification or surgical change in the medial spleen. This is stable. Anterior abdominal wall incision site is present with percutaneous gastrostomy tube in place. Surgical findings are seen along the stomach. There is gas and edema within the anterior abdominal wall with mild edema and fluid just deep to the anterior abdominal wall. There is mild ill-definition to the body of the pancreas with loss of fat plane between the stomach and pancreas. There is no evidence of organized fluid collection to indicate pancreatic pseudocyst or abscess. Mesenteric edema and/or inflammation is noted however there is no evidence of organized fluid collection. There is mild pelvic free fluid. Unopacified bladder is unremarkable. No adrenal gland, renal or urinary bladder abnormality is seen. IMPRESSION: Postoperative findings with edema, inflammation and fluid from the anterior abdominal wall and into the retroperitoneum at the level of the stomach and pancreas. There is mild pelvic free fluid however no organized fluid collection is seen to indicate abscess. Dictated by: Dictated on workstation # [id number]
[2023-07-25] MEDS ORDERED: cefTRIAXone IV/IM 1,000 MG in NS (IVPB) 50 ML 50 ML IV STA (13:23)
[2023-07-25] MEDS ORDERED: cefTRIAXone 1,000 MG VIAL IV/IM ONE (13:27)
[2023-07-25 14:10] VITALS: BP 142/95
== END 2023-07-25 14:15 | disposition home or self-care (01) ==
LOC: EDUNIT# 09:25 → ER 09:26
DX: K94.29 Other complications of gastrostomy (principal)
CPT/HCPCS: 36415; 74177; 80053; 81000; 83605; 85025; 86141; 87040; 87070; 87077; 87088; 87186; 87205

== ENCOUNTER 2023-09-11 18:27 | Emergency (ER) | payer MEDICARE, MEDICAID ==
[~2023-09-11] VITALS: Ht 165.1 cm; Wt 77.1 kg
--- NOTE | 2023-09-11 18:52 | ED Fall/Injury ---
General Chief Complaint: Trauma-Non Activation Stated Complaint: FALL Nursing Triage Note: FALL FROM STANDING Source: patient Exam Limitations: no limitations History of Present Illness Date Seen by Provider: Sep 11, 2023 Time Seen by Provider: 18:48 Initial Comments Patient is a 58-year-old female with a history of Parkinson's who presents ED with low back pain and left-sided rib pain. Patient states she fell in the bathroom. She does use a walker to get around. She states she was twisting after getting stuff from the cabinet she twisted and fell hitting the bottom of the fiberglass shower. She denies hitting her head or loss of conscious or on blood thinners. Was brought to ED by EMS. She reports of burning pain to her lower back. She denies taking anything for pain. She does have Parkinson's and has unsteady gait. Patient with actively tremoring. She denies headache, dizziness, chest pain, abdominal pain vomiting or diarrhea. She does report some pain to the left side of ribs and hurts with movement. Denies any lower extremity weakness or sensory changes from the fall. Here with family. Allergies and Home Medications Allergies Coded Allergies: No Known Drug Allergies (Unverified , 06/26/17) Patient Home Medication List Home Medication List Reviewed: Yes Acetaminophen (Tylenol) 325 Mg Capsule, 650 MG PO Q4H PRN for PAIN-MILD (1-4) Prescribed by: WESLY TANNER on 12/17/22 1229 Amitriptyline HCl (Amitriptyline HCl) 100 Mg Tablet, 50 MG PO HS Prescribed by: WESLY TANNER on 12/17/22 1229 Biotin (Biotin) 5 Mg Capsule, 5 MG PO BID Prescribed by: WESLY TANNER on 12/17/22 1229 Carbidopa/Levodopa (Rytary ER 36.25 mg-145 mg Cap) 36.25 Mg-145 Mg Capsule.er, 2 EACH PO 0800,1100,1400,1700,2100 Prescribed by: WESLY TANNER on 12/17/22 1229 Carbidopa/Levodopa (Rytary ER 48.75 mg-195 mg Cap) 48.75 Mg-195 Mg Capsule.er, 1 EACH PO Q6H PRN for PARKINSONS SYMPTOMS Prescribed by: WESLY TANNER on 12/17/22 1229 Cefdinir (Cefdinir) 300 Mg Capsule, 300 MG PO BID Prescribed by: KIRTI GARCIA on 08/02/23 0921 Celecoxib (Celebrex) 200 Mg Capsule, 200 MG PO DAILY Prescribed by: WESLY TANNER on 12/17/22 1229 Chlorhexidine Gluconate (Chlorhexidine Gluconate) 0.12 % Mouthwash, 15 ML MM BID Prescribed by: WESLY TANNER on 12/17/22 1229 Ciprofloxacin HCl (Ciprofloxacin HCl) 500 Mg Tablet, 500 MG PO BID Prescribed by: AVIVA WOOD on 02/13/23 2359 Cyanocobalamin (Vitamin B-12) (Vitamin B-12) 500 Mcg Tablet, 500 MCG PO DAILY Prescribed by: WESLY TANNER on 12/17/22 1229 Cyclobenzaprine HCl (Cyclobenzaprine HCl) 10 Mg Tablet, 10 MG PO Q8H PRN for MUSCLE SPASMS Prescribed by: WESLY TANNER on 12/17/22 1229 Enoxaparin Sodium (Enoxaparin Sodium) 40 Mg/0.4 Ml Syringe, 40 MG SC Q24H Prescribed by: WESLY TANNER on 12/17/22 1229 Gabapentin (Neurontin) 300 Mg Capsule, 300 MG PO DAILY Prescribed by: WESLY TANNER on 12/17/22 1229 Gabapentin (Neurontin) 300 Mg Capsule, 600 MG PO HS Prescribed by: WESLY TANNER on 12/17/22 1229 Gabapentin (Neurontin) 300 Mg Capsule, 900 MG PO 1200 Prescribed by: WESLY TANNER on 12/17/22 1229 Hydrocodone/Acetaminophen (Hydrocodone-Acetamin 5-325 mg) 5 Mg-325 Mg Tablet, 1 TAB PO Q6H PRN for PAIN-MODERATE (5-7) Prescribed by: WESLY TANNER on 12/17/22 1230 Levothyroxine Sodium (Levothyroxine Sodium) 75 Mcg Tablet, 75 MCG PO DAILY Prescribed by: WESLY TANNER on 12/17/22 1229 Loratadine (Loratadine) 10 Mg Tablet, 10 MG PO DAILY Prescribed by: WESLY TANNER on 12/17/22 1229 Lorazepam (Ativan) 0.5 Mg Tablet, 0.5 MG PO DAILY PRN for ANXIETY Prescribed by: WESLY TANNER on 12/17/22 1230 Lorazepam (Ativan) 0.5 Mg Tablet, 0.5 MG PO 1600,1999 Prescribed by: WESLY TANNER on 12/17/22 1230 Menthol (Biofreeze) 4 % Gel..ml., 1 APPLIC TP Q4H PRN for PAIN-BREAKTHROUGH Prescribed by: WESLY TANNER on 12/17/22 1229 Midodrine HCl (Midodrine HCl) 10 Mg Tablet, 10 MG PO 0800,1200 Prescribed by: WESLY TANNER on 12/17/22 1229 Multivitamin (Multi-Vitamin Daily) 1 Each Tablet, 1 EACH PO DAILY Prescribed by: WESLY TANNER on 12/17/22 122 Ondansetron HCl (Ondansetron HCl) 4 Mg Tablet, 4 MG PO Q6H PRN for NAUSEA/VOMITING-1ST LINE Prescribed by: WESLY TANNER on 12/17/22 122 Oxycodone HCl (Oxycodone HCl) 5 Mg Tablet, 5 MG PO Q6H PRN for PAIN-SEVERE (8-10) Prescribed by: WESLY TANNER on 12/17/22 123 Pantoprazole Sodium (Pantoprazole Sodium) 40 Mg Tablet.dr, 40 MG PO DAILY Prescribed by: WESLY TANNER on 12/17/22 122 Pimavanserin Tartrate (Nuplazid) 34 Mg Capsule, 34 MG PO DAILY Prescribed by: WESLY TANNER on 12/17/22 122 Potassium Chloride (Potassium Chloride) 20 Meq Tablet.er, 20 MEQ PO BID Prescribed by: WESLY TANNER on 12/17/22 122 Sennosides/Docusate Sodium (Stool Softener-Laxative Tablet) 8.6 Mg-50 Mg Tablet, 2 EA PO BID Prescribed by: WESLY TANNER on 12/17/22 122 Sertraline HCl (Sertraline HCl) 50 Mg Tablet, 50 MG PO HS Prescribed by: WESLY TANNER on 12/17/22 122 Review of Systems Review of Systems Constitutional: No chills, No diaphoresis, No fever, No malaise, No weakness Eyes: Denies Blurred Vision, Denies Drainage, Denies Decreased Acuity Ears, Nose, Mouth, Throat: denies ear pain, denies ear discharge Respiratory: No cough, No dyspnea on exertion Cardiovascular: No see HPI, No chest pain Gastrointestinal: No abdominal pain, No diarrhea, No vomiting Genitourinary: No decreased output, No discharge Musculoskeletal: back pain, joint pain, muscle pain, muscle stiffness All Other Systems Reviewed Negative Unless Noted: Yes Past Fjeuuzw-Uaurxq-Xiygtl Hx Patient Social History Tobacco Use?: No Substance use?: No Alcohol Use?: No Immunizations Up To Date Tetanus Booster (TDap): Unknown First/Initial COVID19 Vaccinat: YES Second COVID19 Vaccination Anant: YES Third COVID19 Vaccination Date: YES Seasonal Allergies Seasonal Allergies: Yes Past Medical History Surgery/Hospitalization HX: PARKINSON'S, ANXIETY, HYPOTHYROID, GERD, J-TUBE Surgeries: Yes Abdominal, Gallbladder Respiratory: No Cardiac: No Neurological: Yes Headaches /Migraines, Parkinson's Disease, Seizure Disorder 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 Disorders: No Female 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 Disorders: Denies 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 MANCILLA -EGD 02/20/[address] MANCILLA--REFLUX ESOPHAGITIS AND GASTRITIS -GASTRIC SLEEVE 07/03/[address] MANCILLA Family history: non contributory Physical Exam Vital Signs Vital Signs - First Documented 09/11/23 18:28 Temp 36.9 Pulse 92 Resp 16 B/P (MAP) 156/90 (112) Pulse Ox 94 O2 Delivery Room Air Capillary Refill : Less Than 3 Seconds Height, Weight, BMI Height: 5'6.00" Weight: 272lbs. 0.0oz. 123.002208ch; 28.00 BMI Method:Stated General Appearance: WD/WN, other (tremoring, involuntary muscle contraction) HEENT: PERRL/EOMI, normal ENT inspection, TMs normal, pharynx normal Neck: non-tender, full range of motion, supple Cardiovascular: regular rate, rhythm, no edema, no gallop, no JVD Respiratory: lungs clear, normal breath sounds, other (left Sided lateral posterior rib tenderness. No crepitus or step-off. Lung sounds clear bilateral.) Gastrointestinal: normal bowel sounds, non tender, soft, no organomegaly Back: other (Lumbar midline tenderness. Left lumbar paraspinal muscle tenderness. 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, no motor/sensory deficits, alert, normal mood/affect, oriented x 3 Skin: normal color Joceline Coma Score Best Eye Response: (4) Open Spontaneously Best Verbal Response: (5) Oriented Best Motor Response: (6) Obeys Commands Joceline Total: 15 Progress/Results/Core Measures Results/Orders My Orders Orders - MARK KEENAN Ct Lumbar Spine Wo (09/11/23 18:46) Lorazepam Injection (Lorazepam Injection (09/11/23 19:00) Ct Chest Wo (09/11/23 18:46) Pelvis With Left Hip 2-3 Views (09/11/23 18:57) Lorazepam Tablet (Lorazepam Tablet) (09/11/23 19:01) Ketorolac Injection (Ketorolac Injection (09/11/23 20:15) Ketorolac Injection (Ketorolac Injection (09/11/23 20:30) Medications Given in ED Vital Signs/I&O 09/11/23 09/11/23 18:28 20:56 Temp 36.9 Pulse 92 88 Resp 16 16 B/P (MAP) 156/90 (112) 135/104 Pulse Ox 94 94 O2 Delivery Room Air Room Air Departure Communication (PCP) Patient with mechanical fall. She has Parkinson's. Has a unsteady gait. she has chronic tremoring. She is supposed to be in a wheelchair. She did get around today with a walker fell in the bathroom hitting her lower back left- sided ribs on the shower. No loss of consciousness or head injury. She denies blood thinner use. Patient has a burning sensation in her lower spine. No obvious bruising or swelling. She denies of any headache dizziness or lower extremity or upper extremity weakness. Patient with active tremoring. She did receive Ativan to help relax her. CT scan of the chest, lumbar spine and x-ray of the left hip was ordered. CT scan of the chest negative for acute abnorma lity. X-ray of the left hip did not show any acute fracture. CT scan of the lumbar spine shows moderate lumbar degenerative disc and facet disease and acute appearing mildly displaced fractures of left L2-L3 and L4 transverse process. Patient is neurovascular intact. Discussed these results with patient. Discussed with patient transverse process will heal with time and recommend conservative treatment. She has no neurological deficits from the fall suggesting emergent MRI. At this time discussed continue using your wheelchair. Provided neurosurgery outpatient follow-up. If any worsening symptoms such as bowel or urine incontinence, saddle paresthesia, lower extremity weakness return back to ED. Continue with your hydrocodone. Provided these instructions to her family at bedside. Return precaution were discussed. Impression Primary Impression: Multiple transverse process fractures Disposition: HOME, SELF-CARE Condition: Stable Departure-Patient Inst. Decision time for Depature: 20:43 Referrals: MIKY RICHEY MD (PCP/Family) Primary Care Physician Patient Instructions: Fractures Add. Discharge Instructions: At this time recommend pain management. Recommend continue monitoring symptoms. Recommend follow-up your primary care physician for further evaluation. If any unilateral weakness or worsening symptoms return back to ED. take hydrocodone every 4-6 hours for pain. [facility] follow-up recommend contacting their office [phone] for further evaluation. All discharge instructions reviewed with patient and/or family. Voiced understanding. MARK KEENAN Sep 11, 2023 18:52
[2023-09-11] MEDS ORDERED: LORazepam 0.5 MG TABLET PO STA (19:01)
[2023-09-11] MEDS ORDERED: KETOROLAC INJ 30 MG/ML VIAL IVP ONE (20:15)
--- NOTE | 2023-09-11 20:27 | Diagnostic Imaging Report ---
PROCEDURE: CT lumbar spine without contrast. TECHNIQUE: Multiple contiguous axial images were obtained through the lumbar spine without the use of intravenous contrast. Sagittal and coronal reformations were then performed. Auto Exposure Controls were utilized during the CT exam to meet ALARA standards for radiation dose reduction. INDICATION: Low back pain. FINDINGS: The lumbar spinal curvature and alignment are unremarkable. The vertebral body heights and disc spaces are maintained apart from moderate narrowing of the L5-S1 disc space. There is also extensive endplate spurring at L5-S1 causing severe bilateral neuroforaminal stenosis. There is diffuse bulging of the L4-L5 and L3-L4 discs without significant stenosis. There are mildly displaced fractures through the L2, L3, and L4 transverse processes. IMPRESSION: Moderate lumbar degenerative disc and facet disease with acute appearing mildly displaced fractures of the left L2, L3, and L4 transverse processes. Dictated by: Dictated on workstation # [id number]
[2023-09-11] MEDS ORDERED: KETOROLAC INJ 30 MG/ML VIAL IM ONE (20:30)
--- NOTE | 2023-09-11 20:32 | Diagnostic Imaging Report ---
INDICATION: Fall with pelvic and left hip pain. TECHNIQUE: An AP view of the pelvis was obtained with coned AP and frog-leg views of the left hip. FINDINGS: No acute fracture or dislocation is identified. No abnormal lytic or sclerotic focus is seen. There is no radiopaque foreign body. IMPRESSION: No acute abnormality. Dictated by: Dictated on workstation # [id number]
--- NOTE | 2023-09-11 20:33 | Diagnostic Imaging Report ---
PROCEDURE: CT chest without contrast. TECHNIQUE: Multiple contiguous axial images were obtained through the chest without the use of intravenous contrast. Auto Exposure Controls were utilized during the CT exam to meet ALARA standards for radiation dose reduction. INDICATION: Fall with left chest pain. FINDINGS: The lungs are clear. There is no evidence of pneumothorax. No significant pleural fluid is identified. There is no evidence of mediastinal hematoma. There is right convexity curvature of the thoracic spine with diffuse thoracic spondylosis. No acute osseous abnormality is seen. IMPRESSION: No evidence of acute thoracic traumatic injury. Dictated by: Dictated on workstation # [id number]
[2023-09-11 20:56] VITALS: BP 135/104
[2023-09-12] MEDS ORDERED: ACHD5005 PO (13:25)
== END 2023-09-11 20:56 | disposition home or self-care (01) ==
LOC: EDUNIT# 18:27 → ER 18:28
DX: S32.028A Other fracture of second lumbar vertebra, initial encounter for closed fracture (principal); S32.048A Other fracture of fourth lumbar vertebra, initial encounter for closed fracture; R07.81 Pleurodynia; X50.1XXA Overexertion from prolonged static or awkward postures, initial encounter; W18.30XA Fall on same level, unspecified, initial encounter; W22.09XA Striking against other stationary object, initial encounter; Y92.002 Bathroom of unspecified non-institutional (private) residence as the place of occurrence of the external cause
CPT/HCPCS: 71250; 72131; 96372